=== PATIENT | male | born 1935 | race Caucasian/White ===

== ENCOUNTER 2017-06-19 10:55 | Inpatient (IN) | payer MEDICARE ==
[~2017-06-19] VITALS: Ht 182.9 cm; Wt 105.9 kg
[2017-06-19 11:33] LABS: BASO # 0.1 x10^3/uL (0.0-0.2); BASO % 1 % (0-3); EOS # 0.2 x10^3/uL (0.0-0.7); EOS % 3 % (0-3); HEMATOCRIT 48.2 % (39.0-53.0); LYMPH # 1.1 x10^3/uL (1.0-4.8); LYMPH % 14 % (24-48); MEAN CORPUSCULAR HEMOGLOBIN 28 pg (25-35); MEAN CORPUSCULAR HGB CONC 33 g/dL (31-37); MEAN CORPUSCULAR VOLUME 84 fL (79-100); MONO # 0.6 x10^3/uL (0.0-1.1); MONO % 8 % (0-9); NEUT # 5.5 x10^3uL (1.8-7.7); NEUT % 74 % (31-73); PLATELET COUNT 178 x10^3/uL (140-400); RED BLOOD COUNT 5.75 x10^6/uL (4.30-5.70); WHITE BLOOD COUNT 7.4 x10^3/uL (4.0-11.0)
[2017-06-19 11:49] LABS: ALBUMIN 3.8 g/dL (3.4-5.0); ALBUMIN/GLOBULIN RATIO 0.8 (1.0-1.7); CALCIUM 9.4 mg/dL (8.5-10.1); CREATININE 1.7 mg/dL (0.7-1.3); MAGNESIUM 2.2 mg/dL (1.8-2.4); POTASSIUM 4.6 mmol/L (3.5-5.1); TOTAL PROTEIN 8.4 g/dL (6.4-8.2)
[2017-06-19 12:08] LABS: BACTERIA,URINE 0 /HPF (0-FEW); BILIRUBIN,URINE NEG (NEG); CLARITY,URINE CLEAR; COLOR,URINE YELLOW; GLUCOSE,URINE NEG (NEG); NITRITE,URINE NEG (NEG); RBC,URINE RARE /HPF (0-2); SQUAMOUS EPITHELIAL CELL,UR OCC /LPF; UROBILINOGEN,URINE 4 mg/dL (0.2 mg/dL); WBC,URINE RARE /HPF (0-4)
--- NOTE | 2017-06-19 12:13 | PHYS DOC ---
Past History Past Medical History: A-Fib, CHF, Diabetes, Other Past Surgical History: Pacemaker Alcohol Use: None Drug Use: None Adult General Chief Complaint Chief Complaint: PSYCH EVALUATION HPI HPI 81-year-old male patient resident of correction seen for medical clearance for psychiatric admission. Patient states he is here because of back pain that is going on for 2 or 4 weeks without history of fall. [facility] reported that patient had sexual behavior against females and exposed his genital and taking his stool from his depends. Patient denies all of this problems. Patient denies suicidal and homicidal ideation and hallucination. Review of Systems Review of Systems Constitutional: Denies fever or chills [] Eyes: Denies change in visual acuity, redness, or eye pain [] HENT: Denies nasal congestion or sore throat [] Respiratory: Denies cough or shortness of breath [] Cardiovascular: No additional information not addressed in HPI [] GI: Denies abdominal pain, nausea, vomiting, bloody stools or diarrhea [] : Denies dysuria or hematuria [] Musculoskeletal: Denies back pain or joint pain [] Integument: Denies rash or skin lesions [] Neurologic: Denies headache, focal weakness or sensory changes [] Endocrine: Denies polyuria or polydipsia [] All other systems were reviewed and found to be within normal limits, except as documented in this note. Allergies Allergies Allergies Coded Allergies Type Severity Reaction Last Updated Verified No Known Drug Allergies 06/19/17 No Physical Exam Physical Exam Constitutional: Well nourished, no acute distress, non-toxic appearance. [] HENT: Normocephalic, atraumatic, bilateral external ears normal, oropharynx moist, no oral exudates, nose normal. [] Eyes: PERRLA, EOMI, conjunctiva normal, no discharge. [] Neck: Normal range of motion, no tenderness, supple, no stridor. [] Cardiovascular: Irregularly irregular, no murmur [] Lungs & Thorax: Bilateral breath sounds clear to auscultation [] Abdomen: Bowel sounds normal, soft, no tenderness, no masses, no pulsatile masses. [] Skin: Warm, dry, no erythema, no rash. [] for taking X-ray or CT of his back Extremities: No tenderness, no cyanosis, no clubbing, ROM intact, no edema. [] Neurologic: Alert and oriented X 2, normal motor function, normal sensory function, no focal deficits noted. [] Psychologic: Anxious Current Patient Data Vital Signs Vital Signs Date Time Temp Pulse Resp B/P (MAP) Pulse Ox O2 Delivery O2 Flow Rate FiO2 06/19/17 10:55 97.7 67 18 91 Room Air Lab Results Laboratory Tests Test 06/19/17 11:18 White Blood Count 7.4 x10^3/uL (4.0-11.0) Red Blood Count 5.75 x10^6/uL (4.30-5.70) H Hemoglobin 16.0 g/dL (13.0-17.5) Hematocrit 48.2 % (39.0-53.0) Mean Corpuscular Volume 84 fL (79-100) Mean Corpuscular Hemoglobin 28 pg (25-35) Mean Corpuscular Hemoglobin Concent 33 g/dL (31-37) Red Cell Distribution Width 17.0 % (11.5-14.5) H Platelet Count 178 x10^3/uL (140-400) Neutrophils (%) (Auto) 74 % (31-73) H Lymphocytes (%) (Auto) 14 % (24-48) L Monocytes (%) (Auto) 8 % (0-9) Eosinophils (%) (Auto) 3 % (0-3) Basophils (%) (Auto) 1 % (0-3) Neutrophils # (Auto) 5.5 x10^3uL (1.8-7.7) Lymphocytes # (Auto) 1.1 x10^3/uL (1.0-4.8) Monocytes # (Auto) 0.6 x10^3/uL (0.0-1.1) Eosinophils # (Auto) 0.2 x10^3/uL (0.0-0.7) Basophils # (Auto) 0.1 x10^3/uL (0.0-0.2) Sodium Level 138 mmol/L (136-145) Potassium Level 4.6 mmol/L (3.5-5.1) Chloride Level 100 mmol/L (98-107) Carbon Dioxide Level 30 mmol/L (21-32) Anion Gap 8 (6-14) Blood Urea Nitrogen 30 mg/dL (8-26) H Creatinine 1.7 mg/dL (0.7-1.3) H Estimated GFR (Cockcroft-Gault) 39.0 BUN/Creatinine Ratio 18 (6-20) Glucose Level 231 mg/dL (70-99) H Calcium Level 9.4 mg/dL (8.5-10.1) Magnesium Level 2.2 mg/dL (1.8-2.4) Total Bilirubin 1.0 mg/dL (0.2-1.0) Aspartate Amino Transferase (AST) 26 U/L (15-37) Alanine Aminotransferase (ALT) 22 U/L (16-63) Alkaline Phosphatase 125 U/L (46-116) H Total Protein 8.4 g/dL (6.4-8.2) H Albumin 3.8 g/dL (3.4-5.0) Albumin/Globulin Ratio 0.8 (1.0-1.7) L EKG EKG [EKG interpreted by me. EKG at 1149 showed atrial fibrillation at rate of 63 with left axis deviation without acute ST and T wave abnormality Radiology/Procedures Radiology/Procedures [] Course & Med Decision Making Course & Med Decision Making Pertinent Labs studies reviewed. (See chart for details) Evaluation of patient in ER showed 81-year-old male patient presented to ER because of medical clearance for psychiatric admission. Patient obtaining of chronic back pain and diffuse top CT because of position. Labs was unremarkable except for chronic renal insufficiency. Patient was medically cleared for psychiatric admission. Dragon Disclaimer Dragon Disclaimer This electronic medical record was generated, in whole or in part, using a voice recognition dictation system. Departure Departure: Impression: Primary Impression: Medical clearance for psychiatric admission Additional Impressions: Chronic renal insufficiency Diabetes mellitus Atrial fibrillation Disposition: 09 ADMITTED INPATIENT (at 1213 to [facility]) Condition: STABLE Referrals: GABY CLAIRE MD (PCP) Problem Qualifiers MARIA L RAMOS MD Jun 19, 2017 12:13
[2017-06-19 13:54] VITALS: BP 97/60
[2017-06-19] MEDS ORDERED: METHYL SALICYLATE/MENTHOL TOPICAL OINTMENT 29GM TUBE. TP PRN (14:00)
[2017-06-19] MEDS ORDERED: MAG HYDROX/AL HYDROX/SIMETH 30 ML ORAL.SUSP PO PRN (14:00)
[2017-06-19] MEDS ORDERED: MAGNESIUM HYDROXIDE 2,400 MG/30 ML ORAL.SUSP. PO PRN (14:00)
[2017-06-19] MEDS ORDERED: NYST15CR TP ×2 (14:33)
[2017-06-19] MEDS ORDERED: WARF3TAB54 PO (14:33)
[2017-06-19] MEDS ORDERED: POLY2500 PO (14:33)
[2017-06-19] MEDS ORDERED: OXYM30SP NS (14:33)
[2017-06-19] MEDS ORDERED: LOSA50TA6 PO (14:33)
[2017-06-19] MEDS ORDERED: CLOT15CR4 TP (14:33)
[2017-06-19] MEDS ORDERED: LINA5TAB4 PO (14:33)
[2017-06-19] MEDS ORDERED: SIMV10TA3 PO (14:33)
[2017-06-19] MEDS ORDERED: DONE5TAB56 PO (14:33)
[2017-06-19] MEDS ORDERED: LIDO113G2 TP (14:33)
[2017-06-19] MEDS ORDERED: HYDR25SU18 RC (14:33)
[2017-06-19] MEDS ORDERED: POTA10TA10 PO (14:33)
[2017-06-19] MEDS ORDERED: MELA3TAB2 PO (14:33)
[2017-06-19] MEDS ORDERED: LORA0.5T PO (14:33)
[2017-06-19] MEDS ORDERED: ACET325T9 PO (14:33)
[2017-06-19] MEDS ORDERED: LACT1CAP29 PO (14:33)
[2017-06-19] MEDS ORDERED: FURO40TA4 PO (14:33)
[2017-06-19] MEDS ORDERED: METO50TA6 PO (14:33)
[2017-06-19] MEDS ORDERED: GLIM2TAB2 PO (14:33)
--- NOTE | 2017-06-19 16:14 | EKG ---
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
[2017-06-19 16:40] VITALS: BP 118/65
[2017-06-19] MEDS: GLIMEPIRIDE 2 MG TABLET PO SCH (17:00)
--- NOTE | 2017-06-19 19:52 | PDOC ---
Exam Note: Shady Note: Please also refer to the separate dictated note~for this date of service dictated separately.~Patient seen individually. Discussed the patient with Nursing staff reviewed the chart.~Reviewed interim history and current functioning. Reviewed vital signs,~Labs/ Radiology~and current medications noted below. Continue current treatment with the changes noted in the dictated addendum note Assessment: Vital Signs: Vital Signs Date Time Temp Pulse Resp B/P (MAP) Pulse Ox O2 Delivery O2 Flow Rate FiO2 06/19/17 16:40 97.3 80 19 118/65 (82) 94 06/19/17 10:55 Room Air Labs: Laboratory Tests Test 06/19/17 11:18 06/19/17 11:45 06/19/17 15:24 06/19/17 19:06 White Blood Count 7.4 x10^3/uL (4.0-11.0) Red Blood Count 5.75 x10^6/uL (4.30-5.70) H Hemoglobin 16.0 g/dL (13.0-17.5) Hematocrit 48.2 % (39.0-53.0) Mean Corpuscular Volume 84 fL (79-100) Mean Corpuscular Hemoglobin 28 pg (25-35) Mean Corpuscular Hemoglobin Concent 33 g/dL (31-37) Red Cell Distribution Width 17.0 % (11.5-14.5) H Platelet Count 178 x10^3/uL (140-400) Neutrophils (%) (Auto) 74 % (31-73) H Lymphocytes (%) (Auto) 14 % (24-48) L Monocytes (%) (Auto) 8 % (0-9) Eosinophils (%) (Auto) 3 % (0-3) Basophils (%) (Auto) 1 % (0-3) Neutrophils # (Auto) 5.5 x10^3uL (1.8-7.7) Lymphocytes # (Auto) 1.1 x10^3/uL (1.0-4.8) Monocytes # (Auto) 0.6 x10^3/uL (0.0-1.1) Eosinophils # (Auto) 0.2 x10^3/uL (0.0-0.7) Basophils # (Auto) 0.1 x10^3/uL (0.0-0.2) Sodium Level 138 mmol/L (136-145) Potassium Level 4.6 mmol/L (3.5-5.1) Chloride Level 100 mmol/L (98-107) Carbon Dioxide Level 30 mmol/L (21-32) Anion Gap 8 (6-14) Blood Urea Nitrogen 30 mg/dL (8-26) H Creatinine 1.7 mg/dL (0.7-1.3) H Estimated GFR (Cockcroft-Gault) 39.0 BUN/Creatinine Ratio 18 (6-20) Glucose Level 231 mg/dL (70-99) H Calcium Level 9.4 mg/dL (8.5-10.1) Magnesium Level 2.2 mg/dL (1.8-2.4) Total Bilirubin 1.0 mg/dL (0.2-1.0) Aspartate Amino Transferase (AST) 26 U/L (15-37) Alanine Aminotransferase (ALT) 22 U/L (16-63) Alkaline Phosphatase 125 U/L (46-116) H Total Protein 8.4 g/dL (6.4-8.2) H Albumin 3.8 g/dL (3.4-5.0) Albumin/Globulin Ratio 0.8 (1.0-1.7) L Urine Collection Type Unknown Urine Color Yellow Urine Clarity Clear Urine pH 5.5 Urine Specific [place] 1.015 Urine Protein 100 mg/dl (NEG-TRACE) Urine Glucose (UA) Neg mg/dL (NEG) Urine Ketones (Stick) Neg mg/dL (NEG) Urine Blood Trace (NEG) Urine Nitrite Neg (NEG) Urine Bilirubin Neg (NEG) Urine Urobilinogen Dipstick 4 mg/dL (0.2 mg/dL) Urine Leukocyte Esterase Neg (NEG) Urine RBC Rare /HPF (0-2) Urine WBC Rare /HPF (0-4) Urine Squamous Epithelial Cells Occ /LPF Urine Transitional Epithelial Cells Occ /LPF Urine Bacteria 0 /HPF (0-FEW) Prothrombin Time 25.0 SEC (9.4-11.4) H Prothrombin Time INR 2.5 (0.9-1.1) H Glucose (Fingerstick) 203 mg/dL (70-99) H Current Medications: Meds: Current Medications Acetaminophen (Tylenol) 650 mg PRN Q6HRS PRN PO PAIN / TEMP; Start 06/19/17 at 14:00 Multi-Ingredient Ointment (Analgesic [place]) 1 tori PRN QID PRN TP MUSCLE PAIN; Start 06/19/17 at 14:00 Al Hydroxide/Mg Hydroxide (Mylanta Plus Xs) 15 ml PRN AFTMEALHC PRN PO DYSPEPSIA; Start 06/19/17 at 14:00 Magnesium Hydroxide (Milk Of Magnesia) 2,400 mg PRN QHS PRN PO CONSTIPATION; Start 06/19/17 at 14:00 Donepezil HCl (Aricept) 5 mg QHS PO ; Start 06/19/17 at 21:00 Lorazepam (Ativan) 0.5 mg BID PO ; Start 06/19/17 at 21:00 Melatonin 6 mg QHS PO ; Start 06/19/17 at 21:00 Glimepiride (Amaryl) 2 mg BIDWMEALS PO ; Start 06/19/17 at 17:00 Metoprolol Tartrate (Lopressor) 50 mg BID PO ; Start 06/19/17 at 21:00 Warfarin Sodium (Coumadin) 2.5 mg QHS PO ; Start 06/19/17 at 21:00 Warfarin Sodium (Coumadin Per Physician) 1 each PRN DAILY PRN MC SEE COMMENTS Last administered on 06/19/17at 16:02; Start 06/19/17 at 16:00 Warfarin Sodium (Coumadin) 1 mg QHS PO ; Start 06/19/17 at 21:00 Active Scripts Active Reported Tradjenta (Linagliptin) 5 Mg Tablet 5 Mg PO DAILY Simvastatin 10 Mg Tablet 10 Mg PO DAILY Probiotic (Lactobacillus Combo No.10) 1 Each Capsule 1 Each PO Potassium Chloride 10 Meq Tablet.er 20 Meq PO DAILY Nystatin 15 Gm Cream..g. 1 Tori TP DAILY Sinus Nasal (Oxymetazoline Hcl) 30 Ml [place] 1 [place] NS PRN Q6HRS PRN Metoprolol Tartrate 50 Mg Tablet 50 Mg PO BID Melatonin 3 Mg Tablet 6 Mg PO HS Losartan Potassium 50 Mg Tablet 50 Mg PO DAILY Lorazepam 0.5 Mg Tablet 0.5 Mg PO BID Topicaine (Lidocaine) 113 Gm Gel..gram. 1 Tori TP DAILY Polyethylene Glycol 3350 2,500 Gm Powder 17 Gm PO DAILY Glimepiride 2 Mg Tablet 2 Mg PO BID Furosemide 40 Mg Tablet 40 Mg PO DAILY Coumadin (Warfarin Sodium) 3 Mg Tablet 3.5 Mg PO QHS Clotrimazole 15 Gm Cream..g. 15 Gm TP BID Aricept (Donepezil Hcl) 5 Mg Tablet 5 Mg PO QHS Anusol-Hc (Hydrocortisone Acetate) 25 Mg Supp.rect 1 Supp RC PRN Q8HRS PRN Tylenol (Acetaminophen) 325 Mg Tablet 650 Mg PO PRN Q4HRS PRN I have reviewed the current psychotropics carefully including drug interactions. Risk benefit ratio favors no change other than as noted in my dictated progress note. 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
[2017-06-19] MEDS: ACETAMINOPHEN 325 MG TABLET PO PRN (20:19)
[2017-06-19] MEDS: METOPROLOL TART IMMED RELEASE 50 MG TABLET PO SCH (20:20)
[2017-06-19] MEDS: WARFARIN 1 MG TABLET. PO SCH (20:21)
[2017-06-19] MEDS: MELATONIN 3 MG TABLET PO SCH (20:21)
[2017-06-19] MEDS: DONEPEZIL HCL 5 MG TABLET. PO SCH (20:21)
[2017-06-19] MEDS: LORazepam 0.5 MG TABLET PO SCH (20:21)
[2017-06-19] MEDS: WARFARIN 2.5 MG TABLET. PO SCH (20:21)
[2017-06-20 03:11] LABS: T3 TOTAL 110 ng/dL (71-180)
[2017-06-20 06:09] LABS: HEMOGLOBIN A1C 6.3 % (4.8-5.6)
[2017-06-20 06:18] VITALS: BP 126/76
[2017-06-20] MEDS: GLIMEPIRIDE 2 MG TABLET PO SCH ×2 (09:27→17:04)
[2017-06-20] MEDS: LORazepam 0.5 MG TABLET PO SCH ×2 (09:28→20:21)
[2017-06-20] MEDS: METOPROLOL TART IMMED RELEASE 50 MG TABLET PO SCH ×2 (09:28→20:14)
[2017-06-20] MEDS: ACETAMINOPHEN 325 MG TABLET PO PRN (09:28)
[2017-06-20] MEDS ORDERED: OXYMETAZOLINE 0.05% NASAL SPRAY 15ML BOTTLE. NS PRN (10:15)
[2017-06-20] MEDS ORDERED: HYDROCORTISONE ACETATE 25 MG SUPP.RECT RC PRN (10:15)
[2017-06-20] MEDS: NYSTATIN 100,000 UNIT/GM TOPICAL CREAM 15GM TUBE. TP SCH (12:00)
[2017-06-20] MEDS: traMADol 50 MG TABLET PO PRN (12:07)
[2017-06-20] MEDS: LOSARTAN 50 MG TABLET. PO SCH (12:07)
[2017-06-20] MEDS: POTASSIUM CHLORIDE 20 MEQ TABLET.ER. PO SCH (12:07)
[2017-06-20] MEDS: LINAGLIPTIN 5 MG TABLET PO SCH (12:07)
[2017-06-20] MEDS: FUROSEMIDE 40 MG TABLET PO SCH (12:07)
[2017-06-20] MEDS: POLYETHYLENE GLYCOL 3350 17 GM PACKET. PO SCH (12:08)
[2017-06-20] MEDS: LIDOCAINE (700MG/PATCH) PATCH. TD SCH (12:08)
[2017-06-20] MEDS: LIDOCAINE 2% TOPICAL JELLY 30GM TUBE. TP SCH (12:08)
[2017-06-20] MEDS: QUEtiapine 25 MG TABLET. PO SCH ×2 (12:21→17:04)
--- NOTE | 2017-06-20 13:54 | HP ---
ADMIT DATE: 06/19/2017 REASON FOR ADMISSION TO [facility]IOR [facility]: This is an 81-year-old gentleman who resides at the [facility] in [place], [place]. He has been undressing himself, sexually inappropriate with staff, provocative, refusing care, refusing meds, obsessed with the bathroom and toilet paper and also obsessed with what he describes as low back pain. Reviewed back some of the nurse's notes and this is going back to the intake 62 months, but I saw a note from February with the same complaint. He has been at the [facility] since August of 2016. PAST MEDICAL HISTORY: Congestive heart failure, atrial fibrillation, iron deficiency. The patient states he has a [employer] Lucas's artificial heart valve, chronic kidney disease, hyperlipidemia, type 2 diabetes. FUNCTIONALITY: The patient states he can walk, but likes to use a wheelchair because it gets him around faster. MEDICATIONS: Reviewed and are available on the MAR. REVIEW OF SYSTEMS: Positive for low back pain what he states he has had for 2-3 weeks. He requested oxycodone. Attempted to do a CAT scan in the Emergency Room, which he refused to have done, but is quite fixated on the low back pain and actually had come out of the bathroom when I walked into his room. HABITS: The patient no longer smokes, quit 20 years ago. Denies any problems with alcohol. 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 PAST SURGICAL HISTORY: Tonsillectomy, pacemaker, and possible heart valve replacement. OBJECTIVE: VITAL SIGNS: Blood pressure 126/76, temperature 97, pulse 86, pulse ox 94% on room air. Height 72 inches, weight 229 pounds. GENERAL: Elderly 81-year-old in no acute distress. HEENT: Head is normocephalic. His eyes are clear. Nose is patent. Throat clear. NECK: Supple without adenopathy, did not hear any carotid bruits. LUNGS: Clear in all [place]. CARDIOVASCULAR: Regular rhythm and rate with crisp valvular sound particularly in the aortic area. ABDOMEN: Soft, nontender. EXTREMITIES: With significant skin changes from chronic venous insufficiency, no hair growth on his feet. Pulses barely palpable. MUSCULOSKELETAL: The patient has loss of a normal lordosis of his back and has back pain over the sacroiliac joints. Fails get up and go test. Cranial nerves, he is able to follow directions and appear to be intact. Mildly hard of hearing. LABORATORY DATA: CBC unremarkable. Hemoglobin A1c 6.3, BUN 30, creatinine 1.7. INR is 2.5. ASSESSMENT: 1. 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 2. [employer] Lucas's aortic valve. 3. Long-term use of anticoagulants. 4. Impaired mobility. 5. Atrial fibrillation. 6. Type 2 diabetes, good control. 7. Fall risk. 8. Low back pain, questionable etiology. PLAN: To try to get him to the CT of his lumbar spine. Tramadol. I did not feel comfortable prescribing oxycodone. Also, a lidocaine patch. We will continue to follow with Dr. Patterson. AYAAN MUNOZ MD DR: JOSE FRANCISCO/yovana JOB#: [id number] / [id number]
[2017-06-20 14:12] LABS: THYROID STIM HORMONE (TSH) 3.054 uIU/mL (0.358-3.740)
--- NOTE | 2017-06-20 14:40 | HP ---
ADMIT DATE: 06/19/2017 REASON FOR ADMISSION TO S[facility]IOR [facility]AL UN[facility]: This is an 81-year-old gentleman who resides at the [facility] in [place], [place]. He has been undressing himself, sexually inappropriate with staff, provocative, refusing care, refusing meds, obsessed with the bathroom and toilet paper and also obsessed with what he describes as low back pain. Reviewed back some of the nurse's notes and this is going back to the intake 62 months, but I saw a note from February with the same complaint. He has been at the [facility] since August of 2016. PAST MEDICAL HISTORY: Congestive heart failure, atrial fibrillation, iron deficiency. The patient states he has a [employer] Lucas's artificial heart valve, chronic kidney disease, hyperlipidemia, type 2 diabetes. FUNCTIONALITY: The patient states he can walk, but likes to use a wheelchair because it gets him around faster. MEDICATIONS: Reviewed and are available on the MAR. REVIEW OF SYSTEMS: Positive for low back pain what he states he has had for 2-3 weeks. He requested oxycodone. Attempted to do a CAT scan in the Emergency Room, which he refused to have done, but is quite fixated on the low back pain and actually had come out of the bathroom when I walked into his room. HABITS: The patient no longer smokes, quit 20 years ago. Denies any problems with alcohol. 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 PAST SURGICAL HISTORY: Tonsillectomy, pacemaker, and possible heart valve replacement. OBJECTIVE: VITAL SIGNS: Blood pressure 126/76, temperature 97, pulse 86, pulse ox 94% on room air. Height 72 inches, weight 229 pounds. GENERAL: Elderly 81-year-old in no acute distress. HEENT: Head is normocephalic. His eyes are clear. Nose is patent. Throat clear. NECK: Supple without adenopathy, did not hear any carotid bruits. LUNGS: Clear in all m[place]ull[place]. CARDIOVASCULAR: Regular rhythm and rate with crisp valvular sound particularly in the aortic area. ABDOMEN: Soft, nontender. EXTREMITIES: With significant skin changes from chronic venous insufficiency, no hair growth on his feet. Pulses barely palpable. MUSCULOSKELETAL: The patient has loss of a normal lordosis of his back and has back pain over the sacroiliac joints. Fails get up and go test. Cranial nerves, he is able to follow directions and appear to be intact. Mildly hard of hearing. LABORATORY DATA: CBC unremarkable. Hemoglobin A1c 6.3, BUN 30, creatinine 1.7. INR is 2.5. ASSESSMENT: 1. 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 2. [facility]. Lucas's aortic valve. 3. Long-term use of anticoagulants. 4. Impaired mobility. 5. Atrial fibrillation. 6. Type 2 diabetes, good control. 7. Fall risk. 8. Low back pain, questionable etiology. PLAN: To try to get him to the CT of his lumbar spine. Tramadol. I did not feel comfortable prescribing oxycodone. Also, a lidocaine patch. We will continue to follow with Dr. Patterson. KRISTA DE GUZMAN DO DR: RONNY/yovana JOB#: [id number] / [id number]
[2017-06-20 16:21] VITALS: BP 121/63
--- NOTE | 2017-06-20 16:48 | RAD ---
CT of the lumbar spine without contrast, 06/20/2017: History: Severe back pain Noncontrast scans were obtained with multiplanar reconstructions produced. No previous studies are available at this time for comparison purposes. There is a severe vertebral compression deformity at T12 which is incompletely delineated on these scans. There is gas within the compressed vertebral body and the adjacent T11-12 disc space presumably on a vacuum basis. There is a moderate vertebral compression deformity at L1. There is poor definition of the inferior endplate compatible with bony resorption and/or a large Schmorl's defect. There is mild posterior disc bulging and marginal spurring at L1-2 without significant central spinal stenosis. The L2 vertebral height is well maintained. There are moderate degenerative changes involving the facet joints at L2-3. There is mild posterior disc bulging and marginal spurring. No significant central spinal stenosis is evident. There is mild loss of height of the L3 vertebral body. There are moderate degenerative changes involving the facet joints at L3-4. There is mild posterior disc bulging. No high-grade central spinal or foraminal stenosis is evident. The L4 and L5 vertebral heights are well-maintained. There is moderate degenerative disc disease and bilateral facet joint arthropathy at both of these levels. The spurring is causing moderate bilateral foraminal encroachment at L5-S1. No significant central spinal stenosis is evident. Moderate aortoiliac calcific plaquing is present without evidence of aneurysm. IMPRESSION: 1. Severe T12 vertebral compression fracture, moderate L1 vertebral compression fracture and mild L3 vertebral compression fracture of indeterminate ages. 2. Moderate multilevel degenerative change as described above PQRS Compliance Statement: One or more of the following individualized dose reduction techniques were utilized for this examination: 1. Automated exposure control 2. Adjustment of the mA and/or kV according to patient size 3. Use of iterative reconstruction technique
--- NOTE | 2017-06-20 19:46 | PDOC ---
Exam Note: Shady Note: Please also refer to the separate dictated note~for this date of service dictated separately.~Patient seen individually. Discussed the patient with Nursing staff reviewed the chart.~Reviewed interim history and current functioning. Reviewed vital signs,~Labs/ Radiology~and current medications noted below. Continue current treatment with the changes noted in the dictated addendum note Assessment: Vital Signs: Vital Signs Date Time Temp Pulse Resp B/P (MAP) Pulse Ox O2 Delivery O2 Flow Rate FiO2 06/20/17 16:21 97.9 80 20 121/63 (82) 92 Room Air I&O Intake and Output 06/20/17 07:00 Intake Total 240 ml Balance 240 ml Intake Oral 240 ml # Voids 2 Labs: Laboratory Tests Test 06/20/17 07:17 06/20/17 19:18 Glucose (Fingerstick) 130 mg/dL (70-99) H 174 mg/dL (70-99) H Current Medications: Meds: Current Medications Acetaminophen (Tylenol) 650 mg PRN Q6HRS PRN PO PAIN / TEMP Last administered on 06/20/17at 09:28; Start 06/19/17 at 14:00; Stop 06/20/17 at 10:20; Status DC Multi-Ingredient Ointment (Analgesic [place]) 1 tori PRN QID PRN TP MUSCLE PAIN; Start 06/19/17 at 14:00 Al Hydroxide/Mg Hydroxide (Mylanta Plus Xs) 15 ml PRN AFTMEALHC PRN PO DYSPEPSIA; Start 06/19/17 at 14:00 Magnesium Hydroxide (Milk Of Magnesia) 2,400 mg PRN QHS PRN PO CONSTIPATION; Start 06/19/17 at 14:00 Donepezil HCl (Aricept) 5 mg QHS PO Last administered on 06/19/17at 20:21; Start 06/19/17 at 21:00 Lorazepam (Ativan) 0.5 mg BID PO Last administered on 06/20/17at 09:28; Start at 21:00 Melatonin 6 mg QHS PO Last administered on 06/19/17at 20:21; Start 06/19/17 at 21:00 Glimepiride (Amaryl) 2 mg BIDWMEALS PO Last administered on 06/20/17at 17:04; Start 06/19/17 at 17:00 Metoprolol Tartrate (Lopressor) 50 mg BID PO Last administered on 06/20/17at 09: 28; Start 06/19/17 at 21:00 Warfarin Sodium (Coumadin) 2.5 mg QHS PO Last administered on 06/19/17at 20:21; Start 06/19/17 at 21:00 Warfarin Sodium (Coumadin Per Physician) 1 each PRN DAILY PRN MC SEE COMMENTS Last administered on 06/20/17at 10:54; Start 06/19/17 at 16:00; Stop 06/20/17 at 14:41; Status DC Warfarin Sodium (Coumadin) 1 mg QHS PO Last administered on 06/19/17at 20:21; Start 06/19/17 at 21:00 Acetaminophen (Tylenol) 650 mg PRN Q4HRS PRN PO PAIN; Start 06/20/17 at 10:15 Clotrimazole (Lotrimin) 15 tori BID TP ; Start 06/20/17 at 21:00 Furosemide (Lasix) 40 mg DAILY PO Last administered on 06/20/17at 12:07; Start 06/20/17 at 12:00 Hydrocortisone Acetate (Anucort-Hc) 25 mg PRN Q8HRS PRN RC hemmorhoid discomfort; Start 06/20/17 at 10:15 Linagliptin (Tradjenta) 5 mg DAILY PO Last administered on 06/20/17at 12:07; Start 06/20/17 at 12:00 Losartan Potassium (Cozaar) 50 mg DAILY PO Last administered on 06/20/17at 12:07 ; Start 06/20/17 at 12:00 Nystatin (Mycostatin) 1 tori DAILY TP ; Start 06/20/17 at 12:00 Oxymetazoline HCl (Afrin) 1 spray PRN Q6HRS PRN NS dry nares Last administered on 06/20/17at 12:08; Start 06/20/17 at 10:15 Simvastatin (Zocor) 10 mg QHS PO ; Start 06/20/17 at 21:00 Lidocaine HCl (Xylocaine 2% Topical 30gm Tube) 1 tori DAILY TP Last administered on 06/20/17at 12:08; Start 06/20/17 at 12:00 Polyethylene Glycol (miraLAX) 17 gm DAILY PO Last administered on 06/20/17at 12: 08; Start 06/20/17 at 12:00 Potassium Chloride (Klor-Con) 20 meq DAILYWBKFT PO Last administered on at 12:07; Start 06/20/17 at 12:00 Quetiapine Fumarate (SEROquel) 12.5 mg TID@0900,1300,1700 PO Last administered on 06/20/17at 17:04; Start 06/20/17 at 13:00 Trazodone HCl (Desyrel) 50 mg QHS PO ; Start 06/20/17 at 21:00 Trazodone HCl (Desyrel) 50 mg PRN QHS PRN PO insomnia; Start 06/20/17 at 21:00 Tramadol HCl (Ultram) 50 mg PRN Q6HRS PRN PO PAIN Last administered on at 12:07; Start 06/20/17 at 11:15 Lidocaine (Lidoderm) 1 patch DAILY TD Last administered on 06/20/17at 12:08; Start 06/20/17 at 12:00 Warfarin Sodium (Coumadin Per Pharmacy) 1 each PRN DAILY PRN MC SEE COMMENTS; Start 06/20/17 at 14:45 Active Scripts Active Reported Tradjenta (Linagliptin) 5 Mg Tablet 5 Mg PO DAILY Simvastatin 10 Mg Tablet 10 Mg PO DAILY Probiotic (Lactobacillus Combo No.10) 1 Each Capsule 1 Each PO Potassium Chloride 10 Meq Tablet.er 20 Meq PO DAILY Nystatin 15 Gm Cream..g. 1 Tori TP DAILY Sinus Nasal (Oxymetazoline Hcl) 30 Ml [place] 1 [place] NS PRN Q6HRS PRN Metoprolol Tartrate 50 Mg Tablet 50 Mg PO BID Melatonin 3 Mg Tablet 6 Mg PO HS Losartan Potassium 50 Mg Tablet 50 Mg PO DAILY Lorazepam 0.5 Mg Tablet 0.5 Mg PO BID Topicaine (Lidocaine) 113 Gm Gel..gram. 1 Tori TP DAILY Polyethylene Glycol 3350 2,500 Gm Powder 17 Gm PO DAILY Glimepiride 2 Mg Tablet 2 Mg PO BID Furosemide 40 Mg Tablet 40 Mg PO DAILY Coumadin (Warfarin Sodium) 3 Mg Tablet 3.5 Mg PO QHS Clotrimazole 15 Gm Cream..g. 15 Gm TP BID Aricept (Donepezil Hcl) 5 Mg Tablet 5 Mg PO QHS Anusol-Hc (Hydrocortisone Acetate) 25 Mg Supp.rect 1 Supp RC PRN Q8HRS PRN Tylenol (Acetaminophen) 325 Mg Tablet 650 Mg PO PRN Q4HRS PRN I have reviewed the current psychotropics carefully including drug interactions. Risk benefit ratio favors no change other than as noted in my dictated progress note. Diagnosis: Problems: (1) Psychosis (2) Anxiety disorder (3) Bipolar affective, mixed, sev w/ psych (4) Dementia in Alzheimer's disease with delusions (5) Impulse control disorder MIMI MCNULTY MD Jun 20, 2017 19:46
[2017-06-20] MEDS: MELATONIN 3 MG TABLET PO SCH (20:14)
[2017-06-20] MEDS: DONEPEZIL HCL 5 MG TABLET. PO SCH (20:14)
[2017-06-20] MEDS: WARFARIN 2.5 MG TABLET. PO SCH (20:15)
[2017-06-20] MEDS: WARFARIN 1 MG TABLET. PO SCH (20:15)
--- NOTE | 2017-06-20 20:16 | HP ---
ADMIT DATE: 06/19/2017 This is a late entry for 06/19/2017 and covers elements not covered in my initial note of 06/19/2017. I met with the patient evening of 06/19/2017. IDENTIFYING DATA: The patient is an 81-year-old male who is referred to us from [facility] by Dr. Dickerson, primary care physician on account of worsening mood swings, undressing repeatedly, sexually inappropriate behaviors with staff, being provocative, refusing cares and medications, obsessed with bathroom and toilet paper. He has been digging his bowels from soiled briefs. All of these behaviors have worsened for the past 2 months. He has failed outpatient psychiatric interventions. Behaviors deemed dangerous, unmanageable at the facility resulting in this referral. CHIEF COMPLAINT: "I have no problems." The patient is in his wheelchair, quite abrasive, grandiose, the nursing report appears quite entitled, obsessive, repetitive with low cognitive functioning. HISTORY OF PRESENT ILLNESS: The patient has a history of above noted behaviors which have been sexually inappropriate and unmanageable, potentially dangerous at the intermediate. He has had sleep and appetite changes, appeared somewhat grandiose, delusional, paranoid. No suicidal or homicidal ideation. PAST PSYCHIATRIC HISTORY: As above. MEDICAL HISTORY: CHF, hypertension, impaired ambulation, hyperlipidemia, mild cognitive disorder, atrial fibrillation, iron deficiency, diabetes mellitus type 2, chronic kidney disease, coronary artery disease, pacemaker in place. Accu-Cheks b.i.d. Diet: Regular with thin liquids. CODE STATUS: DNR. DRUG ALLERGIES: Negative. Ambulates with wheelchair, but refuses to propel himself. UA negative. CURRENT PSYCHOTROPICS: Aricept 5 mg a day, Ativan 0.5 mg b.i.d., melatonin 6 mg at bedtime. FAMILY HISTORY: Noncontributory. SOCIAL HISTORY: No alcohol, drug abuse, physical, sexual or elder abuse history is noted. Not known to be a perpetrator. MENTAL STATUS EXAMINATION: The patient was seen individually evening of 06/19/2017. He is oriented to himself and situation. Speech has some latency, at times pressured. Abstraction fair, computation impaired, language function intact, insight limited. No active suicidal or homicidal ideation. He appears quite grandiose, repeatedly calling me to sit down with them even after I had met with him for the initial with it. ASSETS: Stable living at the above facility. REACTION TO HOSPITALIZATION: The patient accepting of it. IMPRESSION: Probable bipolar 1 disorder, mixed with psychotic features, mild cognitive impairment; impulse control disorder, unspecified; psychotic disorder, unspecified. Rest as above. PLAN: Admit to geropsychiatry unit at [facility]. I will see the patient daily individually from a psychiatric standpoint, medical followup per Dr. Veliz/Dr. Lewis. Continue current psychotropics, observe baseline, then adjust further as clinically indicated. May consider a mood stabilizer or an atypical antipsychotic depending on presenting symptoms. MAN Raquel MCNULTY MD DR: CHERIE/nts JOB#: [id number] / [id number]
[2017-06-20] MEDS: traZODone 50 MG TABLET. PO SCH (20:17)
[2017-06-20] MEDS: SIMVASTATIN 10 MG TABLET PO SCH (20:17)
[2017-06-20] MEDS: CLOTRIMAZOLE 1% TOPICAL CREAM 30GM TUBE. TP SCH (20:21)
[2017-06-20] MEDS ORDERED: traZODone 50 MG TABLET. PO PRN (21:00)
[2017-06-20] MEDS ORDERED: CLOTRIMAZOLE 1% TOPICAL CREAM 30GM TUBE. TP SCH (21:00)
[2017-06-21 06:12] VITALS: BP 120/64
[2017-06-21] MEDS: LIDOCAINE (700MG/PATCH) PATCH. TD SCH ×3 (08:19→15:46)
[2017-06-21] MEDS: POLYETHYLENE GLYCOL 3350 17 GM PACKET. PO SCH (08:19)
[2017-06-21] MEDS: LINAGLIPTIN 5 MG TABLET PO SCH (08:20)
[2017-06-21] MEDS: FUROSEMIDE 40 MG TABLET PO SCH (08:20)
[2017-06-21] MEDS: METOPROLOL TART IMMED RELEASE 50 MG TABLET PO SCH ×2 (08:20→19:50)
[2017-06-21] MEDS: POTASSIUM CHLORIDE 20 MEQ TABLET.ER. PO SCH (08:20)
[2017-06-21] MEDS: GLIMEPIRIDE 2 MG TABLET PO SCH ×2 (08:20→17:21)
[2017-06-21] MEDS: QUEtiapine 25 MG TABLET. PO SCH ×3 (08:21→17:24)
[2017-06-21] MEDS: LOSARTAN 50 MG TABLET. PO SCH (08:21)
[2017-06-21] MEDS: LORazepam 0.5 MG TABLET PO SCH ×2 (08:22→19:50)
[2017-06-21] MEDS: ACETAMINOPHEN 325 MG TABLET PO PRN (08:26)
[2017-06-21] MEDS: LIDOCAINE 2% TOPICAL JELLY 30GM TUBE. TP SCH (08:26)
[2017-06-21] MEDS: traMADol 50 MG TABLET PO PRN (08:26)
[2017-06-21] MEDS: CLOTRIMAZOLE 1% TOPICAL CREAM 30GM TUBE. TP SCH ×2 (08:51→19:51)
[2017-06-21] MEDS: NYSTATIN 100,000 UNIT/GM TOPICAL CREAM 15GM TUBE. TP SCH (09:00)
[2017-06-21] MEDS: CHOLECALCIFEROL (VITAMIN D3) 50,000 UNIT CAPSULE PO SCH (15:45)
[2017-06-21 15:58] VITALS: BP 112/58
[2017-06-21] MEDS ORDERED: WARFARIN 5 MG TABLET. PO ONE (16:00)
--- NOTE | 2017-06-21 19:29 | PDOC ---
Exam Note: Shady Note: Please also refer to the separate dictated note~for this date of service dictated separately.~Patient seen individually. Discussed the patient with Nursing staff reviewed the chart.~Reviewed interim history and current functioning. Reviewed vital signs,~Labs/ Radiology~and current medications noted below. Continue current treatment with the changes noted in the dictated addendum note Assessment: Vital Signs: Vital Signs Date Time Temp Pulse Resp B/P (MAP) Pulse Ox O2 Delivery O2 Flow Rate FiO2 06/21/17 15:58 97.1 60 18 112/58 (76) 95 06/20/17 16:21 Room Air I&O Intake and Output 06/21/17 07:00 Intake Total 1200 ml Balance 1200 ml Intake Oral 1200 ml # Voids 2 Labs: Laboratory Tests Test 06/21/17 07:31 06/21/17 09:13 06/21/17 19:13 Glucose (Fingerstick) 136 mg/dL (70-99) H 183 mg/dL (70-99) H Prothrombin Time 21.2 SEC (9.4-11.4) H Prothrombin Time INR 2.1 (0.9-1.1) H Current Medications: Meds: Current Medications Acetaminophen (Tylenol) 650 mg PRN Q6HRS PRN PO PAIN / TEMP Last administered on 06/20/17at 09:28; Start 06/19/17 at 14:00; Stop 06/20/17 at 10:20; Status DC Multi-Ingredient Ointment (Analgesic [place]) 1 tori PRN QID PRN TP MUSCLE PAIN; Start 06/19/17 at 14:00 Al Hydroxide/Mg Hydroxide (Mylanta Plus Xs) 15 ml PRN AFTMEALHC PRN PO DYSPEPSIA; Start 06/19/17 at 14:00 Magnesium Hydroxide (Milk Of Magnesia) 2,400 mg PRN QHS PRN PO CONSTIPATION; Start 06/19/17 at 14:00 Donepezil HCl (Aricept) 5 mg QHS PO Last administered on 06/20/17at 20:14; Start 06/19/17 at 21:00 Lorazepam (Ativan) 0.5 mg BID PO Last administered on 06/21/17at 08:22; Start at 21:00 Melatonin 6 mg QHS PO Last administered on 06/20/17at 20:14; Start 06/19/17 at 21:00 Glimepiride (Amaryl) 2 mg BIDWMEALS PO Last administered on 06/21/17at 17:21; Start 06/19/17 at 17:00 Metoprolol Tartrate (Lopressor) 50 mg BID PO Last administered on 06/21/17at 08: 20; Start 06/19/17 at 21:00 Warfarin Sodium (Coumadin) 2.5 mg QHS PO Last administered on 06/20/17at 20:15; Start 06/19/17 at 21:00; Stop 06/21/17 at 14:13; Status DC Warfarin Sodium (Coumadin Per Physician) 1 each PRN DAILY PRN MC SEE COMMENTS Last administered on 06/20/17at 10:54; Start 06/19/17 at 16:00; Stop 06/20/17 at 14:41; Status DC Warfarin Sodium (Coumadin) 1 mg QHS PO Last administered on 06/20/17at 20:15; Start 06/19/17 at 21:00; Stop 06/21/17 at 14:14; Status DC Acetaminophen (Tylenol) 650 mg PRN Q4HRS PRN PO PAIN Last administered on at 08:26; Start 06/20/17 at 10:15 Clotrimazole (Lotrimin) 15 tori BID TP ; Start 06/20/17 at 21:00; Stop 06/20/17 at 21:00; Status DC Furosemide (Lasix) 40 mg DAILY PO Last administered on 06/21/17at 08:20; Start 06/20/17 at 12:00 Hydrocortisone Acetate (Anucort-Hc) 25 mg PRN Q8HRS PRN RC hemmorhoid discomfort; Start 06/20/17 at 10:15 Linagliptin (Tradjenta) 5 mg DAILY PO Last administered on 06/21/17at 08:20; Start 06/20/17 at 12:00 Losartan Potassium (Cozaar) 50 mg DAILY PO Last administered on 06/21/17at 08:21 ; Start 06/20/17 at 12:00 Nystatin (Mycostatin) 1 tori DAILY TP ; Start 06/20/17 at 12:00 Oxymetazoline HCl (Afrin) 1 spray PRN Q6HRS PRN NS dry nares Last administered on 06/20/17 12:08; Start 06/20/17 at 10:15 Simvastatin (Zocor) 10 mg QHS PO Last administered on 06/20/17 20:17; Start at 21:00 Lidocaine HCl (Xylocaine 2% Topical 30gm Tube) 1 tori DAILY TP Last administered on 06/21/17 08:26; Start 06/20/17 at 12:00 Polyethylene Glycol (miraLAX) 17 gm DAILY PO Last administered on 06/21/17 08: 19; Start 06/20/17 at 12:00 Potassium Chloride (Klor-Con) 20 meq DAILYWBKFT PO Last administered on 08:20; Start 06/20/17 at 12:00 Quetiapine Fumarate (SEROquel) 12.5 mg TID@0900,1300,1700 PO Last administered on 06/21/17 17:24; Start 06/20/17 at 13:00 Trazodone HCl (Desyrel) 50 mg QHS PO Last administered on 06/20/17 20:17; Start 06/20/17 at 21:00 Trazodone HCl (Desyrel) 50 mg PRN QHS PRN PO insomnia; Start 06/20/17 at 21:00 Tramadol HCl (Ultram) 50 mg PRN Q6HRS PRN PO PAIN Last administered on 08:26; Start 06/20/17 at 11:15 Lidocaine (Lidoderm) 1 patch DAILY TD Last administered on 06/20/17 12:08; Start 06/20/17 at 12:00 Warfarin Sodium (Coumadin Per Pharmacy) 1 each PRN DAILY PRN MC SEE COMMENTS Last administered on 06/21/17 14:20; Start 06/20/17 at 14:45 Clotrimazole (Lotrimin) 1 tori BID TP Last administered on 06/21/17 08:51; Start 06/20/17 at 21:00 Warfarin Sodium (Coumadin Per Pharmacy) 1 each PRN DAILY PRN MC SEE COMMENTS; Start 06/21/17 at 14:00; Stop 06/21/17 at 14:00; Status DC Vitamin D (Vitamin D3) 50,000 unit WEEKLY PO Last administered on 2/23/18at 15: 45; Start 06/21/17 at 14:00 Warfarin Sodium (Coumadin) 5 mg 1X WARF ONCE PO Last administered on at 15:45; Start 06/21/17 at 16:00; Stop 06/21/17 at 16:01; Status DC Active Scripts Active Reported Tradjenta (Linagliptin) 5 Mg Tablet 5 Mg PO DAILY Simvastatin 10 Mg Tablet 10 Mg PO DAILY Probiotic (Lactobacillus Combo No.10) 1 Each Capsule 1 Each PO Potassium Chloride 10 Meq Tablet.er 20 Meq PO DAILY Nystatin 15 Gm Cream..g. 1 Tori TP DAILY Sinus Nasal (Oxymetazoline Hcl) 30 Ml [place] 1 [place] NS PRN Q6HRS PRN Metoprolol Tartrate 50 Mg Tablet 50 Mg PO BID Melatonin 3 Mg Tablet 6 Mg PO HS Losartan Potassium 50 Mg Tablet 50 Mg PO DAILY Lorazepam 0.5 Mg Tablet 0.5 Mg PO BID Topicaine (Lidocaine) 113 Gm Gel..gram. 1 Tori TP DAILY Polyethylene Glycol 3350 2,500 Gm Powder 17 Gm PO DAILY Glimepiride 2 Mg Tablet 2 Mg PO BID Furosemide 40 Mg Tablet 40 Mg PO DAILY Coumadin (Warfarin Sodium) 3 Mg Tablet 3.5 Mg PO QHS Clotrimazole 15 Gm Cream..g. 15 Gm TP BID Aricept (Donepezil Hcl) 5 Mg Tablet 5 Mg PO QHS Anusol-Hc (Hydrocortisone Acetate) 25 Mg Supp.rect 1 Supp RC PRN Q8HRS PRN Tylenol (Acetaminophen) 325 Mg Tablet 650 Mg PO PRN Q4HRS PRN I have reviewed the current psychotropics carefully including drug interactions. Risk benefit ratio favors no change other than as noted in my dictated progress note. Diagnosis: Problems: (1) Psychosis (2) Anxiety disorder (3) Bipolar affective, mixed, sev w/ psych (4) Dementia in Alzheimer's disease with delusions (5) Impulse control disorder (6) Chronic renal insufficiency MIMI MCNULTY MD Jun 21, 2017 19:29
[2017-06-21] MEDS: DONEPEZIL HCL 5 MG TABLET. PO SCH (19:49)
[2017-06-21] MEDS: SIMVASTATIN 10 MG TABLET PO SCH (19:49)
[2017-06-21] MEDS: traZODone 50 MG TABLET. PO SCH (19:50)
[2017-06-21] MEDS: MELATONIN 3 MG TABLET PO SCH (19:50)
--- NOTE | 2017-06-22 01:15 | PN ---
DATE: 06/20/2017 This late entry 06/20/2017 covers elements not covered in my initial note 06/20/2017. Met with the patient individually 06/20/2017 and staffed at a treatment team meeting with the entire team morning of 06/20/2017. The patient slept for 3/4 hours previous evening somewhat demanding, wanting food in his bed, wanting something for pain. He has been placed on two hour toileting to help with some of his persistent demands, anxious, restless, somewhat paranoid, grandiose at times. REVIEW OF SYSTEMS: Ambulation impaired, in wheelchair. No CV, , pulmonary, eye, ENT system symptoms on review. MENTAL STATUS EXAM: Oriented to himself and situation. Speech coherent, abstraction fair, computation somewhat impaired, language function intact. Mood and affect somewhat grandiose and somewhat inattentive. LABORATORY DATA: Reviewed. IMPRESSION: Probable bipolar 1 disorder, mixed, mild cognitive impairment. Rest unchanged. PLAN: Start trazodone 50 mg at bedtime for insomnia, may repeat x 1, Seroquel 12.5 mg 3 times a day 9:00 a.m., 1:00 p.m., 5:00 p.m. as a mood stabilizer. Maintain Aricept, Ativan and melatonin. We may taper the Ativan gradually. MAN Raquel MCNULTY MD DR: CHERIE/yovana JOB#: [id number] / [id number]
[2017-06-22 06:35] VITALS: BP 124/64
[2017-06-22] MEDS: GLIMEPIRIDE 2 MG TABLET PO SCH ×2 (08:00→16:56)
[2017-06-22] MEDS: POTASSIUM CHLORIDE 20 MEQ TABLET.ER. PO SCH (08:00)
[2017-06-22] MEDS: FUROSEMIDE 40 MG TABLET PO SCH (09:00)
[2017-06-22] MEDS: METOPROLOL TART IMMED RELEASE 50 MG TABLET PO SCH ×2 (09:00→20:12)
[2017-06-22] MEDS: LOSARTAN 50 MG TABLET. PO SCH (09:00)
[2017-06-22] MEDS: NYSTATIN 100,000 UNIT/GM TOPICAL CREAM 15GM TUBE. TP SCH (09:00)
[2017-06-22] MEDS: LORazepam 0.5 MG TABLET PO SCH ×2 (09:00→20:12)
[2017-06-22] MEDS: POLYETHYLENE GLYCOL 3350 17 GM PACKET. PO SCH (09:00)
[2017-06-22] MEDS: LIDOCAINE 2% TOPICAL JELLY 30GM TUBE. TP SCH (09:00)
[2017-06-22] MEDS: QUEtiapine 25 MG TABLET. PO SCH ×3 (09:00→16:56)
[2017-06-22] MEDS: LINAGLIPTIN 5 MG TABLET PO SCH (09:00)
[2017-06-22] MEDS: LIDOCAINE (700MG/PATCH) PATCH. TD SCH (09:00)
[2017-06-22] MEDS: CLOTRIMAZOLE 1% TOPICAL CREAM 30GM TUBE. TP SCH ×2 (09:00→20:13)
[2017-06-22] MEDS ORDERED: WARFARIN 5 MG TABLET. PO ONE (16:00)
[2017-06-22 16:05] VITALS: BP 118/69
[2017-06-22] MEDS: MELATONIN 3 MG TABLET PO SCH (20:12)
[2017-06-22] MEDS: SIMVASTATIN 10 MG TABLET PO SCH (20:12)
[2017-06-22] MEDS: traZODone 50 MG TABLET. PO SCH (20:12)
[2017-06-22] MEDS: DONEPEZIL HCL 5 MG TABLET. PO SCH (20:13)
--- NOTE | 2017-06-22 21:54 | PDOC ---
Exam Note: Shady Note: Please also refer to the separate dictated note~for this date of service dictated separately.~Patient seen individually. Discussed the patient with Nursing staff reviewed the chart.~Reviewed interim history and current functioning. Reviewed vital signs,~Labs/ Radiology~and current medications noted below. Continue current treatment with the changes noted in the dictated addendum note Assessment: Vital Signs: Vital Signs Date Time Temp Pulse Resp B/P (MAP) Pulse Ox O2 Delivery O2 Flow Rate FiO2 06/22/17 20:12 89 118/69 06/22/17 16:05 98.3 20 95 06/20/17 16:21 Room Air I&O Intake and Output 06/22/17 07:00 Intake Total 1060 ml Balance 1060 ml Intake Oral 1060 ml # Voids 2 Labs: Laboratory Tests Test 06/22/17 07:05 06/22/17 07:29 06/22/17 17:03 06/22/17 19:26 Prothrombin Time 21.1 SEC (9.4-11.4) H Prothrombin Time INR 2.1 (0.9-1.1) H Glucose (Fingerstick) 131 mg/dL (70-99) H 173 mg/dL (70-99) H 172 mg/dL (70-99) H Current Medications: Meds: Current Medications Acetaminophen (Tylenol) 650 mg PRN Q6HRS PRN PO PAIN / TEMP Last administered on 06/20/17at 09:28; Start 06/19/17 at 14:00; Stop 06/20/17 at 10:20; Status DC Multi-Ingredient Ointment (Analgesic [place]) 1 tori PRN QID PRN TP MUSCLE PAIN; Start 06/19/17 at 14:00 Al Hydroxide/Mg Hydroxide (Mylanta Plus Xs) 15 ml PRN AFTMEALHC PRN PO DYSPEPSIA; Start 06/19/17 at 14:00 Magnesium Hydroxide (Milk Of Magnesia) 2,400 mg PRN QHS PRN PO CONSTIPATION; Start 06/19/17 at 14:00 Donepezil HCl (Aricept) 5 mg QHS PO Last administered on 06/22/17at 20:13; Start 06/19/17 at 21:00 Lorazepam (Ativan) 0.5 mg BID PO Last administered on 06/22/17at 20:12; Start at 21:00 Melatonin 6 mg QHS PO Last administered on 06/22/17at 20:12; Start 06/19/17 at 21:00 Glimepiride (Amaryl) 2 mg BIDWMEALS PO Last administered on 06/22/17at 16:56; Start 06/19/17 at 17:00 Metoprolol Tartrate (Lopressor) 50 mg BID PO Last administered on 06/22/17 20: 12; Start 06/19/17 at 21:00 Warfarin Sodium (Coumadin) 2.5 mg QHS PO Last administered on 06/20/17at 20:15; Start 06/19/17 at 21:00; Stop 06/21/17 at 14:13; Status DC Warfarin Sodium (Coumadin Per Physician) 1 each PRN DAILY PRN MC SEE COMMENTS Last administered on 06/20/17at 10:54; Start 06/19/17 at 16:00; Stop 06/20/17 at 14:41; Status DC Warfarin Sodium (Coumadin) 1 mg QHS PO Last administered on 06/20/17at 20:15; Start 06/19/17 at 21:00; Stop 06/21/17 at 14:14; Status DC Acetaminophen (Tylenol) 650 mg PRN Q4HRS PRN PO PAIN Last administered on at 08:26; Start 06/20/17 at 10:15 Clotrimazole (Lotrimin) 15 tori BID TP ; Start 06/20/17 at 21:00; Stop 06/20/17 at 21:00; Status DC Furosemide (Lasix) 40 mg DAILY PO Last administered on 06/21/17at 08:20; Start 06/20/17 at 12:00 Hydrocortisone Acetate (Anucort-Hc) 25 mg PRN Q8HRS PRN RC hemmorhoid discomfort; Start 06/20/17 at 10:15 Linagliptin (Tradjenta) 5 mg DAILY PO Last administered on 06/21/17at 08:20; Start 06/20/17 at 12:00 Losartan Potassium (Cozaar) 50 mg DAILY PO Last administered on 06/21/17at 08:21 ; Start 06/20/17 at 12:00 Nystatin (Mycostatin) 1 tori DAILY TP ; Start 06/20/17 at 12:00 Oxymetazoline HCl (Afrin) 1 spray PRN Q6HRS PRN NS dry nares Last administered on 06/20/17 12:08; Start 06/20/17 at 10:15 Simvastatin (Zocor) 10 mg QHS PO Last administered on 06/22/17 20:12; Start at 21:00 Lidocaine HCl (Xylocaine 2% Topical 30gm Tube) 1 tori DAILY TP Last administered on 06/21/17 08:26; Start 06/20/17 at 12:00 Polyethylene Glycol (miraLAX) 17 gm DAILY PO Last administered on 06/21/17 08: 19; Start 06/20/17 at 12:00 Potassium Chloride (Klor-Con) 20 meq DAILYWBKFT PO Last administered on 08:20; Start 06/20/17 at 12:00 Quetiapine Fumarate (SEROquel) 12.5 mg TID@0900,1300,1700 PO Last administered on 06/22/17 16:56; Start 06/20/17 at 13:00 Trazodone HCl (Desyrel) 50 mg QHS PO Last administered on 06/22/17 20:12; Start 06/20/17 at 21:00 Trazodone HCl (Desyrel) 50 mg PRN QHS PRN PO insomnia; Start 06/20/17 at 21:00 Tramadol HCl (Ultram) 50 mg PRN Q6HRS PRN PO PAIN Last administered on 08:26; Start 06/20/17 at 11:15 Lidocaine (Lidoderm) 1 patch DAILY TD Last administered on 06/20/17 12:08; Start 06/20/17 at 12:00 Warfarin Sodium (Coumadin Per Pharmacy) 1 each PRN DAILY PRN MC SEE COMMENTS Last administered on 06/22/17 10:46; Start 06/20/17 at 14:45 Clotrimazole (Lotrimin) 1 tori BID TP Last administered on 06/22/17 20:13; Start 06/20/17 at 21:00 Warfarin Sodium (Coumadin Per Pharmacy) 1 each PRN DAILY PRN MC SEE COMMENTS; Start 06/21/17 at 14:00; Stop 06/21/17 at 14:00; Status DC Vitamin D (Vitamin D3) 50,000 unit WEEKLY PO Last administered on 06/21/17at 15: 45; Start 06/21/17 at 14:00 Warfarin Sodium (Coumadin) 5 mg 1X WARF ONCE PO Last administered on at 15:45; Start 06/21/17 at 16:00; Stop 06/21/17 at 16:01; Status DC Warfarin Sodium (Coumadin) 5 mg 1X WARF ONCE PO Last administered on at 16:56; Start 06/22/17 at 16:00; Stop 06/22/17 at 16:02; Status DC Fluvoxamine Maleate (Luvox) 25 mg DAILY PO ; Start 06/23/17 at 09:00; Stop 06/26 at 08:59 Fluvoxamine Maleate (Luvox) 50 mg DAILY PO ; Start 06/26/17 at 09:00 Active Scripts Active Reported Tradjenta (Linagliptin) 5 Mg Tablet 5 Mg PO DAILY Simvastatin 10 Mg Tablet 10 Mg PO DAILY Probiotic (Lactobacillus Combo No.10) 1 Each Capsule 1 Each PO Potassium Chloride 10 Meq Tablet.er 20 Meq PO DAILY Nystatin 15 Gm Cream..g. 1 Tori TP DAILY Sinus Nasal (Oxymetazoline Hcl) 30 Ml [place] 1 [place] NS PRN Q6HRS PRN Metoprolol Tartrate 50 Mg Tablet 50 Mg PO BID Melatonin 3 Mg Tablet 6 Mg PO HS Losartan Potassium 50 Mg Tablet 50 Mg PO DAILY Lorazepam 0.5 Mg Tablet 0.5 Mg PO BID Topicaine (Lidocaine) 113 Gm Gel..gram. 1 Tori TP DAILY Polyethylene Glycol 3350 2,500 Gm Powder 17 Gm PO DAILY Glimepiride 2 Mg Tablet 2 Mg PO BID Furosemide 40 Mg Tablet 40 Mg PO DAILY Coumadin (Warfarin Sodium) 3 Mg Tablet 3.5 Mg PO QHS Clotrimazole 15 Gm Cream..g. 15 Gm TP BID Aricept (Donepezil Hcl) 5 Mg Tablet 5 Mg PO QHS Anusol-Hc (Hydrocortisone Acetate) 25 Mg Supp.rect 1 Supp RC PRN Q8HRS PRN Tylenol (Acetaminophen) 325 Mg Tablet 650 Mg PO PRN Q4HRS PRN I have reviewed the current psychotropics carefully including drug interactions. Risk benefit ratio favors no change other than as noted in my dictated progress note. Diagnosis: Problems: (1) Medical clearance for psychiatric admission (2) Psychosis (3) Anxiety disorder (4) Bipolar affective, mixed, sev w/ psych (5) Dementia in Alzheimer's disease with delusions (6) Impulse control disorder MIMI MCNULTY MD Jun 22, 2017 21:54
[2017-06-23 06:02] VITALS: BP 118/60
--- NOTE | 2017-06-23 08:15 | PN ---
DATE: 06/21/2017 This late entry 06/21/2017 covers elements not covered in my initial note 06/21/2017. SUBJECTIVE: I met with the patient in the evening of 06/21/2017. The patient is quite dramatic in his presentation, persistent, repetitive, anxious. He painstakingly questions nursing staff about each medication be administered to him and this is understandable and then he repeats it again and again. He is fixated on the fact that he was sent here for treating his back pain, complains of being 8/10, with Tylenol. REVIEW OF SYSTEMS: Ambulation impaired, in wheelchair. No CV, , pulmonary, eye system symptoms on review. MENTAL STATUS EXAM: Oriented to himself and situation. Speech coherent, abstraction fair, somewhat repetitive. Insight limited, judgment marginal, language function intact. Mood and affect remain somewhat labile. LABORATORY DATA: Reviewed. IMPRESSION: Possible bipolar 1 disorder, unspecified; anxiety disorder, unspecified; mild cognitive dysfunction. PLAN: Continue current psychotropics mentioned in my initial note. Seroquel was initiated. May consider Luvox for his obsessive repetitive symptoms. MAN Raquel MCNULTY MD DR: CHERIE/yovana JOB#: [id number] / [id number]
[2017-06-23] MEDS: METOPROLOL TART IMMED RELEASE 50 MG TABLET PO SCH ×2 (09:00→20:20)
[2017-06-23] MEDS: LOSARTAN 50 MG TABLET. PO SCH (09:00)
--- NOTE | 2017-06-23 09:20 | PN ---
DATE: 06/22/2017 This is a late entry for 06/22/2017 and covers elements not covered in my initial note of 06/22/2017. SUBJECTIVE: The patient continues to argue with nursing staff about his medications, wanting to know everything and then having it repeated several times, somewhat obsessive, compulsive as noted. REVIEW OF SYSTEMS: Ambulation impaired, in wheelchair; met with him in his room, complains of ongoing vague back pain. No CV, , pulmonary, eye system symptoms on review. MENTAL STATUS EXAM: Oriented to himself and situation. Speech has some latency, coherent, persistent. Abstraction fair, computation impaired, language function intact. No suicidal or homicidal ideations, somewhat obsessive. LABORATORY DATA: Reviewed. IMPRESSION: Bipolar 1 disorder, unspecified; anxiety disorder, unspecified; mild cognitive impairment. PLAN: Start Luvox 25 mg a day, increasing to 50 mg a day in 3 days. Maintain rest as unchanged for now. MAN Raquel MCNULTY MD DR: CHERIE/yovana JOB#: [id number] / [id number]
[2017-06-23] MEDS: GLIMEPIRIDE 2 MG TABLET PO SCH ×2 (09:29→16:17)
[2017-06-23] MEDS: POTASSIUM CHLORIDE 20 MEQ TABLET.ER. PO SCH (09:29)
[2017-06-23] MEDS: LORazepam 0.5 MG TABLET PO SCH ×2 (09:29→20:20)
[2017-06-23] MEDS: FUROSEMIDE 40 MG TABLET PO SCH (09:29)
[2017-06-23] MEDS: POLYETHYLENE GLYCOL 3350 17 GM PACKET. PO SCH (09:30)
[2017-06-23] MEDS: LIDOCAINE (700MG/PATCH) PATCH. TD SCH (09:31)
[2017-06-23] MEDS: QUEtiapine 25 MG TABLET. PO SCH ×3 (09:31→16:18)
[2017-06-23] MEDS: LINAGLIPTIN 5 MG TABLET PO SCH (09:31)
[2017-06-23] MEDS: CLOTRIMAZOLE 1% TOPICAL CREAM 30GM TUBE. TP SCH ×2 (09:48→23:48)
[2017-06-23] MEDS: LIDOCAINE 2% TOPICAL JELLY 30GM TUBE. TP SCH (09:48)
[2017-06-23] MEDS: NYSTATIN 100,000 UNIT/GM TOPICAL CREAM 15GM TUBE. TP SCH (09:48)
[2017-06-23] MEDS ORDERED: WARFARIN 5 MG TABLET. PO ONE (16:00)
[2017-06-23 16:23] VITALS: BP 136/69
--- NOTE | 2017-06-23 19:22 | PDOC ---
Exam Note: Shady Note: Please also refer to the separate dictated note~for this date of service dictated separately.~Patient seen individually. Discussed the patient with Nursing staff reviewed the chart.~Reviewed interim history and current functioning. Reviewed vital signs,~Labs/ Radiology~and current medications noted below. Continue current treatment with the changes noted in the dictated addendum note Assessment: Vital Signs: Vital Signs Date Time Temp Pulse Resp B/P (MAP) Pulse Ox O2 Delivery O2 Flow Rate FiO2 06/23/17 16:23 97.1 88 20 136/69 (91) 95 06/20/17 16:21 Room Air I&O Intake and Output 06/23/17 07:00 Intake Total 1200 ml Balance 1200 ml Intake Oral 1200 ml # Voids 1 Labs: Laboratory Tests Test 06/22/17 19:26 06/23/17 07:24 Glucose (Fingerstick) 172 mg/dL (70-99) H 144 mg/dL (70-99) H Prothrombin Time 24.6 SEC (9.4-11.4) H Prothrombin Time INR 2.4 (0.9-1.1) H Current Medications: Meds: Current Medications Acetaminophen (Tylenol) 650 mg PRN Q6HRS PRN PO PAIN / TEMP Last administered on 06/20/17at 09:28; Start 06/19/17 at 14:00; Stop 06/20/17 at 10:20; Status DC Multi-Ingredient Ointment (Analgesic [place]) 1 tori PRN QID PRN TP MUSCLE PAIN; Start 06/19/17 at 14:00 Al Hydroxide/Mg Hydroxide (Mylanta Plus Xs) 15 ml PRN AFTMEALHC PRN PO DYSPEPSIA; Start 06/19/17 at 14:00 Magnesium Hydroxide (Milk Of Magnesia) 2,400 mg PRN QHS PRN PO CONSTIPATION; Start 06/19/17 at 14:00 Donepezil HCl (Aricept) 5 mg QHS PO Last administered on 06/22/17at 20:13; Start 06/19/17 at 21:00; Stop 06/23/17 at 16:14; Status DC Lorazepam (Ativan) 0.5 mg BID PO Last administered on 06/23/17at 09:29; Start at 21:00 Melatonin 6 mg QHS PO Last administered on 06/22/17 20:12; Start 06/19/17 at 21:00 Glimepiride (Amaryl) 2 mg BIDWMEALS PO Last administered on 06/23/17 16:17; Start 06/19/17 at 17:00 Metoprolol Tartrate (Lopressor) 50 mg BID PO Last administered on 06/22/17 20: 12; Start 06/19/17 at 21:00 Warfarin Sodium (Coumadin) 2.5 mg QHS PO Last administered on 06/20/17 20:15; Start 06/19/17 at 21:00; Stop 06/21/17 at 14:13; Status DC Warfarin Sodium (Coumadin Per Physician) 1 each PRN DAILY PRN MC SEE COMMENTS Last administered on 06/20/17at 10:54; Start 06/19/17 at 16:00; Stop 06/20/17 at 14:41; Status DC Warfarin Sodium (Coumadin) 1 mg QHS PO Last administered on 06/20/17at 20:15; Start 06/19/17 at 21:00; Stop 06/21/17 at 14:14; Status DC Acetaminophen (Tylenol) 650 mg PRN Q4HRS PRN PO PAIN Last administered on 08:26; Start 06/20/17 at 10:15 Clotrimazole (Lotrimin) 15 tori BID TP ; Start 06/20/17 at 21:00; Stop 06/20/17 at 21:00; Status DC Furosemide (Lasix) 40 mg DAILY PO Last administered on 06/23/17at 09:29; Start 06/20/17 at 12:00 Hydrocortisone Acetate (Anucort-Hc) 25 mg PRN Q8HRS PRN RC hemmorhoid discomfort; Start 06/20/17 at 10:15 Linagliptin (Tradjenta) 5 mg DAILY PO Last administered on 06/23/17 09:31; Start 06/20/17 at 12:00 Losartan Potassium (Cozaar) 50 mg DAILY PO Last administered on 06/21/17 08:21 ; Start 06/20/17 at 12:00 Nystatin (Mycostatin) 1 tori DAILY TP Last administered on 06/23/17 09:48; Start 06/20/17 at 12:00 Oxymetazoline HCl (Afrin) 1 spray PRN Q6HRS PRN NS dry nares Last administered on 06/20/17 12:08; Start 06/20/17 at 10:15 Simvastatin (Zocor) 10 mg QHS PO Last administered on 06/22/17 20:12; Start at 21:00 Lidocaine HCl (Xylocaine 2% Topical 30gm Tube) 1 tori DAILY TP Last administered on 06/23/17 09:48; Start 06/20/17 at 12:00 Polyethylene Glycol (miraLAX) 17 gm DAILY PO Last administered on 06/23/17 09: 30; Start 06/20/17 at 12:00 Potassium Chloride (Klor-Con) 20 meq DAILYWBKFT PO Last administered on 09:29; Start 06/20/17 at 12:00 Quetiapine Fumarate (SEROquel) 12.5 mg TID@0900,1300,1700 PO Last administered on 06/23/17 16:18; Start 06/20/17 at 13:00 Trazodone HCl (Desyrel) 50 mg QHS PO Last administered on 06/22/17 20:12; Start 06/20/17 at 21:00 Trazodone HCl (Desyrel) 50 mg PRN QHS PRN PO insomnia; Start 06/20/17 at 21:00 Tramadol HCl (Ultram) 50 mg PRN Q6HRS PRN PO PAIN Last administered on 08:26; Start 06/20/17 at 11:15 Lidocaine (Lidoderm) 1 patch DAILY TD Last administered on 06/23/17 09:31; Start 06/20/17 at 12:00 Warfarin Sodium (Coumadin Per Pharmacy) 1 each PRN DAILY PRN MC SEE COMMENTS Last administered on 06/22/17 10:46; Start 06/20/17 at 14:45 Clotrimazole (Lotrimin) 1 tori BID TP Last administered on 06/23/17 09:48; Start 06/20/17 at 21:00 Warfarin Sodium (Coumadin Per Pharmacy) 1 each PRN DAILY PRN MC SEE COMMENTS; Start 06/21/17 at 14:00; Stop 06/21/17 at 14:00; Status DC Vitamin D (Vitamin D3) 50,000 unit WEEKLY PO Last administered on 06/21/17at 15: 45; Start 06/21/17 at 14:00 Warfarin Sodium (Coumadin) 5 mg 1X WARF ONCE PO Last administered on at 15:45; Start 06/21/17 at 16:00; Stop 06/21/17 at 16:01; Status DC Warfarin Sodium (Coumadin) 5 mg 1X WARF ONCE PO Last administered on at 16:56; Start 06/22/17 at 16:00; Stop 06/22/17 at 16:02; Status DC Fluvoxamine Maleate (Luvox) 25 mg DAILY PO Last administered on 06/23/17at 09:30 ; Start 06/23/17 at 09:00; Stop 06/26/17 at 08:59 Fluvoxamine Maleate (Luvox) 50 mg DAILY PO ; Start 06/26/17 at 09:00 Warfarin Sodium (Coumadin) 5 mg 1X WARF ONCE PO Last administered on at 16:18; Start 06/23/17 at 16:00; Stop 06/23/17 at 16:01; Status DC Donepezil HCl (Aricept) 10 mg QHS PO ; Start 06/23/17 at 21:00 Active Scripts Active Reported Tradjenta (Linagliptin) 5 Mg Tablet 5 Mg PO DAILY Simvastatin 10 Mg Tablet 10 Mg PO DAILY Probiotic (Lactobacillus Combo No.10) 1 Each Capsule 1 Each PO Potassium Chloride 10 Meq Tablet.er 20 Meq PO DAILY Nystatin 15 Gm Cream..g. 1 Tori TP DAILY Sinus Nasal (Oxymetazoline Hcl) 30 Ml [place] 1 [place] NS PRN Q6HRS PRN Metoprolol Tartrate 50 Mg Tablet 50 Mg PO BID Melatonin 3 Mg Tablet 6 Mg PO HS Losartan Potassium 50 Mg Tablet 50 Mg PO DAILY Lorazepam 0.5 Mg Tablet 0.5 Mg PO BID Topicaine (Lidocaine) 113 Gm Gel..gram. 1 Tori TP DAILY Polyethylene Glycol 3350 2,500 Gm Powder 17 Gm PO DAILY Glimepiride 2 Mg Tablet 2 Mg PO BID Furosemide 40 Mg Tablet 40 Mg PO DAILY Coumadin (Warfarin Sodium) 3 Mg Tablet 3.5 Mg PO QHS Clotrimazole 15 Gm Cream..g. 15 Gm TP BID Aricept (Donepezil Hcl) 5 Mg Tablet 5 Mg PO QHS Anusol-Hc (Hydrocortisone Acetate) 25 Mg Supp.rect 1 Supp RC PRN Q8HRS PRN Tylenol (Acetaminophen) 325 Mg Tablet 650 Mg PO PRN Q4HRS PRN I have reviewed the current psychotropics carefully including drug interactions. Risk benefit ratio favors no change other than as noted in my dictated progress note. Diagnosis: Problems: (1) Medical clearance for psychiatric admission (2) Psychosis (3) Anxiety disorder (4) Bipolar affective, mixed, sev w/ psych (5) Dementia in Alzheimer's disease with delusions (6) Impulse control disorder MIMI MCNULTY MD Jun 23, 2017 19:22
[2017-06-23] MEDS: SIMVASTATIN 10 MG TABLET PO SCH (20:20)
[2017-06-23] MEDS: traZODone 50 MG TABLET. PO SCH (20:20)
[2017-06-23] MEDS: MELATONIN 3 MG TABLET PO SCH (20:20)
[2017-06-23] MEDS: DONEPEZIL HCL 10 MG TABLET PO SCH (20:21)
[2017-06-24 06:48] VITALS: BP 116/71
[2017-06-24] MEDS: GLIMEPIRIDE 2 MG TABLET PO SCH ×2 (08:40→17:04)
[2017-06-24] MEDS: LORazepam 0.5 MG TABLET PO SCH ×2 (08:40→20:33)
[2017-06-24] MEDS: POTASSIUM CHLORIDE 20 MEQ TABLET.ER. PO SCH (08:40)
[2017-06-24] MEDS: FUROSEMIDE 40 MG TABLET PO SCH (08:40)
[2017-06-24] MEDS: QUEtiapine 25 MG TABLET. PO SCH ×3 (08:41→17:04)
[2017-06-24] MEDS: NYSTATIN 100,000 UNIT/GM TOPICAL CREAM 15GM TUBE. TP SCH (08:42)
[2017-06-24] MEDS: CLOTRIMAZOLE 1% TOPICAL CREAM 30GM TUBE. TP SCH ×2 (08:42→20:34)
[2017-06-24] MEDS: LINAGLIPTIN 5 MG TABLET PO SCH (08:42)
[2017-06-24] MEDS: LIDOCAINE 2% TOPICAL JELLY 30GM TUBE. TP SCH (08:42)
[2017-06-24] MEDS: LIDOCAINE (700MG/PATCH) PATCH. TD SCH (08:42)
[2017-06-24] MEDS: LOSARTAN 50 MG TABLET. PO SCH (09:00)
[2017-06-24] MEDS: METOPROLOL TART IMMED RELEASE 50 MG TABLET PO SCH ×2 (09:00→20:31)
[2017-06-24] MEDS: POLYETHYLENE GLYCOL 3350 17 GM PACKET. PO SCH (09:00)
[2017-06-24 15:46] VITALS: BP 113/63
[2017-06-24] MEDS: WARFARIN 5 MG TABLET. PO SCH (17:04)
[2017-06-24] MEDS: ACETAMINOPHEN 325 MG TABLET PO PRN (17:06)
--- NOTE | 2017-06-24 18:47 | PDOC ---
Exam Note: Shady Note: Please also refer to the separate dictated note~for this date of service dictated separately.~Patient seen individually. Discussed the patient with Nursing staff reviewed the chart.~Reviewed interim history and current functioning. Reviewed vital signs,~Labs/ Radiology~and current medications noted below. Continue current treatment with the changes noted in the dictated addendum note Assessment: Vital Signs: Vital Signs Date Time Temp Pulse Resp B/P (MAP) Pulse Ox O2 Delivery O2 Flow Rate FiO2 06/24/17 15:46 97.6 100 18 113/63 (80) 93 06/20/17 16:21 Room Air I&O Intake and Output 06/24/17 07:00 Intake Total 1080 ml Balance 1080 ml Intake Oral 1080 ml # Voids 1 Labs: Laboratory Tests Test 06/24/17 07:20 06/24/17 07:24 Prothrombin Time 26.4 SEC (9.4-11.4) H Prothrombin Time INR 2.6 (0.9-1.1) H Glucose (Fingerstick) 139 mg/dL (70-99) H Current Medications: Meds: Current Medications Acetaminophen (Tylenol) 650 mg PRN Q6HRS PRN PO PAIN / TEMP Last administered on 06/20/17at 09:28; Start 06/19/17 at 14:00; Stop 06/20/17 at 10:20; Status DC Multi-Ingredient Ointment (Analgesic [place]) 1 tori PRN QID PRN TP MUSCLE PAIN; Start 06/19/17 at 14:00 Al Hydroxide/Mg Hydroxide (Mylanta Plus Xs) 15 ml PRN AFTMEALHC PRN PO DYSPEPSIA; Start 06/19/17 at 14:00 Magnesium Hydroxide (Milk Of Magnesia) 2,400 mg PRN QHS PRN PO CONSTIPATION; Start 06/19/17 at 14:00 Donepezil HCl (Aricept) 5 mg QHS PO Last administered on 06/22/17at 20:13; Start 06/19/17 at 21:00; Stop 06/23/17 at 16:14; Status DC Lorazepam (Ativan) 0.5 mg BID PO Last administered on 06/24/17at 08:40; Start at 21:00 Melatonin 6 mg QHS PO Last administered on 06/23/17at 20:20; Start 06/19/17 at 21:00 Glimepiride (Amaryl) 2 mg BIDWMEALS PO Last administered on 06/24/17at 17:04; Start 06/19/17 at 17:00 Metoprolol Tartrate (Lopressor) 50 mg BID PO Last administered on 06/23/17at 20: 20; Start 06/19/17 at 21:00 Warfarin Sodium (Coumadin) 2.5 mg QHS PO Last administered on 06/20/17at 20:15; Start 06/19/17 at 21:00; Stop 06/21/17 at 14:13; Status DC Warfarin Sodium (Coumadin Per Physician) 1 each PRN DAILY PRN MC SEE COMMENTS Last administered on 06/20/17at 10:54; Start 06/19/17 at 16:00; Stop 06/20/17 at 14:41; Status DC Warfarin Sodium (Coumadin) 1 mg QHS PO Last administered on 06/20/17at 20:15; Start 06/19/17 at 21:00; Stop 06/21/17 at 14:14; Status DC Acetaminophen (Tylenol) 650 mg PRN Q4HRS PRN PO PAIN Last administered on at 17:06; Start 06/20/17 at 10:15 Clotrimazole (Lotrimin) 15 tori BID TP ; Start 06/20/17 at 21:00; Stop 06/20/17 at 21:00; Status DC Furosemide (Lasix) 40 mg DAILY PO Last administered on 06/24/17at 08:40; Start 06/20/17 at 12:00 Hydrocortisone Acetate (Anucort-Hc) 25 mg PRN Q8HRS PRN RC hemmorhoid discomfort; Start 06/20/17 at 10:15 Linagliptin (Tradjenta) 5 mg DAILY PO Last administered on 06/24/17at 08:42; Start 06/20/17 at 12:00 Losartan Potassium (Cozaar) 50 mg DAILY PO Last administered on 06/21/17at 08:21 ; Start 06/20/17 at 12:00 Nystatin (Mycostatin) 1 tori DAILY TP Last administered on 06/24/17at 08:42; Start 06/20/17 at 12:00 Oxymetazoline HCl (Afrin) 1 spray PRN Q6HRS PRN NS dry nares Last administered on 06/20/17 12:08; Start 06/20/17 at 10:15 Simvastatin (Zocor) 10 mg QHS PO Last administered on 06/23/17 20:20; Start at 21:00 Lidocaine HCl (Xylocaine 2% Topical 30gm Tube) 1 tori DAILY TP Last administered on 06/24/17 08:42; Start 06/20/17 at 12:00 Polyethylene Glycol (miraLAX) 17 gm DAILY PO Last administered on 06/23/17 09: 30; Start 06/20/17 at 12:00 Potassium Chloride (Klor-Con) 20 meq DAILYWBKFT PO Last administered on 08:40; Start 06/20/17 at 12:00 Quetiapine Fumarate (SEROquel) 12.5 mg TID@0900,1300,1700 PO Last administered on 06/24/17 17:04; Start 06/20/17 at 13:00 Trazodone HCl (Desyrel) 50 mg QHS PO Last administered on 06/23/17 20:20; Start 06/20/17 at 21:00 Trazodone HCl (Desyrel) 50 mg PRN QHS PRN PO insomnia; Start 06/20/17 at 21:00 Tramadol HCl (Ultram) 50 mg PRN Q6HRS PRN PO PAIN Last administered on 08:26; Start 06/20/17 at 11:15 Lidocaine (Lidoderm) 1 patch DAILY TD Last administered on 06/24/17 08:42; Start 06/20/17 at 12:00 Warfarin Sodium (Coumadin Per Pharmacy) 1 each PRN DAILY PRN MC SEE COMMENTS Last administered on 06/24/17 11:23; Start 06/20/17 at 14:45 Clotrimazole (Lotrimin) 1 tori BID TP Last administered on 06/23/17 23:48; Start 06/20/17 at 21:00 Warfarin Sodium (Coumadin Per Pharmacy) 1 each PRN DAILY PRN MC SEE COMMENTS; Start 06/21/17 at 14:00; Stop 06/21/17 at 14:00; Status DC Vitamin D (Vitamin D3) 50,000 unit WEEKLY PO Last administered on 06/21/17at 15: 45; Start 06/21/17 at 14:00 Warfarin Sodium (Coumadin) 5 mg 1X WARF ONCE PO Last administered on at 15:45; Start 06/21/17 at 16:00; Stop 06/21/17 at 16:01; Status DC Warfarin Sodium (Coumadin) 5 mg 1X WARF ONCE PO Last administered on at 16:56; Start 06/22/17 at 16:00; Stop 06/22/17 at 16:02; Status DC Fluvoxamine Maleate (Luvox) 25 mg DAILY PO Last administered on 06/24/17at 08:41 ; Start 06/23/17 at 09:00; Stop 06/26/17 at 08:59 Fluvoxamine Maleate (Luvox) 50 mg DAILY PO ; Start 06/26/17 at 09:00 Warfarin Sodium (Coumadin) 5 mg 1X WARF ONCE PO Last administered on at 16:18; Start 06/23/17 at 16:00; Stop 06/23/17 at 16:01; Status DC Donepezil HCl (Aricept) 10 mg QHS PO Last administered on 06/23/17at 20:21; Start 06/23/17 at 21:00 Warfarin Sodium (Coumadin) 5 mg DAILY16 PO Last administered on 06/24/17at 17:04 ; Start 06/24/17 at 16:00 Active Scripts Active Reported Tradjenta (Linagliptin) 5 Mg Tablet 5 Mg PO DAILY Simvastatin 10 Mg Tablet 10 Mg PO DAILY Probiotic (Lactobacillus Combo No.10) 1 Each Capsule 1 Each PO Potassium Chloride 10 Meq Tablet.er 20 Meq PO DAILY Nystatin 15 Gm Cream..g. 1 Tori TP DAILY Sinus Nasal (Oxymetazoline Hcl) 30 Ml [place] 1 [place] NS PRN Q6HRS PRN Metoprolol Tartrate 50 Mg Tablet 50 Mg PO BID Melatonin 3 Mg Tablet 6 Mg PO HS Losartan Potassium 50 Mg Tablet 50 Mg PO DAILY Lorazepam 0.5 Mg Tablet 0.5 Mg PO BID Topicaine (Lidocaine) 113 Gm Gel..gram. 1 Tori TP DAILY Polyethylene Glycol 3350 2,500 Gm Powder 17 Gm PO DAILY Glimepiride 2 Mg Tablet 2 Mg PO BID Furosemide 40 Mg Tablet 40 Mg PO DAILY Coumadin (Warfarin Sodium) 3 Mg Tablet 3.5 Mg PO QHS Clotrimazole 15 Gm Cream..g. 15 Gm TP BID Aricept (Donepezil Hcl) 5 Mg Tablet 5 Mg PO QHS Anusol-Hc (Hydrocortisone Acetate) 25 Mg Supp.rect 1 Supp RC PRN Q8HRS PRN Tylenol (Acetaminophen) 325 Mg Tablet 650 Mg PO PRN Q4HRS PRN I have reviewed the current psychotropics carefully including drug interactions. Risk benefit ratio favors no change other than as noted in my dictated progress note. Diagnosis: Problems: (1) Psychosis (2) Anxiety disorder (3) Bipolar affective, mixed, sev w/ psych (4) Dementia in Alzheimer's disease with delusions (5) Impulse control disorder MIMI MCNULTY MD Jun 24, 2017 18:47
[2017-06-24] MEDS: traZODone 50 MG TABLET. PO SCH (20:31)
[2017-06-24] MEDS: MELATONIN 3 MG TABLET PO SCH (20:31)
[2017-06-24] MEDS: DONEPEZIL HCL 10 MG TABLET PO SCH (20:31)
[2017-06-24] MEDS: SIMVASTATIN 10 MG TABLET PO SCH (20:31)
[2017-06-25 06:27] VITALS: BP 139/59
[2017-06-25] MEDS: LINAGLIPTIN 5 MG TABLET PO SCH (08:45)
[2017-06-25] MEDS: FUROSEMIDE 40 MG TABLET PO SCH (08:46)
[2017-06-25] MEDS: QUEtiapine 25 MG TABLET. PO SCH ×4 (08:46→17:33)
[2017-06-25] MEDS: LOSARTAN 50 MG TABLET. PO SCH (08:46)
[2017-06-25] MEDS: METOPROLOL TART IMMED RELEASE 50 MG TABLET PO SCH ×3 (08:47→19:59)
[2017-06-25] MEDS: GLIMEPIRIDE 2 MG TABLET PO SCH ×2 (08:47→17:33)
[2017-06-25] MEDS: POTASSIUM CHLORIDE 20 MEQ TABLET.ER. PO SCH (08:47)
[2017-06-25] MEDS: LIDOCAINE (700MG/PATCH) PATCH. TD SCH (08:48)
[2017-06-25] MEDS: POLYETHYLENE GLYCOL 3350 17 GM PACKET. PO SCH (08:54)
[2017-06-25] MEDS: LORazepam 0.5 MG TABLET PO SCH ×2 (08:54→19:58)
[2017-06-25] MEDS: CLOTRIMAZOLE 1% TOPICAL CREAM 30GM TUBE. TP SCH ×2 (09:00→19:58)
[2017-06-25] MEDS: LIDOCAINE 2% TOPICAL JELLY 30GM TUBE. TP SCH (09:00)
[2017-06-25] MEDS: NYSTATIN 100,000 UNIT/GM TOPICAL CREAM 15GM TUBE. TP SCH (09:00)
--- NOTE | 2017-06-25 09:34 | PN ---
DATE: 06/23/2017 PSYCHIATRIC PROGRESS NOTE This late entry 06/23/2017 covers elements not covered in my initial note 06/23/2017. SUBJECTIVE: I met with the patient in the evening of 06/23/2017. The patient is compliant with his bedtime medications, less obsessive during the day on 06/23/2017, still obsessed about getting his pants on and off, met with him in his room to address this. REVIEW OF SYSTEMS: Ambulation impaired, in wheelchair. No CV, , pulmonary, eye system symptoms on review. He has vague somatic symptoms. MENTAL STATUS EXAM: Oriented to himself and situation. Speech is coherent, somewhat obsessive, repetitive. Abstraction fair, computation impaired, language function intact, attention span short. Mood and affect remains somewhat labile. Overall cognitive functioning consistent with his mild cognitive disorder. IMPRESSION: Psychotic disorder, unspecified; obsessive compulsive disorder; bipolar 1 disorder, mixed with possible psychotic features. Rest unchanged. PLAN: Continue current psychotropics. Increase Aricept to 10 mg a day. MAN Raquel MCNULTY MD DR: CHERIE/yovana JOB#: [id number] / [id number]
[2017-06-25 16:19] VITALS: BP 94/50
[2017-06-25] MEDS: WARFARIN 5 MG TABLET. PO SCH (17:32)
[2017-06-25] MEDS: traMADol 50 MG TABLET PO PRN (17:33)
--- NOTE | 2017-06-25 19:09 | PDOC ---
Exam Note: Shady Note: Please also refer to the separate dictated note~for this date of service dictated separately.~Patient seen individually. Discussed the patient with Nursing staff reviewed the chart.~Reviewed interim history and current functioning. Reviewed vital signs,~Labs/ Radiology~and current medications noted below. Continue current treatment with the changes noted in the dictated addendum note Assessment: Vital Signs: Vital Signs Date Time Temp Pulse Resp B/P (MAP) Pulse Ox O2 Delivery O2 Flow Rate FiO2 06/25/17 19:07 18 93 Room Air 06/25/17 16:19 98.2 88 94/50 (65) I&O Intake and Output 06/25/17 07:00 Intake Total 1080 ml Balance 1080 ml Intake Oral 1080 ml # Voids 2 Labs: Laboratory Tests Test 06/25/17 07:35 Glucose (Fingerstick) 128 mg/dL (70-99) H Current Medications: Meds: Current Medications Acetaminophen (Tylenol) 650 mg PRN Q6HRS PRN PO PAIN / TEMP Last administered on 06/20/17at 09:28; Start 06/19/17 at 14:00; Stop 06/20/17 at 10:20; Status DC Multi-Ingredient Ointment (Analgesic [place]) 1 tori PRN QID PRN TP MUSCLE PAIN; Start 06/19/17 at 14:00 Al Hydroxide/Mg Hydroxide (Mylanta Plus Xs) 15 ml PRN AFTMEALHC PRN PO DYSPEPSIA; Start 06/19/17 at 14:00 Magnesium Hydroxide (Milk Of Magnesia) 2,400 mg PRN QHS PRN PO CONSTIPATION; Start 06/19/17 at 14:00 Donepezil HCl (Aricept) 5 mg QHS PO Last administered on 06/22/17at 20:13; Start 06/19/17 at 21:00; Stop 06/23/17 at 16:14; Status DC Lorazepam (Ativan) 0.5 mg BID PO Last administered on 06/24/17at 08:40; Start at 21:00; Stop 06/24/17 at 19:12; Status DC Melatonin 6 mg QHS PO Last administered on 06/24/17at 20:31; Start 06/19/17 at 21:00; Stop 06/25/17 at 18:57; Status DC Glimepiride (Amaryl) 2 mg BIDWMEALS PO Last administered on 06/25/17at 17:33; Start 06/19/17 at 17:00; Stop 06/25/17 at 18:22; Status DC Metoprolol Tartrate (Lopressor) 50 mg BID PO Last administered on 06/24/17at 20: 31; Start 06/19/17 at 21:00 Warfarin Sodium (Coumadin) 2.5 mg QHS PO Last administered on 06/20/17at 20:15; Start 06/19/17 at 21:00; Stop 06/21/17 at 14:13; Status DC Warfarin Sodium (Coumadin Per Physician) 1 each PRN DAILY PRN MC SEE COMMENTS Last administered on 06/20/17at 10:54; Start 06/19/17 at 16:00; Stop 06/20/17 at 14:41; Status DC Warfarin Sodium (Coumadin) 1 mg QHS PO Last administered on 06/20/17at 20:15; Start 06/19/17 at 21:00; Stop 06/21/17 at 14:14; Status DC Acetaminophen (Tylenol) 650 mg PRN Q4HRS PRN PO PAIN Last administered on at 17:06; Start 06/20/17 at 10:15 Clotrimazole (Lotrimin) 15 tori BID TP ; Start 06/20/17 at 21:00; Stop 06/20/17 at 21:00; Status DC Furosemide (Lasix) 40 mg DAILY PO Last administered on 06/25/17at 08:46; Start 06/20/17 at 12:00 Hydrocortisone Acetate (Anucort-Hc) 25 mg PRN Q8HRS PRN RC hemmorhoid discomfort; Start 06/20/17 at 10:15 Linagliptin (Tradjenta) 5 mg DAILY PO Last administered on 06/25/17at 08:45; Start 06/20/17 at 12:00 Losartan Potassium (Cozaar) 50 mg DAILY PO Last administered on 06/25/17at 08:46 ; Start 06/20/17 at 12:00 Nystatin (Mycostatin) 1 tori DAILY TP Last administered on 06/24/17at 08:42; Start 06/20/17 at 12:00 Oxymetazoline HCl (Afrin) 1 spray PRN Q6HRS PRN NS dry nares Last administered on 06/20/17 12:08; Start 06/20/17 at 10:15 Simvastatin (Zocor) 10 mg QHS PO Last administered on 06/24/17 20:31; Start at 21:00 Lidocaine HCl (Xylocaine 2% Topical 30gm Tube) 1 tori DAILY TP Last administered on 06/24/17 08:42; Start 06/20/17 at 12:00 Polyethylene Glycol (miraLAX) 17 gm DAILY PO Last administered on 06/25/17 08: 54; Start 06/20/17 at 12:00 Potassium Chloride (Klor-Con) 20 meq DAILYWBKFT PO Last administered on 08:47; Start 06/20/17 at 12:00 Quetiapine Fumarate (SEROquel) 12.5 mg TID@0900,1300,1700 PO Last administered on 06/25/17 17:33; Start 06/20/17 at 13:00; Stop 06/25/17 at 18:57; Status DC Trazodone HCl (Desyrel) 50 mg QHS PO Last administered on 06/24/17 20:31; Start 06/20/17 at 21:00 Trazodone HCl (Desyrel) 50 mg PRN QHS PRN PO insomnia; Start 06/20/17 at 21:00 Tramadol HCl (Ultram) 50 mg PRN Q6HRS PRN PO PAIN Last administered on 17:33; Start 06/20/17 at 11:15 Lidocaine (Lidoderm) 1 patch DAILY TD Last administered on 06/25/17 08:48; Start 06/20/17 at 12:00 Warfarin Sodium (Coumadin Per Pharmacy) 1 each PRN DAILY PRN MC SEE COMMENTS Last administered on 06/24/17 11:23; Start 06/20/17 at 14:45 Clotrimazole (Lotrimin) 1 tori BID TP Last administered on 06/24/17 20:34; Start 06/20/17 at 21:00 Warfarin Sodium (Coumadin Per Pharmacy) 1 each PRN DAILY PRN MC SEE COMMENTS; Start 06/21/17 at 14:00; Stop 06/21/17 at 14:00; Status DC Vitamin D (Vitamin D3) 50,000 unit WEEKLY PO Last administered on 06/21/17at 15: 45; Start 06/21/17 at 14:00 Warfarin Sodium (Coumadin) 5 mg 1X WARF ONCE PO Last administered on at 15:45; Start 06/21/17 at 16:00; Stop 06/21/17 at 16:01; Status DC Warfarin Sodium (Coumadin) 5 mg 1X WARF ONCE PO Last administered on at 16:56; Start 06/22/17 at 16:00; Stop 06/22/17 at 16:02; Status DC Fluvoxamine Maleate (Luvox) 25 mg DAILY PO Last administered on 06/25/17at 08:46 ; Start 06/23/17 at 09:00; Stop 06/26/17 at 08:59 Fluvoxamine Maleate (Luvox) 50 mg DAILY PO ; Start 06/26/17 at 09:00 Warfarin Sodium (Coumadin) 5 mg 1X WARF ONCE PO Last administered on at 16:18; Start 06/23/17 at 16:00; Stop 06/23/17 at 16:01; Status DC Donepezil HCl (Aricept) 10 mg QHS PO Last administered on 06/24/17at 20:31; Start 06/23/17 at 21:00 Warfarin Sodium (Coumadin) 5 mg DAILY16 PO Last administered on 06/25/17at 17:32 ; Start 06/24/17 at 16:00 Lorazepam (Ativan) 0.25 mg BID PO Last administered on 06/25/17at 08:54; Start 06/24/17 at 21:00; Stop 06/27/17 at 22:00 Lorazepam (Ativan) 0.25 mg DAILY PO ; Start 06/28/17 at 09:00; Stop 07/01/17 at 08 :59 Glimepiride (Amaryl) 4 mg BIDWMEALS PO ; Start 06/26/17 at 08:00 Oxycodone HCl (Roxicodone) 5 mg PRN Q6HRS PRN PO PAIN; Start 06/25/17 at 18:30 Quetiapine Fumarate (SEROquel) 12.5 mg QID PO ; Start 06/26/17 at 07:00; Stop at 07:00; Status DC Mirtazapine (Remeron) 7.5 mg QHS PO ; Start 06/25/17 at 21:00 Quetiapine Fumarate (SEROquel) 12.5 mg 0700,1100,1500,1900 PO ; Start 06/26/17 at 07:00 Active Scripts Active Reported Tradjenta (Linagliptin) 5 Mg Tablet 5 Mg PO DAILY Simvastatin 10 Mg Tablet 10 Mg PO DAILY Probiotic (Lactobacillus Combo No.10) 1 Each Capsule 1 Each PO Potassium Chloride 10 Meq Tablet.er 20 Meq PO DAILY Nystatin 15 Gm Cream..g. 1 Tori TP DAILY Sinus Nasal (Oxymetazoline Hcl) 30 Ml [employer] NS PRN Q6HRS PRN Metoprolol Tartrate 50 Mg Tablet 50 Mg PO BID Melatonin 3 Mg Tablet 6 Mg PO HS Losartan Potassium 50 Mg Tablet 50 Mg PO DAILY Lorazepam 0.5 Mg Tablet 0.5 Mg PO BID Topicaine (Lidocaine) 113 Gm Gel..gram. 1 Tori TP DAILY Polyethylene Glycol 3350 2,500 Gm Powder 17 Gm PO DAILY Glimepiride 2 Mg Tablet 2 Mg PO BID Furosemide 40 Mg Tablet 40 Mg PO DAILY Coumadin (Warfarin Sodium) 3 Mg Tablet 3.5 Mg PO QHS Clotrimazole 15 Gm Cream..g. 15 Gm TP BID Aricept (Donepezil Hcl) 5 Mg Tablet 5 Mg PO QHS Anusol-Hc (Hydrocortisone Acetate) 25 Mg Supp.rect 1 Supp RC PRN Q8HRS PRN Tylenol (Acetaminophen) 325 Mg Tablet 650 Mg PO PRN Q4HRS PRN I have reviewed the current psychotropics carefully including drug interactions. Risk benefit ratio favors no change other than as noted in my dictated progress note. Diagnosis: Problems: (1) Medical clearance for psychiatric admission (2) Psychosis (3) Anxiety disorder (4) Bipolar affective, mixed, sev w/ psych (5) Dementia in Alzheimer's disease with delusions (6) Impulse control disorder MIMI MCNULTY MD Jun 25, 2017 19:09
[2017-06-25] MEDS: oxyCODONE IR 5 MG TABLET PO PRN (19:58)
[2017-06-25] MEDS: MIRTAZAPINE 7.5 MG TABLET. PO SCH (19:58)
[2017-06-25] MEDS: traZODone 50 MG TABLET. PO SCH (19:58)
[2017-06-25] MEDS: SIMVASTATIN 10 MG TABLET PO SCH (19:58)
[2017-06-25] MEDS: DONEPEZIL HCL 10 MG TABLET PO SCH (19:59)
[2017-06-26] MEDS: QUEtiapine 25 MG TABLET. PO SCH ×4 (06:01→17:35)
[2017-06-26] MEDS: oxyCODONE IR 5 MG TABLET PO PRN ×2 (06:01→20:16)
[2017-06-26 06:05] VITALS: BP 107/46
[2017-06-26] MEDS ORDERED: QUEtiapine 25 MG TABLET. PO SCH (07:00)
[2017-06-26 08:03] LABS: BASO % 1 % (0-3); EOS # 0.3 x10^3/uL (0.0-0.7); EOS % 5 % (0-3); HEMATOCRIT 42.2 % (39.0-53.0); HEMOGLOBIN 14.2 g/dL (13.0-17.5); LYMPH # 1.1 x10^3/uL (1.0-4.8); LYMPH % 18 % (24-48); MEAN CORPUSCULAR HEMOGLOBIN 28 pg (25-35); MEAN CORPUSCULAR HGB CONC 34 g/dL (31-37); MEAN CORPUSCULAR VOLUME 83 fL (79-100); MONO # 0.6 x10^3/uL (0.0-1.1); MONO % 9 % (0-9); NEUT # 4.3 x10^3uL (1.8-7.7); NEUT % 68 % (31-73); PLATELET COUNT 145 x10^3/uL (140-400); RED BLOOD COUNT 5.07 x10^6/uL (4.30-5.70); RED CELL DISTRIBUTION WIDTH 16.4 % (11.5-14.5); WHITE BLOOD COUNT 6.4 x10^3/uL (4.0-11.0)
[2017-06-26 08:23] LABS: ALBUMIN 3.3 g/dL (3.4-5.0); ALBUMIN/GLOBULIN RATIO 0.8 (1.0-1.7); CALCIUM 9.2 mg/dL (8.5-10.1); CREATININE 1.5 mg/dL (0.7-1.3); POTASSIUM 3.7 mmol/L (3.5-5.1); TOTAL BILIRUBIN 0.8 mg/dL (0.2-1.0); TOTAL PROTEIN 7.3 g/dL (6.4-8.2)
[2017-06-26] MEDS: LIDOCAINE 2% TOPICAL JELLY 30GM TUBE. TP SCH (09:00)
--- NOTE | 2017-06-26 09:59 | PN ---
DATE: 06/24/2017 PSYCHIATRIC PROGRESS NOTE This is a late entry 06/24/2017 covers elements not covered in my initial note 06/24/2017. SUBJECTIVE: I met with the patient evening of 06/24/2017. The patient slept 7 hours previous evening, did well the previous night, going labile repetitive during the day 06/24/2015, especially regarding his meds and quite obsessive. REVIEW OF SYSTEMS: Ambulation impaired, in wheelchair. No CV, , pulmonary, eye system symptoms on review. MENTAL STATUS EXAM: Oriented to himself and situation. Speech coherent, repetitive, abstraction fair, computation impaired, language function intact, attention span short. Mood and affect somewhat obsessive, labile. LABORATORY DATA: Reviewed. IMPRESSION: Psychotic disorder, unspecified; bipolar 1 disorder, mixed with psychosis, obsessive compulsive disorder. PLAN: Taper and stop the Ativan. Maintain rest of the psychotropics. Adjust the Luvox. Consider Depakote as a mood stabilizer. MAN Raquel MCNULTY MD DR: CHERIE/yovana JOB#: [id number] / [id number]
[2017-06-26] MEDS: METOPROLOL TART IMMED RELEASE 50 MG TABLET PO SCH ×3 (11:30→20:13)
[2017-06-26] MEDS: LIDOCAINE (700MG/PATCH) PATCH. TD SCH (12:31)
[2017-06-26] MEDS: LINAGLIPTIN 5 MG TABLET PO SCH (12:31)
[2017-06-26] MEDS: LOSARTAN 50 MG TABLET. PO SCH (12:32)
[2017-06-26] MEDS: POTASSIUM CHLORIDE 20 MEQ TABLET.ER. PO SCH (12:32)
[2017-06-26] MEDS: FUROSEMIDE 40 MG TABLET PO SCH (12:33)
[2017-06-26] MEDS: POLYETHYLENE GLYCOL 3350 17 GM PACKET. PO SCH (12:33)
[2017-06-26] MEDS: GLIMEPIRIDE 2 MG TABLET PO SCH ×2 (12:35→17:06)
[2017-06-26] MEDS: LORazepam 0.5 MG TABLET PO SCH ×2 (12:36→20:16)
[2017-06-26] MEDS: NYSTATIN 100,000 UNIT/GM TOPICAL CREAM 15GM TUBE. TP SCH (13:52)
[2017-06-26] MEDS: CLOTRIMAZOLE 1% TOPICAL CREAM 30GM TUBE. TP SCH ×2 (13:52→20:14)
[2017-06-26] MEDS: WARFARIN 5 MG TABLET. PO SCH (15:38)
[2017-06-26 15:48] VITALS: BP 121/74
--- NOTE | 2017-06-26 19:45 | PDOC ---
Exam Note: Shady Note: Please also refer to the separate dictated note~for this date of service dictated separately.~Patient seen individually. Discussed the patient with Nursing staff reviewed the chart.~Reviewed interim history and current functioning. Reviewed vital signs,~Labs/ Radiology~and current medications noted below. Continue current treatment with the changes noted in the dictated addendum note Assessment: Vital Signs: Vital Signs Date Time Temp Pulse Resp B/P (MAP) Pulse Ox O2 Delivery O2 Flow Rate FiO2 06/26/17 15:48 97.1 95 20 121/74 (90) 92 06/26/17 07:35 Room Air I&O Intake and Output 06/26/17 07:00 Intake Total 1440 ml Balance 1440 ml Intake Oral 1440 ml # Voids 2 # Bowel Movements 1 Labs: Laboratory Tests Test 06/26/17 07:06 06/26/17 08:02 06/26/17 19:06 White Blood Count 6.4 x10^3/uL (4.0-11.0) Red Blood Count 5.07 x10^6/uL (4.30-5.70) Hemoglobin 14.2 g/dL (13.0-17.5) Hematocrit 42.2 % (39.0-53.0) Mean Corpuscular Volume 83 fL (79-100) Mean Corpuscular Hemoglobin 28 pg (25-35) Mean Corpuscular Hemoglobin Concent 34 g/dL (31-37) Red Cell Distribution Width 16.4 % (11.5-14.5) H Platelet Count 145 x10^3/uL (140-400) Neutrophils (%) (Auto) 68 % (31-73) Lymphocytes (%) (Auto) 18 % (24-48) L Monocytes (%) (Auto) 9 % (0-9) Eosinophils (%) (Auto) 5 % (0-3) H Basophils (%) (Auto) 1 % (0-3) Neutrophils # (Auto) 4.3 x10^3uL (1.8-7.7) Lymphocytes # (Auto) 1.1 x10^3/uL (1.0-4.8) Monocytes # (Auto) 0.6 x10^3/uL (0.0-1.1) Eosinophils # (Auto) 0.3 x10^3/uL (0.0-0.7) Basophils # (Auto) 0.0 x10^3/uL (0.0-0.2) Prothrombin Time 27.2 SEC (9.4-11.4) H Prothrombin Time INR 2.7 (0.9-1.1) H Sodium Level 139 mmol/L (136-145) Potassium Level 3.7 mmol/L (3.5-5.1) Chloride Level 102 mmol/L (98-107) Carbon Dioxide Level 30 mmol/L (21-32) Anion Gap 7 (6-14) Blood Urea Nitrogen 29 mg/dL (8-26) H Creatinine 1.5 mg/dL (0.7-1.3) H Estimated GFR (Cockcroft-Gault) 45.0 BUN/Creatinine Ratio 19 (6-20) Glucose Level 82 mg/dL (70-99) Calcium Level 9.2 mg/dL (8.5-10.1) Total Bilirubin 0.8 mg/dL (0.2-1.0) Aspartate Amino Transferase (AST) 23 U/L (15-37) Alanine Aminotransferase (ALT) 17 U/L (16-63) Alkaline Phosphatase 102 U/L (46-116) Total Protein 7.3 g/dL (6.4-8.2) Albumin 3.3 g/dL (3.4-5.0) L Albumin/Globulin Ratio 0.8 (1.0-1.7) L Glucose (Fingerstick) 103 mg/dL (70-99) H 217 mg/dL (70-99) H Current Medications: Meds: Current Medications Acetaminophen (Tylenol) 650 mg PRN Q6HRS PRN PO PAIN / TEMP Last administered on 06/20/17at 09:28; Start 06/19/17 at 14:00; Stop 06/20/17 at 10:20; Status DC Multi-Ingredient Ointment (Analgesic [place]) 1 tori PRN QID PRN TP MUSCLE PAIN; Start 06/19/17 at 14:00 Al Hydroxide/Mg Hydroxide (Mylanta Plus Xs) 15 ml PRN AFTMEALHC PRN PO DYSPEPSIA; Start 06/19/17 at 14:00 Magnesium Hydroxide (Milk Of Magnesia) 2,400 mg PRN QHS PRN PO CONSTIPATION; Start 06/19/17 at 14:00 Donepezil HCl (Aricept) 5 mg QHS PO Last administered on 06/22/17at 20:13; Start 06/19/17 at 21:00; Stop 06/23/17 at 16:14; Status DC Lorazepam (Ativan) 0.5 mg BID PO Last administered on 06/24/17at 08:40; Start at 21:00; Stop 06/24/17 at 19:12; Status DC Melatonin 6 mg QHS PO Last administered on 06/24/17at 20:31; Start 06/19/17 at 21:00; Stop 06/25/17 at 18:57; Status DC Glimepiride (Amaryl) 2 mg BIDWMEALS PO Last administered on 06/25/17at 17:33; Start 06/19/17 at 17:00; Stop 06/25/17 at 18:22; Status DC Metoprolol Tartrate (Lopressor) 50 mg BID PO Last administered on 06/24/17at 20: 31; Start 06/19/17 at 21:00 Warfarin Sodium (Coumadin) 2.5 mg QHS PO Last administered on 06/20/17at 20:15; Start 06/19/17 at 21:00; Stop 06/21/17 at 14:13; Status DC Warfarin Sodium (Coumadin Per Physician) 1 each PRN DAILY PRN MC SEE COMMENTS Last administered on 06/20/17at 10:54; Start 06/19/17 at 16:00; Stop 06/20/17 at 14:41; Status DC Warfarin Sodium (Coumadin) 1 mg QHS PO Last administered on 06/20/17at 20:15; Start 06/19/17 at 21:00; Stop 06/21/17 at 14:14; Status DC Acetaminophen (Tylenol) 650 mg PRN Q4HRS PRN PO PAIN Last administered on at 17:06; Start 06/20/17 at 10:15 Clotrimazole (Lotrimin) 15 tori BID TP ; Start 06/20/17 at 21:00; Stop 06/20/17 at 21:00; Status DC Furosemide (Lasix) 40 mg DAILY PO Last administered on 06/26/17at 12:33; Start 06/20/17 at 12:00 Hydrocortisone Acetate (Anucort-Hc) 25 mg PRN Q8HRS PRN RC hemmorhoid discomfort; Start 06/20/17 at 10:15 Linagliptin (Tradjenta) 5 mg DAILY PO Last administered on 06/26/17 12:31; Start 06/20/17 at 12:00 Losartan Potassium (Cozaar) 50 mg DAILY PO Last administered on 06/26/17 12:32 ; Start 06/20/17 at 12:00 Nystatin (Mycostatin) 1 tori DAILY TP Last administered on 06/26/17 13:52; Start 06/20/17 at 12:00 Oxymetazoline HCl (Afrin) 1 spray PRN Q6HRS PRN NS dry nares Last administered on 06/20/17 12:08; Start 06/20/17 at 10:15 Simvastatin (Zocor) 10 mg QHS PO Last administered on 06/25/17 19:58; Start at 21:00 Lidocaine HCl (Xylocaine 2% Topical 30gm Tube) 1 tori DAILY TP Last administered on 06/24/17 08:42; Start 06/20/17 at 12:00; Stop 06/26/17 at 15:33 ; Status DC Polyethylene Glycol (miraLAX) 17 gm DAILY PO Last administered on 06/26/17 12: 33; Start 06/20/17 at 12:00 Potassium Chloride (Klor-Con) 20 meq DAILYWBKFT PO Last administered on 12:32; Start 06/20/17 at 12:00 Quetiapine Fumarate (SEROquel) 12.5 mg TID@0900,1300,1700 PO Last administered on 06/25/17 17:33; Start 06/20/17 at 13:00; Stop 06/25/17 at 18:57; Status DC Trazodone HCl (Desyrel) 50 mg QHS PO Last administered on 06/25/17 19:58; Start 06/20/17 at 21:00 Trazodone HCl (Desyrel) 50 mg PRN QHS PRN PO insomnia; Start 06/20/17 at 21:00 Tramadol HCl (Ultram) 50 mg PRN Q6HRS PRN PO PAIN Last administered on 2/27/ 18at 17:33; Start 06/20/17 at 11:15 Lidocaine (Lidoderm) 1 patch DAILY TD Last administered on 06/26/17at 12:31; Start 06/20/17 at 12:00 Warfarin Sodium (Coumadin Per Pharmacy) 1 each PRN DAILY PRN MC SEE COMMENTS Last administered on 06/26/17at 10:17; Start 06/20/17 at 14:45 Clotrimazole (Lotrimin) 1 tori BID TP Last administered on 06/25/17at 19:58; Start 06/20/17 at 21:00 Warfarin Sodium (Coumadin Per Pharmacy) 1 each PRN DAILY PRN MC SEE COMMENTS; Start 06/21/17 at 14:00; Stop 06/21/17 at 14:00; Status DC Vitamin D (Vitamin D3) 50,000 unit WEEKLY PO Last administered on 06/21/17at 15: 45; Start 06/21/17 at 14:00 Warfarin Sodium (Coumadin) 5 mg 1X WARF ONCE PO Last administered on at 15:45; Start 06/21/17 at 16:00; Stop 06/21/17 at 16:01; Status DC Warfarin Sodium (Coumadin) 5 mg 1X WARF ONCE PO Last administered on at 16:56; Start 06/22/17 at 16:00; Stop 06/22/17 at 16:02; Status DC Fluvoxamine Maleate (Luvox) 25 mg DAILY PO Last administered on 06/25/17at 08:46 ; Start 06/23/17 at 09:00; Stop 06/26/17 at 08:59; Status DC Fluvoxamine Maleate (Luvox) 50 mg DAILY PO Last administered on 06/26/17at 12:32 ; Start 06/26/17 at 09:00 Warfarin Sodium (Coumadin) 5 mg 1X WARF ONCE PO Last administered on at 16:18; Start 06/23/17 at 16:00; Stop 06/23/17 at 16:01; Status DC Donepezil HCl (Aricept) 10 mg QHS PO Last administered on 06/25/17at 19:59; Start 06/23/17 at 21:00 Warfarin Sodium (Coumadin) 5 mg DAILY16 PO Last administered on 06/26/17at 15:38 ; Start 06/24/17 at 16:00 Lorazepam (Ativan) 0.25 mg BID PO Last administered on 06/26/17at 12:36; Start 06/24/17 at 21:00; Stop 06/27/17 at 22:00 Lorazepam (Ativan) 0.25 mg DAILY PO ; Start 06/28/17 at 09:00; Stop 07/01/17 at 08 :59 Glimepiride (Amaryl) 4 mg BIDWMEALS PO Last administered on 06/26/17at 17:06; Start 06/26/17 at 08:00 Oxycodone HCl (Roxicodone) 5 mg PRN Q6HRS PRN PO PAIN Last administered on 06/26at 06:01; Start 06/25/17 at 18:30 Quetiapine Fumarate (SEROquel) 12.5 mg QID PO ; Start 06/26/17 at 07:00; Stop at 07:00; Status DC Mirtazapine (Remeron) 7.5 mg QHS PO Last administered on 06/25/17at 19:58; Start 06/25/17 at 21:00 Quetiapine Fumarate (SEROquel) 12.5 mg 0700,1100,1500,1900 PO Last administered on 06/26/17at 17:35; Start 06/26/17 at 07:00 Lidocaine HCl (Xylocaine 2% Topical 30gm Tube) 1 tori PRN Q6HRS PRN TP PAIN; Start 06/27/17 at 12:00 Active Scripts Active Reported Tradjenta (Linagliptin) 5 Mg Tablet 5 Mg PO DAILY Simvastatin 10 Mg Tablet 10 Mg PO DAILY Probiotic (Lactobacillus Combo No.10) 1 Each Capsule 1 Each PO Potassium Chloride 10 Meq Tablet.er 20 Meq PO DAILY Nystatin 15 Gm Cream..g. 1 Tori TP DAILY Sinus Nasal (Oxymetazoline Hcl) 30 Ml [place] 1 [place] NS PRN Q6HRS PRN Metoprolol Tartrate 50 Mg Tablet 50 Mg PO BID Melatonin 3 Mg Tablet 6 Mg PO HS Losartan Potassium 50 Mg Tablet 50 Mg PO DAILY Lorazepam 0.5 Mg Tablet 0.5 Mg PO BID Topicaine (Lidocaine) 113 Gm Gel..gram. 1 Tori TP DAILY Polyethylene Glycol 3350 2,500 Gm Powder 17 Gm PO DAILY Glimepiride 2 Mg Tablet 2 Mg PO BID Furosemide 40 Mg Tablet 40 Mg PO DAILY Coumadin (Warfarin Sodium) 3 Mg Tablet 3.5 Mg PO QHS Clotrimazole 15 Gm Cream..g. 15 Gm TP BID Aricept (Donepezil Hcl) 5 Mg Tablet 5 Mg PO QHS Anusol-Hc (Hydrocortisone Acetate) 25 Mg Supp.rect 1 Supp RC PRN Q8HRS PRN Tylenol (Acetaminophen) 325 Mg Tablet 650 Mg PO PRN Q4HRS PRN I have reviewed the current psychotropics carefully including drug interactions. Risk benefit ratio favors no change other than as noted in my dictated progress note. Diagnosis: Problems: (1) Medical clearance for psychiatric admission (2) Psychosis (3) Anxiety disorder (4) Bipolar affective, mixed, sev w/ psych (5) Dementia in Alzheimer's disease with delusions (6) Impulse control disorder MIMI MCNULTY MD Jun 26, 2017 19:45
[2017-06-26] MEDS: traZODone 50 MG TABLET. PO SCH (20:13)
[2017-06-26] MEDS: DONEPEZIL HCL 10 MG TABLET PO SCH (20:13)
[2017-06-26] MEDS: MIRTAZAPINE 7.5 MG TABLET. PO SCH (20:13)
[2017-06-26] MEDS: SIMVASTATIN 10 MG TABLET PO SCH (20:14)
--- NOTE | 2017-06-27 03:41 | PN ---
DATE: 06/25/2017 This is a late entry for 06/25/2017, covers elements not covered in my initial note of 06/25/2017. SUBJECTIVE: I met with the patient the evening of 06/25/2017. The patient slept 4 hours previous evening, described by the nursing staff as being attention seeking, needy, obsessed regarding medications. He has the nursing staff tell him each medication what it is, what it is used for, later repeats it again and again. He did take them later with coaxing, slept 4 hours. REVIEW OF SYSTEMS: No CV, , pulmonary, eye system symptoms on review. He has vague somatic symptoms. Ambulates in wheelchair. MENTAL STATUS EXAMINATION: Oriented to himself and situation. Speech coherent, abstraction fair, computation impaired, language function intact. Attention span short. No suicidal or homicidal ideation. LABORATORY DATA: Reviewed. IMPRESSION: Bipolar 1 disorder, mixed with psychotic features; anxiety disorder, unspecified; obsessive compulsive disorder; psychotic disorder, unspecified. Rest unchanged from initial note. PLAN: Change melatonin to Remeron 7.5 mg p.o. at bedtime, increase Seroquel from 12.5 mg 3 times a day to 4 times a day. Continue rest unchanged. MIMI MCNULTY MD DR: CHERIE/yovana JOB#: [id number] / [id number]
[2017-06-27 05:32] VITALS: BP 117/53
[2017-06-27] MEDS: oxyCODONE IR 5 MG TABLET PO PRN (05:36)
[2017-06-27] MEDS: QUEtiapine 25 MG TABLET. PO SCH ×4 (05:36→19:18)
[2017-06-27] MEDS: LOSARTAN 50 MG TABLET. PO SCH (09:00)
[2017-06-27] MEDS: METOPROLOL TART IMMED RELEASE 50 MG TABLET PO SCH ×2 (09:00→20:06)
[2017-06-27] MEDS: GLIMEPIRIDE 2 MG TABLET PO SCH ×2 (09:00→16:04)
[2017-06-27] MEDS: LINAGLIPTIN 5 MG TABLET PO SCH (09:01)
[2017-06-27] MEDS: POLYETHYLENE GLYCOL 3350 17 GM PACKET. PO SCH (09:01)
[2017-06-27] MEDS: POTASSIUM CHLORIDE 20 MEQ TABLET.ER. PO SCH (09:01)
[2017-06-27] MEDS: FUROSEMIDE 40 MG TABLET PO SCH (09:01)
[2017-06-27] MEDS: NYSTATIN 100,000 UNIT/GM TOPICAL CREAM 15GM TUBE. TP SCH (09:03)
[2017-06-27] MEDS: LIDOCAINE (700MG/PATCH) PATCH. TD SCH (09:03)
[2017-06-27] MEDS: CLOTRIMAZOLE 1% TOPICAL CREAM 30GM TUBE. TP SCH ×2 (09:03→20:08)
[2017-06-27] MEDS: LORazepam 0.5 MG TABLET PO SCH ×2 (09:05→20:07)
[2017-06-27] MEDS: traMADol 50 MG TABLET PO PRN ×2 (11:17→20:07)
[2017-06-27] MEDS ORDERED: LIDOCAINE 2% TOPICAL JELLY 30GM TUBE. TP PRN (12:00)
[2017-06-27 15:37] VITALS: BP 100/52
[2017-06-27] MEDS: WARFARIN 5 MG TABLET. PO SCH (16:05)
--- NOTE | 2017-06-27 20:01 | PDOC ---
Exam Note: Shady Note: Please also refer to the separate dictated note~for this date of service dictated separately.~Patient seen individually. Discussed the patient with Nursing staff reviewed the chart.~Reviewed interim history and current functioning. Reviewed vital signs,~Labs/ Radiology~and current medications noted below. Continue current treatment with the changes noted in the dictated addendum note Assessment: Vital Signs: Vital Signs Date Time Temp Pulse Resp B/P (MAP) Pulse Ox O2 Delivery O2 Flow Rate FiO2 06/27/17 16:02 18 94 Room Air 06/27/17 15:37 98.2 65 100/52 (68) I&O Intake and Output 06/27/17 07:00 Intake Total 480 ml Balance 480 ml Intake Oral 480 ml Labs: Laboratory Tests Test 06/27/17 07:13 Glucose (Fingerstick) 98 mg/dL (70-99) Current Medications: Meds: Current Medications Acetaminophen (Tylenol) 650 mg PRN Q6HRS PRN PO PAIN / TEMP Last administered on 06/20/17at 09:28; Start 06/19/17 at 14:00; Stop 06/20/17 at 10:20; Status DC Multi-Ingredient Ointment (Analgesic [place]) 1 tori PRN QID PRN TP MUSCLE PAIN; Start 06/19/17 at 14:00 Al Hydroxide/Mg Hydroxide (Mylanta Plus Xs) 15 ml PRN AFTMEALHC PRN PO DYSPEPSIA; Start 06/19/17 at 14:00 Magnesium Hydroxide (Milk Of Magnesia) 2,400 mg PRN QHS PRN PO CONSTIPATION; Start 06/19/17 at 14:00 Donepezil HCl (Aricept) 5 mg QHS PO Last administered on 06/22/17at 20:13; Start 06/19/17 at 21:00; Stop 06/23/17 at 16:14; Status DC Lorazepam (Ativan) 0.5 mg BID PO Last administered on 06/24/17at 08:40; Start at 21:00; Stop 06/24/17 at 19:12; Status DC Melatonin 6 mg QHS PO Last administered on 06/24/17at 20:31; Start 06/19/17 at 21:00; Stop 06/25/17 at 18:57; Status DC Glimepiride (Amaryl) 2 mg BIDWMEALS PO Last administered on 06/25/17at 17:33; Start 06/19/17 at 17:00; Stop 06/25/17 at 18:22; Status DC Metoprolol Tartrate (Lopressor) 50 mg BID PO Last administered on 06/27/17at 09: 00; Start 06/19/17 at 21:00 Warfarin Sodium (Coumadin) 2.5 mg QHS PO Last administered on 06/20/17at 20:15; Start 06/19/17 at 21:00; Stop 06/21/17 at 14:13; Status DC Warfarin Sodium (Coumadin Per Physician) 1 each PRN DAILY PRN MC SEE COMMENTS Last administered on 06/20/17at 10:54; Start 06/19/17 at 16:00; Stop 06/20/17 at 14:41; Status DC Warfarin Sodium (Coumadin) 1 mg QHS PO Last administered on 06/20/17at 20:15; Start 06/19/17 at 21:00; Stop 06/21/17 at 14:14; Status DC Acetaminophen (Tylenol) 650 mg PRN Q4HRS PRN PO PAIN Last administered on at 17:06; Start 06/20/17 at 10:15 Clotrimazole (Lotrimin) 15 tori BID TP ; Start 06/20/17 at 21:00; Stop 06/20/17 at 21:00; Status DC Furosemide (Lasix) 40 mg DAILY PO Last administered on 06/27/17at 09:01; Start at 12:00 Hydrocortisone Acetate (Anucort-Hc) 25 mg PRN Q8HRS PRN RC hemmorhoid discomfort; Start 06/20/17 at 10:15 Linagliptin (Tradjenta) 5 mg DAILY PO Last administered on 06/27/17 09:01; Start 06/20/17 at 12:00 Losartan Potassium (Cozaar) 50 mg DAILY PO Last administered on 06/27/17 09:00 ; Start 06/20/17 at 12:00 Nystatin (Mycostatin) 1 tori DAILY TP Last administered on 06/27/17at 09:03; Start 06/20/17 at 12:00 Oxymetazoline HCl (Afrin) 1 spray PRN Q6HRS PRN NS dry nares Last administered on 06/20/17 12:08; Start 06/20/17 at 10:15 Simvastatin (Zocor) 10 mg QHS PO Last administered on 06/26/17at 20:14; Start at 21:00 Lidocaine HCl (Xylocaine 2% Topical 30gm Tube) 1 tori DAILY TP Last administered on 06/24/17at 08:42; Start 06/20/17 at 12:00; Stop 06/26/17 at 15:33 ; Status DC Polyethylene Glycol (miraLAX) 17 gm DAILY PO Last administered on 06/27/17 09: 01; Start 06/20/17 at 12:00 Potassium Chloride (Klor-Con) 20 meq DAILYWBKFT PO Last administered on 09:01; Start 06/20/17 at 12:00 Quetiapine Fumarate (SEROquel) 12.5 mg TID@0900,1300,1700 PO Last administered on 06/25/17 17:33; Start 06/20/17 at 13:00; Stop 06/25/17 at 18:57; Status DC Trazodone HCl (Desyrel) 50 mg QHS PO Last administered on 06/26/17 20:13; Start 06/20/17 at 21:00 Trazodone HCl (Desyrel) 50 mg PRN QHS PRN PO insomnia; Start 06/20/17 at 21:00 Tramadol HCl (Ultram) 50 mg PRN Q6HRS PRN PO PAIN Last administered on 11:17; Start 06/20/17 at 11:15 Lidocaine (Lidoderm) 1 patch DAILY TD Last administered on 06/27/17 09:03; Start 06/20/17 at 12:00 Warfarin Sodium (Coumadin Per Pharmacy) 1 each PRN DAILY PRN MC SEE COMMENTS Last administered on 06/26/17 10:17; Start 06/20/17 at 14:45 Clotrimazole (Lotrimin) 1 tori BID TP Last administered on 06/27/17 09:03; Start 06/20/17 at 21:00 Warfarin Sodium (Coumadin Per Pharmacy) 1 each PRN DAILY PRN MC SEE COMMENTS; Start 06/21/17 at 14:00; Stop 06/21/17 at 14:00; Status DC Vitamin D (Vitamin D3) 50,000 unit WEEKLY PO Last administered on 06/21/17at 15: 45; Start 06/21/17 at 14:00 Warfarin Sodium (Coumadin) 5 mg 1X WARF ONCE PO Last administered on at 15:45; Start 06/21/17 at 16:00; Stop 06/21/17 at 16:01; Status DC Warfarin Sodium (Coumadin) 5 mg 1X WARF ONCE PO Last administered on at 16:56; Start 06/22/17 at 16:00; Stop 06/22/17 at 16:02; Status DC Fluvoxamine Maleate (Luvox) 25 mg DAILY PO Last administered on 06/25/17at 08:46 ; Start 06/23/17 at 09:00; Stop 06/26/17 at 08:59; Status DC Fluvoxamine Maleate (Luvox) 50 mg DAILY PO Last administered on 06/27/17at 09:01 ; Start 06/26/17 at 09:00 Warfarin Sodium (Coumadin) 5 mg 1X WARF ONCE PO Last administered on at 16:18; Start 06/23/17 at 16:00; Stop 06/23/17 at 16:01; Status DC Donepezil HCl (Aricept) 10 mg QHS PO Last administered on 06/26/17at 20:13; Start 06/23/17 at 21:00 Warfarin Sodium (Coumadin) 5 mg DAILY16 PO Last administered on 06/27/17at 16:05 ; Start 06/24/17 at 16:00 Lorazepam (Ativan) 0.25 mg BID PO Last administered on 06/27/17at 09:05; Start at 21:00; Stop 06/27/17 at 22:00 Lorazepam (Ativan) 0.25 mg DAILY PO ; Start 06/28/17 at 09:00; Stop 07/01/17 at 08 :59 Glimepiride (Amaryl) 4 mg BIDWMEALS PO Last administered on 06/27/17at 16:04; Start 06/26/17 at 08:00 Oxycodone HCl (Roxicodone) 5 mg PRN Q6HRS PRN PO PAIN Last administered on at 05:36; Start 06/25/17 at 18:30 Quetiapine Fumarate (SEROquel) 12.5 mg QID PO ; Start 06/26/17 at 07:00; Stop at 07:00; Status DC Mirtazapine (Remeron) 7.5 mg QHS PO Last administered on 06/26/17at 20:13; Start 06/25/17 at 21:00 Quetiapine Fumarate (SEROquel) 12.5 mg 0700,1100,1500,1900 PO Last administered on 06/27/17at 19:18; Start 06/26/17 at 07:00 Lidocaine HCl (Xylocaine 2% Topical 30gm Tube) 1 tori PRN Q6HRS PRN TP PAIN; Start 06/27/17 at 12:00 Active Scripts Active Reported Tradjenta (Linagliptin) 5 Mg Tablet 5 Mg PO DAILY Simvastatin 10 Mg Tablet 10 Mg PO DAILY Probiotic (Lactobacillus Combo No.10) 1 Each Capsule 1 Each PO Potassium Chloride 10 Meq Tablet.er 20 Meq PO DAILY Nystatin 15 Gm Cream..g. 1 Tori TP DAILY Sinus Nasal (Oxymetazoline Hcl) 30 Ml [place] 1 [place] NS PRN Q6HRS PRN Metoprolol Tartrate 50 Mg Tablet 50 Mg PO BID Melatonin 3 Mg Tablet 6 Mg PO HS Losartan Potassium 50 Mg Tablet 50 Mg PO DAILY Lorazepam 0.5 Mg Tablet 0.5 Mg PO BID Topicaine (Lidocaine) 113 Gm Gel..gram. 1 Tori TP DAILY Polyethylene Glycol 3350 2,500 Gm Powder 17 Gm PO DAILY Glimepiride 2 Mg Tablet 2 Mg PO BID Furosemide 40 Mg Tablet 40 Mg PO DAILY Coumadin (Warfarin Sodium) 3 Mg Tablet 3.5 Mg PO QHS Clotrimazole 15 Gm Cream..g. 15 Gm TP BID Aricept (Donepezil Hcl) 5 Mg Tablet 5 Mg PO QHS Anusol-Hc (Hydrocortisone Acetate) 25 Mg Supp.rect 1 Supp RC PRN Q8HRS PRN Tylenol (Acetaminophen) 325 Mg Tablet 650 Mg PO PRN Q4HRS PRN I have reviewed the current psychotropics carefully including drug interactions. Risk benefit ratio favors no change other than as noted in my dictated progress note. Diagnosis: Problems: (1) Medical clearance for psychiatric admission (2) Psychosis (3) Anxiety disorder (4) Bipolar affective, mixed, sev w/ psych (5) Dementia in Alzheimer's disease with delusions (6) Impulse control disorder MIMI MCNULTY MD Jun 27, 2017 20:01
[2017-06-27 20:05] VITALS: BP 133/51
[2017-06-27] MEDS: SIMVASTATIN 10 MG TABLET PO SCH (20:06)
[2017-06-27] MEDS: DONEPEZIL HCL 10 MG TABLET PO SCH (20:06)
[2017-06-27] MEDS: MIRTAZAPINE 7.5 MG TABLET. PO SCH (20:06)
[2017-06-27] MEDS: traZODone 50 MG TABLET. PO SCH (20:07)
[2017-06-28] MEDS: QUEtiapine 25 MG TABLET. PO SCH ×4 (06:06→18:30)
[2017-06-28 06:43] VITALS: BP 106/51
[2017-06-28] MEDS: CLOTRIMAZOLE 1% TOPICAL CREAM 30GM TUBE. TP SCH ×2 (09:00→19:50)
[2017-06-28] MEDS: LOSARTAN 50 MG TABLET. PO SCH (09:00)
[2017-06-28] MEDS: NYSTATIN 100,000 UNIT/GM TOPICAL CREAM 15GM TUBE. TP SCH (09:00)
[2017-06-28] MEDS: METOPROLOL TART IMMED RELEASE 50 MG TABLET PO SCH ×2 (09:00→19:40)
[2017-06-28 09:55] VITALS: BP 107/58
[2017-06-28] MEDS: LIDOCAINE (700MG/PATCH) PATCH. TD SCH (09:56)
[2017-06-28] MEDS: POLYETHYLENE GLYCOL 3350 17 GM PACKET. PO SCH (09:56)
[2017-06-28] MEDS: GLIMEPIRIDE 2 MG TABLET PO SCH ×2 (10:00→16:15)
[2017-06-28] MEDS: FUROSEMIDE 40 MG TABLET PO SCH (10:00)
[2017-06-28] MEDS: LINAGLIPTIN 5 MG TABLET PO SCH (10:00)
[2017-06-28] MEDS: POTASSIUM CHLORIDE 20 MEQ TABLET.ER. PO SCH (10:00)
[2017-06-28] MEDS: CHOLECALCIFEROL (VITAMIN D3) 50,000 UNIT CAPSULE PO SCH (10:02)
[2017-06-28] MEDS: LORazepam 0.5 MG TABLET PO SCH (10:02)
[2017-06-28 16:05] VITALS: BP 119/69
[2017-06-28] MEDS: WARFARIN 5 MG TABLET. PO SCH (16:15)
[2017-06-28] MEDS: SIMVASTATIN 10 MG TABLET PO SCH (19:39)
[2017-06-28] MEDS: DONEPEZIL HCL 10 MG TABLET PO SCH (19:39)
[2017-06-28] MEDS: traZODone 50 MG TABLET. PO SCH (19:39)
[2017-06-28] MEDS: MIRTAZAPINE 7.5 MG TABLET. PO SCH (19:39)
[2017-06-28] MEDS: traMADol 50 MG TABLET PO PRN (19:49)
--- NOTE | 2017-06-28 21:23 | PN ---
DATE: 06/26/2017 This is a late entry for 06/26/2017 covers elements not covered in my initial note of 06/26/2017. SUBJECTIVE: I met with the patient in the evening of 06/26/2017. The patient slept until about 11:30 a.m., refused his metoprolol, complains of back pain. He does have a T12 fracture, has a lidocaine patch and I will defer to Dr. Veliz/Dr. Lewis. He gets tramadol at night and oxycodone. Family may want to consider followup with Orthopedics post-discharge. REVIEW OF SYSTEMS: Ambulation impaired, in wheelchair. No CV, , pulmonary, eye system symptoms on review. He has vague somatic symptoms beyond the back pain. MENTAL STATUS EXAM: Oriented to himself and situation. Speech has some latency, coherent. Abstraction fair, computation impaired, language function intact. Mood and affect still somewhat anxious, labile, but showing improvement. LABORATORY DATA: Reviewed. IMPRESSION: Psychotic disorder, unspecified, mild cognitive impairment, major depressive disorder with psychotic features, obsessive-compulsive disorder symptoms. PLAN: Taper the Ativan, gradually increase the Luvox. Rest unchanged per initial note. MAN Raquel MCNULTY MD DR: CHERIE/yovana JOB#: [id number] / [id number]
--- NOTE | 2017-06-28 22:19 | PDOC ---
Exam Note: Shady Note: Please also refer to the separate dictated note~for this date of service dictated separately.~Patient seen individually. Discussed the patient with Nursing staff reviewed the chart.~Reviewed interim history and current functioning. Reviewed vital signs,~Labs/ Radiology~and current medications noted below. Continue current treatment with the changes noted in the dictated addendum note Assessment: Vital Signs: Vital Signs Date Time Temp Pulse Resp B/P (MAP) Pulse Ox O2 Delivery O2 Flow Rate FiO2 06/28/17 19:49 18 95 Room Air 06/28/17 19:40 83 119/69 06/28/17 16:05 98.4 I&O Intake and Output 06/28/17 07:00 Intake Total 1540 ml Balance 1540 ml Intake Oral 840 ml IV Total 700 ml # Bowel Movements 2 Labs: Laboratory Tests Test 06/28/17 07:35 06/28/17 08:57 Glucose (Fingerstick) 99 mg/dL (70-99) Prothrombin Time 30.2 SEC (9.4-11.4) H Prothrombin Time INR 3.0 (0.9-1.1) H Current Medications: Meds: Current Medications Acetaminophen (Tylenol) 650 mg PRN Q6HRS PRN PO PAIN / TEMP Last administered on 06/20/17at 09:28; Start 06/19/17 at 14:00; Stop 06/20/17 at 10:20; Status DC Multi-Ingredient Ointment (Analgesic [place]) 1 tori PRN QID PRN TP MUSCLE PAIN; Start 06/19/17 at 14:00 Al Hydroxide/Mg Hydroxide (Mylanta Plus Xs) 15 ml PRN AFTMEALHC PRN PO DYSPEPSIA; Start 06/19/17 at 14:00 Magnesium Hydroxide (Milk Of Magnesia) 2,400 mg PRN QHS PRN PO CONSTIPATION; Start 06/19/17 at 14:00 Donepezil HCl (Aricept) 5 mg QHS PO Last administered on 06/22/17at 20:13; Start 06/19/17 at 21:00; Stop 06/23/17 at 16:14; Status DC Lorazepam (Ativan) 0.5 mg BID PO Last administered on 06/24/17at 08:40; Start at 21:00; Stop 2/26/18 at 19:12; Status DC Melatonin 6 mg QHS PO Last administered on 06/24/17at 20:31; Start 06/19/17 at 21:00; Stop 06/25/17 at 18:57; Status DC Glimepiride (Amaryl) 2 mg BIDWMEALS PO Last administered on 06/25/17at 17:33; Start 06/19/17 at 17:00; Stop 06/25/17 at 18:22; Status DC Metoprolol Tartrate (Lopressor) 50 mg BID PO Last administered on 06/28/17at 19: 40; Start 06/19/17 at 21:00 Warfarin Sodium (Coumadin) 2.5 mg QHS PO Last administered on 06/20/17at 20:15; Start 06/19/17 at 21:00; Stop 06/21/17 at 14:13; Status DC Warfarin Sodium (Coumadin Per Physician) 1 each PRN DAILY PRN MC SEE COMMENTS Last administered on 06/20/17at 10:54; Start 06/19/17 at 16:00; Stop 06/20/17 at 14:41; Status DC Warfarin Sodium (Coumadin) 1 mg QHS PO Last administered on 06/20/17at 20:15; Start 06/19/17 at 21:00; Stop 06/21/17 at 14:14; Status DC Acetaminophen (Tylenol) 650 mg PRN Q4HRS PRN PO PAIN Last administered on 17:06; Start 06/20/17 at 10:15 Clotrimazole (Lotrimin) 15 tori BID TP ; Start 06/20/17 at 21:00; Stop 06/20/17 at 21:00; Status DC Furosemide (Lasix) 40 mg DAILY PO Last administered on 06/28/17at 10:00; Start at 12:00 Hydrocortisone Acetate (Anucort-Hc) 25 mg PRN Q8HRS PRN RC hemmorhoid discomfort; Start 06/20/17 at 10:15 Linagliptin (Tradjenta) 5 mg DAILY PO Last administered on 06/28/17at 10:00; Start 06/20/17 at 12:00 Losartan Potassium (Cozaar) 50 mg DAILY PO Last administered on 06/27/17at 09:00 ; Start 06/20/17 at 12:00 Nystatin (Mycostatin) 1 tori DAILY TP Last administered on 06/27/17 09:03; Start 06/20/17 at 12:00 Oxymetazoline HCl (Afrin) 1 spray PRN Q6HRS PRN NS dry nares Last administered on 06/20/17 12:08; Start 06/20/17 at 10:15 Simvastatin (Zocor) 10 mg QHS PO Last administered on 06/28/17 19:39; Start at 21:00 Lidocaine HCl (Xylocaine 2% Topical 30gm Tube) 1 tori DAILY TP Last administered on 06/24/17 08:42; Start 06/20/17 at 12:00; Stop 06/26/17 at 15:33 ; Status DC Polyethylene Glycol (miraLAX) 17 gm DAILY PO Last administered on 06/28/17 09: 56; Start 06/20/17 at 12:00 Potassium Chloride (Klor-Con) 20 meq DAILYWBKFT PO Last administered on 10:00; Start 06/20/17 at 12:00 Quetiapine Fumarate (SEROquel) 12.5 mg TID@0900,1300,1700 PO Last administered on 06/25/17 17:33; Start 06/20/17 at 13:00; Stop 06/25/17 at 18:57; Status DC Trazodone HCl (Desyrel) 50 mg QHS PO Last administered on 06/28/17 19:39; Start 06/20/17 at 21:00 Trazodone HCl (Desyrel) 50 mg PRN QHS PRN PO insomnia; Start 06/20/17 at 21:00 Tramadol HCl (Ultram) 50 mg PRN Q6HRS PRN PO PAIN Last administered on 19:49; Start 06/20/17 at 11:15 Lidocaine (Lidoderm) 1 patch DAILY TD Last administered on 06/28/17 09:56; Start 06/20/17 at 12:00 Warfarin Sodium (Coumadin Per Pharmacy) 1 each PRN DAILY PRN MC SEE COMMENTS Last administered on 06/28/17 13:32; Start 06/20/17 at 14:45 Clotrimazole (Lotrimin) 1 tori BID TP Last administered on 06/28/17at 19:50; Start 06/20/17 at 21:00 Warfarin Sodium (Coumadin Per Pharmacy) 1 each PRN DAILY PRN MC SEE COMMENTS; Start 06/21/17 at 14:00; Stop 06/21/17 at 14:00; Status DC Vitamin D (Vitamin D3) 50,000 unit WEEKLY PO Last administered on 06/28/17 10: 02; Start 06/21/17 at 14:00 Warfarin Sodium (Coumadin) 5 mg 1X WARF ONCE PO Last administered on at 15:45; Start 06/21/17 at 16:00; Stop 06/21/17 at 16:01; Status DC Warfarin Sodium (Coumadin) 5 mg 1X WARF ONCE PO Last administered on at 16:56; Start 06/22/17 at 16:00; Stop 06/22/17 at 16:02; Status DC Fluvoxamine Maleate (Luvox) 25 mg DAILY PO Last administered on 06/25/17at 08:46 ; Start 06/23/17 at 09:00; Stop 06/26/17 at 08:59; Status DC Fluvoxamine Maleate (Luvox) 50 mg DAILY PO Last administered on 06/28/17at 10:00 ; Start 06/26/17 at 09:00; Stop 06/28/17 at 18:16; Status DC Warfarin Sodium (Coumadin) 5 mg 1X WARF ONCE PO Last administered on at 16:18; Start 06/23/17 at 16:00; Stop 06/23/17 at 16:01; Status DC Donepezil HCl (Aricept) 10 mg QHS PO Last administered on 06/28/17at 19:39; Start 06/23/17 at 21:00 Warfarin Sodium (Coumadin) 5 mg DAILY16 PO Last administered on 06/28/17at 16:15 ; Start 06/24/17 at 16:00 Lorazepam (Ativan) 0.25 mg BID PO Last administered on 06/27/17at 20:07; Start at 21:00; Stop 06/27/17 at 22:00; Status DC Lorazepam (Ativan) 0.25 mg DAILY PO Last administered on 06/28/17at 10:02; Start 06/28/17 at 09:00; Stop 07/01/17 at 08:59 Glimepiride (Amaryl) 4 mg BIDWMEALS PO Last administered on 06/28/17at 16:15; Start 06/26/17 at 08:00 Oxycodone HCl (Roxicodone) 5 mg PRN Q6HRS PRN PO PAIN Last administered on at 05:36; Start 06/25/17 at 18:30 Quetiapine Fumarate (SEROquel) 12.5 mg QID PO ; Start 06/26/17 at 07:00; Stop at 07:00; Status DC Mirtazapine (Remeron) 7.5 mg QHS PO Last administered on 06/28/17at 19:39; Start 06/25/17 at 21:00 Quetiapine Fumarate (SEROquel) 12.5 mg 0700,1100,1500,1900 PO Last administered on 06/28/17at 18:30; Start 06/26/17 at 07:00 Lidocaine HCl (Xylocaine 2% Topical 30gm Tube) 1 tori PRN Q6HRS PRN TP PAIN; Start 06/27/17 at 12:00 Fluvoxamine Maleate (Luvox) 75 mg DAILY PO ; Start 06/29/17 at 09:00 Active Scripts Active Reported Tradjenta (Linagliptin) 5 Mg Tablet 5 Mg PO DAILY Simvastatin 10 Mg Tablet 10 Mg PO DAILY Probiotic (Lactobacillus Combo No.10) 1 Each Capsule 1 Each PO Potassium Chloride 10 Meq Tablet.er 20 Meq PO DAILY Nystatin 15 Gm Cream..g. 1 Tori TP DAILY Sinus Nasal (Oxymetazoline Hcl) 30 Ml [place] 1 [place] NS PRN Q6HRS PRN Metoprolol Tartrate 50 Mg Tablet 50 Mg PO BID Melatonin 3 Mg Tablet 6 Mg PO HS Losartan Potassium 50 Mg Tablet 50 Mg PO DAILY Lorazepam 0.5 Mg Tablet 0.5 Mg PO BID Topicaine (Lidocaine) 113 Gm Gel..gram. 1 Tori TP DAILY Polyethylene Glycol 3350 2,500 Gm Powder 17 Gm PO DAILY Glimepiride 2 Mg Tablet 2 Mg PO BID Furosemide 40 Mg Tablet 40 Mg PO DAILY Coumadin (Warfarin Sodium) 3 Mg Tablet 3.5 Mg PO QHS Clotrimazole 15 Gm Cream..g. 15 Gm TP BID Aricept (Donepezil Hcl) 5 Mg Tablet 5 Mg PO QHS Anusol-Hc (Hydrocortisone Acetate) 25 Mg Supp.rect 1 Supp RC PRN Q8HRS PRN Tylenol (Acetaminophen) 325 Mg Tablet 650 Mg PO PRN Q4HRS PRN I have reviewed the current psychotropics carefully including drug interactions. Risk benefit ratio favors no change other than as noted in my dictated progress note. 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
--- NOTE | 2017-06-28 23:57 | PN ---
DATE: 06/27/2017 This late entry, 06/27/2017, covers elements not covered in my initial note of 06/27/2017. SUBJECTIVE: The patient was staffed at treatment team meeting the morning of 06/27/2017 with the son, Milo. We had a lengthy discussion about the patient's history, diagnosis, thoracic spinal fracture, outpatient followup for this. Sleeping about 5 hours. Appetite 50%, poor participation in groups, demanding, helpless. REVIEW OF SYSTEMS: Ambulation impaired, in wheelchair, complains of back pain. No CV, , pulmonary, eye system symptoms on review. MENTAL STATUS EXAM: Oriented to himself and situation. Speech, often responses monosyllabic. Abstraction fair, computation impaired, language function intact. Mood and affect somewhat labile. LABORATORY DATA: Reviewed. IMPRESSION: Psychotic disorder, unspecified; bipolar 1 disorder, mixed with psychotic features. Rest unchanged. PLAN: Continue current psychotropics mentioned in my initial note. Adjust further. May need to increase Seroquel in due course. MAN Raquel MCNULTY MD DR: CHERIE/yovana JOB#: [id number] / [id number]
[2017-06-29] MEDS: QUEtiapine 25 MG TABLET. PO SCH ×4 (06:15→19:06)
[2017-06-29] MEDS: traMADol 50 MG TABLET PO PRN (06:28)
[2017-06-29 06:29] VITALS: BP 125/52
[2017-06-29] MEDS: LOSARTAN 50 MG TABLET. PO SCH (09:00)
[2017-06-29] MEDS: METOPROLOL TART IMMED RELEASE 50 MG TABLET PO SCH ×2 (09:00→20:18)
[2017-06-29] MEDS: CLOTRIMAZOLE 1% TOPICAL CREAM 30GM TUBE. TP SCH ×2 (09:00→20:19)
[2017-06-29] MEDS: NYSTATIN 100,000 UNIT/GM TOPICAL CREAM 15GM TUBE. TP SCH (09:00)
[2017-06-29] MEDS: GLIMEPIRIDE 2 MG TABLET PO SCH ×2 (09:49→17:05)
[2017-06-29] MEDS: POTASSIUM CHLORIDE 20 MEQ TABLET.ER. PO SCH (09:49)
[2017-06-29] MEDS: FUROSEMIDE 40 MG TABLET PO SCH (09:50)
[2017-06-29] MEDS: LORazepam 0.5 MG TABLET PO SCH (09:50)
[2017-06-29] MEDS: LINAGLIPTIN 5 MG TABLET PO SCH (09:51)
[2017-06-29] MEDS: POLYETHYLENE GLYCOL 3350 17 GM PACKET. PO SCH (09:51)
[2017-06-29] MEDS: LIDOCAINE (700MG/PATCH) PATCH. TD SCH (09:51)
[2017-06-29 16:36] VITALS: BP 119/67
[2017-06-29] MEDS: WARFARIN 5 MG TABLET. PO SCH (17:05)
[2017-06-29] MEDS: SIMVASTATIN 10 MG TABLET PO SCH (20:18)
[2017-06-29] MEDS: DONEPEZIL HCL 10 MG TABLET PO SCH (20:18)
[2017-06-29] MEDS: traZODone 50 MG TABLET. PO SCH (20:18)
[2017-06-29] MEDS: MIRTAZAPINE 7.5 MG TABLET. PO SCH (20:18)
--- NOTE | 2017-06-29 21:04 | PDOC ---
Exam Note: Shady Note: Please also refer to the separate dictated note~for this date of service dictated separately.~Patient seen individually. Discussed the patient with Nursing staff reviewed the chart.~Reviewed interim history and current functioning. Reviewed vital signs,~Labs/ Radiology~and current medications noted below. Continue current treatment with the changes noted in the dictated addendum note Assessment: Vital Signs: Vital Signs Date Time Temp Pulse Resp B/P (MAP) Pulse Ox O2 Delivery O2 Flow Rate FiO2 06/29/17 20:18 89 119/67 06/29/17 16:36 97.9 18 94 Room Air I&O Intake and Output 06/29/17 07:00 Intake Total 1300 ml Balance 1300 ml Intake Oral 600 ml IV Total 700 ml # Bowel Movements 1 Labs: Laboratory Tests Test 06/29/17 07:35 06/29/17 19:27 Glucose (Fingerstick) 120 mg/dL (70-99) H 179 mg/dL (70-99) H Current Medications: Meds: Current Medications Acetaminophen (Tylenol) 650 mg PRN Q6HRS PRN PO PAIN / TEMP Last administered on 06/20/17at 09:28; Start 06/19/17 at 14:00; Stop 06/20/17 at 10:20; Status DC Multi-Ingredient Ointment (Analgesic [place]) 1 tori PRN QID PRN TP MUSCLE PAIN; Start 06/19/17 at 14:00 Al Hydroxide/Mg Hydroxide (Mylanta Plus Xs) 15 ml PRN AFTMEALHC PRN PO DYSPEPSIA; Start 06/19/17 at 14:00 Magnesium Hydroxide (Milk Of Magnesia) 2,400 mg PRN QHS PRN PO CONSTIPATION; Start 06/19/17 at 14:00 Donepezil HCl (Aricept) 5 mg QHS PO Last administered on 06/22/17at 20:13; Start 06/19/17 at 21:00; Stop 06/23/17 at 16:14; Status DC Lorazepam (Ativan) 0.5 mg BID PO Last administered on 06/24/17at 08:40; Start at 21:00; Stop 06/24/17 at 19:12; Status DC Melatonin 6 mg QHS PO Last administered on 06/24/17at 20:31; Start 06/19/17 at 21:00; Stop 06/25/17 at 18:57; Status DC Glimepiride (Amaryl) 2 mg BIDWMEALS PO Last administered on 06/25/17at 17:33; Start 06/19/17 at 17:00; Stop 06/25/17 at 18:22; Status DC Metoprolol Tartrate (Lopressor) 50 mg BID PO Last administered on 06/29/17 20: 18; Start 06/19/17 at 21:00 Warfarin Sodium (Coumadin) 2.5 mg QHS PO Last administered on 06/20/17at 20:15; Start 06/19/17 at 21:00; Stop 06/21/17 at 14:13; Status DC Warfarin Sodium (Coumadin Per Physician) 1 each PRN DAILY PRN MC SEE COMMENTS Last administered on 06/20/17at 10:54; Start 06/19/17 at 16:00; Stop 06/20/17 at 14:41; Status DC Warfarin Sodium (Coumadin) 1 mg QHS PO Last administered on 06/20/17at 20:15; Start 06/19/17 at 21:00; Stop 06/21/17 at 14:14; Status DC Acetaminophen (Tylenol) 650 mg PRN Q4HRS PRN PO PAIN Last administered on at 17:06; Start 06/20/17 at 10:15 Clotrimazole (Lotrimin) 15 tori BID TP ; Start 06/20/17 at 21:00; Stop 06/20/17 at 21:00; Status DC Furosemide (Lasix) 40 mg DAILY PO Last administered on 06/29/17at 09:50; Start at 12:00 Hydrocortisone Acetate (Anucort-Hc) 25 mg PRN Q8HRS PRN RC hemmorhoid discomfort; Start 06/20/17 at 10:15 Linagliptin (Tradjenta) 5 mg DAILY PO Last administered on 06/29/17at 09:51; Start 06/20/17 at 12:00 Losartan Potassium (Cozaar) 50 mg DAILY PO Last administered on 06/27/17 09:00 ; Start 06/20/17 at 12:00 Nystatin (Mycostatin) 1 tori DAILY TP Last administered on 06/27/17at 09:03; Start 06/20/17 at 12:00 Oxymetazoline HCl (Afrin) 1 spray PRN Q6HRS PRN NS dry nares Last administered on 06/20/17 12:08; Start 06/20/17 at 10:15 Simvastatin (Zocor) 10 mg QHS PO Last administered on 06/29/17 20:18; Start at 21:00 Lidocaine HCl (Xylocaine 2% Topical 30gm Tube) 1 tori DAILY TP Last administered on 06/24/17 08:42; Start 06/20/17 at 12:00; Stop 06/26/17 at 15:33 ; Status DC Polyethylene Glycol (miraLAX) 17 gm DAILY PO Last administered on 06/29/17 09: 51; Start 06/20/17 at 12:00 Potassium Chloride (Klor-Con) 20 meq DAILYWBKFT PO Last administered on 09:49; Start 06/20/17 at 12:00 Quetiapine Fumarate (SEROquel) 12.5 mg TID@0900,1300,1700 PO Last administered on 06/25/17 17:33; Start 06/20/17 at 13:00; Stop 06/25/17 at 18:57; Status DC Trazodone HCl (Desyrel) 50 mg QHS PO Last administered on 06/29/17 20:18; Start 06/20/17 at 21:00 Trazodone HCl (Desyrel) 50 mg PRN QHS PRN PO insomnia Last administered on 01:15; Start 06/20/17 at 21:00 Tramadol HCl (Ultram) 50 mg PRN Q6HRS PRN PO PAIN Last administered on 06:28; Start 06/20/17 at 11:15 Lidocaine (Lidoderm) 1 patch DAILY TD Last administered on 06/29/17 09:51; Start 06/20/17 at 12:00 Warfarin Sodium (Coumadin Per Pharmacy) 1 each PRN DAILY PRN MC SEE COMMENTS Last administered on 06/28/17 13:32; Start 06/20/17 at 14:45 Clotrimazole (Lotrimin) 1 tori BID TP Last administered on 06/29/17 20:19; Start 06/20/17 at 21:00 Warfarin Sodium (Coumadin Per Pharmacy) 1 each PRN DAILY PRN MC SEE COMMENTS; Start 06/21/17 at 14:00; Stop 06/21/17 at 14:00; Status DC Vitamin D (Vitamin D3) 50,000 unit WEEKLY PO Last administered on 06/28/17at 10: 02; Start 06/21/17 at 14:00 Warfarin Sodium (Coumadin) 5 mg 1X WARF ONCE PO Last administered on at 15:45; Start 06/21/17 at 16:00; Stop 06/21/17 at 16:01; Status DC Warfarin Sodium (Coumadin) 5 mg 1X WARF ONCE PO Last administered on at 16:56; Start 06/22/17 at 16:00; Stop 06/22/17 at 16:02; Status DC Fluvoxamine Maleate (Luvox) 25 mg DAILY PO Last administered on 06/25/17at 08:46 ; Start 06/23/17 at 09:00; Stop 06/26/17 at 08:59; Status DC Fluvoxamine Maleate (Luvox) 50 mg DAILY PO Last administered on 06/28/17at 10:00 ; Start 06/26/17 at 09:00; Stop 06/28/17 at 18:16; Status DC Warfarin Sodium (Coumadin) 5 mg 1X WARF ONCE PO Last administered on at 16:18; Start 06/23/17 at 16:00; Stop 06/23/17 at 16:01; Status DC Donepezil HCl (Aricept) 10 mg QHS PO Last administered on 06/29/17at 20:18; Start 06/23/17 at 21:00 Warfarin Sodium (Coumadin) 5 mg DAILY16 PO Last administered on 06/29/17at 17:05 ; Start 06/24/17 at 16:00 Lorazepam (Ativan) 0.25 mg BID PO Last administered on 06/27/17at 20:07; Start at 21:00; Stop 06/27/17 at 22:00; Status DC Lorazepam (Ativan) 0.25 mg DAILY PO Last administered on 06/29/17at 09:50; Start 06/28/17 at 09:00; Stop 07/01/17 at 08:59 Glimepiride (Amaryl) 4 mg BIDWMEALS PO Last administered on 06/29/17at 17:05; Start 06/26/17 at 08:00 Oxycodone HCl (Roxicodone) 5 mg PRN Q6HRS PRN PO PAIN Last administered on at 05:36; Start 06/25/17 at 18:30 Quetiapine Fumarate (SEROquel) 12.5 mg QID PO ; Start 06/26/17 at 07:00; Stop at 07:00; Status DC Mirtazapine (Remeron) 7.5 mg QHS PO Last administered on 06/29/17at 20:18; Start 06/25/17 at 21:00 Quetiapine Fumarate (SEROquel) 12.5 mg 0700,1100,1500,1900 PO Last administered on 06/29/17at 19:06; Start 06/26/17 at 07:00 Lidocaine HCl (Xylocaine 2% Topical 30gm Tube) 1 tori PRN Q6HRS PRN TP PAIN; Start 06/27/17 at 12:00 Fluvoxamine Maleate (Luvox) 75 mg DAILY PO Last administered on 06/29/17at 09:50 ; Start 06/29/17 at 09:00 Active Scripts Active Reported Tradjenta (Linagliptin) 5 Mg Tablet 5 Mg PO DAILY Simvastatin 10 Mg Tablet 10 Mg PO DAILY Probiotic (Lactobacillus Combo No.10) 1 Each Capsule 1 Each PO Potassium Chloride 10 Meq Tablet.er 20 Meq PO DAILY Nystatin 15 Gm Cream..g. 1 Tori TP DAILY Sinus Nasal (Oxymetazoline Hcl) 30 Ml [place] 1 [place] NS PRN Q6HRS PRN Metoprolol Tartrate 50 Mg Tablet 50 Mg PO BID Melatonin 3 Mg Tablet 6 Mg PO HS Losartan Potassium 50 Mg Tablet 50 Mg PO DAILY Lorazepam 0.5 Mg Tablet 0.5 Mg PO BID Topicaine (Lidocaine) 113 Gm Gel..gram. 1 Tori TP DAILY Polyethylene Glycol 3350 2,500 Gm Powder 17 Gm PO DAILY Glimepiride 2 Mg Tablet 2 Mg PO BID Furosemide 40 Mg Tablet 40 Mg PO DAILY Coumadin (Warfarin Sodium) 3 Mg Tablet 3.5 Mg PO QHS Clotrimazole 15 Gm Cream..g. 15 Gm TP BID Aricept (Donepezil Hcl) 5 Mg Tablet 5 Mg PO QHS Anusol-Hc (Hydrocortisone Acetate) 25 Mg Supp.rect 1 Supp RC PRN Q8HRS PRN Tylenol (Acetaminophen) 325 Mg Tablet 650 Mg PO PRN Q4HRS PRN I have reviewed the current psychotropics carefully including drug interactions. Risk benefit ratio favors no change other than as noted in my dictated progress note. 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
[2017-06-30 06:22] VITALS: BP 115/61
[2017-06-30] MEDS: QUEtiapine 25 MG TABLET. PO SCH ×4 (06:27→17:42)
[2017-06-30] MEDS: traMADol 50 MG TABLET PO PRN ×2 (06:27→17:43)
[2017-06-30] MEDS: NYSTATIN 100,000 UNIT/GM TOPICAL CREAM 15GM TUBE. TP SCH (09:00)
[2017-06-30] MEDS: LOSARTAN 50 MG TABLET. PO SCH (09:00)
[2017-06-30] MEDS: METOPROLOL TART IMMED RELEASE 50 MG TABLET PO SCH ×2 (09:00→19:47)
[2017-06-30] MEDS: CLOTRIMAZOLE 1% TOPICAL CREAM 30GM TUBE. TP SCH ×2 (09:00→21:55)
[2017-06-30] MEDS: POLYETHYLENE GLYCOL 3350 17 GM PACKET. PO SCH (09:00)
[2017-06-30] MEDS: GLIMEPIRIDE 2 MG TABLET PO SCH ×2 (09:05→17:42)
[2017-06-30] MEDS: POTASSIUM CHLORIDE 20 MEQ TABLET.ER. PO SCH (09:05)
[2017-06-30] MEDS: LORazepam 0.5 MG TABLET PO SCH (09:06)
[2017-06-30] MEDS: FUROSEMIDE 40 MG TABLET PO SCH (09:06)
[2017-06-30] MEDS: LINAGLIPTIN 5 MG TABLET PO SCH (09:07)
[2017-06-30] MEDS: LIDOCAINE (700MG/PATCH) PATCH. TD SCH (09:07)
--- NOTE | 2017-06-30 14:17 | PN ---
DATE: 06/28/2017 PSYCHIATRIC PROGRESS NOTE This is a late entry for 06/28/2017, covers elements not covered in my initial note of 06/28/2017. Met with the patient in the evening of 06/28/2017. The patient is quite resistive to taking medications, has to be coaxed. REVIEW OF SYSTEMS: Positive for back pain. Ambulation impaired, in wheelchair. He does have a thoracic fracture. Will need orthopedic followup post-discharge. Son has been informed. He gets irritable at times. Urinated all over the bathroom, questionably purposefully. No CV, , pulmonary, eye system symptoms on review. MENTAL STATUS EXAM: Oriented to himself and situation. Speech has some latency, coherent. Abstraction fair, computation impaired, language function intact. Mood and affect still somewhat withdrawn, labile. LABORATORY DATA: Reviewed. IMPRESSION: Unchanged from initial note. PLAN: Increase Luvox to 75 mg a day after being on 50 mg for 3 days. Rest unchanged per initial note. MAN Raquel MCNULTY MD DR: CHERIE/yovana JOB#: [id number] / [id number]
--- NOTE | 2017-06-30 14:20 | PN ---
DATE: 06/29/2017 This late entry, 06/29/2017, covers elements not covered in my initial note of 06/29/2017. SUBJECTIVE: I met with the patient the evening of 06/29/2017. The patient remains somewhat withdrawn, anxious, labile at times. REVIEW OF SYSTEMS: Ambulation impaired, in wheelchair, back pain consistent with his thoracic fracture. No CV, , pulmonary, eye system symptoms on review. MENTAL STATUS EXAM: He is quite compulsive per nursing report, anxious, withdrawn to his room, poor short-term memory. Abstraction fair, computation impaired, language function intact. Still somewhat irritable, labile. LABORATORY DATA: Reviewed. IMPRESSION: Unchanged from initial note. PLAN: Continue psychotropics mentioned in my initial note. Increase Luvox to 75 mg. MAN Raquel MCNULTY MD DR: CHERIE/yovana JOB#: [id number] / [id number]
[2017-06-30 16:10] VITALS: BP_SYST 100; BP_SYST 123; BP_DIAS 44; BP_DIAS 64
[2017-06-30] MEDS: MIRTAZAPINE 7.5 MG TABLET. PO SCH (19:44)
[2017-06-30] MEDS: traZODone 50 MG TABLET. PO SCH (19:44)
[2017-06-30] MEDS: DONEPEZIL HCL 10 MG TABLET PO SCH (19:45)
[2017-06-30] MEDS: SIMVASTATIN 10 MG TABLET PO SCH (19:45)
--- NOTE | 2017-06-30 20:06 | PDOC ---
Exam Note: Shady Note: Please also refer to the separate dictated note~for this date of service dictated separately.~Patient seen individually. Discussed the patient with Nursing staff reviewed the chart.~Reviewed interim history and current functioning. Reviewed vital signs,~Labs/ Radiology~and current medications noted below. Continue current treatment with the changes noted in the dictated addendum note Assessment: Vital Signs: Vital Signs Date Time Temp Pulse Resp B/P (MAP) Pulse Ox O2 Delivery O2 Flow Rate FiO2 06/30/17 19:47 83 121/52 06/30/17 18:44 18 06/30/17 16:10 97.2 93 06/29/17 16:36 Room Air I&O Intake and Output 06/30/17 07:00 Intake Total 1800 ml Balance 1800 ml Intake Oral 1800 ml # Bowel Movements 2 Labs: Laboratory Tests Test 06/30/17 07:54 06/30/17 09:23 06/30/17 19:20 Glucose (Fingerstick) 120 mg/dL (70-99) H 182 mg/dL (70-99) H Prothrombin Time 35.8 SEC (9.4-11.4) H Prothrombin Time INR 3.6 (0.9-1.1) H Current Medications: Meds: Current Medications Acetaminophen (Tylenol) 650 mg PRN Q6HRS PRN PO PAIN / TEMP Last administered on 06/20/17at 09:28; Start 06/19/17 at 14:00; Stop 06/20/17 at 10:20; Status DC Multi-Ingredient Ointment (Analgesic [place]) 1 tori PRN QID PRN TP MUSCLE PAIN; Start 06/19/17 at 14:00 Al Hydroxide/Mg Hydroxide (Mylanta Plus Xs) 15 ml PRN AFTMEALHC PRN PO DYSPEPSIA; Start 06/19/17 at 14:00 Magnesium Hydroxide (Milk Of Magnesia) 2,400 mg PRN QHS PRN PO CONSTIPATION; Start 06/19/17 at 14:00 Donepezil HCl (Aricept) 5 mg QHS PO Last administered on 06/22/17at 20:13; Start 06/19/17 at 21:00; Stop 06/23/17 at 16:14; Status DC Lorazepam (Ativan) 0.5 mg BID PO Last administered on 06/24/17at 08:40; Start at 21:00; Stop 06/24/17 at 19:12; Status DC Melatonin 6 mg QHS PO Last administered on 06/24/17at 20:31; Start 06/19/17 at 21:00; Stop 06/25/17 at 18:57; Status DC Glimepiride (Amaryl) 2 mg BIDWMEALS PO Last administered on 06/25/17at 17:33; Start 06/19/17 at 17:00; Stop 06/25/17 at 18:22; Status DC Metoprolol Tartrate (Lopressor) 50 mg BID PO Last administered on 06/30/17at 19: 47; Start 06/19/17 at 21:00 Warfarin Sodium (Coumadin) 2.5 mg QHS PO Last administered on 06/20/17at 20:15; Start 06/19/17 at 21:00; Stop 06/21/17 at 14:13; Status DC Warfarin Sodium (Coumadin Per Physician) 1 each PRN DAILY PRN MC SEE COMMENTS Last administered on 06/20/17at 10:54; Start 06/19/17 at 16:00; Stop 06/20/17 at 14:41; Status DC Warfarin Sodium (Coumadin) 1 mg QHS PO Last administered on 06/20/17at 20:15; Start 06/19/17 at 21:00; Stop 06/21/17 at 14:14; Status DC Acetaminophen (Tylenol) 650 mg PRN Q4HRS PRN PO PAIN Last administered on at 17:06; Start 06/20/17 at 10:15 Clotrimazole (Lotrimin) 15 tori BID TP ; Start 06/20/17 at 21:00; Stop 06/20/17 at 21:00; Status DC Furosemide (Lasix) 40 mg DAILY PO Last administered on 06/30/17at 09:06; Start at 12:00 Hydrocortisone Acetate (Anucort-Hc) 25 mg PRN Q8HRS PRN RC hemmorhoid discomfort; Start 06/20/17 at 10:15 Linagliptin (Tradjenta) 5 mg DAILY PO Last administered on 06/30/17at 09:07; Start 06/20/17 at 12:00 Losartan Potassium (Cozaar) 50 mg DAILY PO Last administered on 06/27/17 09:00 ; Start 06/20/17 at 12:00 Nystatin (Mycostatin) 1 tori DAILY TP Last administered on 06/27/17 09:03; Start 06/20/17 at 12:00 Oxymetazoline HCl (Afrin) 1 spray PRN Q6HRS PRN NS dry nares Last administered on 06/20/17 12:08; Start 06/20/17 at 10:15 Simvastatin (Zocor) 10 mg QHS PO Last administered on 06/30/17 19:45; Start at 21:00 Lidocaine HCl (Xylocaine 2% Topical 30gm Tube) 1 tori DAILY TP Last administered on 06/24/17 08:42; Start 06/20/17 at 12:00; Stop 06/26/17 at 15:33 ; Status DC Polyethylene Glycol (miraLAX) 17 gm DAILY PO Last administered on 06/29/17 09: 51; Start 06/20/17 at 12:00 Potassium Chloride (Klor-Con) 20 meq DAILYWBKFT PO Last administered on 09:05; Start 06/20/17 at 12:00 Quetiapine Fumarate (SEROquel) 12.5 mg TID@0900,1300,1700 PO Last administered on 06/25/17 17:33; Start 06/20/17 at 13:00; Stop 06/25/17 at 18:57; Status DC Trazodone HCl (Desyrel) 50 mg QHS PO Last administered on 06/30/17 19:44; Start 06/20/17 at 21:00 Trazodone HCl (Desyrel) 50 mg PRN QHS PRN PO insomnia Last administered on 01:15; Start 06/20/17 at 21:00 Tramadol HCl (Ultram) 50 mg PRN Q6HRS PRN PO PAIN Last administered on 17:43; Start 06/20/17 at 11:15 Lidocaine (Lidoderm) 1 patch DAILY TD Last administered on 06/30/17 09:07; Start 06/20/17 at 12:00 Warfarin Sodium (Coumadin Per Pharmacy) 1 each PRN DAILY PRN MC SEE COMMENTS Last administered on 06/30/17at 11:09; Start 06/20/17 at 14:45 Clotrimazole (Lotrimin) 1 tori BID TP Last administered on 06/29/17at 20:19; Start 06/20/17 at 21:00 Warfarin Sodium (Coumadin Per Pharmacy) 1 each PRN DAILY PRN MC SEE COMMENTS; Start 06/21/17 at 14:00; Stop 06/21/17 at 14:00; Status DC Vitamin D (Vitamin D3) 50,000 unit WEEKLY PO Last administered on 06/28/17at 10: 02; Start 06/21/17 at 14:00 Warfarin Sodium (Coumadin) 5 mg 1X WARF ONCE PO Last administered on at 15:45; Start 06/21/17 at 16:00; Stop 06/21/17 at 16:01; Status DC Warfarin Sodium (Coumadin) 5 mg 1X WARF ONCE PO Last administered on at 16:56; Start 06/22/17 at 16:00; Stop 06/22/17 at 16:02; Status DC Fluvoxamine Maleate (Luvox) 25 mg DAILY PO Last administered on 06/25/17at 08:46 ; Start 06/23/17 at 09:00; Stop 06/26/17 at 08:59; Status DC Fluvoxamine Maleate (Luvox) 50 mg DAILY PO Last administered on 06/28/17at 10:00 ; Start 06/26/17 at 09:00; Stop 06/28/17 at 18:16; Status DC Warfarin Sodium (Coumadin) 5 mg 1X WARF ONCE PO Last administered on at 16:18; Start 06/23/17 at 16:00; Stop 06/23/17 at 16:01; Status DC Donepezil HCl (Aricept) 10 mg QHS PO Last administered on 06/30/17at 19:45; Start 06/23/17 at 21:00 Warfarin Sodium (Coumadin) 5 mg DAILY16 PO Last administered on 06/29/17at 17:05 ; Start 06/24/17 at 16:00; Stop 06/30/17 at 10:43; Status DC Lorazepam (Ativan) 0.25 mg BID PO Last administered on 06/27/17at 20:07; Start at 21:00; Stop 06/27/17 at 22:00; Status DC Lorazepam (Ativan) 0.25 mg DAILY PO Last administered on 06/30/17 09:06; Start 06/28/17 at 09:00; Stop 07/01/17 at 08:59 Glimepiride (Amaryl) 4 mg BIDWMEALS PO Last administered on 06/30/17 17:42; Start 06/26/17 at 08:00 Oxycodone HCl (Roxicodone) 5 mg PRN Q6HRS PRN PO PAIN Last administered on 05:36; Start 06/25/17 at 18:30 Quetiapine Fumarate (SEROquel) 12.5 mg QID PO ; Start 06/26/17 at 07:00; Stop at 07:00; Status DC Mirtazapine (Remeron) 7.5 mg QHS PO Last administered on 06/30/17at 19:44; Start 06/25/17 at 21:00 Quetiapine Fumarate (SEROquel) 12.5 mg 0700,1100,1500,1900 PO Last administered on 06/30/17 17:42; Start 06/26/17 at 07:00 Lidocaine HCl (Xylocaine 2% Topical 30gm Tube) 1 tori PRN Q6HRS PRN TP PAIN; Start 06/27/17 at 12:00 Fluvoxamine Maleate (Luvox) 75 mg DAILY PO Last administered on 06/30/17 09:07 ; Start 06/29/17 at 09:00 Warfarin Sodium (Coumadin - No Dose Today) 1 each 1X WARF ONCE MC Last administered on 06/30/17at 16:00; Start 06/30/17 at 16:00; Stop 06/30/17 at 16:01; Status DC Active Scripts Active Reported Tradjenta (Linagliptin) 5 Mg Tablet 5 Mg PO DAILY Simvastatin 10 Mg Tablet 10 Mg PO DAILY Probiotic (Lactobacillus Combo No.10) 1 Each Capsule 1 Each PO Potassium Chloride 10 Meq Tablet.er 20 Meq PO DAILY Nystatin 15 Gm Cream..g. 1 Tori TP DAILY Sinus Nasal (Oxymetazoline Hcl) 30 Ml [place] 1 [place] NS PRN Q6HRS PRN Metoprolol Tartrate 50 Mg Tablet 50 Mg PO BID Melatonin 3 Mg Tablet 6 Mg PO HS Losartan Potassium 50 Mg Tablet 50 Mg PO DAILY Lorazepam 0.5 Mg Tablet 0.5 Mg PO BID Topicaine (Lidocaine) 113 Gm Gel..gram. 1 Tori TP DAILY Polyethylene Glycol 3350 2,500 Gm Powder 17 Gm PO DAILY Glimepiride 2 Mg Tablet 2 Mg PO BID Furosemide 40 Mg Tablet 40 Mg PO DAILY Coumadin (Warfarin Sodium) 3 Mg Tablet 3.5 Mg PO QHS Clotrimazole 15 Gm Cream..g. 15 Gm TP BID Aricept (Donepezil Hcl) 5 Mg Tablet 5 Mg PO QHS Anusol-Hc (Hydrocortisone Acetate) 25 Mg Supp.rect 1 Supp RC PRN Q8HRS PRN Tylenol (Acetaminophen) 325 Mg Tablet 650 Mg PO PRN Q4HRS PRN I have reviewed the current psychotropics carefully including drug interactions. Risk benefit ratio favors no change other than as noted in my dictated progress note. Diagnosis: Problems: (1) Medical clearance for psychiatric admission (2) Psychosis (3) Anxiety disorder (4) Bipolar affective, mixed, sev w/ psych (5) Dementia in Alzheimer's disease with delusions (6) Impulse control disorder MIMI MCNULTY MD Jun 30, 2017 20:06
[2017-07-01] MEDS: QUEtiapine 25 MG TABLET. PO SCH ×4 (05:32→17:11)
[2017-07-01 06:22] VITALS: BP 111/55
[2017-07-01] MEDS: NYSTATIN 100,000 UNIT/GM TOPICAL CREAM 15GM TUBE. TP SCH (09:00)
[2017-07-01] MEDS: LOSARTAN 50 MG TABLET. PO SCH (09:00)
[2017-07-01] MEDS: CLOTRIMAZOLE 1% TOPICAL CREAM 30GM TUBE. TP SCH ×2 (09:00→19:44)
[2017-07-01] MEDS: POLYETHYLENE GLYCOL 3350 17 GM PACKET. PO SCH (09:00)
[2017-07-01] MEDS: METOPROLOL TART IMMED RELEASE 50 MG TABLET PO SCH ×2 (09:00→19:40)
[2017-07-01] MEDS: GLIMEPIRIDE 2 MG TABLET PO SCH ×2 (09:06→17:11)
[2017-07-01] MEDS: LIDOCAINE (700MG/PATCH) PATCH. TD SCH (09:07)
[2017-07-01] MEDS: LINAGLIPTIN 5 MG TABLET PO SCH (09:07)
[2017-07-01] MEDS: FUROSEMIDE 40 MG TABLET PO SCH (09:07)
[2017-07-01] MEDS: POTASSIUM CHLORIDE 20 MEQ TABLET.ER. PO SCH (09:07)
[2017-07-01] MEDS: oxyCODONE IR 5 MG TABLET PO PRN ×2 (09:25→21:56)
[2017-07-01 09:48] LABS: BASO % 1 % (0-3); EOS # 0.3 x10^3/uL (0.0-0.7); EOS % 4 % (0-3); HEMATOCRIT 42.2 % (39.0-53.0); HEMOGLOBIN 14.2 g/dL (13.0-17.5); LYMPH % 17 % (24-48); MEAN CORPUSCULAR HEMOGLOBIN 28 pg (25-35); MEAN CORPUSCULAR HGB CONC 34 g/dL (31-37); MEAN CORPUSCULAR VOLUME 83 fL (79-100); MONO # 0.6 x10^3/uL (0.0-1.1); MONO % 9 % (0-9); NEUT # 4.2 x10^3uL (1.8-7.7); NEUT % 70 % (31-73); PLATELET COUNT 146 x10^3/uL (140-400); RED BLOOD COUNT 5.08 x10^6/uL (4.30-5.70); RED CELL DISTRIBUTION WIDTH 16.2 % (11.5-14.5); WHITE BLOOD COUNT 6.1 x10^3/uL (4.0-11.0)
[2017-07-01 10:05] LABS: ALBUMIN 3.1 g/dL (3.4-5.0); ALBUMIN/GLOBULIN RATIO 0.8 (1.0-1.7); CALCIUM 9.3 mg/dL (8.5-10.1); CREATININE 1.3 mg/dL (0.7-1.3); GFR 53.1; POTASSIUM 3.6 mmol/L (3.5-5.1); TOTAL BILIRUBIN 0.8 mg/dL (0.2-1.0); TOTAL PROTEIN 7.2 g/dL (6.4-8.2)
[2017-07-01] MEDS ORDERED: WARFARIN 5 MG TABLET. PO ONE (16:00)
[2017-07-01 16:21] VITALS: BP 136/68
[2017-07-01] MEDS: SIMVASTATIN 10 MG TABLET PO SCH (19:39)
[2017-07-01] MEDS: MIRTAZAPINE 7.5 MG TABLET. PO SCH (19:39)
[2017-07-01] MEDS: traZODone 50 MG TABLET. PO SCH (19:40)
[2017-07-01] MEDS: DONEPEZIL HCL 10 MG TABLET PO SCH (19:40)
--- NOTE | 2017-07-01 19:55 | PDOC ---
Exam Note: Shady Note: Please also refer to the separate dictated note~for this date of service dictated separately.~Patient seen individually. Discussed the patient with Nursing staff reviewed the chart.~Reviewed interim history and current functioning. Reviewed vital signs,~Labs/ Radiology~and current medications noted below. Continue current treatment with the changes noted in the dictated addendum note Assessment: Vital Signs: Vital Signs Date Time Temp Pulse Resp B/P (MAP) Pulse Ox O2 Delivery O2 Flow Rate FiO2 07/01/17 19:40 75 136/68 07/01/17 16:21 97.5 20 93 06/29/17 16:36 Room Air I&O Intake and Output 07/01/17 07:00 Intake Total 800 ml Balance 800 ml Intake Oral 800 ml # Voids 1 # Bowel Movements 1 Labs: Laboratory Tests Test 07/01/17 08:12 07/01/17 08:55 07/01/17 19:04 Glucose (Fingerstick) 79 mg/dL (70-99) 92 mg/dL (70-99) White Blood Count 6.1 x10^3/uL (4.0-11.0) Red Blood Count 5.08 x10^6/uL (4.30-5.70) Hemoglobin 14.2 g/dL (13.0-17.5) Hematocrit 42.2 % (39.0-53.0) Mean Corpuscular Volume 83 fL (79-100) Mean Corpuscular Hemoglobin 28 pg (25-35) Mean Corpuscular Hemoglobin Concent 34 g/dL (31-37) Red Cell Distribution Width 16.2 % (11.5-14.5) H Platelet Count 146 x10^3/uL (140-400) Neutrophils (%) (Auto) 70 % (31-73) Lymphocytes (%) (Auto) 17 % (24-48) L Monocytes (%) (Auto) 9 % (0-9) Eosinophils (%) (Auto) 4 % (0-3) H Basophils (%) (Auto) 1 % (0-3) Neutrophils # (Auto) 4.2 x10^3uL (1.8-7.7) Lymphocytes # (Auto) 1.0 x10^3/uL (1.0-4.8) Monocytes # (Auto) 0.6 x10^3/uL (0.0-1.1) Eosinophils # (Auto) 0.3 x10^3/uL (0.0-0.7) Basophils # (Auto) 0.0 x10^3/uL (0.0-0.2) Prothrombin Time 31.6 SEC (9.4-11.4) H Prothrombin Time INR 3.1 (0.9-1.1) H Sodium Level 141 mmol/L (136-145) Potassium Level 3.6 mmol/L (3.5-5.1) Chloride Level 105 mmol/L (98-107) Carbon Dioxide Level 28 mmol/L (21-32) Anion Gap 8 (6-14) Blood Urea Nitrogen 27 mg/dL (8-26) H Creatinine 1.3 mg/dL (0.7-1.3) Estimated GFR (Cockcroft-Gault) 53.1 BUN/Creatinine Ratio 21 (6-20) H Glucose Level 68 mg/dL (70-99) L Calcium Level 9.3 mg/dL (8.5-10.1) Total Bilirubin 0.8 mg/dL (0.2-1.0) Aspartate Amino Transferase (AST) 36 U/L (15-37) Alanine Aminotransferase (ALT) 18 U/L (16-63) Alkaline Phosphatase 104 U/L (46-116) Total Protein 7.2 g/dL (6.4-8.2) Albumin 3.1 g/dL (3.4-5.0) L Albumin/Globulin Ratio 0.8 (1.0-1.7) L Current Medications: Meds: Current Medications Acetaminophen (Tylenol) 650 mg PRN Q6HRS PRN PO PAIN / TEMP Last administered on 06/20/17at 09:28; Start 06/19/17 at 14:00; Stop 06/20/17 at 10:20; Status DC Multi-Ingredient Ointment (Analgesic [place]) 1 tori PRN QID PRN TP MUSCLE PAIN; Start 06/19/17 at 14:00 Al Hydroxide/Mg Hydroxide (Mylanta Plus Xs) 15 ml PRN AFTMEALHC PRN PO DYSPEPSIA; Start 06/19/17 at 14:00 Magnesium Hydroxide (Milk Of Magnesia) 2,400 mg PRN QHS PRN PO CONSTIPATION; Start 06/19/17 at 14:00 Donepezil HCl (Aricept) 5 mg QHS PO Last administered on 06/22/17at 20:13; Start 06/19/17 at 21:00; Stop 06/23/17 at 16:14; Status DC Lorazepam (Ativan) 0.5 mg BID PO Last administered on 06/24/17at 08:40; Start at 21:00; Stop 06/24/17 at 19:12; Status DC Melatonin 6 mg QHS PO Last administered on 06/24/17at 20:31; Start 06/19/17 at 21:00; Stop 06/25/17 at 18:57; Status DC Glimepiride (Amaryl) 2 mg BIDWMEALS PO Last administered on 06/25/17at 17:33; Start 06/19/17 at 17:00; Stop 06/25/17 at 18:22; Status DC Metoprolol Tartrate (Lopressor) 50 mg BID PO Last administered on 07/01/17at 19: 40; Start 06/19/17 at 21:00 Warfarin Sodium (Coumadin) 2.5 mg QHS PO Last administered on 06/20/17at 20:15; Start 06/19/17 at 21:00; Stop 06/21/17 at 14:13; Status DC Warfarin Sodium (Coumadin Per Physician) 1 each PRN DAILY PRN MC SEE COMMENTS Last administered on 06/20/17at 10:54; Start 06/19/17 at 16:00; Stop 06/20/17 at 14:41; Status DC Warfarin Sodium (Coumadin) 1 mg QHS PO Last administered on 06/20/17at 20:15; Start 06/19/17 at 21:00; Stop 06/21/17 at 14:14; Status DC Acetaminophen (Tylenol) 650 mg PRN Q4HRS PRN PO PAIN Last administered on at 17:06; Start 06/20/17 at 10:15 Clotrimazole (Lotrimin) 15 tori BID TP ; Start 06/20/17 at 21:00; Stop 06/20/17 at 21:00; Status DC Furosemide (Lasix) 40 mg DAILY PO Last administered on 07/01/17at 09:07; Start at 12:00 Hydrocortisone Acetate (Anucort-Hc) 25 mg PRN Q8HRS PRN RC hemmorhoid discomfort; Start 06/20/17 at 10:15 Linagliptin (Tradjenta) 5 mg DAILY PO Last administered on 07/01/17 09:07; Start 06/20/17 at 12:00 Losartan Potassium (Cozaar) 50 mg DAILY PO Last administered on 06/27/17 09:00 ; Start 06/20/17 at 12:00; Stop 07/01/17 at 13:35; Status DC Nystatin (Mycostatin) 1 tori DAILY TP Last administered on 06/27/17 09:03; Start 06/20/17 at 12:00 Oxymetazoline HCl (Afrin) 1 spray PRN Q6HRS PRN NS dry nares Last administered on 06/20/17 12:08; Start 06/20/17 at 10:15 Simvastatin (Zocor) 10 mg QHS PO Last administered on 07/01/17 19:39; Start at 21:00 Lidocaine HCl (Xylocaine 2% Topical 30gm Tube) 1 tori DAILY TP Last administered on 06/24/17 08:42; Start 06/20/17 at 12:00; Stop 06/26/17 at 15:33 ; Status DC Polyethylene Glycol (miraLAX) 17 gm DAILY PO Last administered on 06/29/17 09: 51; Start 06/20/17 at 12:00 Potassium Chloride (Klor-Con) 20 meq DAILYWBKFT PO Last administered on 09:07; Start 06/20/17 at 12:00 Quetiapine Fumarate (SEROquel) 12.5 mg TID@0900,1300,1700 PO Last administered on 06/25/17 17:33; Start 06/20/17 at 13:00; Stop 06/25/17 at 18:57; Status DC Trazodone HCl (Desyrel) 50 mg QHS PO Last administered on 07/01/17 19:40; Start 06/20/17 at 21:00 Trazodone HCl (Desyrel) 50 mg PRN QHS PRN PO insomnia Last administered on 01:15; Start 06/20/17 at 21:00 Tramadol HCl (Ultram) 50 mg PRN Q6HRS PRN PO PAIN Last administered on 17:43; Start 06/20/17 at 11:15 Lidocaine (Lidoderm) 1 patch DAILY TD Last administered on 07/01/17 09:07; Start 06/20/17 at 12:00 Warfarin Sodium (Coumadin Per Pharmacy) 1 each PRN DAILY PRN MC SEE COMMENTS Last administered on 07/01/17 15:13; Start 06/20/17 at 14:45 Clotrimazole (Lotrimin) 1 tori BID TP Last administered on 07/01/17 19:44; Start 06/20/17 at 21:00 Warfarin Sodium (Coumadin Per Pharmacy) 1 each PRN DAILY PRN MC SEE COMMENTS; Start 06/21/17 at 14:00; Stop 06/21/17 at 14:00; Status DC Vitamin D (Vitamin D3) 50,000 unit WEEKLY PO Last administered on 06/28/17 10: 02; Start 06/21/17 at 14:00 Warfarin Sodium (Coumadin) 5 mg 1X WARF ONCE PO Last administered on at 15:45; Start 06/21/17 at 16:00; Stop 06/21/17 at 16:01; Status DC Warfarin Sodium (Coumadin) 5 mg 1X WARF ONCE PO Last administered on at 16:56; Start 06/22/17 at 16:00; Stop 06/22/17 at 16:02; Status DC Fluvoxamine Maleate (Luvox) 25 mg DAILY PO Last administered on 06/25/17at 08:46 ; Start 06/23/17 at 09:00; Stop 06/26/17 at 08:59; Status DC Fluvoxamine Maleate (Luvox) 50 mg DAILY PO Last administered on 06/28/17at 10:00 ; Start 06/26/17 at 09:00; Stop 06/28/17 at 18:16; Status DC Warfarin Sodium (Coumadin) 5 mg 1X WARF ONCE PO Last administered on at 16:18; Start 06/23/17 at 16:00; Stop 06/23/17 at 16:01; Status DC Donepezil HCl (Aricept) 10 mg QHS PO Last administered on 3/5/18at 19:40; Start 06/23/17 at 21:00 Warfarin Sodium (Coumadin) 5 mg DAILY16 PO Last administered on 06/29/17 17:05 ; Start 06/24/17 at 16:00; Stop 06/30/17 at 10:43; Status DC Lorazepam (Ativan) 0.25 mg BID PO Last administered on 06/27/17 20:07; Start at 21:00; Stop 06/27/17 at 22:00; Status DC Lorazepam (Ativan) 0.25 mg DAILY PO Last administered on 06/30/17 09:06; Start 06/28/17 at 09:00; Stop 07/01/17 at 08:59; Status DC Glimepiride (Amaryl) 4 mg BIDWMEALS PO Last administered on 07/01/17 17:11; Start 06/26/17 at 08:00 Oxycodone HCl (Roxicodone) 5 mg PRN Q6HRS PRN PO PAIN Last administered on 09:25; Start 06/25/17 at 18:30 Quetiapine Fumarate (SEROquel) 12.5 mg QID PO ; Start 06/26/17 at 07:00; Stop at 07:00; Status DC Mirtazapine (Remeron) 7.5 mg QHS PO Last administered on 07/01/17 19:39; Start 06/25/17 at 21:00 Quetiapine Fumarate (SEROquel) 12.5 mg 0700,1100,1500,1900 PO Last administered on 07/01/17 17:11; Start 06/26/17 at 07:00 Lidocaine HCl (Xylocaine 2% Topical 30gm Tube) 1 tori PRN Q6HRS PRN TP PAIN; Start 06/27/17 at 12:00 Fluvoxamine Maleate (Luvox) 75 mg DAILY PO Last administered on 07/01/17 09:07 ; Start 06/29/17 at 09:00; Stop 07/01/17 at 18:36; Status DC Warfarin Sodium (Coumadin - No Dose Today) 1 each 1X WARF ONCE MC Last administered on 06/30/17 16:00; Start 3/4/18 at 16:00; Stop 06/30/17 at 16:01; Status DC Warfarin Sodium (Coumadin) 5 mg 1X WARF ONCE PO Last administered on 07/01/17at 17:11; Start 07/01/17 at 16:00; Stop 07/01/17 at 16:01; Status DC Fluvoxamine Maleate (Luvox) 100 mg DAILY PO ; Start 07/02/17 at 09:00 Active Scripts Active Reported Tradjenta (Linagliptin) 5 Mg Tablet 5 Mg PO DAILY Simvastatin 10 Mg Tablet 10 Mg PO DAILY Probiotic (Lactobacillus Combo No.10) 1 Each Capsule 1 Each PO Potassium Chloride 10 Meq Tablet.er 20 Meq PO DAILY Nystatin 15 Gm Cream..g. 1 Tori TP DAILY Sinus Nasal (Oxymetazoline Hcl) 30 Ml [place] 1 [place] NS PRN Q6HRS PRN Metoprolol Tartrate 50 Mg Tablet 50 Mg PO BID Melatonin 3 Mg Tablet 6 Mg PO HS Losartan Potassium 50 Mg Tablet 50 Mg PO DAILY Lorazepam 0.5 Mg Tablet 0.5 Mg PO BID Topicaine (Lidocaine) 113 Gm Gel..gram. 1 Tori TP DAILY Polyethylene Glycol 3350 2,500 Gm Powder 17 Gm PO DAILY Glimepiride 2 Mg Tablet 2 Mg PO BID Furosemide 40 Mg Tablet 40 Mg PO DAILY Coumadin (Warfarin Sodium) 3 Mg Tablet 3.5 Mg PO QHS Clotrimazole 15 Gm Cream..g. 15 Gm TP BID Aricept (Donepezil Hcl) 5 Mg Tablet 5 Mg PO QHS Anusol-Hc (Hydrocortisone Acetate) 25 Mg Supp.rect 1 Supp RC PRN Q8HRS PRN Tylenol (Acetaminophen) 325 Mg Tablet 650 Mg PO PRN Q4HRS PRN I have reviewed the current psychotropics carefully including drug interactions. Risk benefit ratio favors no change other than as noted in my dictated progress note. Diagnosis: Problems: (1) Medical clearance for psychiatric admission (2) Psychosis (3) Anxiety disorder (4) Bipolar affective, mixed, sev w/ psych (5) Dementia in Alzheimer's disease with delusions (6) Impulse control disorder MIMI MCNULTY MD Jul 01, 2017 19:55
--- NOTE | 2017-07-02 00:15 | PN ---
DATE: 06/30/2017 PSYCHIATRIC PROGRESS NOTE This is a late entry for 06/30/2017, covers elements not covered in my initial note of 06/30/2017. SUBJECTIVE: I met with the patient the evening of 06/30/2017. The patient is little less resistive to medications, but quite anxious, repetitively calling out for nursing staff, somewhat obsessive. REVIEW OF SYSTEMS: Ambulation impaired. He complains of back pain. He does have a thoracic spine fracture. No CV, , pulmonary, eye system symptoms on review. MENTAL STATUS EXAM: Reasonably oriented. Speech is coherent, has some latency. Abstraction fair, computation impaired, language function intact, attention span short. Mood and affect somewhat labile. LABORATORY DATA: Reviewed. IMPRESSION: Bipolar type, mixed with psychotic features; major depressive disorder with psychotic features; obsessive-compulsive disorder; anxiety disorder, unspecified. Rest unchanged from earlier. PLAN: Continue psychotropics. Ativan has been tapered. Seroquel has been adjusted. Luvox increased. Adjust further as clinically indicated. MAN Raquel MCNULTY MD DR: CHERIE/yovana JOB#: [id number] / [id number]
[2017-07-02] MEDS: QUEtiapine 25 MG TABLET. PO SCH ×3 (05:24→15:54)
[2017-07-02 06:01] VITALS: BP 101/44
[2017-07-02] MEDS: METOPROLOL TART IMMED RELEASE 50 MG TABLET PO SCH ×2 (09:15→20:18)
[2017-07-02] MEDS: GLIMEPIRIDE 2 MG TABLET PO SCH ×2 (09:16→17:05)
[2017-07-02] MEDS: POTASSIUM CHLORIDE 20 MEQ TABLET.ER. PO SCH (09:16)
[2017-07-02] MEDS: FUROSEMIDE 40 MG TABLET PO SCH (09:16)
[2017-07-02] MEDS: LINAGLIPTIN 5 MG TABLET PO SCH (09:17)
[2017-07-02] MEDS: LIDOCAINE (700MG/PATCH) PATCH. TD SCH (09:17)
[2017-07-02] MEDS: POLYETHYLENE GLYCOL 3350 17 GM PACKET. PO SCH (09:17)
[2017-07-02] MEDS: NYSTATIN 100,000 UNIT/GM TOPICAL CREAM 15GM TUBE. TP SCH (09:20)
[2017-07-02] MEDS: CLOTRIMAZOLE 1% TOPICAL CREAM 30GM TUBE. TP SCH ×2 (09:20→20:18)
[2017-07-02 15:52] VITALS: BP 126/55
[2017-07-02] MEDS ORDERED: WARFARIN 5 MG TABLET. PO ONE (16:00)
--- NOTE | 2017-07-02 18:56 | PN ---
DATE: 07/01/2017 This late entry 07/01/2017 covers elements not covered in my initial note 07/01/2017. Met with the patient in the evening of 07/01/2017. The patient remains quite anxious, obsessive, ruminative, previous evening constantly asking for help even though he did not need anything done. He removed his brief at night, urinated on the floor, asking the staff to clean it up, somewhat demanding. He has been on the call light much of morning of 07/01/2017. Staff encouraging him to do more for himself. REVIEW OF SYSTEMS: Complains of back pain, impaired ambulation and wheelchair. No CV, , pulmonary, eye system symptoms on review. MENTAL STATUS EXAM: Oriented to himself and situation. Speech coherent, abstraction fair, computation impaired, language function intact. Memory is impaired. Mood and affect anxious, labile, quite ruminative. LABORATORY DATA: Reviewed. IMPRESSION: Unchanged from initial note. PLAN: Increase fluvoxamine to 100 mg daily on 07/02/2017. Rest unchanged from initial note. MAN Raquel MCNULTY MD DR: CHERIE/yovana JOB#: [id number] / [id number]
--- NOTE | 2017-07-02 19:51 | PDOC ---
Exam Note: Shady Note: Please also refer to the separate dictated note~for this date of service dictated separately.~Patient seen individually. Discussed the patient with Nursing staff reviewed the chart.~Reviewed interim history and current functioning. Reviewed vital signs,~Labs/ Radiology~and current medications noted below. Continue current treatment with the changes noted in the dictated addendum note Assessment: Vital Signs: Vital Signs Date Time Temp Pulse Resp B/P (MAP) Pulse Ox O2 Delivery O2 Flow Rate FiO2 07/02/17 15:52 97.9 68 20 126/55 (78) 95 07/01/17 23:08 Room Air I&O Intake and Output 07/02/17 07:00 Intake Total 1080 ml Balance 1080 ml Intake Oral 1080 ml # Voids 1 Labs: Laboratory Tests Test 07/02/17 06:25 07/02/17 07:57 Prothrombin Time 28.0 SEC (9.4-11.4) H Prothrombin Time INR 2.8 (0.9-1.1) H Glucose (Fingerstick) 70 mg/dL (70-99) Current Medications: Meds: Current Medications Acetaminophen (Tylenol) 650 mg PRN Q6HRS PRN PO PAIN / TEMP Last administered on 06/20/17at 09:28; Start 06/19/17 at 14:00; Stop 06/20/17 at 10:20; Status DC Multi-Ingredient Ointment (Analgesic [place]) 1 tori PRN QID PRN TP MUSCLE PAIN; Start 06/19/17 at 14:00 Al Hydroxide/Mg Hydroxide (Mylanta Plus Xs) 15 ml PRN AFTMEALHC PRN PO DYSPEPSIA; Start 06/19/17 at 14:00 Magnesium Hydroxide (Milk Of Magnesia) 2,400 mg PRN QHS PRN PO CONSTIPATION; Start 06/19/17 at 14:00 Donepezil HCl (Aricept) 5 mg QHS PO Last administered on 06/22/17at 20:13; Start 06/19/17 at 21:00; Stop 06/23/17 at 16:14; Status DC Lorazepam (Ativan) 0.5 mg BID PO Last administered on 06/24/17at 08:40; Start at 21:00; Stop 06/24/17 at 19:12; Status DC Melatonin 6 mg QHS PO Last administered on 06/24/17at 20:31; Start 06/19/17 at 21:00; Stop 06/25/17 at 18:57; Status DC Glimepiride (Amaryl) 2 mg BIDWMEALS PO Last administered on 06/25/17at 17:33; Start 06/19/17 at 17:00; Stop 06/25/17 at 18:22; Status DC Metoprolol Tartrate (Lopressor) 50 mg BID PO Last administered on 07/02/17at 09: 15; Start 06/19/17 at 21:00 Warfarin Sodium (Coumadin) 2.5 mg QHS PO Last administered on 06/20/17at 20:15; Start 06/19/17 at 21:00; Stop 06/21/17 at 14:13; Status DC Warfarin Sodium (Coumadin Per Physician) 1 each PRN DAILY PRN MC SEE COMMENTS Last administered on 06/20/17at 10:54; Start 06/19/17 at 16:00; Stop 06/20/17 at 14:41; Status DC Warfarin Sodium (Coumadin) 1 mg QHS PO Last administered on 06/20/17at 20:15; Start 06/19/17 at 21:00; Stop 06/21/17 at 14:14; Status DC Acetaminophen (Tylenol) 650 mg PRN Q4HRS PRN PO PAIN Last administered on 17:06; Start 06/20/17 at 10:15 Clotrimazole (Lotrimin) 15 tori BID TP ; Start 06/20/17 at 21:00; Stop 06/20/17 at 21:00; Status DC Furosemide (Lasix) 40 mg DAILY PO Last administered on 07/02/17at 09:16; Start at 12:00 Hydrocortisone Acetate (Anucort-Hc) 25 mg PRN Q8HRS PRN RC hemmorhoid discomfort; Start 06/20/17 at 10:15 Linagliptin (Tradjenta) 5 mg DAILY PO Last administered on 07/02/17 09:17; Start 06/20/17 at 12:00 Losartan Potassium (Cozaar) 50 mg DAILY PO Last administered on 06/27/17 09:00 ; Start 06/20/17 at 12:00; Stop 07/01/17 at 13:35; Status DC Nystatin (Mycostatin) 1 tori DAILY TP Last administered on 07/02/17 09:20; Start 06/20/17 at 12:00 Oxymetazoline HCl (Afrin) 1 spray PRN Q6HRS PRN NS dry nares Last administered on 06/20/17 12:08; Start 06/20/17 at 10:15 Simvastatin (Zocor) 10 mg QHS PO Last administered on 07/01/17 19:39; Start at 21:00 Lidocaine HCl (Xylocaine 2% Topical 30gm Tube) 1 tori DAILY TP Last administered on 06/24/17 08:42; Start 06/20/17 at 12:00; Stop 06/26/17 at 15:33 ; Status DC Polyethylene Glycol (miraLAX) 17 gm DAILY PO Last administered on 07/02/17 09: 17; Start 06/20/17 at 12:00 Potassium Chloride (Klor-Con) 20 meq DAILYWBKFT PO Last administered on 09:16; Start 06/20/17 at 12:00 Quetiapine Fumarate (SEROquel) 12.5 mg TID@0900,1300,1700 PO Last administered on 06/25/17 17:33; Start 06/20/17 at 13:00; Stop 06/25/17 at 18:57; Status DC Trazodone HCl (Desyrel) 50 mg QHS PO Last administered on 07/01/17 19:40; Start 06/20/17 at 21:00 Trazodone HCl (Desyrel) 50 mg PRN QHS PRN PO insomnia Last administered on 01:15; Start 06/20/17 at 21:00 Tramadol HCl (Ultram) 50 mg PRN Q6HRS PRN PO PAIN Last administered on 17:43; Start 06/20/17 at 11:15 Lidocaine (Lidoderm) 1 patch DAILY TD Last administered on 07/02/17 09:17; Start 06/20/17 at 12:00 Warfarin Sodium (Coumadin Per Pharmacy) 1 each PRN DAILY PRN MC SEE COMMENTS Last administered on 07/02/17 15:07; Start 06/20/17 at 14:45 Clotrimazole (Lotrimin) 1 tori BID TP Last administered on 07/02/17at 09:20; Start 06/20/17 at 21:00 Warfarin Sodium (Coumadin Per Pharmacy) 1 each PRN DAILY PRN MC SEE COMMENTS; Start 06/21/17 at 14:00; Stop 06/21/17 at 14:00; Status DC Vitamin D (Vitamin D3) 50,000 unit WEEKLY PO Last administered on 06/28/17at 10: 02; Start 06/21/17 at 14:00 Warfarin Sodium (Coumadin) 5 mg 1X WARF ONCE PO Last administered on at 15:45; Start 06/21/17 at 16:00; Stop 06/21/17 at 16:01; Status DC Warfarin Sodium (Coumadin) 5 mg 1X WARF ONCE PO Last administered on at 16:56; Start 06/22/17 at 16:00; Stop 06/22/17 at 16:02; Status DC Fluvoxamine Maleate (Luvox) 25 mg DAILY PO Last administered on 06/25/17at 08:46 ; Start 06/23/17 at 09:00; Stop 06/26/17 at 08:59; Status DC Fluvoxamine Maleate (Luvox) 50 mg DAILY PO Last administered on 06/28/17at 10:00 ; Start 06/26/17 at 09:00; Stop 06/28/17 at 18:16; Status DC Warfarin Sodium (Coumadin) 5 mg 1X WARF ONCE PO Last administered on at 16:18; Start 06/23/17 at 16:00; Stop 06/23/17 at 16:01; Status DC Donepezil HCl (Aricept) 10 mg QHS PO Last administered on 07/01/17at 19:40; Start 06/23/17 at 21:00 Warfarin Sodium (Coumadin) 5 mg DAILY16 PO Last administered on 06/29/17at 17:05 ; Start 06/24/17 at 16:00; Stop 06/30/17 at 10:43; Status DC Lorazepam (Ativan) 0.25 mg BID PO Last administered on 06/27/17at 20:07; Start at 21:00; Stop 06/27/17 at 22:00; Status DC Lorazepam (Ativan) 0.25 mg DAILY PO Last administered on 06/30/17 09:06; Start 06/28/17 at 09:00; Stop 07/01/17 at 08:59; Status DC Glimepiride (Amaryl) 4 mg BIDWMEALS PO Last administered on 07/02/17 17:05; Start 06/26/17 at 08:00 Oxycodone HCl (Roxicodone) 5 mg PRN Q6HRS PRN PO PAIN Last administered on 21:56; Start 06/25/17 at 18:30 Quetiapine Fumarate (SEROquel) 12.5 mg QID PO ; Start 06/26/17 at 07:00; Stop at 07:00; Status DC Mirtazapine (Remeron) 7.5 mg QHS PO Last administered on 07/01/17at 19:39; Start 06/25/17 at 21:00; Stop 07/02/17 at 18:12; Status DC Quetiapine Fumarate (SEROquel) 12.5 mg 0700,1100,1500,1900 PO Last administered on 07/02/17at 15:54; Start 06/26/17 at 07:00 Lidocaine HCl (Xylocaine 2% Topical 30gm Tube) 1 tori PRN Q6HRS PRN TP PAIN; Start 06/27/17 at 12:00 Fluvoxamine Maleate (Luvox) 75 mg DAILY PO Last administered on 07/01/17 09:07 ; Start 06/29/17 at 09:00; Stop 07/01/17 at 18:36; Status DC Warfarin Sodium (Coumadin - No Dose Today) 1 each 1X WARF ONCE MC Last administered on 06/30/17at 16:00; Start 06/30/17 at 16:00; Stop 06/30/17 at 16:01; Status DC Warfarin Sodium (Coumadin) 5 mg 1X WARF ONCE PO Last administered on 07/01/17at 17:11; Start 07/01/17 at 16:00; Stop 07/01/17 at 16:01; Status DC Fluvoxamine Maleate (Luvox) 100 mg DAILY PO Last administered on 07/02/17at 09:18 ; Start 07/02/17 at 09:00 Warfarin Sodium (Coumadin) 5 mg 1X WARF ONCE PO Last administered on 07/02/17at 15:56; Start 07/02/17 at 16:00; Stop 07/02/17 at 16:01; Status DC Mirtazapine (Remeron) 15 mg QHS PO ; Start 07/02/17 at 21:00 Active Scripts Active Reported Tradjenta (Linagliptin) 5 Mg Tablet 5 Mg PO DAILY Simvastatin 10 Mg Tablet 10 Mg PO DAILY Probiotic (Lactobacillus Combo No.10) 1 Each Capsule 1 Each PO Potassium Chloride 10 Meq Tablet.er 20 Meq PO DAILY Nystatin 15 Gm Cream..g. 1 Tori TP DAILY Sinus Nasal (Oxymetazoline Hcl) 30 Ml [place] 1 [place] NS PRN Q6HRS PRN Metoprolol Tartrate 50 Mg Tablet 50 Mg PO BID Melatonin 3 Mg Tablet 6 Mg PO HS Losartan Potassium 50 Mg Tablet 50 Mg PO DAILY Lorazepam 0.5 Mg Tablet 0.5 Mg PO BID Topicaine (Lidocaine) 113 Gm Gel..gram. 1 Tori TP DAILY Polyethylene Glycol 3350 2,500 Gm Powder 17 Gm PO DAILY Glimepiride 2 Mg Tablet 2 Mg PO BID Furosemide 40 Mg Tablet 40 Mg PO DAILY Coumadin (Warfarin Sodium) 3 Mg Tablet 3.5 Mg PO QHS Clotrimazole 15 Gm Cream..g. 15 Gm TP BID Aricept (Donepezil Hcl) 5 Mg Tablet 5 Mg PO QHS Anusol-Hc (Hydrocortisone Acetate) 25 Mg Supp.rect 1 Supp RC PRN Q8HRS PRN Tylenol (Acetaminophen) 325 Mg Tablet 650 Mg PO PRN Q4HRS PRN I have reviewed the current psychotropics carefully including drug interactions. Risk benefit ratio favors no change other than as noted in my dictated progress note. Diagnosis: Problems: (1) Medical clearance for psychiatric admission (2) Psychosis (3) Anxiety disorder (4) Bipolar affective, mixed, sev w/ psych (5) Dementia in Alzheimer's disease with delusions (6) Impulse control disorder MIMI MCNULTY MD Jul 02, 2017 19:51
[2017-07-02] MEDS: DONEPEZIL HCL 10 MG TABLET PO SCH (20:17)
[2017-07-02] MEDS: SIMVASTATIN 10 MG TABLET PO SCH (20:18)
[2017-07-02] MEDS: traZODone 50 MG TABLET. PO SCH (20:18)
[2017-07-02] MEDS ORDERED: MIRTAZAPINE 15 MG TABLET PO SCH (21:00)
[2017-07-03] MEDS: QUEtiapine 25 MG TABLET. PO SCH ×4 (06:01→19:33)
[2017-07-03] MEDS: traMADol 50 MG TABLET PO PRN (06:04)
[2017-07-03 06:06] VITALS: BP 115/56
[2017-07-03] MEDS: POTASSIUM CHLORIDE 20 MEQ TABLET.ER. PO SCH (08:29)
[2017-07-03] MEDS: FUROSEMIDE 40 MG TABLET PO SCH (08:29)
[2017-07-03] MEDS: GLIMEPIRIDE 2 MG TABLET PO SCH ×2 (08:29→17:04)
[2017-07-03] MEDS: METOPROLOL TART IMMED RELEASE 50 MG TABLET PO SCH ×2 (08:29→19:31)
[2017-07-03] MEDS: POLYETHYLENE GLYCOL 3350 17 GM PACKET. PO SCH (08:29)
[2017-07-03] MEDS: LINAGLIPTIN 5 MG TABLET PO SCH (08:29)
[2017-07-03] MEDS: LIDOCAINE (700MG/PATCH) PATCH. TD SCH (08:30)
[2017-07-03] MEDS: CLOTRIMAZOLE 1% TOPICAL CREAM 30GM TUBE. TP SCH ×2 (08:30→19:34)
[2017-07-03] MEDS: NYSTATIN 100,000 UNIT/GM TOPICAL CREAM 15GM TUBE. TP SCH (08:30)
[2017-07-03 16:18] VITALS: BP 145/74
[2017-07-03] MEDS: WARFARIN 5 MG TABLET. PO SCH (17:05)
--- NOTE | 2017-07-03 17:42 | PN ---
DATE: 07/02/2017 PSYCHIATRIC PROGRESS NOTE This is a late entry for 07/02/2017, covers elements not covered in my initial note of 07/02/2017. SUBJECTIVE: I met with the patient the evening of 07/02/2017. The patient slept 3-1/2 hours previous evening, somewhat withdrawn, spends much time in his room, needy, anxious, somatically preoccupied, asking for help to do things even what he can, refused breakfast and dinner. REVIEW OF SYSTEMS: Ambulation impaired, in wheelchair. No CV, , pulmonary, eye, ENT system symptoms on review. Weak. Somatic symptoms evident. MENTAL STATUS EXAM: Oriented to himself and situation. Speech coherent, somewhat pressured at times. Abstraction fair, computation impaired, language function intact, attention span short. Mood and affect at times somewhat anxious, labile. LABORATORY DATA: Reviewed. IMPRESSION: Unchanged from initial note. PLAN: Increase Remeron to 15 mg at bedtime to help with insomnia. Rest unchanged per initial note. MAN Raquel MCNULTY MD DR: CHERIE/yovana JOB#: [id number] / [id number]
[2017-07-03] MEDS ORDERED: traZODone 100 MG TABLET. PO PRN (18:45)
[2017-07-03] MEDS: SIMVASTATIN 10 MG TABLET PO SCH (19:31)
[2017-07-03] MEDS: DONEPEZIL HCL 10 MG TABLET PO SCH (19:31)
[2017-07-03] MEDS: traZODone 100 MG TABLET. PO SCH (19:32)
[2017-07-03] MEDS: AMITRIPTYLINE HCL 25 MG TABLET PO SCH (19:32)
--- NOTE | 2017-07-03 19:52 | PDOC ---
Exam Note: Shady Note: Please also refer to the separate dictated note~for this date of service dictated separately.~Patient seen individually. Discussed the patient with Nursing staff reviewed the chart.~Reviewed interim history and current functioning. Reviewed vital signs,~Labs/ Radiology~and current medications noted below. Continue current treatment with the changes noted in the dictated addendum note Assessment: Vital Signs: Vital Signs Date Time Temp Pulse Resp B/P (MAP) Pulse Ox O2 Delivery O2 Flow Rate FiO2 07/03/17 19:31 94 145/74 07/03/17 16:18 98.1 19 91 07/03/17 08:28 Room Air I&O Intake and Output 07/03/17 07:00 Intake Total 240 ml Balance 240 ml Intake Oral 240 ml # Voids 1 Labs: Laboratory Tests Test 07/03/17 07:34 07/03/17 09:00 Glucose (Fingerstick) 78 mg/dL (70-99) Prothrombin Time 24.1 SEC (9.4-11.4) H Prothrombin Time INR 2.4 (0.9-1.1) H Current Medications: Meds: Current Medications Acetaminophen (Tylenol) 650 mg PRN Q6HRS PRN PO PAIN / TEMP Last administered on 06/20/17at 09:28; Start 06/19/17 at 14:00; Stop 06/20/17 at 10:20; Status DC Multi-Ingredient Ointment (Analgesic [place]) 1 tori PRN QID PRN TP MUSCLE PAIN; Start 06/19/17 at 14:00 Al Hydroxide/Mg Hydroxide (Mylanta Plus Xs) 15 ml PRN AFTMEALHC PRN PO DYSPEPSIA; Start 06/19/17 at 14:00 Magnesium Hydroxide (Milk Of Magnesia) 2,400 mg PRN QHS PRN PO CONSTIPATION; Start 06/19/17 at 14:00 Donepezil HCl (Aricept) 5 mg QHS PO Last administered on 06/22/17at 20:13; Start 06/19/17 at 21:00; Stop 06/23/17 at 16:14; Status DC Lorazepam (Ativan) 0.5 mg BID PO Last administered on 06/24/17at 08:40; Start at 21:00; Stop 06/24/17 at 19:12; Status DC Melatonin 6 mg QHS PO Last administered on 06/24/17 20:31; Start 06/19/17 at 21:00; Stop 06/25/17 at 18:57; Status DC Glimepiride (Amaryl) 2 mg BIDWMEALS PO Last administered on 06/25/17 17:33; Start 06/19/17 at 17:00; Stop 06/25/17 at 18:22; Status DC Metoprolol Tartrate (Lopressor) 50 mg BID PO Last administered on 07/03/17 19: 31; Start 06/19/17 at 21:00 Warfarin Sodium (Coumadin) 2.5 mg QHS PO Last administered on 06/20/17 20:15; Start 06/19/17 at 21:00; Stop 06/21/17 at 14:13; Status DC Warfarin Sodium (Coumadin Per Physician) 1 each PRN DAILY PRN MC SEE COMMENTS Last administered on 06/20/17at 10:54; Start 06/19/17 at 16:00; Stop 06/20/17 at 14:41; Status DC Warfarin Sodium (Coumadin) 1 mg QHS PO Last administered on 06/20/17at 20:15; Start 06/19/17 at 21:00; Stop 06/21/17 at 14:14; Status DC Acetaminophen (Tylenol) 650 mg PRN Q4HRS PRN PO PAIN Last administered on 17:06; Start 06/20/17 at 10:15 Clotrimazole (Lotrimin) 15 tori BID TP ; Start 06/20/17 at 21:00; Stop 06/20/17 at 21:00; Status DC Furosemide (Lasix) 40 mg DAILY PO Last administered on 07/03/17 08:29; Start at 12:00 Hydrocortisone Acetate (Anucort-Hc) 25 mg PRN Q8HRS PRN RC hemmorhoid discomfort; Start 06/20/17 at 10:15 Linagliptin (Tradjenta) 5 mg DAILY PO Last administered on 07/03/17 08:29; Start 06/20/17 at 12:00 Losartan Potassium (Cozaar) 50 mg DAILY PO Last administered on 06/27/17at 09:00 ; Start 06/20/17 at 12:00; Stop 07/01/17 at 13:35; Status DC Nystatin (Mycostatin) 1 tori DAILY TP Last administered on 07/03/17 08:30; Start 06/20/17 at 12:00 Oxymetazoline HCl (Afrin) 1 spray PRN Q6HRS PRN NS dry nares Last administered on 06/20/17 12:08; Start 06/20/17 at 10:15 Simvastatin (Zocor) 10 mg QHS PO Last administered on 07/03/17 19:31; Start at 21:00 Lidocaine HCl (Xylocaine 2% Topical 30gm Tube) 1 tori DAILY TP Last administered on 06/24/17 08:42; Start 06/20/17 at 12:00; Stop 06/26/17 at 15:33 ; Status DC Polyethylene Glycol (miraLAX) 17 gm DAILY PO Last administered on 07/03/17 08: 29; Start 06/20/17 at 12:00 Potassium Chloride (Klor-Con) 20 meq DAILYWBKFT PO Last administered on 08:29; Start 06/20/17 at 12:00 Quetiapine Fumarate (SEROquel) 12.5 mg TID@0900,1300,1700 PO Last administered on 06/25/17 17:33; Start 06/20/17 at 13:00; Stop 06/25/17 at 18:57; Status DC Trazodone HCl (Desyrel) 50 mg QHS PO Last administered on 07/02/17 20:18; Start 06/20/17 at 21:00; Stop 07/03/17 at 18:41; Status DC Trazodone HCl (Desyrel) 50 mg PRN QHS PRN PO insomnia Last administered on 01:15; Start 06/20/17 at 21:00; Stop 07/03/17 at 18:41; Status DC Tramadol HCl (Ultram) 50 mg PRN Q6HRS PRN PO PAIN Last administered on 06:04; Start 06/20/17 at 11:15 Lidocaine (Lidoderm) 1 patch DAILY TD Last administered on 07/03/17 08:30; Start 06/20/17 at 12:00 Warfarin Sodium (Coumadin Per Pharmacy) 1 each PRN DAILY PRN MC SEE COMMENTS Last administered on 07/03/17at 12:15; Start 06/20/17 at 14:45 Clotrimazole (Lotrimin) 1 tori BID TP Last administered on 07/03/17at 19:34; Start 06/20/17 at 21:00 Warfarin Sodium (Coumadin Per Pharmacy) 1 each PRN DAILY PRN MC SEE COMMENTS; Start 06/21/17 at 14:00; Stop 06/21/17 at 14:00; Status DC Vitamin D (Vitamin D3) 50,000 unit WEEKLY PO Last administered on 06/28/17at 10: 02; Start 06/21/17 at 14:00 Warfarin Sodium (Coumadin) 5 mg 1X WARF ONCE PO Last administered on at 15:45; Start 06/21/17 at 16:00; Stop 06/21/17 at 16:01; Status DC Warfarin Sodium (Coumadin) 5 mg 1X WARF ONCE PO Last administered on at 16:56; Start 06/22/17 at 16:00; Stop 06/22/17 at 16:02; Status DC Fluvoxamine Maleate (Luvox) 25 mg DAILY PO Last administered on 06/25/17at 08:46 ; Start 06/23/17 at 09:00; Stop 06/26/17 at 08:59; Status DC Fluvoxamine Maleate (Luvox) 50 mg DAILY PO Last administered on 06/28/17at 10:00 ; Start 06/26/17 at 09:00; Stop 06/28/17 at 18:16; Status DC Warfarin Sodium (Coumadin) 5 mg 1X WARF ONCE PO Last administered on at 16:18; Start 06/23/17 at 16:00; Stop 06/23/17 at 16:01; Status DC Donepezil HCl (Aricept) 10 mg QHS PO Last administered on 07/03/17at 19:31; Start 06/23/17 at 21:00 Warfarin Sodium (Coumadin) 5 mg DAILY16 PO Last administered on 06/29/17at 17:05 ; Start 06/24/17 at 16:00; Stop 06/30/17 at 10:43; Status DC Lorazepam (Ativan) 0.25 mg BID PO Last administered on 06/27/17 20:07; Start at 21:00; Stop 06/27/17 at 22:00; Status DC Lorazepam (Ativan) 0.25 mg DAILY PO Last administered on 06/30/17 09:06; Start 06/28/17 at 09:00; Stop 07/01/17 at 08:59; Status DC Glimepiride (Amaryl) 4 mg BIDWMEALS PO Last administered on 07/03/17at 17:04; Start 06/26/17 at 08:00 Oxycodone HCl (Roxicodone) 5 mg PRN Q6HRS PRN PO PAIN Last administered on 21:56; Start 06/25/17 at 18:30 Quetiapine Fumarate (SEROquel) 12.5 mg QID PO ; Start 06/26/17 at 07:00; Stop at 07:00; Status DC Mirtazapine (Remeron) 7.5 mg QHS PO Last administered on 07/01/17at 19:39; Start 06/25/17 at 21:00; Stop 07/02/17 at 18:12; Status DC Quetiapine Fumarate (SEROquel) 12.5 mg 0700,1100,1500,1900 PO Last administered on 07/03/17at 19:33; Start 06/26/17 at 07:00 Lidocaine HCl (Xylocaine 2% Topical 30gm Tube) 1 tori PRN Q6HRS PRN TP PAIN; Start 06/27/17 at 12:00 Fluvoxamine Maleate (Luvox) 75 mg DAILY PO Last administered on 07/01/17 09:07 ; Start 06/29/17 at 09:00; Stop 07/01/17 at 18:36; Status DC Warfarin Sodium (Coumadin - No Dose Today) 1 each 1X WARF ONCE MC Last administered on 06/30/17 16:00; Start 06/30/17 at 16:00; Stop 06/30/17 at 16:01; Status DC Warfarin Sodium (Coumadin) 5 mg 1X WARF ONCE PO Last administered on 07/01/17 17:11; Start 07/01/17 at 16:00; Stop 07/01/17 at 16:01; Status DC Fluvoxamine Maleate (Luvox) 100 mg DAILY PO Last administered on 07/03/17at 08:28 ; Start 07/02/17 at 09:00 Warfarin Sodium (Coumadin) 5 mg 1X WARF ONCE PO Last administered on 07/02/17at 15:56; Start 07/02/17 at 16:00; Stop 07/02/17 at 16:01; Status DC Mirtazapine (Remeron) 15 mg QHS PO Last administered on 07/02/17at 20:17; Start 07/02/17 at 21:00; Stop 07/03/17 at 18:41; Status DC Warfarin Sodium (Coumadin) 5 mg DAILY16 PO Last administered on 07/03/17at 17:05 ; Start 07/03/17 at 16:00 Trazodone HCl (Desyrel) 100 mg PRN QHS PRN PO insomnia; Start 07/03/17 at 18:45 Trazodone HCl (Desyrel) 100 mg QHS PO Last administered on 07/03/17at 19:32; Start 07/03/17 at 21:00 Amitriptyline HCl (Elavil) 25 mg QHS PO Last administered on 07/03/17at 19:32; Start 07/03/17 at 21:00 Active Scripts Active Reported Tradjenta (Linagliptin) 5 Mg Tablet 5 Mg PO DAILY Simvastatin 10 Mg Tablet 10 Mg PO DAILY Probiotic (Lactobacillus Combo No.10) 1 Each Capsule 1 Each PO Potassium Chloride 10 Meq Tablet.er 20 Meq PO DAILY Nystatin 15 Gm Cream..g. 1 Tori TP DAILY Sinus Nasal (Oxymetazoline Hcl) 30 Ml [place] 1 [place] NS PRN Q6HRS PRN Metoprolol Tartrate 50 Mg Tablet 50 Mg PO BID Melatonin 3 Mg Tablet 6 Mg PO HS Losartan Potassium 50 Mg Tablet 50 Mg PO DAILY Lorazepam 0.5 Mg Tablet 0.5 Mg PO BID Topicaine (Lidocaine) 113 Gm Gel..gram. 1 Tori TP DAILY Polyethylene Glycol 3350 2,500 Gm Powder 17 Gm PO DAILY Glimepiride 2 Mg Tablet 2 Mg PO BID Furosemide 40 Mg Tablet 40 Mg PO DAILY Coumadin (Warfarin Sodium) 3 Mg Tablet 3.5 Mg PO QHS Clotrimazole 15 Gm Cream..g. 15 Gm TP BID Aricept (Donepezil Hcl) 5 Mg Tablet 5 Mg PO QHS Anusol-Hc (Hydrocortisone Acetate) 25 Mg Supp.rect 1 Supp RC PRN Q8HRS PRN Tylenol (Acetaminophen) 325 Mg Tablet 650 Mg PO PRN Q4HRS PRN I have reviewed the current psychotropics carefully including drug interactions. Risk benefit ratio favors no change other than as noted in my dictated progress note. Diagnosis: Problems: (1) Medical clearance for psychiatric admission (2) Psychosis (3) Anxiety disorder (4) Bipolar affective, mixed, sev w/ psych (5) Dementia in Alzheimer's disease with delusions (6) Impulse control disorder MIMI MCNULTY MD Jul 03, 2017 19:52
[2017-07-04 06:07] VITALS: BP 99/61
[2017-07-04] MEDS: QUEtiapine 25 MG TABLET. PO SCH ×4 (06:11→17:48)
[2017-07-04] MEDS: METOPROLOL TART IMMED RELEASE 50 MG TABLET PO SCH ×2 (09:00→19:29)
[2017-07-04] MEDS: POTASSIUM CHLORIDE 20 MEQ TABLET.ER. PO SCH (09:18)
[2017-07-04] MEDS: FUROSEMIDE 40 MG TABLET PO SCH (09:18)
[2017-07-04] MEDS: GLIMEPIRIDE 2 MG TABLET PO SCH ×2 (09:19→17:32)
[2017-07-04] MEDS: POLYETHYLENE GLYCOL 3350 17 GM PACKET. PO SCH (09:19)
[2017-07-04] MEDS: LINAGLIPTIN 5 MG TABLET PO SCH (09:19)
[2017-07-04] MEDS: LIDOCAINE (700MG/PATCH) PATCH. TD SCH (09:22)
[2017-07-04] MEDS: CLOTRIMAZOLE 1% TOPICAL CREAM 30GM TUBE. TP SCH ×2 (09:23→19:31)
[2017-07-04] MEDS: NYSTATIN 100,000 UNIT/GM TOPICAL CREAM 15GM TUBE. TP SCH (09:24)
[2017-07-04] MEDS: oxyCODONE IR 5 MG TABLET PO PRN ×2 (09:25→15:52)
[2017-07-04] MEDS: WARFARIN 5 MG TABLET. PO SCH (16:07)
[2017-07-04 16:15] VITALS: BP 112/55
[2017-07-04] MEDS: traZODone 100 MG TABLET. PO SCH (19:29)
[2017-07-04] MEDS: AMITRIPTYLINE HCL 25 MG TABLET PO SCH (19:29)
[2017-07-04] MEDS: SIMVASTATIN 10 MG TABLET PO SCH (19:29)
[2017-07-04] MEDS: DONEPEZIL HCL 10 MG TABLET PO SCH (19:29)
--- NOTE | 2017-07-04 19:51 | PDOC ---
Exam Note: Shady Note: Please also refer to the separate dictated note~for this date of service dictated separately.~Patient seen individually. Discussed the patient with Nursing staff reviewed the chart.~Reviewed interim history and current functioning. Reviewed vital signs,~Labs/ Radiology~and current medications noted below. Continue current treatment with the changes noted in the dictated addendum note Assessment: Vital Signs: Vital Signs Date Time Temp Pulse Resp B/P (MAP) Pulse Ox O2 Delivery O2 Flow Rate FiO2 07/04/17 19:29 80 112/55 07/04/17 17:30 93 Room Air 07/04/17 16:15 97.8 16 I&O Intake and Output 07/04/17 07:00 Intake Total 600 ml Balance 600 ml Intake Oral 600 ml # Voids 1 # Bowel Movements 1 Labs: Laboratory Tests Test 07/04/17 07:21 07/04/17 19:15 Glucose (Fingerstick) 59 mg/dL (70-99) L 159 mg/dL (70-99) H Current Medications: Meds: Current Medications Acetaminophen (Tylenol) 650 mg PRN Q6HRS PRN PO PAIN / TEMP Last administered on 06/20/17at 09:28; Start 06/19/17 at 14:00; Stop 06/20/17 at 10:20; Status DC Multi-Ingredient Ointment (Analgesic [place]) 1 tori PRN QID PRN TP MUSCLE PAIN; Start 06/19/17 at 14:00 Al Hydroxide/Mg Hydroxide (Mylanta Plus Xs) 15 ml PRN AFTMEALHC PRN PO DYSPEPSIA; Start 06/19/17 at 14:00 Magnesium Hydroxide (Milk Of Magnesia) 2,400 mg PRN QHS PRN PO CONSTIPATION; Start 06/19/17 at 14:00 Donepezil HCl (Aricept) 5 mg QHS PO Last administered on 06/22/17at 20:13; Start 06/19/17 at 21:00; Stop 06/23/17 at 16:14; Status DC Lorazepam (Ativan) 0.5 mg BID PO Last administered on 06/24/17at 08:40; Start at 21:00; Stop 06/24/17 at 19:12; Status DC Melatonin 6 mg QHS PO Last administered on 06/24/17at 20:31; Start 06/19/17 at 21:00; Stop 06/25/17 at 18:57; Status DC Glimepiride (Amaryl) 2 mg BIDWMEALS PO Last administered on 06/25/17at 17:33; Start 06/19/17 at 17:00; Stop 06/25/17 at 18:22; Status DC Metoprolol Tartrate (Lopressor) 50 mg BID PO Last administered on 07/04/17 19: 29; Start 06/19/17 at 21:00 Warfarin Sodium (Coumadin) 2.5 mg QHS PO Last administered on 06/20/17at 20:15; Start 06/19/17 at 21:00; Stop 06/21/17 at 14:13; Status DC Warfarin Sodium (Coumadin Per Physician) 1 each PRN DAILY PRN MC SEE COMMENTS Last administered on 06/20/17at 10:54; Start 06/19/17 at 16:00; Stop 06/20/17 at 14:41; Status DC Warfarin Sodium (Coumadin) 1 mg QHS PO Last administered on 06/20/17at 20:15; Start 06/19/17 at 21:00; Stop 06/21/17 at 14:14; Status DC Acetaminophen (Tylenol) 650 mg PRN Q4HRS PRN PO PAIN Last administered on at 17:06; Start 06/20/17 at 10:15 Clotrimazole (Lotrimin) 15 tori BID TP ; Start 06/20/17 at 21:00; Stop 06/20/17 at 21:00; Status DC Furosemide (Lasix) 40 mg DAILY PO Last administered on 07/04/17at 09:18; Start at 12:00 Hydrocortisone Acetate (Anucort-Hc) 25 mg PRN Q8HRS PRN RC hemmorhoid discomfort; Start 06/20/17 at 10:15 Linagliptin (Tradjenta) 5 mg DAILY PO Last administered on 07/04/17 09:19; Start 06/20/17 at 12:00 Losartan Potassium (Cozaar) 50 mg DAILY PO Last administered on 06/27/17 09:00 ; Start 06/20/17 at 12:00; Stop 07/01/17 at 13:35; Status DC Nystatin (Mycostatin) 1 tori DAILY TP Last administered on 07/04/17 09:24; Start 06/20/17 at 12:00 Oxymetazoline HCl (Afrin) 1 spray PRN Q6HRS PRN NS dry nares Last administered on 06/20/17 12:08; Start 06/20/17 at 10:15 Simvastatin (Zocor) 10 mg QHS PO Last administered on 07/04/17 19:29; Start at 21:00 Lidocaine HCl (Xylocaine 2% Topical 30gm Tube) 1 tori DAILY TP Last administered on 06/24/17 08:42; Start 06/20/17 at 12:00; Stop 06/26/17 at 15:33 ; Status DC Polyethylene Glycol (miraLAX) 17 gm DAILY PO Last administered on 07/04/17 09: 19; Start 06/20/17 at 12:00 Potassium Chloride (Klor-Con) 20 meq DAILYWBKFT PO Last administered on 09:18; Start 06/20/17 at 12:00 Quetiapine Fumarate (SEROquel) 12.5 mg TID@0900,1300,1700 PO Last administered on 06/25/17 17:33; Start 06/20/17 at 13:00; Stop 06/25/17 at 18:57; Status DC Trazodone HCl (Desyrel) 50 mg QHS PO Last administered on 07/02/17 20:18; Start 06/20/17 at 21:00; Stop 07/03/17 at 18:41; Status DC Trazodone HCl (Desyrel) 50 mg PRN QHS PRN PO insomnia Last administered on 01:15; Start 06/20/17 at 21:00; Stop 07/03/17 at 18:41; Status DC Tramadol HCl (Ultram) 50 mg PRN Q6HRS PRN PO PAIN Last administered on 06:04; Start 06/20/17 at 11:15 Lidocaine (Lidoderm) 1 patch DAILY TD Last administered on 07/04/17 09:22; Start 06/20/17 at 12:00 Warfarin Sodium (Coumadin Per Pharmacy) 1 each PRN DAILY PRN MC SEE COMMENTS Last administered on 3/7/18at 12:15; Start 06/20/17 at 14:45 Clotrimazole (Lotrimin) 1 tori BID TP Last administered on 07/04/17 19:31; Start 06/20/17 at 21:00 Warfarin Sodium (Coumadin Per Pharmacy) 1 each PRN DAILY PRN MC SEE COMMENTS; Start 06/21/17 at 14:00; Stop 06/21/17 at 14:00; Status DC Vitamin D (Vitamin D3) 50,000 unit WEEKLY PO Last administered on 06/28/17 10: 02; Start 06/21/17 at 14:00 Warfarin Sodium (Coumadin) 5 mg 1X WARF ONCE PO Last administered on at 15:45; Start 06/21/17 at 16:00; Stop 06/21/17 at 16:01; Status DC Warfarin Sodium (Coumadin) 5 mg 1X WARF ONCE PO Last administered on at 16:56; Start 06/22/17 at 16:00; Stop 06/22/17 at 16:02; Status DC Fluvoxamine Maleate (Luvox) 25 mg DAILY PO Last administered on 06/25/17at 08:46 ; Start 06/23/17 at 09:00; Stop 06/26/17 at 08:59; Status DC Fluvoxamine Maleate (Luvox) 50 mg DAILY PO Last administered on 06/28/17at 10:00 ; Start 06/26/17 at 09:00; Stop 06/28/17 at 18:16; Status DC Warfarin Sodium (Coumadin) 5 mg 1X WARF ONCE PO Last administered on at 16:18; Start 06/23/17 at 16:00; Stop 06/23/17 at 16:01; Status DC Donepezil HCl (Aricept) 10 mg QHS PO Last administered on 07/04/17 19:29; Start 06/23/17 at 21:00 Warfarin Sodium (Coumadin) 5 mg DAILY16 PO Last administered on 06/29/17 17:05 ; Start 06/24/17 at 16:00; Stop 06/30/17 at 10:43; Status DC Lorazepam (Ativan) 0.25 mg BID PO Last administered on 06/27/17at 20:07; Start at 21:00; Stop 06/27/17 at 22:00; Status DC Lorazepam (Ativan) 0.25 mg DAILY PO Last administered on 06/30/17 09:06; Start 06/28/17 at 09:00; Stop 07/01/17 at 08:59; Status DC Glimepiride (Amaryl) 4 mg BIDWMEALS PO Last administered on 07/04/17 17:32; Start 06/26/17 at 08:00 Oxycodone HCl (Roxicodone) 5 mg PRN Q6HRS PRN PO PAIN Last administered on 15:52; Start 06/25/17 at 18:30 Quetiapine Fumarate (SEROquel) 12.5 mg QID PO ; Start 06/26/17 at 07:00; Stop at 07:00; Status DC Mirtazapine (Remeron) 7.5 mg QHS PO Last administered on 07/01/17at 19:39; Start 06/25/17 at 21:00; Stop 07/02/17 at 18:12; Status DC Quetiapine Fumarate (SEROquel) 12.5 mg 0700,1100,1500,1900 PO Last administered on 07/04/17at 17:48; Start 06/26/17 at 07:00 Lidocaine HCl (Xylocaine 2% Topical 30gm Tube) 1 tori PRN Q6HRS PRN TP PAIN; Start 06/27/17 at 12:00 Fluvoxamine Maleate (Luvox) 75 mg DAILY PO Last administered on 07/01/17 09:07 ; Start 06/29/17 at 09:00; Stop 07/01/17 at 18:36; Status DC Warfarin Sodium (Coumadin - No Dose Today) 1 each 1X WARF ONCE MC Last administered on 06/30/17at 16:00; Start 06/30/17 at 16:00; Stop 06/30/17 at 16:01; Status DC Warfarin Sodium (Coumadin) 5 mg 1X WARF ONCE PO Last administered on 07/01/17at 17:11; Start 07/01/17 at 16:00; Stop 07/01/17 at 16:01; Status DC Fluvoxamine Maleate (Luvox) 100 mg DAILY PO Last administered on 07/04/17 09:18 ; Start 07/02/17 at 09:00 Warfarin Sodium (Coumadin) 5 mg 1X WARF ONCE PO Last administered on 07/02/17at 15:56; Start 07/02/17 at 16:00; Stop 07/02/17 at 16:01; Status DC Mirtazapine (Remeron) 15 mg QHS PO Last administered on 07/02/17at 20:17; Start 07/02/17 at 21:00; Stop 07/03/17 at 18:41; Status DC Warfarin Sodium (Coumadin) 5 mg DAILY16 PO Last administered on 07/04/17at 16:07 ; Start 07/03/17 at 16:00 Trazodone HCl (Desyrel) 100 mg PRN QHS PRN PO insomnia; Start 07/03/17 at 18:45 Trazodone HCl (Desyrel) 100 mg QHS PO Last administered on 07/04/17at 19:29; Start 07/03/17 at 21:00 Amitriptyline HCl (Elavil) 25 mg QHS PO Last administered on 07/04/17at 19:29; Start 07/03/17 at 21:00 Active Scripts Active Reported Tradjenta (Linagliptin) 5 Mg Tablet 5 Mg PO DAILY Simvastatin 10 Mg Tablet 10 Mg PO DAILY Probiotic (Lactobacillus Combo No.10) 1 Each Capsule 1 Each PO Potassium Chloride 10 Meq Tablet.er 20 Meq PO DAILY Nystatin 15 Gm Cream..g. 1 Tori TP DAILY Sinus Nasal (Oxymetazoline Hcl) 30 Ml [place] 1 [place] NS PRN Q6HRS PRN Metoprolol Tartrate 50 Mg Tablet 50 Mg PO BID Melatonin 3 Mg Tablet 6 Mg PO HS Losartan Potassium 50 Mg Tablet 50 Mg PO DAILY Lorazepam 0.5 Mg Tablet 0.5 Mg PO BID Topicaine (Lidocaine) 113 Gm Gel..gram. 1 Tori TP DAILY Polyethylene Glycol 3350 2,500 Gm Powder 17 Gm PO DAILY Glimepiride 2 Mg Tablet 2 Mg PO BID Furosemide 40 Mg Tablet 40 Mg PO DAILY Coumadin (Warfarin Sodium) 3 Mg Tablet 3.5 Mg PO QHS Clotrimazole 15 Gm Cream..g. 15 Gm TP BID Aricept (Donepezil Hcl) 5 Mg Tablet 5 Mg PO QHS Anusol-Hc (Hydrocortisone Acetate) 25 Mg Supp.rect 1 Supp RC PRN Q8HRS PRN Tylenol (Acetaminophen) 325 Mg Tablet 650 Mg PO PRN Q4HRS PRN I have reviewed the current psychotropics carefully including drug interactions. Risk benefit ratio favors no change other than as noted in my dictated progress note. Diagnosis: Problems: (1) Medical clearance for psychiatric admission (2) Psychosis (3) Anxiety disorder (4) Bipolar affective, mixed, sev w/ psych (5) Dementia in Alzheimer's disease with delusions (6) Impulse control disorder MIMI MCNULTY MD Jul 04, 2017 19:51
[2017-07-05] MEDS: traMADol 50 MG TABLET PO PRN (01:28)
[2017-07-05] MEDS: QUEtiapine 25 MG TABLET. PO SCH ×4 (06:03→17:17)
[2017-07-05 06:06] VITALS: BP 117/48
[2017-07-05] MEDS: METOPROLOL TART IMMED RELEASE 50 MG TABLET PO SCH ×2 (08:29→19:47)
[2017-07-05] MEDS: POTASSIUM CHLORIDE 20 MEQ TABLET.ER. PO SCH (08:29)
[2017-07-05] MEDS: GLIMEPIRIDE 2 MG TABLET PO SCH ×2 (08:30→17:18)
[2017-07-05] MEDS: POLYETHYLENE GLYCOL 3350 17 GM PACKET. PO SCH (08:30)
[2017-07-05] MEDS: LINAGLIPTIN 5 MG TABLET PO SCH (08:30)
[2017-07-05] MEDS: FUROSEMIDE 40 MG TABLET PO SCH (08:30)
[2017-07-05] MEDS: LIDOCAINE (700MG/PATCH) PATCH. TD SCH ×2 (08:31→13:27)
[2017-07-05] MEDS: CLOTRIMAZOLE 1% TOPICAL CREAM 30GM TUBE. TP SCH ×2 (08:32→19:47)
[2017-07-05] MEDS: NYSTATIN 100,000 UNIT/GM TOPICAL CREAM 15GM TUBE. TP SCH (08:32)
[2017-07-05] MEDS: CHOLECALCIFEROL (VITAMIN D3) 50,000 UNIT CAPSULE PO SCH (08:33)
[2017-07-05] MEDS: oxyCODONE IR 5 MG TABLET PO PRN (10:31)
[2017-07-05 16:25] VITALS: BP 114/59
[2017-07-05] MEDS: WARFARIN 5 MG TABLET. PO SCH (17:18)
[2017-07-05] MEDS: DONEPEZIL HCL 10 MG TABLET PO SCH (19:46)
[2017-07-05] MEDS: traZODone 100 MG TABLET. PO SCH (19:47)
[2017-07-05] MEDS: SIMVASTATIN 10 MG TABLET PO SCH (19:47)
[2017-07-05] MEDS: AMITRIPTYLINE HCL 25 MG TABLET PO SCH (19:47)
--- NOTE | 2017-07-05 19:52 | PDOC ---
Exam Note: Shady Note: Please also refer to the separate dictated note~for this date of service dictated separately.~Patient seen individually. Discussed the patient with Nursing staff reviewed the chart.~Reviewed interim history and current functioning. Reviewed vital signs,~Labs/ Radiology~and current medications noted below. Continue current treatment with the changes noted in the dictated addendum note Assessment: Vital Signs: Vital Signs Date Time Temp Pulse Resp B/P (MAP) Pulse Ox O2 Delivery O2 Flow Rate FiO2 07/05/17 19:47 82 114/59 07/05/17 16:25 98.9 19 92 07/05/17 02:28 Room Air I&O Intake and Output 07/05/17 07:00 Intake Total 1620 ml Balance 1620 ml Intake Oral 1620 ml # Voids 1 Labs: Laboratory Tests Test 07/05/17 07:24 07/05/17 19:10 Glucose (Fingerstick) 94 mg/dL (70-99) 186 mg/dL (70-99) H Current Medications: Meds: Current Medications Acetaminophen (Tylenol) 650 mg PRN Q6HRS PRN PO PAIN / TEMP Last administered on 06/20/17at 09:28; Start 06/19/17 at 14:00; Stop 06/20/17 at 10:20; Status DC Multi-Ingredient Ointment (Analgesic [place]) 1 tori PRN QID PRN TP MUSCLE PAIN; Start 06/19/17 at 14:00 Al Hydroxide/Mg Hydroxide (Mylanta Plus Xs) 15 ml PRN AFTMEALHC PRN PO DYSPEPSIA; Start 06/19/17 at 14:00 Magnesium Hydroxide (Milk Of Magnesia) 2,400 mg PRN QHS PRN PO CONSTIPATION; Start 06/19/17 at 14:00 Donepezil HCl (Aricept) 5 mg QHS PO Last administered on 06/22/17at 20:13; Start 06/19/17 at 21:00; Stop 06/23/17 at 16:14; Status DC Lorazepam (Ativan) 0.5 mg BID PO Last administered on 06/24/17at 08:40; Start at 21:00; Stop 06/24/17 at 19:12; Status DC Melatonin 6 mg QHS PO Last administered on 06/24/17at 20:31; Start 06/19/17 at 21:00; Stop 06/25/17 at 18:57; Status DC Glimepiride (Amaryl) 2 mg BIDWMEALS PO Last administered on 06/25/17at 17:33; Start 06/19/17 at 17:00; Stop 06/25/17 at 18:22; Status DC Metoprolol Tartrate (Lopressor) 50 mg BID PO Last administered on 07/05/17at 19: 47; Start 06/19/17 at 21:00 Warfarin Sodium (Coumadin) 2.5 mg QHS PO Last administered on 06/20/17at 20:15; Start 06/19/17 at 21:00; Stop 06/21/17 at 14:13; Status DC Warfarin Sodium (Coumadin Per Physician) 1 each PRN DAILY PRN MC SEE COMMENTS Last administered on 06/20/17at 10:54; Start 06/19/17 at 16:00; Stop 06/20/17 at 14:41; Status DC Warfarin Sodium (Coumadin) 1 mg QHS PO Last administered on 06/20/17at 20:15; Start 06/19/17 at 21:00; Stop 06/21/17 at 14:14; Status DC Acetaminophen (Tylenol) 650 mg PRN Q4HRS PRN PO PAIN Last administered on at 17:06; Start 06/20/17 at 10:15 Clotrimazole (Lotrimin) 15 tori BID TP ; Start 06/20/17 at 21:00; Stop 06/20/17 at 21:00; Status DC Furosemide (Lasix) 40 mg DAILY PO Last administered on 07/05/17at 08:30; Start at 12:00 Hydrocortisone Acetate (Anucort-Hc) 25 mg PRN Q8HRS PRN RC hemmorhoid discomfort; Start 06/20/17 at 10:15 Linagliptin (Tradjenta) 5 mg DAILY PO Last administered on 07/05/17at 08:30; Start 06/20/17 at 12:00 Losartan Potassium (Cozaar) 50 mg DAILY PO Last administered on 06/27/17at 09:00 ; Start 06/20/17 at 12:00; Stop 07/01/17 at 13:35; Status DC Nystatin (Mycostatin) 1 tori DAILY TP Last administered on 07/05/17 08:32; Start 06/20/17 at 12:00 Oxymetazoline HCl (Afrin) 1 spray PRN Q6HRS PRN NS dry nares Last administered on 06/20/17 12:08; Start 06/20/17 at 10:15 Simvastatin (Zocor) 10 mg QHS PO Last administered on 07/05/17 19:47; Start at 21:00 Lidocaine HCl (Xylocaine 2% Topical 30gm Tube) 1 tori DAILY TP Last administered on 06/24/17 08:42; Start 06/20/17 at 12:00; Stop 06/26/17 at 15:33 ; Status DC Polyethylene Glycol (miraLAX) 17 gm DAILY PO Last administered on 07/05/17 08: 30; Start 06/20/17 at 12:00 Potassium Chloride (Klor-Con) 20 meq DAILYWBKFT PO Last administered on 08:29; Start 06/20/17 at 12:00 Quetiapine Fumarate (SEROquel) 12.5 mg TID@0900,1300,1700 PO Last administered on 06/25/17 17:33; Start 06/20/17 at 13:00; Stop 06/25/17 at 18:57; Status DC Trazodone HCl (Desyrel) 50 mg QHS PO Last administered on 07/02/17 20:18; Start 06/20/17 at 21:00; Stop 07/03/17 at 18:41; Status DC Trazodone HCl (Desyrel) 50 mg PRN QHS PRN PO insomnia Last administered on 01:15; Start 06/20/17 at 21:00; Stop 07/03/17 at 18:41; Status DC Tramadol HCl (Ultram) 50 mg PRN Q6HRS PRN PO PAIN Last administered on 01:28; Start 06/20/17 at 11:15 Lidocaine (Lidoderm) 1 patch DAILY TD Last administered on 07/04/17 09:22; Start 06/20/17 at 12:00 Warfarin Sodium (Coumadin Per Pharmacy) 1 each PRN DAILY PRN MC SEE COMMENTS Last administered on 3/7/18at 12:15; Start 06/20/17 at 14:45 Clotrimazole (Lotrimin) 1 toir BID TP Last administered on 07/05/17at 08:32; Start 06/20/17 at 21:00 Warfarin Sodium (Coumadin Per Pharmacy) 1 each PRN DAILY PRN MC SEE COMMENTS; Start 06/21/17 at 14:00; Stop 06/21/17 at 14:00; Status DC Vitamin D (Vitamin D3) 50,000 unit WEEKLY PO Last administered on 07/05/17at 08: 33; Start 06/21/17 at 14:00 Warfarin Sodium (Coumadin) 5 mg 1X WARF ONCE PO Last administered on at 15:45; Start 06/21/17 at 16:00; Stop 06/21/17 at 16:01; Status DC Warfarin Sodium (Coumadin) 5 mg 1X WARF ONCE PO Last administered on at 16:56; Start 06/22/17 at 16:00; Stop 06/22/17 at 16:02; Status DC Fluvoxamine Maleate (Luvox) 25 mg DAILY PO Last administered on 06/25/17at 08:46 ; Start 06/23/17 at 09:00; Stop 06/26/17 at 08:59; Status DC Fluvoxamine Maleate (Luvox) 50 mg DAILY PO Last administered on 06/28/17at 10:00 ; Start 06/26/17 at 09:00; Stop 06/28/17 at 18:16; Status DC Warfarin Sodium (Coumadin) 5 mg 1X WARF ONCE PO Last administered on at 16:18; Start 06/23/17 at 16:00; Stop 06/23/17 at 16:01; Status DC Donepezil HCl (Aricept) 10 mg QHS PO Last administered on 07/05/17at 19:46; Start 06/23/17 at 21:00 Warfarin Sodium (Coumadin) 5 mg DAILY16 PO Last administered on 06/29/17 17:05 ; Start 06/24/17 at 16:00; Stop 06/30/17 at 10:43; Status DC Lorazepam (Ativan) 0.25 mg BID PO Last administered on 06/27/17at 20:07; Start at 21:00; Stop 06/27/17 at 22:00; Status DC Lorazepam (Ativan) 0.25 mg DAILY PO Last administered on 06/30/17 09:06; Start 06/28/17 at 09:00; Stop 07/01/17 at 08:59; Status DC Glimepiride (Amaryl) 4 mg BIDWMEALS PO Last administered on 07/05/17at 17:18; Start 06/26/17 at 08:00 Oxycodone HCl (Roxicodone) 5 mg PRN Q6HRS PRN PO PAIN Last administered on at 10:31; Start 06/25/17 at 18:30 Quetiapine Fumarate (SEROquel) 12.5 mg QID PO ; Start 06/26/17 at 07:00; Stop at 07:00; Status DC Mirtazapine (Remeron) 7.5 mg QHS PO Last administered on 07/01/17at 19:39; Start 06/25/17 at 21:00; Stop 07/02/17 at 18:12; Status DC Quetiapine Fumarate (SEROquel) 12.5 mg 0700,1100,1500,1900 PO Last administered on 07/05/17at 17:17; Start 06/26/17 at 07:00 Lidocaine HCl (Xylocaine 2% Topical 30gm Tube) 1 tori PRN Q6HRS PRN TP PAIN; Start 06/27/17 at 12:00 Fluvoxamine Maleate (Luvox) 75 mg DAILY PO Last administered on 07/01/17at 09:07 ; Start 06/29/17 at 09:00; Stop 07/01/17 at 18:36; Status DC Warfarin Sodium (Coumadin - No Dose Today) 1 each 1X WARF ONCE MC Last administered on 06/30/17at 16:00; Start 06/30/17 at 16:00; Stop 06/30/17 at 16:01; Status DC Warfarin Sodium (Coumadin) 5 mg 1X WARF ONCE PO Last administered on 07/01/17at 17:11; Start 07/01/17 at 16:00; Stop 07/01/17 at 16:01; Status DC Fluvoxamine Maleate (Luvox) 100 mg DAILY PO Last administered on 07/05/17at 08:30 ; Start 07/02/17 at 09:00 Warfarin Sodium (Coumadin) 5 mg 1X WARF ONCE PO Last administered on 07/02/17at 15:56; Start 07/02/17 at 16:00; Stop 07/02/17 at 16:01; Status DC Mirtazapine (Remeron) 15 mg QHS PO Last administered on 07/02/17at 20:17; Start 07/02/17 at 21:00; Stop 07/03/17 at 18:41; Status DC Warfarin Sodium (Coumadin) 5 mg DAILY16 PO Last administered on 07/05/17at 17:18 ; Start 07/03/17 at 16:00 Trazodone HCl (Desyrel) 100 mg PRN QHS PRN PO insomnia; Start 07/03/17 at 18:45 Trazodone HCl (Desyrel) 100 mg QHS PO Last administered on 07/05/17at 19:47; Start 07/03/17 at 21:00 Amitriptyline HCl (Elavil) 25 mg QHS PO Last administered on 07/05/17at 19:47; Start 07/03/17 at 21:00 Active Scripts Active Reported Tradjenta (Linagliptin) 5 Mg Tablet 5 Mg PO DAILY Simvastatin 10 Mg Tablet 10 Mg PO DAILY Probiotic (Lactobacillus Combo No.10) 1 Each Capsule 1 Each PO Potassium Chloride 10 Meq Tablet.er 20 Meq PO DAILY Nystatin 15 Gm Cream..g. 1 Tori TP DAILY Sinus Nasal (Oxymetazoline Hcl) 30 Ml [place] 1 [place] NS PRN Q6HRS PRN Metoprolol Tartrate 50 Mg Tablet 50 Mg PO BID Melatonin 3 Mg Tablet 6 Mg PO HS Losartan Potassium 50 Mg Tablet 50 Mg PO DAILY Lorazepam 0.5 Mg Tablet 0.5 Mg PO BID Topicaine (Lidocaine) 113 Gm Gel..gram. 1 Tori TP DAILY Polyethylene Glycol 3350 2,500 Gm Powder 17 Gm PO DAILY Glimepiride 2 Mg Tablet 2 Mg PO BID Furosemide 40 Mg Tablet 40 Mg PO DAILY Coumadin (Warfarin Sodium) 3 Mg Tablet 3.5 Mg PO QHS Clotrimazole 15 Gm Cream..g. 15 Gm TP BID Aricept (Donepezil Hcl) 5 Mg Tablet 5 Mg PO QHS Anusol-Hc (Hydrocortisone Acetate) 25 Mg Supp.rect 1 Supp RC PRN Q8HRS PRN Tylenol (Acetaminophen) 325 Mg Tablet 650 Mg PO PRN Q4HRS PRN I have reviewed the current psychotropics carefully including drug interactions. Risk benefit ratio favors no change other than as noted in my dictated progress note. Diagnosis: Problems: (1) Medical clearance for psychiatric admission (2) Psychosis (3) Anxiety disorder (4) Bipolar affective, mixed, sev w/ psych (5) Dementia in Alzheimer's disease with delusions (6) Impulse control disorder MIMI MCNULTY MD Jul 05, 2017 19:52
--- NOTE | 2017-07-05 20:05 | PN ---
DATE: 07/03/2017 This is a late entry, 07/03/2017, covers the elements not covered in my initial note, 07/03/2017. SUBJECTIVE: I met with the patient this evening of 07/03/2017. The patient slept 3-1/2 hours previous evening, remains somewhat anxious, repetitive, helpless at times, wanting staff to do more for him, then he should be as he tends to do the minimum for himself. He has been a little more out of the day room, which is an improvement and states he does not like the way people speak to him. Despite this, he is little less demanding per nursing report. REVIEW OF SYSTEMS: Positive for back pain, impaired ambulation in a wheelchair. No CV, , pulmonary, eye system symptoms on review, vague somatic symptoms. MENTAL STATUS EXAMINATION: Speech coherent, has some latency, persistent. Abstraction fair, computation impaired, language function intact. Mood and affect anxious, labile. No active suicidal or homicidal ideation. LABORATORY DATA: Reviewed. IMPRESSION: Major depressive disorder with psychotic features; anxiety disorder, unspecified symptoms of obsessive compulsive disorder. PLAN: Change Remeron to amitriptyline 25 mg at bedtime to help with insomnia, anxiety, increase trazodone to 100 mg at bedtime, may repeat x 1 for insomnia. Continue Aricept, Seroquel, and Luvox at 100 mg a day, may need to increase the latter in due course. MAN Raquel MCNULTY MD DR: CHERIE/yovana JOB#: [id number] / [id number]
--- NOTE | 2017-07-05 23:09 | PN ---
DATE: 07/04/2017 This is a late entry, 07/04/2017, covers the elements not covered in my initial note, 07/04/2017. SUBJECTIVE: I met with the patient evening of 07/04/2017. The patient was staffed at a treatment team meeting morning of 07/04/2017. Overall, the patient often sits in his room with no pants, is demanding, irritable, wanting nursing staff to do for him even things that he can do for himself, sleeping about 5 hours. Appetite is 50%, anxious, attention seeking, withdrawn, constantly wanting help with toileting and cares. Resistive to medications, states he cannot get to the bathroom without help, but he can, no participation in groups. REVIEW OF SYSTEMS: Ambulation impaired in a wheelchair. No CV, , pulmonary, eye system symptoms on review. MENTAL STATUS EXAM: Oriented reasonably to himself and situation. Speech coherent, has some latency. Abstraction fair, computation impaired, language function intact, attention span short. Mood and affect somewhat labile, obsessive. LABORATORY DATA: Reviewed. IMPRESSION: Unchanged from initial note. PLAN: Continue psychotropics as mentioned in my initial note. MIMI MCNULTY MD DR: CHERIE/yovana JOB#: [id number] / [id number]
[2017-07-06 06:59] VITALS: BP 104/59
[2017-07-06 08:27] LABS: BASO % 1 % (0-3); EOS # 0.3 x10^3/uL (0.0-0.7); EOS % 4 % (0-3); HEMATOCRIT 42.4 % (39.0-53.0); HEMOGLOBIN 14.5 g/dL (13.0-17.5); LYMPH # 1.2 x10^3/uL (1.0-4.8); LYMPH % 16 % (24-48); MEAN CORPUSCULAR HEMOGLOBIN 28 pg (25-35); MEAN CORPUSCULAR HGB CONC 34 g/dL (31-37); MEAN CORPUSCULAR VOLUME 82 fL (79-100); MONO # 0.6 x10^3/uL (0.0-1.1); MONO % 8 % (0-9); NEUT # 5.5 x10^3uL (1.8-7.7); NEUT % 72 % (31-73); PLATELET COUNT 144 x10^3/uL (140-400); RED BLOOD COUNT 5.18 x10^6/uL (4.30-5.70); RED CELL DISTRIBUTION WIDTH 16.4 % (11.5-14.5); WHITE BLOOD COUNT 7.7 x10^3/uL (4.0-11.0)
[2017-07-06 08:38] LABS: ALBUMIN 3.4 g/dL (3.4-5.0); ALBUMIN/GLOBULIN RATIO 0.8 (1.0-1.7); CALCIUM 9.2 mg/dL (8.5-10.1); CREATININE 1.5 mg/dL (0.7-1.3); TOTAL BILIRUBIN 0.8 mg/dL (0.2-1.0); TOTAL PROTEIN 7.6 g/dL (6.4-8.2)
[2017-07-06] MEDS: CLOTRIMAZOLE 1% TOPICAL CREAM 30GM TUBE. TP SCH ×2 (09:00→20:07)
[2017-07-06] MEDS: NYSTATIN 100,000 UNIT/GM TOPICAL CREAM 15GM TUBE. TP SCH (09:00)
[2017-07-06] MEDS: POLYETHYLENE GLYCOL 3350 17 GM PACKET. PO SCH (09:00)
[2017-07-06] MEDS: METOPROLOL TART IMMED RELEASE 50 MG TABLET PO SCH ×2 (09:00→20:06)
[2017-07-06] MEDS: QUEtiapine 25 MG TABLET. PO SCH ×4 (09:48→17:26)
[2017-07-06] MEDS: GLIMEPIRIDE 2 MG TABLET PO SCH ×2 (09:52→16:11)
[2017-07-06] MEDS: POTASSIUM CHLORIDE 20 MEQ TABLET.ER. PO SCH (09:52)
[2017-07-06] MEDS: FUROSEMIDE 40 MG TABLET PO SCH (09:52)
[2017-07-06] MEDS: LIDOCAINE (700MG/PATCH) PATCH. TD SCH (09:53)
[2017-07-06] MEDS: LINAGLIPTIN 5 MG TABLET PO SCH (09:53)
[2017-07-06] MEDS: traMADol 50 MG TABLET PO PRN (10:04)
[2017-07-06] MEDS: WARFARIN 5 MG TABLET. PO SCH (16:11)
[2017-07-06 16:18] VITALS: BP 124/48
[2017-07-06] MEDS: SIMVASTATIN 10 MG TABLET PO SCH (20:06)
[2017-07-06] MEDS: DONEPEZIL HCL 10 MG TABLET PO SCH (20:07)
[2017-07-06] MEDS: traZODone 100 MG TABLET. PO SCH (20:07)
[2017-07-06] MEDS: AMITRIPTYLINE HCL 25 MG TABLET PO SCH (20:07)
--- NOTE | 2017-07-06 21:07 | PDOC ---
Exam Note: Shady Note: Please also refer to the separate dictated note~for this date of service dictated separately.~Patient seen individually. Discussed the patient with Nursing staff reviewed the chart.~Reviewed interim history and current functioning. Reviewed vital signs,~Labs/ Radiology~and current medications noted below. Continue current treatment with the changes noted in the dictated addendum note Assessment: Vital Signs: Vital Signs Date Time Temp Pulse Resp B/P (MAP) Pulse Ox O2 Delivery O2 Flow Rate FiO2 07/06/17 20:06 69 124/48 07/06/17 16:18 97.4 18 92 Room Air I&O Intake and Output 07/06/17 07:00 Intake Total 1320 ml Balance 1320 ml Intake Oral 1320 ml Labs: Laboratory Tests Test 07/06/17 07:39 07/06/17 07:55 07/06/17 12:15 Glucose (Fingerstick) 67 mg/dL (70-99) L 103 mg/dL (70-99) H White Blood Count 7.7 x10^3/uL (4.0-11.0) Red Blood Count 5.18 x10^6/uL (4.30-5.70) Hemoglobin 14.5 g/dL (13.0-17.5) Hematocrit 42.4 % (39.0-53.0) Mean Corpuscular Volume 82 fL (79-100) Mean Corpuscular Hemoglobin 28 pg (25-35) Mean Corpuscular Hemoglobin Concent 34 g/dL (31-37) Red Cell Distribution Width 16.4 % (11.5-14.5) H Platelet Count 144 x10^3/uL (140-400) Neutrophils (%) (Auto) 72 % (31-73) Lymphocytes (%) (Auto) 16 % (24-48) L Monocytes (%) (Auto) 8 % (0-9) Eosinophils (%) (Auto) 4 % (0-3) H Basophils (%) (Auto) 1 % (0-3) Neutrophils # (Auto) 5.5 x10^3uL (1.8-7.7) Lymphocytes # (Auto) 1.2 x10^3/uL (1.0-4.8) Monocytes # (Auto) 0.6 x10^3/uL (0.0-1.1) Eosinophils # (Auto) 0.3 x10^3/uL (0.0-0.7) Basophils # (Auto) 0.0 x10^3/uL (0.0-0.2) Prothrombin Time 26.5 SEC (9.4-11.4) H Prothrombin Time INR 2.6 (0.9-1.1) H Sodium Level 139 mmol/L (136-145) Potassium Level 4.0 mmol/L (3.5-5.1) Chloride Level 102 mmol/L (98-107) Carbon Dioxide Level 31 mmol/L (21-32) Anion Gap 6 (6-14) Blood Urea Nitrogen 23 mg/dL (8-26) Creatinine 1.5 mg/dL (0.7-1.3) H Estimated GFR (Cockcroft-Gault) 45.0 BUN/Creatinine Ratio 15 (6-20) Glucose Level 84 mg/dL (70-99) Calcium Level 9.2 mg/dL (8.5-10.1) Total Bilirubin 0.8 mg/dL (0.2-1.0) Aspartate Amino Transferase (AST) 26 U/L (15-37) Alanine Aminotransferase (ALT) 19 U/L (16-63) Alkaline Phosphatase 110 U/L (46-116) Total Protein 7.6 g/dL (6.4-8.2) Albumin 3.4 g/dL (3.4-5.0) Albumin/Globulin Ratio 0.8 (1.0-1.7) L Current Medications: Meds: Current Medications Acetaminophen (Tylenol) 650 mg PRN Q6HRS PRN PO PAIN / TEMP Last administered on 06/20/17at 09:28; Start 06/19/17 at 14:00; Stop 06/20/17 at 10:20; Status DC Multi-Ingredient Ointment (Analgesic [place]) 1 tori PRN QID PRN TP MUSCLE PAIN; Start 06/19/17 at 14:00 Al Hydroxide/Mg Hydroxide (Mylanta Plus Xs) 15 ml PRN AFTMEALHC PRN PO DYSPEPSIA; Start 06/19/17 at 14:00 Magnesium Hydroxide (Milk Of Magnesia) 2,400 mg PRN QHS PRN PO CONSTIPATION; Start 06/19/17 at 14:00 Donepezil HCl (Aricept) 5 mg QHS PO Last administered on 06/22/17at 20:13; Start 06/19/17 at 21:00; Stop 06/23/17 at 16:14; Status DC Lorazepam (Ativan) 0.5 mg BID PO Last administered on 06/24/17at 08:40; Start at 21:00; Stop 06/24/17 at 19:12; Status DC Melatonin 6 mg QHS PO Last administered on 06/24/17at 20:31; Start 06/19/17 at 21:00; Stop 06/25/17 at 18:57; Status DC Glimepiride (Amaryl) 2 mg BIDWMEALS PO Last administered on 06/25/17at 17:33; Start 06/19/17 at 17:00; Stop 06/25/17 at 18:22; Status DC Metoprolol Tartrate (Lopressor) 50 mg BID PO Last administered on 07/06/17at 20: 06; Start 06/19/17 at 21:00 Warfarin Sodium (Coumadin) 2.5 mg QHS PO Last administered on 06/20/17at 20:15; Start 06/19/17 at 21:00; Stop 06/21/17 at 14:13; Status DC Warfarin Sodium (Coumadin Per Physician) 1 each PRN DAILY PRN MC SEE COMMENTS Last administered on 06/20/17at 10:54; Start 06/19/17 at 16:00; Stop 06/20/17 at 14:41; Status DC Warfarin Sodium (Coumadin) 1 mg QHS PO Last administered on 06/20/17at 20:15; Start 06/19/17 at 21:00; Stop 06/21/17 at 14:14; Status DC Acetaminophen (Tylenol) 650 mg PRN Q4HRS PRN PO PAIN Last administered on at 17:06; Start 06/20/17 at 10:15 Clotrimazole (Lotrimin) 15 tori BID TP ; Start 06/20/17 at 21:00; Stop 06/20/17 at 21:00; Status DC Furosemide (Lasix) 40 mg DAILY PO Last administered on 07/06/17at 09:52; Start 06/20/17 at 12:00 Hydrocortisone Acetate (Anucort-Hc) 25 mg PRN Q8HRS PRN RC hemmorhoid discomfort; Start 06/20/17 at 10:15 Linagliptin (Tradjenta) 5 mg DAILY PO Last administered on 07/06/17 09:53; Start 06/20/17 at 12:00 Losartan Potassium (Cozaar) 50 mg DAILY PO Last administered on 06/27/17 09:00 ; Start 06/20/17 at 12:00; Stop 07/01/17 at 13:35; Status DC Nystatin (Mycostatin) 1 tori DAILY TP Last administered on 07/05/17 08:32; Start 06/20/17 at 12:00 Oxymetazoline HCl (Afrin) 1 spray PRN Q6HRS PRN NS dry nares Last administered on 06/20/17 12:08; Start 06/20/17 at 10:15 Simvastatin (Zocor) 10 mg QHS PO Last administered on 07/06/17 20:06; Start at 21:00 Lidocaine HCl (Xylocaine 2% Topical 30gm Tube) 1 tori DAILY TP Last administered on 06/24/17 08:42; Start 06/20/17 at 12:00; Stop 06/26/17 at 15:33 ; Status DC Polyethylene Glycol (miraLAX) 17 gm DAILY PO Last administered on 07/05/17 08: 30; Start 06/20/17 at 12:00 Potassium Chloride (Klor-Con) 20 meq DAILYWBKFT PO Last administered on 09:52; Start 06/20/17 at 12:00 Quetiapine Fumarate (SEROquel) 12.5 mg TID@0900,1300,1700 PO Last administered on 06/25/17 17:33; Start 06/20/17 at 13:00; Stop 06/25/17 at 18:57; Status DC Trazodone HCl (Desyrel) 50 mg QHS PO Last administered on 07/02/17 20:18; Start 06/20/17 at 21:00; Stop 07/03/17 at 18:41; Status DC Trazodone HCl (Desyrel) 50 mg PRN QHS PRN PO insomnia Last administered on 01:15; Start 06/20/17 at 21:00; Stop 07/03/17 at 18:41; Status DC Tramadol HCl (Ultram) 50 mg PRN Q6HRS PRN PO PAIN Last administered on at 10:04; Start 06/20/17 at 11:15 Lidocaine (Lidoderm) 1 patch DAILY TD Last administered on 07/06/17 09:53; Start 06/20/17 at 12:00 Warfarin Sodium (Coumadin Per Pharmacy) 1 each PRN DAILY PRN MC SEE COMMENTS Last administered on 07/06/17at 13:02; Start 06/20/17 at 14:45 Clotrimazole (Lotrimin) 1 tori BID TP Last administered on 07/06/17at 20:07; Start 06/20/17 at 21:00 Warfarin Sodium (Coumadin Per Pharmacy) 1 each PRN DAILY PRN MC SEE COMMENTS; Start 06/21/17 at 14:00; Stop 06/21/17 at 14:00; Status DC Vitamin D (Vitamin D3) 50,000 unit WEEKLY PO Last administered on 07/05/17at 08: 33; Start 06/21/17 at 14:00 Warfarin Sodium (Coumadin) 5 mg 1X WARF ONCE PO Last administered on at 15:45; Start 06/21/17 at 16:00; Stop 06/21/17 at 16:01; Status DC Warfarin Sodium (Coumadin) 5 mg 1X WARF ONCE PO Last administered on at 16:56; Start 06/22/17 at 16:00; Stop 06/22/17 at 16:02; Status DC Fluvoxamine Maleate (Luvox) 25 mg DAILY PO Last administered on 06/25/17at 08:46 ; Start 06/23/17 at 09:00; Stop 06/26/17 at 08:59; Status DC Fluvoxamine Maleate (Luvox) 50 mg DAILY PO Last administered on 06/28/17at 10:00 ; Start 06/26/17 at 09:00; Stop 06/28/17 at 18:16; Status DC Warfarin Sodium (Coumadin) 5 mg 1X WARF ONCE PO Last administered on at 16:18; Start 06/23/17 at 16:00; Stop 06/23/17 at 16:01; Status DC Donepezil HCl (Aricept) 10 mg QHS PO Last administered on 07/06/17 20:07; Start 06/23/17 at 21:00 Warfarin Sodium (Coumadin) 5 mg DAILY16 PO Last administered on 06/29/17 17:05 ; Start 06/24/17 at 16:00; Stop 06/30/17 at 10:43; Status DC Lorazepam (Ativan) 0.25 mg BID PO Last administered on 06/27/17 20:07; Start at 21:00; Stop 06/27/17 at 22:00; Status DC Lorazepam (Ativan) 0.25 mg DAILY PO Last administered on 06/30/17 09:06; Start 06/28/17 at 09:00; Stop 07/01/17 at 08:59; Status DC Glimepiride (Amaryl) 4 mg BIDWMEALS PO Last administered on 07/06/17at 16:11; Start 06/26/17 at 08:00 Oxycodone HCl (Roxicodone) 5 mg PRN Q6HRS PRN PO PAIN Last administered on at 10:31; Start 06/25/17 at 18:30 Quetiapine Fumarate (SEROquel) 12.5 mg QID PO ; Start 06/26/17 at 07:00; Stop at 07:00; Status DC Mirtazapine (Remeron) 7.5 mg QHS PO Last administered on 07/01/17at 19:39; Start 06/25/17 at 21:00; Stop 07/02/17 at 18:12; Status DC Quetiapine Fumarate (SEROquel) 12.5 mg 0700,1100,1500,1900 PO Last administered on 07/06/17at 17:26; Start 06/26/17 at 07:00 Lidocaine HCl (Xylocaine 2% Topical 30gm Tube) 1 tori PRN Q6HRS PRN TP PAIN; Start 06/27/17 at 12:00 Fluvoxamine Maleate (Luvox) 75 mg DAILY PO Last administered on 07/01/17at 09:07 ; Start 06/29/17 at 09:00; Stop 07/01/17 at 18:36; Status DC Warfarin Sodium (Coumadin - No Dose Today) 1 each 1X WARF ONCE MC Last administered on 06/30/17at 16:00; Start 06/30/17 at 16:00; Stop 06/30/17 at 16:01; Status DC Warfarin Sodium (Coumadin) 5 mg 1X WARF ONCE PO Last administered on 07/01/17at 17:11; Start 07/01/17 at 16:00; Stop 07/01/17 at 16:01; Status DC Fluvoxamine Maleate (Luvox) 100 mg DAILY PO Last administered on 07/06/17 09: 53; Start 07/02/17 at 09:00 Warfarin Sodium (Coumadin) 5 mg 1X WARF ONCE PO Last administered on 07/02/17 15:56; Start 07/02/17 at 16:00; Stop 07/02/17 at 16:01; Status DC Mirtazapine (Remeron) 15 mg QHS PO Last administered on 07/02/17 20:17; Start 07/02/17 at 21:00; Stop 07/03/17 at 18:41; Status DC Warfarin Sodium (Coumadin) 5 mg DAILY16 PO Last administered on 07/06/17 16:11 ; Start 07/03/17 at 16:00 Trazodone HCl (Desyrel) 100 mg PRN QHS PRN PO insomnia; Start 07/03/17 at 18:45 Trazodone HCl (Desyrel) 100 mg QHS PO Last administered on 07/06/17 20:07; Start 07/03/17 at 21:00 Amitriptyline HCl (Elavil) 25 mg QHS PO Last administered on 07/06/17at 20:07; Start 07/03/17 at 21:00 Active Scripts Active Reported Tradjenta (Linagliptin) 5 Mg Tablet 5 Mg PO DAILY Simvastatin 10 Mg Tablet 10 Mg PO DAILY Probiotic (Lactobacillus Combo No.10) 1 Each Capsule 1 Each PO Potassium Chloride 10 Meq Tablet.er 20 Meq PO DAILY Nystatin 15 Gm Cream..g. 1 Tori TP DAILY Sinus Nasal (Oxymetazoline Hcl) 30 Ml [place] 1 [place] NS PRN Q6HRS PRN Metoprolol Tartrate 50 Mg Tablet 50 Mg PO BID Melatonin 3 Mg Tablet 6 Mg PO HS Losartan Potassium 50 Mg Tablet 50 Mg PO DAILY Lorazepam 0.5 Mg Tablet 0.5 Mg PO BID Topicaine (Lidocaine) 113 Gm Gel..gram. 1 Tori TP DAILY Polyethylene Glycol 3350 2,500 Gm Powder 17 Gm PO DAILY Glimepiride 2 Mg Tablet 2 Mg PO BID Furosemide 40 Mg Tablet 40 Mg PO DAILY Coumadin (Warfarin Sodium) 3 Mg Tablet 3.5 Mg PO QHS Clotrimazole 15 Gm Cream..g. 15 Gm TP BID Aricept (Donepezil Hcl) 5 Mg Tablet 5 Mg PO QHS Anusol-Hc (Hydrocortisone Acetate) 25 Mg Supp.rect 1 Supp RC PRN Q8HRS PRN Tylenol (Acetaminophen) 325 Mg Tablet 650 Mg PO PRN Q4HRS PRN I have reviewed the current psychotropics carefully including drug interactions. Risk benefit ratio favors no change other than as noted in my dictated progress note. Diagnosis: Problems: (1) Medical clearance for psychiatric admission (2) Psychosis (3) Anxiety disorder (4) Bipolar affective, mixed, sev w/ psych (5) Dementia in Alzheimer's disease with delusions (6) Impulse control disorder MIMI MCNULTY MD Jul 06, 2017 21:07
[2017-07-07] MEDS: QUEtiapine 25 MG TABLET. PO SCH ×4 (06:00→16:57)
[2017-07-07 06:07] VITALS: BP 123/72
[2017-07-07] MEDS: LINAGLIPTIN 5 MG TABLET PO SCH (08:39)
[2017-07-07] MEDS: GLIMEPIRIDE 2 MG TABLET PO SCH ×2 (08:39→16:57)
[2017-07-07] MEDS: LIDOCAINE (700MG/PATCH) PATCH. TD SCH (08:39)
[2017-07-07] MEDS: POTASSIUM CHLORIDE 20 MEQ TABLET.ER. PO SCH (08:39)
[2017-07-07] MEDS: FUROSEMIDE 40 MG TABLET PO SCH (08:39)
[2017-07-07] MEDS: POLYETHYLENE GLYCOL 3350 17 GM PACKET. PO SCH (08:40)
[2017-07-07] MEDS: METOPROLOL TART IMMED RELEASE 50 MG TABLET PO SCH ×2 (09:00→19:41)
[2017-07-07] MEDS: CLOTRIMAZOLE 1% TOPICAL CREAM 30GM TUBE. TP SCH ×2 (09:00→22:12)
[2017-07-07] MEDS: NYSTATIN 100,000 UNIT/GM TOPICAL CREAM 15GM TUBE. TP SCH (09:00)
--- NOTE | 2017-07-07 10:42 | PN ---
DATE: 07/05/2017 PSYCHIATRIC PROGRESS NOTE This late entry 07/05/2017 covers elements not covered in my initial note of 07/05/2017. SUBJECTIVE: Met with the patient in the evening of 07/05/2017. The patient has been irritable, at times arguing regarding wanting larger portion sizes than initially, he already gets double portions. He is very obsessive particular about medications, wanting the nursing staff to repeat to him again and again what they are giving it and why, and then repeated yet 1 more time. He appears helpless so he can do a lot more for himself. Impaired ambulation, in wheelchair, vague somatic symptoms. REVIEW OF SYSTEMS: No CV, , pulmonary, eye system symptoms on review. MENTAL STATUS EXAM: Oriented to himself and situation. Speech moderate latency. Abstraction fair, computation impaired, language function intact. Mood and affect somewhat withdrawn. LABORATORY DATA: Reviewed. IMPRESSION: Unchanged from initial note. PLAN: Continue current psychotropics. Adjust as clinically indicated. MAN Raquel MCNULTY MD DR: CHERIE/yovana JOB#: [id number] / [id number]
[2017-07-07 16:14] VITALS: BP 118/56
[2017-07-07] MEDS: WARFARIN 5 MG TABLET. PO SCH (16:57)
[2017-07-07] MEDS: traMADol 50 MG TABLET PO PRN (16:57)
--- NOTE | 2017-07-07 19:08 | PN ---
DATE: 07/06/2017 This late entry 07/06/2017 covers the elements not covered in my initial note 07/06/2017. SUBJECTIVE: I met with the patient in the evening of 07/06/2017. The patient slept 6-1/2 hours previous evening, less arguing, less anxious and obsessive, but somatically preoccupied. He complains of back pain. REVIEW OF SYSTEMS: Impaired ambulation, in wheelchair. No CV, , pulmonary, eye system symptoms on review. MENTAL STATUS EXAM: Reasonably oriented to place and situation. Speech moderate latency, low in volume, poor eye contact. Abstraction fair, computation impaired, language function intact, still anxious, somatically preoccupied, but less so than before. LABORATORY DATA: Reviewed. IMPRESSION: Unchanged from initial note. PLAN: Continue psychotropics mentioned in my initial note. MAN Raquel MCNULTY MD DR: CHERIE/yovana JOB#: [id number] / [id number]
[2017-07-07] MEDS: AMITRIPTYLINE HCL 25 MG TABLET PO SCH (19:40)
[2017-07-07] MEDS: SIMVASTATIN 10 MG TABLET PO SCH (19:40)
[2017-07-07] MEDS: traZODone 100 MG TABLET. PO SCH (19:40)
[2017-07-07] MEDS: DONEPEZIL HCL 10 MG TABLET PO SCH (19:40)
--- NOTE | 2017-07-07 21:03 | PDOC ---
Exam Note: Shady Note: Please also refer to the separate dictated note~for this date of service dictated separately.~Patient seen individually. Discussed the patient with Nursing staff reviewed the chart.~Reviewed interim history and current functioning. Reviewed vital signs,~Labs/ Radiology~and current medications noted below. Continue current treatment with the changes noted in the dictated addendum note Assessment: Vital Signs: Vital Signs Date Time Temp Pulse Resp B/P (MAP) Pulse Ox O2 Delivery O2 Flow Rate FiO2 07/07/17 19:41 89 118/56 07/07/17 18:24 20 07/07/17 16:14 97.6 93 07/06/17 16:18 Room Air I&O Intake and Output 07/07/17 07:00 Intake Total 1340 ml Balance 1340 ml Intake Oral 1340 ml Labs: Laboratory Tests Test 07/07/17 07:35 07/07/17 16:41 Glucose (Fingerstick) 98 mg/dL (70-99) 90 mg/dL (70-99) Current Medications: Meds: Current Medications Acetaminophen (Tylenol) 650 mg PRN Q6HRS PRN PO PAIN / TEMP Last administered on 06/20/17at 09:28; Start 06/19/17 at 14:00; Stop 06/20/17 at 10:20; Status DC Multi-Ingredient Ointment (Analgesic [place]) 1 tori PRN QID PRN TP MUSCLE PAIN; Start 06/19/17 at 14:00 Al Hydroxide/Mg Hydroxide (Mylanta Plus Xs) 15 ml PRN AFTMEALHC PRN PO DYSPEPSIA; Start 06/19/17 at 14:00 Magnesium Hydroxide (Milk Of Magnesia) 2,400 mg PRN QHS PRN PO CONSTIPATION; Start 06/19/17 at 14:00 Donepezil HCl (Aricept) 5 mg QHS PO Last administered on 06/22/17at 20:13; Start 06/19/17 at 21:00; Stop 06/23/17 at 16:14; Status DC Lorazepam (Ativan) 0.5 mg BID PO Last administered on 06/24/17at 08:40; Start at 21:00; Stop 06/24/17 at 19:12; Status DC Melatonin 6 mg QHS PO Last administered on 06/24/17at 20:31; Start 06/19/17 at 21:00; Stop 06/25/17 at 18:57; Status DC Glimepiride (Amaryl) 2 mg BIDWMEALS PO Last administered on 06/25/17at 17:33; Start 06/19/17 at 17:00; Stop 06/25/17 at 18:22; Status DC Metoprolol Tartrate (Lopressor) 50 mg BID PO Last administered on 07/07/17at 19: 41; Start 06/19/17 at 21:00 Warfarin Sodium (Coumadin) 2.5 mg QHS PO Last administered on 06/20/17at 20:15; Start 06/19/17 at 21:00; Stop 06/21/17 at 14:13; Status DC Warfarin Sodium (Coumadin Per Physician) 1 each PRN DAILY PRN MC SEE COMMENTS Last administered on 06/20/17at 10:54; Start 06/19/17 at 16:00; Stop 06/20/17 at 14:41; Status DC Warfarin Sodium (Coumadin) 1 mg QHS PO Last administered on 06/20/17at 20:15; Start 06/19/17 at 21:00; Stop 06/21/17 at 14:14; Status DC Acetaminophen (Tylenol) 650 mg PRN Q4HRS PRN PO PAIN Last administered on at 17:06; Start 06/20/17 at 10:15 Clotrimazole (Lotrimin) 15 tori BID TP ; Start 06/20/17 at 21:00; Stop 06/20/17 at 21:00; Status DC Furosemide (Lasix) 40 mg DAILY PO Last administered on 07/07/17at 08:39; Start 06/20/17 at 12:00 Hydrocortisone Acetate (Anucort-Hc) 25 mg PRN Q8HRS PRN RC hemmorhoid discomfort; Start 06/20/17 at 10:15 Linagliptin (Tradjenta) 5 mg DAILY PO Last administered on 07/07/17at 08:39; Start 06/20/17 at 12:00 Losartan Potassium (Cozaar) 50 mg DAILY PO Last administered on 06/27/17at 09:00 ; Start 06/20/17 at 12:00; Stop 07/01/17 at 13:35; Status DC Nystatin (Mycostatin) 1 tori DAILY TP Last administered on 07/05/17 08:32; Start 06/20/17 at 12:00 Oxymetazoline HCl (Afrin) 1 spray PRN Q6HRS PRN NS dry nares Last administered on 06/20/17 12:08; Start 06/20/17 at 10:15 Simvastatin (Zocor) 10 mg QHS PO Last administered on 07/07/17 19:40; Start at 21:00 Lidocaine HCl (Xylocaine 2% Topical 30gm Tube) 1 tori DAILY TP Last administered on 06/24/17 08:42; Start 06/20/17 at 12:00; Stop 06/26/17 at 15:33 ; Status DC Polyethylene Glycol (miraLAX) 17 gm DAILY PO Last administered on 07/07/17 08: 40; Start 06/20/17 at 12:00 Potassium Chloride (Klor-Con) 20 meq DAILYWBKFT PO Last administered on 08:39; Start 06/20/17 at 12:00 Quetiapine Fumarate (SEROquel) 12.5 mg TID@0900,1300,1700 PO Last administered on 06/25/17 17:33; Start 06/20/17 at 13:00; Stop 06/25/17 at 18:57; Status DC Trazodone HCl (Desyrel) 50 mg QHS PO Last administered on 07/02/17 20:18; Start 06/20/17 at 21:00; Stop 07/03/17 at 18:41; Status DC Trazodone HCl (Desyrel) 50 mg PRN QHS PRN PO insomnia Last administered on 01:15; Start 06/20/17 at 21:00; Stop 07/03/17 at 18:41; Status DC Tramadol HCl (Ultram) 50 mg PRN Q6HRS PRN PO PAIN Last administered on 16:57; Start 06/20/17 at 11:15 Lidocaine (Lidoderm) 1 patch DAILY TD Last administered on 07/07/17 08:39; Start 06/20/17 at 12:00 Warfarin Sodium (Coumadin Per Pharmacy) 1 each PRN DAILY PRN MC SEE COMMENTS Last administered on 07/06/17at 13:02; Start 06/20/17 at 14:45 Clotrimazole (Lotrimin) 1 tori BID TP Last administered on 07/06/17at 20:07; Start 06/20/17 at 21:00 Warfarin Sodium (Coumadin Per Pharmacy) 1 each PRN DAILY PRN MC SEE COMMENTS; Start 06/21/17 at 14:00; Stop 06/21/17 at 14:00; Status DC Vitamin D (Vitamin D3) 50,000 unit WEEKLY PO Last administered on 07/05/17at 08: 33; Start 06/21/17 at 14:00 Warfarin Sodium (Coumadin) 5 mg 1X WARF ONCE PO Last administered on at 15:45; Start 06/21/17 at 16:00; Stop 06/21/17 at 16:01; Status DC Warfarin Sodium (Coumadin) 5 mg 1X WARF ONCE PO Last administered on at 16:56; Start 06/22/17 at 16:00; Stop 06/22/17 at 16:02; Status DC Fluvoxamine Maleate (Luvox) 25 mg DAILY PO Last administered on 06/25/17at 08:46 ; Start 06/23/17 at 09:00; Stop 06/26/17 at 08:59; Status DC Fluvoxamine Maleate (Luvox) 50 mg DAILY PO Last administered on 06/28/17at 10:00 ; Start 06/26/17 at 09:00; Stop 06/28/17 at 18:16; Status DC Warfarin Sodium (Coumadin) 5 mg 1X WARF ONCE PO Last administered on at 16:18; Start 06/23/17 at 16:00; Stop 06/23/17 at 16:01; Status DC Donepezil HCl (Aricept) 10 mg QHS PO Last administered on 07/07/17at 19:40; Start 06/23/17 at 21:00 Warfarin Sodium (Coumadin) 5 mg DAILY16 PO Last administered on 06/29/17at 17:05 ; Start 06/24/17 at 16:00; Stop 06/30/17 at 10:43; Status DC Lorazepam (Ativan) 0.25 mg BID PO Last administered on 06/27/17at 20:07; Start at 21:00; Stop 06/27/17 at 22:00; Status DC Lorazepam (Ativan) 0.25 mg DAILY PO Last administered on 06/30/17 09:06; Start 06/28/17 at 09:00; Stop 07/01/17 at 08:59; Status DC Glimepiride (Amaryl) 4 mg BIDWMEALS PO Last administered on 07/07/17 16:57; Start 06/26/17 at 08:00 Oxycodone HCl (Roxicodone) 5 mg PRN Q6HRS PRN PO PAIN Last administered on at 10:31; Start 06/25/17 at 18:30 Quetiapine Fumarate (SEROquel) 12.5 mg QID PO ; Start 06/26/17 at 07:00; Stop at 07:00; Status DC Mirtazapine (Remeron) 7.5 mg QHS PO Last administered on 07/01/17at 19:39; Start 06/25/17 at 21:00; Stop 07/02/17 at 18:12; Status DC Quetiapine Fumarate (SEROquel) 12.5 mg 0700,1100,1500,1900 PO Last administered on 07/07/17at 16:57; Start 06/26/17 at 07:00 Lidocaine HCl (Xylocaine 2% Topical 30gm Tube) 1 tori PRN Q6HRS PRN TP PAIN; Start 06/27/17 at 12:00 Fluvoxamine Maleate (Luvox) 75 mg DAILY PO Last administered on 07/01/17 09:07 ; Start 06/29/17 at 09:00; Stop 07/01/17 at 18:36; Status DC Warfarin Sodium (Coumadin - No Dose Today) 1 each 1X WARF ONCE MC Last administered on 06/30/17 16:00; Start 06/30/17 at 16:00; Stop 06/30/17 at 16:01; Status DC Warfarin Sodium (Coumadin) 5 mg 1X WARF ONCE PO Last administered on 07/01/17 17:11; Start 07/01/17 at 16:00; Stop 07/01/17 at 16:01; Status DC Fluvoxamine Maleate (Luvox) 100 mg DAILY PO Last administered on 07/07/17at 08: 39; Start 07/02/17 at 09:00; Stop 07/07/17 at 18:30; Status DC Warfarin Sodium (Coumadin) 5 mg 1X WARF ONCE PO Last administered on 07/02/17at 15:56; Start 07/02/17 at 16:00; Stop 07/02/17 at 16:01; Status DC Mirtazapine (Remeron) 15 mg QHS PO Last administered on 07/02/17at 20:17; Start 07/02/17 at 21:00; Stop 07/03/17 at 18:41; Status DC Warfarin Sodium (Coumadin) 5 mg DAILY16 PO Last administered on 07/07/17at 16:57 ; Start 07/03/17 at 16:00 Trazodone HCl (Desyrel) 100 mg PRN QHS PRN PO insomnia; Start 07/03/17 at 18:45 Trazodone HCl (Desyrel) 100 mg QHS PO Last administered on 07/07/17at 19:40; Start 07/03/17 at 21:00 Amitriptyline HCl (Elavil) 25 mg QHS PO Last administered on 07/07/17at 19:40; Start 07/03/17 at 21:00 Fluvoxamine Maleate (Luvox) 100 mg DAILY PO ; Start 07/08/17 at 09:00 Fluvoxamine Maleate (Luvox) 25 mg DAILY PO ; Start 07/08/17 at 09:00 Active Scripts Active Reported Tradjenta (Linagliptin) 5 Mg Tablet 5 Mg PO DAILY Simvastatin 10 Mg Tablet 10 Mg PO DAILY Probiotic (Lactobacillus Combo No.10) 1 Each Capsule 1 Each PO Potassium Chloride 10 Meq Tablet.er 20 Meq PO DAILY Nystatin 15 Gm Cream..g. 1 Tori TP DAILY Sinus Nasal (Oxymetazoline Hcl) 30 Ml [place] 1 [place] NS PRN Q6HRS PRN Metoprolol Tartrate 50 Mg Tablet 50 Mg PO BID Melatonin 3 Mg Tablet 6 Mg PO HS Losartan Potassium 50 Mg Tablet 50 Mg PO DAILY Lorazepam 0.5 Mg Tablet 0.5 Mg PO BID Topicaine (Lidocaine) 113 Gm Gel..gram. 1 [place] TP DAILY Polyethylene Glycol 3350 2,500 Gm Powder 17 Gm PO DAILY Glimepiride 2 Mg Tablet 2 Mg PO BID Furosemide 40 Mg Tablet 40 Mg PO DAILY Coumadin (Warfarin Sodium) 3 Mg Tablet 3.5 Mg PO QHS Clotrimazole 15 Gm Cream..g. 15 Gm TP BID Aricept (Donepezil Hcl) 5 Mg Tablet 5 Mg PO QHS Anusol-Hc (Hydrocortisone Acetate) 25 Mg Supp.rect 1 Supp RC PRN Q8HRS PRN Tylenol (Acetaminophen) 325 Mg Tablet 650 Mg PO PRN Q4HRS PRN I have reviewed the current psychotropics carefully including drug interactions. Risk benefit ratio favors no change other than as noted in my dictated progress note. Diagnosis: Problems: (1) Atrial fibrillation (2) Diabetes mellitus (3) Chronic renal insufficiency (4) Medical clearance for psychiatric admission (5) Psychosis (6) Anxiety disorder (7) Bipolar affective, mixed, sev w/ psych (8) Dementia in Alzheimer's disease with delusions (9) Impulse control disorder MIMI MCNULTY MD Jul 07, 2017 21:03
[2017-07-07] MEDS: oxyCODONE IR 5 MG TABLET PO PRN (21:43)
[2017-07-08] MEDS: QUEtiapine 25 MG TABLET. PO SCH ×4 (05:01→18:17)
[2017-07-08 05:45] VITALS: BP 107/61
[2017-07-08] MEDS: oxyCODONE IR 5 MG TABLET PO PRN ×2 (06:25→16:21)
[2017-07-08] MEDS: METOPROLOL TART IMMED RELEASE 50 MG TABLET PO SCH (09:00)
[2017-07-08] MEDS: CLOTRIMAZOLE 1% TOPICAL CREAM 30GM TUBE. TP SCH ×2 (09:00→20:18)
[2017-07-08] MEDS: NYSTATIN 100,000 UNIT/GM TOPICAL CREAM 15GM TUBE. TP SCH (09:00)
[2017-07-08] MEDS: GLIMEPIRIDE 2 MG TABLET PO SCH ×2 (09:48→16:19)
[2017-07-08] MEDS: FUROSEMIDE 40 MG TABLET PO SCH (09:49)
[2017-07-08] MEDS: POTASSIUM CHLORIDE 20 MEQ TABLET.ER. PO SCH (09:49)
[2017-07-08] MEDS: POLYETHYLENE GLYCOL 3350 17 GM PACKET. PO SCH (09:50)
[2017-07-08] MEDS: LINAGLIPTIN 5 MG TABLET PO SCH (09:50)
[2017-07-08] MEDS: LIDOCAINE (700MG/PATCH) PATCH. TD SCH (09:51)
[2017-07-08 16:06] VITALS: BP 114/62
[2017-07-08] MEDS: WARFARIN 5 MG TABLET. PO SCH (16:19)
[2017-07-08] MEDS: DONEPEZIL HCL 10 MG TABLET PO SCH (20:17)
[2017-07-08] MEDS: traZODone 100 MG TABLET. PO SCH (20:17)
[2017-07-08] MEDS: SIMVASTATIN 10 MG TABLET PO SCH (20:17)
[2017-07-08] MEDS: AMITRIPTYLINE HCL 25 MG TABLET PO SCH (20:17)
[2017-07-08] MEDS: METOPROLOL TART IMMED RELEASE 25 MG TABLET PO SCH (20:19)
--- NOTE | 2017-07-08 20:27 | PDOC ---
Exam Note: Shady Note: Please also refer to the separate dictated note~for this date of service dictated separately.~Patient seen individually. Discussed the patient with Nursing staff reviewed the chart.~Reviewed interim history and current functioning. Reviewed vital signs,~Labs/ Radiology~and current medications noted below. Continue current treatment with the changes noted in the dictated addendum note Assessment: Vital Signs: Vital Signs Date Time Temp Pulse Resp B/P (MAP) Pulse Ox O2 Delivery O2 Flow Rate FiO2 07/08/17 20:19 71 114/62 07/08/17 17:30 20 07/08/17 16:06 97.6 92 07/07/17 21:43 Room Air I&O Intake and Output 07/08/17 07:00 Intake Total 1020 ml Balance 1020 ml Intake Oral 1020 ml Labs: Laboratory Tests Test 07/08/17 07:16 07/08/17 19:25 Glucose (Fingerstick) 74 mg/dL (70-99) 213 mg/dL (70-99) H Current Medications: Meds: Current Medications Acetaminophen (Tylenol) 650 mg PRN Q6HRS PRN PO PAIN / TEMP Last administered on 06/20/17at 09:28; Start 06/19/17 at 14:00; Stop 06/20/17 at 10:20; Status DC Multi-Ingredient Ointment (Analgesic [place]) 1 tori PRN QID PRN TP MUSCLE PAIN; Start 06/19/17 at 14:00 Al Hydroxide/Mg Hydroxide (Mylanta Plus Xs) 15 ml PRN AFTMEALHC PRN PO DYSPEPSIA; Start 06/19/17 at 14:00 Magnesium Hydroxide (Milk Of Magnesia) 2,400 mg PRN QHS PRN PO CONSTIPATION; Start 06/19/17 at 14:00 Donepezil HCl (Aricept) 5 mg QHS PO Last administered on 06/22/17at 20:13; Start 06/19/17 at 21:00; Stop 06/23/17 at 16:14; Status DC Lorazepam (Ativan) 0.5 mg BID PO Last administered on 06/24/17at 08:40; Start at 21:00; Stop 06/24/17 at 19:12; Status DC Melatonin 6 mg QHS PO Last administered on 06/24/17at 20:31; Start 06/19/17 at 21:00; Stop 06/25/17 at 18:57; Status DC Glimepiride (Amaryl) 2 mg BIDWMEALS PO Last administered on 06/25/17at 17:33; Start 06/19/17 at 17:00; Stop 06/25/17 at 18:22; Status DC Metoprolol Tartrate (Lopressor) 50 mg BID PO Last administered on 07/07/17at 19: 41; Start 06/19/17 at 21:00; Stop 07/08/17 at 14:26; Status DC Warfarin Sodium (Coumadin) 2.5 mg QHS PO Last administered on 06/20/17at 20:15; Start 06/19/17 at 21:00; Stop 06/21/17 at 14:13; Status DC Warfarin Sodium (Coumadin Per Physician) 1 each PRN DAILY PRN MC SEE COMMENTS Last administered on 06/20/17at 10:54; Start 06/19/17 at 16:00; Stop 06/20/17 at 14:41; Status DC Warfarin Sodium (Coumadin) 1 mg QHS PO Last administered on 06/20/17at 20:15; Start 06/19/17 at 21:00; Stop 06/21/17 at 14:14; Status DC Acetaminophen (Tylenol) 650 mg PRN Q4HRS PRN PO PAIN Last administered on at 17:06; Start 06/20/17 at 10:15 Clotrimazole (Lotrimin) 15 tori BID TP ; Start 06/20/17 at 21:00; Stop 06/20/17 at 21:00; Status DC Furosemide (Lasix) 40 mg DAILY PO Last administered on 07/08/17at 09:49; Start 06/20/17 at 12:00 Hydrocortisone Acetate (Anucort-Hc) 25 mg PRN Q8HRS PRN RC hemmorhoid discomfort; Start 06/20/17 at 10:15 Linagliptin (Tradjenta) 5 mg DAILY PO Last administered on 07/08/17at 09:50; Start 06/20/17 at 12:00 Losartan Potassium (Cozaar) 50 mg DAILY PO Last administered on 06/27/17at 09:00 ; Start 06/20/17 at 12:00; Stop 07/01/17 at 13:35; Status DC Nystatin (Mycostatin) 1 tori DAILY TP Last administered on 07/05/17 08:32; Start 06/20/17 at 12:00 Oxymetazoline HCl (Afrin) 1 spray PRN Q6HRS PRN NS dry nares Last administered on 06/20/17 12:08; Start 06/20/17 at 10:15 Simvastatin (Zocor) 10 mg QHS PO Last administered on 07/08/17 20:17; Start at 21:00 Lidocaine HCl (Xylocaine 2% Topical 30gm Tube) 1 tori DAILY TP Last administered on 06/24/17 08:42; Start 06/20/17 at 12:00; Stop 06/26/17 at 15:33 ; Status DC Polyethylene Glycol (miraLAX) 17 gm DAILY PO Last administered on 07/08/17 09: 50; Start 06/20/17 at 12:00 Potassium Chloride (Klor-Con) 20 meq DAILYWBKFT PO Last administered on 09:49; Start 06/20/17 at 12:00 Quetiapine Fumarate (SEROquel) 12.5 mg TID@0900,1300,1700 PO Last administered on 06/25/17 17:33; Start 06/20/17 at 13:00; Stop 06/25/17 at 18:57; Status DC Trazodone HCl (Desyrel) 50 mg QHS PO Last administered on 07/02/17 20:18; Start 06/20/17 at 21:00; Stop 07/03/17 at 18:41; Status DC Trazodone HCl (Desyrel) 50 mg PRN QHS PRN PO insomnia Last administered on 01:15; Start 06/20/17 at 21:00; Stop 07/03/17 at 18:41; Status DC Tramadol HCl (Ultram) 50 mg PRN Q6HRS PRN PO PAIN Last administered on 16:57; Start 06/20/17 at 11:15 Lidocaine (Lidoderm) 1 patch DAILY TD Last administered on 07/08/17 09:51; Start 06/20/17 at 12:00 Warfarin Sodium (Coumadin Per Pharmacy) 1 each PRN DAILY PRN MC SEE COMMENTS Last administered on 07/06/17at 13:02; Start 06/20/17 at 14:45 Clotrimazole (Lotrimin) 1 tori BID TP Last administered on 07/08/17at 20:18; Start 06/20/17 at 21:00 Warfarin Sodium (Coumadin Per Pharmacy) 1 each PRN DAILY PRN MC SEE COMMENTS; Start 06/21/17 at 14:00; Stop 06/21/17 at 14:00; Status DC Vitamin D (Vitamin D3) 50,000 unit WEEKLY PO Last administered on 07/05/17at 08: 33; Start 06/21/17 at 14:00 Warfarin Sodium (Coumadin) 5 mg 1X WARF ONCE PO Last administered on at 15:45; Start 06/21/17 at 16:00; Stop 06/21/17 at 16:01; Status DC Warfarin Sodium (Coumadin) 5 mg 1X WARF ONCE PO Last administered on at 16:56; Start 06/22/17 at 16:00; Stop 06/22/17 at 16:02; Status DC Fluvoxamine Maleate (Luvox) 25 mg DAILY PO Last administered on 06/25/17at 08:46 ; Start 06/23/17 at 09:00; Stop 06/26/17 at 08:59; Status DC Fluvoxamine Maleate (Luvox) 50 mg DAILY PO Last administered on 06/28/17at 10:00 ; Start 06/26/17 at 09:00; Stop 06/28/17 at 18:16; Status DC Warfarin Sodium (Coumadin) 5 mg 1X WARF ONCE PO Last administered on at 16:18; Start 06/23/17 at 16:00; Stop 06/23/17 at 16:01; Status DC Donepezil HCl (Aricept) 10 mg QHS PO Last administered on 07/08/17at 20:17; Start 06/23/17 at 21:00 Warfarin Sodium (Coumadin) 5 mg DAILY16 PO Last administered on 06/29/17at 17:05 ; Start 06/24/17 at 16:00; Stop 06/30/17 at 10:43; Status DC Lorazepam (Ativan) 0.25 mg BID PO Last administered on 06/27/17 20:07; Start at 21:00; Stop 06/27/17 at 22:00; Status DC Lorazepam (Ativan) 0.25 mg DAILY PO Last administered on 06/30/17 09:06; Start 06/28/17 at 09:00; Stop 07/01/17 at 08:59; Status DC Glimepiride (Amaryl) 4 mg BIDWMEALS PO Last administered on 07/08/17at 16:19; Start 06/26/17 at 08:00 Oxycodone HCl (Roxicodone) 5 mg PRN Q6HRS PRN PO PAIN Last administered on 07/08 16:21; Start 06/25/17 at 18:30 Quetiapine Fumarate (SEROquel) 12.5 mg QID PO ; Start 06/26/17 at 07:00; Stop at 07:00; Status DC Mirtazapine (Remeron) 7.5 mg QHS PO Last administered on 07/01/17at 19:39; Start 06/25/17 at 21:00; Stop 07/02/17 at 18:12; Status DC Quetiapine Fumarate (SEROquel) 12.5 mg 0700,1100,1500,1900 PO Last administered on 07/08/17 18:17; Start 06/26/17 at 07:00 Lidocaine HCl (Xylocaine 2% Topical 30gm Tube) 1 tori PRN Q6HRS PRN TP PAIN; Start 06/27/17 at 12:00 Fluvoxamine Maleate (Luvox) 75 mg DAILY PO Last administered on 07/01/17 09:07 ; Start 06/29/17 at 09:00; Stop 07/01/17 at 18:36; Status DC Warfarin Sodium (Coumadin - No Dose Today) 1 each 1X WARF ONCE MC Last administered on 06/30/17 16:00; Start 06/30/17 at 16:00; Stop 06/30/17 at 16:01; Status DC Warfarin Sodium (Coumadin) 5 mg 1X WARF ONCE PO Last administered on 07/01/17 17:11; Start 07/01/17 at 16:00; Stop 07/01/17 at 16:01; Status DC Fluvoxamine Maleate (Luvox) 100 mg DAILY PO Last administered on 07/07/17at 08: 39; Start 07/02/17 at 09:00; Stop 07/07/17 at 18:30; Status DC Warfarin Sodium (Coumadin) 5 mg 1X WARF ONCE PO Last administered on 07/02/17at 15:56; Start 07/02/17 at 16:00; Stop 07/02/17 at 16:01; Status DC Mirtazapine (Remeron) 15 mg QHS PO Last administered on 07/02/17at 20:17; Start 07/02/17 at 21:00; Stop 07/03/17 at 18:41; Status DC Warfarin Sodium (Coumadin) 5 mg DAILY16 PO Last administered on 07/08/17at 16:19 ; Start 07/03/17 at 16:00 Trazodone HCl (Desyrel) 100 mg PRN QHS PRN PO insomnia; Start 07/03/17 at 18:45 Trazodone HCl (Desyrel) 100 mg QHS PO Last administered on 07/08/17at 20:17; Start 07/03/17 at 21:00 Amitriptyline HCl (Elavil) 25 mg QHS PO Last administered on 07/08/17 20:17; Start 07/03/17 at 21:00 Fluvoxamine Maleate (Luvox) 100 mg DAILY PO Last administered on 07/08/17at 09: 50; Start 07/08/17 at 09:00 Fluvoxamine Maleate (Luvox) 25 mg DAILY PO Last administered on 07/08/17at 09:50 ; Start 07/08/17 at 09:00 Metoprolol Tartrate (Lopressor) 25 mg BID PO Last administered on 07/08/17 20: 19; Start 07/08/17 at 21:00 Active Scripts Active Reported Tradjenta (Linagliptin) 5 Mg Tablet 5 Mg PO DAILY Simvastatin 10 Mg Tablet 10 Mg PO DAILY Probiotic (Lactobacillus Combo No.10) 1 Each Capsule 1 Each PO Potassium Chloride 10 Meq Tablet.er 20 Meq PO DAILY Nystatin 15 Gm Cream..g. 1 Tori TP DAILY Sinus Nasal (Oxymetazoline Hcl) 30 Ml [place] 1 [place] NS PRN Q6HRS PRN Metoprolol Tartrate 50 Mg Tablet 50 Mg PO BID Melatonin 3 Mg Tablet 6 Mg PO HS Losartan Potassium 50 Mg Tablet 50 Mg PO DAILY Lorazepam 0.5 Mg Tablet 0.5 Mg PO BID Topicaine (Lidocaine) 113 Gm Gel..gram. 1 Tori TP DAILY Polyethylene Glycol 3350 2,500 Gm Powder 17 Gm PO DAILY Glimepiride 2 Mg Tablet 2 Mg PO BID Furosemide 40 Mg Tablet 40 Mg PO DAILY Coumadin (Warfarin Sodium) 3 Mg Tablet 3.5 Mg PO QHS Clotrimazole 15 Gm Cream..g. 15 Gm TP BID Aricept (Donepezil Hcl) 5 Mg Tablet 5 Mg PO QHS Anusol-Hc (Hydrocortisone Acetate) 25 Mg Supp.rect 1 Supp RC PRN Q8HRS PRN Tylenol (Acetaminophen) 325 Mg Tablet 650 Mg PO PRN Q4HRS PRN I have reviewed the current psychotropics carefully including drug interactions. Risk benefit ratio favors no change other than as noted in my dictated progress note. Diagnosis: Problems: (1) Medical clearance for psychiatric admission (2) Psychosis (3) Anxiety disorder (4) Bipolar affective, mixed, sev w/ psych (5) Dementia in Alzheimer's disease with delusions (6) Impulse control disorder MIMI MCNULTY MD Jul 08, 2017 20:27
--- NOTE | 2017-07-08 21:48 | PN ---
DATE: 07/07/2017 PSYCHIATRIC PROGRESS NOTE This is a late entry for 07/07/2017, covers elements not covered in my initial note of 07/07/2017. SUBJECTIVE: I met with the patient the evening of 07/07/2017. The patient slept 6-1/4 hours previous evening. Per nursing report, he has been very demanding, complains of chronic back pain. We will defer to Dr. Veliz/Dr. Lewis. He is quite obsessive, very particular about having things done a certain way per nursing report. REVIEW OF SYSTEMS: Ambulation impaired, in wheelchair, complains of back pain. No CV, , pulmonary, eye system symptoms on review. MENTAL STATUS EXAM: Oriented to himself and situation. Speech moderate latency, often responses monosyllabic. Abstraction fair, computation impaired, language function intact, attention span short. Mood and affect still somewhat anxious, labile. LABORATORY DATA: Reviewed. IMPRESSION: Unchanged from initial note. PLAN: Increase Luvox to 125 mg p.o. at bedtime. Continue rest unchanged. MAN Raquel MCNULTY MD DR: CHERIE/yovana JOB#: [id number] / [id number]
[2017-07-09 05:58] VITALS: BP 117/66
[2017-07-09] MEDS: QUEtiapine 25 MG TABLET. PO SCH ×4 (05:59→19:01)
[2017-07-09] MEDS: LINAGLIPTIN 5 MG TABLET PO SCH (07:49)
[2017-07-09] MEDS: METOPROLOL TART IMMED RELEASE 25 MG TABLET PO SCH ×2 (07:50→19:32)
[2017-07-09] MEDS: GLIMEPIRIDE 2 MG TABLET PO SCH ×2 (07:50→16:02)
[2017-07-09] MEDS: POLYETHYLENE GLYCOL 3350 17 GM PACKET. PO SCH (07:51)
[2017-07-09] MEDS: LIDOCAINE (700MG/PATCH) PATCH. TD SCH (07:51)
[2017-07-09] MEDS: FUROSEMIDE 40 MG TABLET PO SCH (07:51)
[2017-07-09] MEDS: NYSTATIN 100,000 UNIT/GM TOPICAL CREAM 15GM TUBE. TP SCH (07:52)
[2017-07-09] MEDS: CLOTRIMAZOLE 1% TOPICAL CREAM 30GM TUBE. TP SCH ×2 (07:52→19:33)
[2017-07-09] MEDS: POTASSIUM CHLORIDE 20 MEQ TABLET.ER. PO SCH (07:54)
[2017-07-09 15:58] VITALS: BP 106/63
[2017-07-09] MEDS: WARFARIN 5 MG TABLET. PO SCH (16:02)
[2017-07-09] MEDS: traMADol 50 MG TABLET PO PRN (16:09)
[2017-07-09] MEDS: SIMVASTATIN 10 MG TABLET PO SCH (19:32)
[2017-07-09] MEDS: DONEPEZIL HCL 10 MG TABLET PO SCH (19:33)
[2017-07-09] MEDS: AMITRIPTYLINE HCL 25 MG TABLET PO SCH (19:33)
[2017-07-09] MEDS: traZODone 100 MG TABLET. PO SCH (19:33)
--- NOTE | 2017-07-09 22:08 | PN ---
DATE: 07/08/2017 This is a late entry 07/08/2017 covers elements not covered in my initial note of 07/08/2017. SUBJECTIVE: I met with the patient in the evening of 07/08/2017. The patient remains somatically preoccupied. Ambulates in a wheelchair, complains of back pain, but despite this, less labile. REVIEW OF SYSTEMS: No CV, , pulmonary, eye system symptoms on review. MENTAL STATUS EXAM: Reasonably oriented. Speech coherent, has some latency. Abstraction fair, computation impaired, language function intact, attention span short. Mood and affect less labile. LABORATORY DATA: Reviewed. IMPRESSION: Unchanged from initial note. PLAN: Continue psychotropics mentioned in my initial note. MAN Raquel MCNULTY MD DR: CHERIE/yovana JOB#: [id number] / [id number]
--- NOTE | 2017-07-09 22:21 | PDOC ---
Exam Note: Shady Note: Please also refer to the separate dictated note~for this date of service dictated separately.~Patient seen individually. Discussed the patient with Nursing staff reviewed the chart.~Reviewed interim history and current functioning. Reviewed vital signs,~Labs/ Radiology~and current medications noted below. Continue current treatment with the changes noted in the dictated addendum note Assessment: Vital Signs: Vital Signs Date Time Temp Pulse Resp B/P (MAP) Pulse Ox O2 Delivery O2 Flow Rate FiO2 07/09/17 19:32 68 106/63 07/09/17 18:15 18 94 Room Air 07/09/17 15:58 98.0 I&O Intake and Output 07/09/17 07:00 Intake Total 1200 ml Balance 1200 ml Intake Oral 1200 ml # Voids 2 Labs: Laboratory Tests Test 07/09/17 12:05 Glucose (Fingerstick) 116 mg/dL (70-99) H Current Medications: Meds: Current Medications Acetaminophen (Tylenol) 650 mg PRN Q6HRS PRN PO PAIN / TEMP Last administered on 06/20/17at 09:28; Start 06/19/17 at 14:00; Stop 06/20/17 at 10:20; Status DC Multi-Ingredient Ointment (Analgesic [place]) 1 tori PRN QID PRN TP MUSCLE PAIN; Start 06/19/17 at 14:00 Al Hydroxide/Mg Hydroxide (Mylanta Plus Xs) 15 ml PRN AFTMEALHC PRN PO DYSPEPSIA; Start 06/19/17 at 14:00 Magnesium Hydroxide (Milk Of Magnesia) 2,400 mg PRN QHS PRN PO CONSTIPATION; Start 06/19/17 at 14:00 Donepezil HCl (Aricept) 5 mg QHS PO Last administered on 06/22/17at 20:13; Start 06/19/17 at 21:00; Stop 06/23/17 at 16:14; Status DC Lorazepam (Ativan) 0.5 mg BID PO Last administered on 06/24/17at 08:40; Start at 21:00; Stop 06/24/17 at 19:12; Status DC Melatonin 6 mg QHS PO Last administered on 06/24/17at 20:31; Start 06/19/17 at 21:00; Stop 06/25/17 at 18:57; Status DC Glimepiride (Amaryl) 2 mg BIDWMEALS PO Last administered on 06/25/17 17:33; Start 06/19/17 at 17:00; Stop 06/25/17 at 18:22; Status DC Metoprolol Tartrate (Lopressor) 50 mg BID PO Last administered on 07/07/17at 19: 41; Start 06/19/17 at 21:00; Stop 07/08/17 at 14:26; Status DC Warfarin Sodium (Coumadin) 2.5 mg QHS PO Last administered on 06/20/17at 20:15; Start 06/19/17 at 21:00; Stop 06/21/17 at 14:13; Status DC Warfarin Sodium (Coumadin Per Physician) 1 each PRN DAILY PRN MC SEE COMMENTS Last administered on 06/20/17at 10:54; Start 06/19/17 at 16:00; Stop 06/20/17 at 14:41; Status DC Warfarin Sodium (Coumadin) 1 mg QHS PO Last administered on 06/20/17at 20:15; Start 06/19/17 at 21:00; Stop 06/21/17 at 14:14; Status DC Acetaminophen (Tylenol) 650 mg PRN Q4HRS PRN PO PAIN Last administered on at 17:06; Start 06/20/17 at 10:15 Clotrimazole (Lotrimin) 15 tori BID TP ; Start 06/20/17 at 21:00; Stop 06/20/17 at 21:00; Status DC Furosemide (Lasix) 40 mg DAILY PO Last administered on 07/09/17at 07:51; Start 06/20/17 at 12:00 Hydrocortisone Acetate (Anucort-Hc) 25 mg PRN Q8HRS PRN RC hemmorhoid discomfort; Start 06/20/17 at 10:15 Linagliptin (Tradjenta) 5 mg DAILY PO Last administered on 07/09/17at 07:49; Start 06/20/17 at 12:00 Losartan Potassium (Cozaar) 50 mg DAILY PO Last administered on 06/27/17at 09:00 ; Start 06/20/17 at 12:00; Stop 07/01/17 at 13:35; Status DC Nystatin (Mycostatin) 1 tori DAILY TP Last administered on 07/09/17 07:52; Start 06/20/17 at 12:00 Oxymetazoline HCl (Afrin) 1 spray PRN Q6HRS PRN NS dry nares Last administered on 06/20/17 12:08; Start 06/20/17 at 10:15 Simvastatin (Zocor) 10 mg QHS PO Last administered on 07/09/17 19:32; Start at 21:00 Lidocaine HCl (Xylocaine 2% Topical 30gm Tube) 1 tori DAILY TP Last administered on 06/24/17 08:42; Start 06/20/17 at 12:00; Stop 06/26/17 at 15:33 ; Status DC Polyethylene Glycol (miraLAX) 17 gm DAILY PO Last administered on 07/09/17 07: 51; Start 06/20/17 at 12:00 Potassium Chloride (Klor-Con) 20 meq DAILYWBKFT PO Last administered on 07:54; Start 06/20/17 at 12:00 Quetiapine Fumarate (SEROquel) 12.5 mg TID@0900,1300,1700 PO Last administered on 06/25/17 17:33; Start 06/20/17 at 13:00; Stop 06/25/17 at 18:57; Status DC Trazodone HCl (Desyrel) 50 mg QHS PO Last administered on 07/02/17 20:18; Start 06/20/17 at 21:00; Stop 07/03/17 at 18:41; Status DC Trazodone HCl (Desyrel) 50 mg PRN QHS PRN PO insomnia Last administered on 01:15; Start 06/20/17 at 21:00; Stop 07/03/17 at 18:41; Status DC Tramadol HCl (Ultram) 50 mg PRN Q6HRS PRN PO PAIN Last administered on 16:09; Start 06/20/17 at 11:15 Lidocaine (Lidoderm) 1 patch DAILY TD Last administered on 07/09/17 07:51; Start 06/20/17 at 12:00 Warfarin Sodium (Coumadin Per Pharmacy) 1 each PRN DAILY PRN MC SEE COMMENTS Last administered on 3/10/18at 13:02; Start 06/20/17 at 14:45 Clotrimazole (Lotrimin) 1 tori BID TP Last administered on 07/09/17at 19:33; Start 06/20/17 at 21:00 Warfarin Sodium (Coumadin Per Pharmacy) 1 each PRN DAILY PRN MC SEE COMMENTS; Start 06/21/17 at 14:00; Stop 06/21/17 at 14:00; Status DC Vitamin D (Vitamin D3) 50,000 unit WEEKLY PO Last administered on 07/05/17at 08: 33; Start 06/21/17 at 14:00 Warfarin Sodium (Coumadin) 5 mg 1X WARF ONCE PO Last administered on at 15:45; Start 06/21/17 at 16:00; Stop 06/21/17 at 16:01; Status DC Warfarin Sodium (Coumadin) 5 mg 1X WARF ONCE PO Last administered on at 16:56; Start 06/22/17 at 16:00; Stop 06/22/17 at 16:02; Status DC Fluvoxamine Maleate (Luvox) 25 mg DAILY PO Last administered on 06/25/17at 08:46 ; Start 06/23/17 at 09:00; Stop 06/26/17 at 08:59; Status DC Fluvoxamine Maleate (Luvox) 50 mg DAILY PO Last administered on 06/28/17at 10:00 ; Start 06/26/17 at 09:00; Stop 06/28/17 at 18:16; Status DC Warfarin Sodium (Coumadin) 5 mg 1X WARF ONCE PO Last administered on at 16:18; Start 06/23/17 at 16:00; Stop 06/23/17 at 16:01; Status DC Donepezil HCl (Aricept) 10 mg QHS PO Last administered on 07/09/17at 19:33; Start 06/23/17 at 21:00 Warfarin Sodium (Coumadin) 5 mg DAILY16 PO Last administered on 06/29/17 17:05 ; Start 06/24/17 at 16:00; Stop 06/30/17 at 10:43; Status DC Lorazepam (Ativan) 0.25 mg BID PO Last administered on 06/27/17at 20:07; Start at 21:00; Stop 06/27/17 at 22:00; Status DC Lorazepam (Ativan) 0.25 mg DAILY PO Last administered on 06/30/17 09:06; Start 06/28/17 at 09:00; Stop 07/01/17 at 08:59; Status DC Glimepiride (Amaryl) 4 mg BIDWMEALS PO Last administered on 07/09/17 16:02; Start 06/26/17 at 08:00 Oxycodone HCl (Roxicodone) 5 mg PRN Q6HRS PRN PO PAIN Last administered on 07/08 16:21; Start 06/25/17 at 18:30 Quetiapine Fumarate (SEROquel) 12.5 mg QID PO ; Start 06/26/17 at 07:00; Stop at 07:00; Status DC Mirtazapine (Remeron) 7.5 mg QHS PO Last administered on 07/01/17at 19:39; Start 06/25/17 at 21:00; Stop 07/02/17 at 18:12; Status DC Quetiapine Fumarate (SEROquel) 12.5 mg 0700,1100,1500,1900 PO Last administered on 07/09/17 19:01; Start 06/26/17 at 07:00 Lidocaine HCl (Xylocaine 2% Topical 30gm Tube) 1 tori PRN Q6HRS PRN TP PAIN; Start 06/27/17 at 12:00 Fluvoxamine Maleate (Luvox) 75 mg DAILY PO Last administered on 07/01/17 09:07 ; Start 06/29/17 at 09:00; Stop 07/01/17 at 18:36; Status DC Warfarin Sodium (Coumadin - No Dose Today) 1 each 1X WARF ONCE MC Last administered on 06/30/17 16:00; Start 06/30/17 at 16:00; Stop 06/30/17 at 16:01; Status DC Warfarin Sodium (Coumadin) 5 mg 1X WARF ONCE PO Last administered on 07/01/17 17:11; Start 07/01/17 at 16:00; Stop 07/01/17 at 16:01; Status DC Fluvoxamine Maleate (Luvox) 100 mg DAILY PO Last administered on 07/07/17at 08: 39; Start 07/02/17 at 09:00; Stop 07/07/17 at 18:30; Status DC Warfarin Sodium (Coumadin) 5 mg 1X WARF ONCE PO Last administered on 07/02/17at 15:56; Start 07/02/17 at 16:00; Stop 07/02/17 at 16:01; Status DC Mirtazapine (Remeron) 15 mg QHS PO Last administered on 07/02/17at 20:17; Start 07/02/17 at 21:00; Stop 07/03/17 at 18:41; Status DC Warfarin Sodium (Coumadin) 5 mg DAILY16 PO Last administered on 07/09/17at 16:02 ; Start 07/03/17 at 16:00 Trazodone HCl (Desyrel) 100 mg PRN QHS PRN PO insomnia; Start 07/03/17 at 18:45 Trazodone HCl (Desyrel) 100 mg QHS PO Last administered on 07/09/17 19:33; Start 07/03/17 at 21:00 Amitriptyline HCl (Elavil) 25 mg QHS PO Last administered on 07/09/17 19:33; Start 07/03/17 at 21:00 Fluvoxamine Maleate (Luvox) 100 mg DAILY PO Last administered on 07/09/17 07: 50; Start 07/08/17 at 09:00 Fluvoxamine Maleate (Luvox) 25 mg DAILY PO Last administered on 07/09/17 07:50 ; Start 07/08/17 at 09:00 Metoprolol Tartrate (Lopressor) 25 mg BID PO Last administered on 07/09/17 19: 32; Start 07/08/17 at 21:00 Active Scripts Active Reported Tradjenta (Linagliptin) 5 Mg Tablet 5 Mg PO DAILY Simvastatin 10 Mg Tablet 10 Mg PO DAILY Probiotic (Lactobacillus Combo No.10) 1 Each Capsule 1 Each PO Potassium Chloride 10 Meq Tablet.er 20 Meq PO DAILY Nystatin 15 Gm Cream..g. 1 Tori TP DAILY Sinus Nasal (Oxymetazoline Hcl) 30 Ml Branch 1 Branch NS PRN Q6HRS PRN Metoprolol Tartrate 50 Mg Tablet 50 Mg PO BID Melatonin 3 Mg Tablet 6 Mg PO HS Losartan Potassium 50 Mg Tablet 50 Mg PO DAILY Lorazepam 0.5 Mg Tablet 0.5 Mg PO BID Topicaine (Lidocaine) 113 Gm Gel..gram. 1 Tori TP DAILY Polyethylene Glycol 3350 2,500 Gm Powder 17 Gm PO DAILY Glimepiride 2 Mg Tablet 2 Mg PO BID Furosemide 40 Mg Tablet 40 Mg PO DAILY Coumadin (Warfarin Sodium) 3 Mg Tablet 3.5 Mg PO QHS Clotrimazole 15 Gm Cream..g. 15 Gm TP BID Aricept (Donepezil Hcl) 5 Mg Tablet 5 Mg PO QHS Anusol-Hc (Hydrocortisone Acetate) 25 Mg Supp.rect 1 Supp RC PRN Q8HRS PRN Tylenol (Acetaminophen) 325 Mg Tablet 650 Mg PO PRN Q4HRS PRN I have reviewed the current psychotropics carefully including drug interactions. Risk benefit ratio favors no change other than as noted in my dictated progress note. Diagnosis: Problems: (1) Medical clearance for psychiatric admission (2) Psychosis (3) Anxiety disorder (4) Bipolar affective, mixed, sev w/ psych (5) Dementia in Alzheimer's disease with delusions (6) Impulse control disorder MIMI MCNULTY MD Jul 09, 2017 22:21
[2017-07-10 06:02] VITALS: BP 130/70
[2017-07-10] MEDS: QUEtiapine 25 MG TABLET. PO SCH ×4 (06:26→19:05)
[2017-07-10] MEDS: LINAGLIPTIN 5 MG TABLET PO SCH (08:24)
[2017-07-10] MEDS: GLIMEPIRIDE 2 MG TABLET PO SCH ×2 (08:24→17:13)
[2017-07-10] MEDS: METOPROLOL TART IMMED RELEASE 25 MG TABLET PO SCH ×2 (08:25→21:03)
[2017-07-10] MEDS: POTASSIUM CHLORIDE 20 MEQ TABLET.ER. PO SCH (08:25)
[2017-07-10] MEDS: POLYETHYLENE GLYCOL 3350 17 GM PACKET. PO SCH (08:25)
[2017-07-10] MEDS: FUROSEMIDE 40 MG TABLET PO SCH (08:25)
[2017-07-10] MEDS: LIDOCAINE (700MG/PATCH) PATCH. TD SCH (08:27)
[2017-07-10] MEDS: CLOTRIMAZOLE 1% TOPICAL CREAM 30GM TUBE. TP SCH ×2 (08:28→21:03)
[2017-07-10] MEDS: NYSTATIN 100,000 UNIT/GM TOPICAL CREAM 15GM TUBE. TP SCH (08:28)
[2017-07-10] MEDS: WARFARIN 5 MG TABLET. PO SCH (15:39)
[2017-07-10 16:27] VITALS: BP 119/58
[2017-07-10] MEDS: traMADol 50 MG TABLET PO PRN (17:49)
--- NOTE | 2017-07-10 20:45 | PDOC ---
Exam Note: Shady Note: Please also refer to the separate dictated note~for this date of service dictated separately.~Patient seen individually. Discussed the patient with Nursing staff reviewed the chart.~Reviewed interim history and current functioning. Reviewed vital signs,~Labs/ Radiology~and current medications noted below. Continue current treatment with the changes noted in the dictated addendum note Assessment: Vital Signs: Vital Signs Date Time Temp Pulse Resp B/P (MAP) Pulse Ox O2 Delivery O2 Flow Rate FiO2 07/10/17 19:02 16 94 Room Air 07/10/17 16:27 97.9 67 119/58 (78) I&O Intake and Output 07/10/17 07:00 Intake Total 720 ml Balance 720 ml Intake Oral 720 ml # Voids 2 Labs: Laboratory Tests Test 07/10/17 07:02 07/10/17 07:08 07/10/17 19:07 Prothrombin Time 32.0 SEC (9.4-11.4) H Prothrombin Time INR 3.2 (0.9-1.1) H Glucose (Fingerstick) 75 mg/dL (70-99) 167 mg/dL (70-99) H Current Medications: Meds: Current Medications Acetaminophen (Tylenol) 650 mg PRN Q6HRS PRN PO PAIN / TEMP Last administered on 06/20/17at 09:28; Start 06/19/17 at 14:00; Stop 06/20/17 at 10:20; Status DC Multi-Ingredient Ointment (Analgesic [place]) 1 tori PRN QID PRN TP MUSCLE PAIN; Start 06/19/17 at 14:00 Al Hydroxide/Mg Hydroxide (Mylanta Plus Xs) 15 ml PRN AFTMEALHC PRN PO DYSPEPSIA; Start 06/19/17 at 14:00 Magnesium Hydroxide (Milk Of Magnesia) 2,400 mg PRN QHS PRN PO CONSTIPATION; Start 06/19/17 at 14:00 Donepezil HCl (Aricept) 5 mg QHS PO Last administered on 06/22/17at 20:13; Start 06/19/17 at 21:00; Stop 06/23/17 at 16:14; Status DC Lorazepam (Ativan) 0.5 mg BID PO Last administered on 06/24/17at 08:40; Start at 21:00; Stop 06/24/17 at 19:12; Status DC Melatonin 6 mg QHS PO Last administered on 06/24/17at 20:31; Start 06/19/17 at 21:00; Stop 06/25/17 at 18:57; Status DC Glimepiride (Amaryl) 2 mg BIDWMEALS PO Last administered on 06/25/17at 17:33; Start 06/19/17 at 17:00; Stop 06/25/17 at 18:22; Status DC Metoprolol Tartrate (Lopressor) 50 mg BID PO Last administered on 07/07/17at 19: 41; Start 06/19/17 at 21:00; Stop 07/08/17 at 14:26; Status DC Warfarin Sodium (Coumadin) 2.5 mg QHS PO Last administered on 06/20/17at 20:15; Start 06/19/17 at 21:00; Stop 06/21/17 at 14:13; Status DC Warfarin Sodium (Coumadin Per Physician) 1 each PRN DAILY PRN MC SEE COMMENTS Last administered on 06/20/17at 10:54; Start 06/19/17 at 16:00; Stop 06/20/17 at 14:41; Status DC Warfarin Sodium (Coumadin) 1 mg QHS PO Last administered on 06/20/17at 20:15; Start 06/19/17 at 21:00; Stop 06/21/17 at 14:14; Status DC Acetaminophen (Tylenol) 650 mg PRN Q4HRS PRN PO PAIN Last administered on at 17:06; Start 06/20/17 at 10:15 Clotrimazole (Lotrimin) 15 tori BID TP ; Start 06/20/17 at 21:00; Stop 06/20/17 at 21:00; Status DC Furosemide (Lasix) 40 mg DAILY PO Last administered on 07/10/17at 08:25; Start 06/20/17 at 12:00 Hydrocortisone Acetate (Anucort-Hc) 25 mg PRN Q8HRS PRN RC hemmorhoid discomfort; Start 06/20/17 at 10:15 Linagliptin (Tradjenta) 5 mg DAILY PO Last administered on 07/10/17at 08:24; Start 06/20/17 at 12:00 Losartan Potassium (Cozaar) 50 mg DAILY PO Last administered on 06/27/17 09:00 ; Start 06/20/17 at 12:00; Stop 07/01/17 at 13:35; Status DC Nystatin (Mycostatin) 1 tori DAILY TP Last administered on 07/10/17 08:28; Start 06/20/17 at 12:00 Oxymetazoline HCl (Afrin) 1 spray PRN Q6HRS PRN NS dry nares Last administered on 06/20/17 12:08; Start 06/20/17 at 10:15 Simvastatin (Zocor) 10 mg QHS PO Last administered on 07/09/17 19:32; Start at 21:00 Lidocaine HCl (Xylocaine 2% Topical 30gm Tube) 1 tori DAILY TP Last administered on 06/24/17 08:42; Start 06/20/17 at 12:00; Stop 06/26/17 at 15:33 ; Status DC Polyethylene Glycol (miraLAX) 17 gm DAILY PO Last administered on 07/10/17 08: 25; Start 06/20/17 at 12:00 Potassium Chloride (Klor-Con) 20 meq DAILYWBKFT PO Last administered on 08:25; Start 06/20/17 at 12:00 Quetiapine Fumarate (SEROquel) 12.5 mg TID@0900,1300,1700 PO Last administered on 06/25/17 17:33; Start 06/20/17 at 13:00; Stop 06/25/17 at 18:57; Status DC Trazodone HCl (Desyrel) 50 mg QHS PO Last administered on 07/02/17 20:18; Start 06/20/17 at 21:00; Stop 07/03/17 at 18:41; Status DC Trazodone HCl (Desyrel) 50 mg PRN QHS PRN PO insomnia Last administered on 01:15; Start 06/20/17 at 21:00; Stop 07/03/17 at 18:41; Status DC Tramadol HCl (Ultram) 50 mg PRN Q6HRS PRN PO PAIN Last administered on 17:49; Start 06/20/17 at 11:15 Lidocaine (Lidoderm) 1 patch DAILY TD Last administered on 07/10/17at 08:27; Start 06/20/17 at 12:00 Warfarin Sodium (Coumadin Per Pharmacy) 1 each PRN DAILY PRN MC SEE COMMENTS Last administered on 07/10/17at 12:48; Start 06/20/17 at 14:45 Clotrimazole (Lotrimin) 1 tori BID TP Last administered on 07/10/17at 08:28; Start 06/20/17 at 21:00 Warfarin Sodium (Coumadin Per Pharmacy) 1 each PRN DAILY PRN MC SEE COMMENTS; Start 06/21/17 at 14:00; Stop 06/21/17 at 14:00; Status DC Vitamin D (Vitamin D3) 50,000 unit WEEKLY PO Last administered on 07/05/17at 08: 33; Start 06/21/17 at 14:00 Warfarin Sodium (Coumadin) 5 mg 1X WARF ONCE PO Last administered on at 15:45; Start 06/21/17 at 16:00; Stop 06/21/17 at 16:01; Status DC Warfarin Sodium (Coumadin) 5 mg 1X WARF ONCE PO Last administered on at 16:56; Start 06/22/17 at 16:00; Stop 06/22/17 at 16:02; Status DC Fluvoxamine Maleate (Luvox) 25 mg DAILY PO Last administered on 06/25/17at 08:46 ; Start 06/23/17 at 09:00; Stop 06/26/17 at 08:59; Status DC Fluvoxamine Maleate (Luvox) 50 mg DAILY PO Last administered on 06/28/17at 10:00 ; Start 06/26/17 at 09:00; Stop 06/28/17 at 18:16; Status DC Warfarin Sodium (Coumadin) 5 mg 1X WARF ONCE PO Last administered on at 16:18; Start 06/23/17 at 16:00; Stop 06/23/17 at 16:01; Status DC Donepezil HCl (Aricept) 10 mg QHS PO Last administered on 07/09/17at 19:33; Start 06/23/17 at 21:00 Warfarin Sodium (Coumadin) 5 mg DAILY16 PO Last administered on 06/29/17at 17:05 ; Start 06/24/17 at 16:00; Stop 06/30/17 at 10:43; Status DC Lorazepam (Ativan) 0.25 mg BID PO Last administered on 06/27/17at 20:07; Start at 21:00; Stop 06/27/17 at 22:00; Status DC Lorazepam (Ativan) 0.25 mg DAILY PO Last administered on 06/30/17at 09:06; Start 06/28/17 at 09:00; Stop 07/01/17 at 08:59; Status DC Glimepiride (Amaryl) 4 mg BIDWMEALS PO Last administered on 07/10/17at 17:13; Start 06/26/17 at 08:00 Oxycodone HCl (Roxicodone) 5 mg PRN Q6HRS PRN PO PAIN Last administered on 07/08at 16:21; Start 06/25/17 at 18:30 Quetiapine Fumarate (SEROquel) 12.5 mg QID PO ; Start 06/26/17 at 07:00; Stop at 07:00; Status DC Mirtazapine (Remeron) 7.5 mg QHS PO Last administered on 07/01/17at 19:39; Start 06/25/17 at 21:00; Stop 07/02/17 at 18:12; Status DC Quetiapine Fumarate (SEROquel) 12.5 mg 0700,1100,1500,1900 PO Last administered on 07/10/17at 19:05; Start 06/26/17 at 07:00 Lidocaine HCl (Xylocaine 2% Topical 30gm Tube) 1 tori PRN Q6HRS PRN TP PAIN; Start 06/27/17 at 12:00 Fluvoxamine Maleate (Luvox) 75 mg DAILY PO Last administered on 07/01/17 09:07 ; Start 06/29/17 at 09:00; Stop 07/01/17 at 18:36; Status DC Warfarin Sodium (Coumadin - No Dose Today) 1 each 1X WARF ONCE MC Last administered on 06/30/17at 16:00; Start 06/30/17 at 16:00; Stop 06/30/17 at 16:01; Status DC Warfarin Sodium (Coumadin) 5 mg 1X WARF ONCE PO Last administered on 07/01/17at 17:11; Start 07/01/17 at 16:00; Stop 07/01/17 at 16:01; Status DC Fluvoxamine Maleate (Luvox) 100 mg DAILY PO Last administered on 07/07/17 08: 39; Start 07/02/17 at 09:00; Stop 07/07/17 at 18:30; Status DC Warfarin Sodium (Coumadin) 5 mg 1X WARF ONCE PO Last administered on 07/02/17 15:56; Start 07/02/17 at 16:00; Stop 07/02/17 at 16:01; Status DC Mirtazapine (Remeron) 15 mg QHS PO Last administered on 07/02/17 20:17; Start 07/02/17 at 21:00; Stop 07/03/17 at 18:41; Status DC Warfarin Sodium (Coumadin) 5 mg DAILY16 PO Last administered on 07/10/17 15:39 ; Start 07/03/17 at 16:00 Trazodone HCl (Desyrel) 100 mg PRN QHS PRN PO insomnia; Start 07/03/17 at 18:45 Trazodone HCl (Desyrel) 100 mg QHS PO Last administered on 07/09/17 19:33; Start 07/03/17 at 21:00 Amitriptyline HCl (Elavil) 25 mg QHS PO Last administered on 07/09/17 19:33; Start 07/03/17 at 21:00 Fluvoxamine Maleate (Luvox) 100 mg DAILY PO Last administered on 07/10/17 08: 25; Start 07/08/17 at 09:00 Fluvoxamine Maleate (Luvox) 25 mg DAILY PO Last administered on 07/10/17 08:25 ; Start 07/08/17 at 09:00 Metoprolol Tartrate (Lopressor) 25 mg BID PO Last administered on 07/10/17 08: 25; Start 07/08/17 at 21:00 Active Scripts Active Reported Tradjenta (Linagliptin) 5 Mg Tablet 5 Mg PO DAILY Simvastatin 10 Mg Tablet 10 Mg PO DAILY Probiotic (Lactobacillus Combo No.10) 1 Each Capsule 1 Each PO Potassium Chloride 10 Meq Tablet.er 20 Meq PO DAILY Nystatin 15 Gm Cream..g. 1 Tori TP DAILY Sinus Nasal (Oxymetazoline Hcl) 30 Ml [place] 1 [place] NS PRN Q6HRS PRN Metoprolol Tartrate 50 Mg Tablet 50 Mg PO BID Melatonin 3 Mg Tablet 6 Mg PO HS Losartan Potassium 50 Mg Tablet 50 Mg PO DAILY Lorazepam 0.5 Mg Tablet 0.5 Mg PO BID Topicaine (Lidocaine) 113 Gm Gel..gram. 1 Tori TP DAILY Polyethylene Glycol 3350 2,500 Gm Powder 17 Gm PO DAILY Glimepiride 2 Mg Tablet 2 Mg PO BID Furosemide 40 Mg Tablet 40 Mg PO DAILY Coumadin (Warfarin Sodium) 3 Mg Tablet 3.5 Mg PO QHS Clotrimazole 15 Gm Cream..g. 15 Gm TP BID Aricept (Donepezil Hcl) 5 Mg Tablet 5 Mg PO QHS Anusol-Hc (Hydrocortisone Acetate) 25 Mg Supp.rect 1 Supp RC PRN Q8HRS PRN Tylenol (Acetaminophen) 325 Mg Tablet 650 Mg PO PRN Q4HRS PRN I have reviewed the current psychotropics carefully including drug interactions. Risk benefit ratio favors no change other than as noted in my dictated progress note. Diagnosis: Problems: (1) Medical clearance for psychiatric admission (2) Psychosis (3) Anxiety disorder (4) Bipolar affective, mixed, sev w/ psych (5) Dementia in Alzheimer's disease with delusions (6) Impulse control disorder MIMI MCNULTY MD Jul 10, 2017 20:44
[2017-07-10] MEDS: SIMVASTATIN 10 MG TABLET PO SCH (21:02)
[2017-07-10] MEDS: AMITRIPTYLINE HCL 25 MG TABLET PO SCH (21:03)
[2017-07-10] MEDS: traZODone 100 MG TABLET. PO SCH (21:03)
[2017-07-10] MEDS: DONEPEZIL HCL 10 MG TABLET PO SCH (21:03)
[2017-07-11] MEDS: QUEtiapine 25 MG TABLET. PO SCH ×4 (06:04→18:26)
[2017-07-11 06:11] VITALS: BP 112/48
[2017-07-11] MEDS: POLYETHYLENE GLYCOL 3350 17 GM PACKET. PO SCH (09:40)
[2017-07-11] MEDS: CLOTRIMAZOLE 1% TOPICAL CREAM 30GM TUBE. TP SCH ×2 (09:42→20:51)
[2017-07-11] MEDS: LIDOCAINE (700MG/PATCH) PATCH. TD SCH (09:42)
[2017-07-11] MEDS: NYSTATIN 100,000 UNIT/GM TOPICAL CREAM 15GM TUBE. TP SCH (09:42)
[2017-07-11] MEDS: LINAGLIPTIN 5 MG TABLET PO SCH (09:43)
[2017-07-11] MEDS: GLIMEPIRIDE 2 MG TABLET PO SCH ×2 (09:43→16:02)
[2017-07-11] MEDS: METOPROLOL TART IMMED RELEASE 25 MG TABLET PO SCH ×2 (09:43→20:49)
[2017-07-11] MEDS: FUROSEMIDE 40 MG TABLET PO SCH (09:44)
[2017-07-11] MEDS: POTASSIUM CHLORIDE 20 MEQ TABLET.ER. PO SCH (09:44)
[2017-07-11] MEDS: oxyCODONE IR 5 MG TABLET PO PRN (10:00)
[2017-07-11] MEDS ORDERED: MELATONIN 3 MG TABLET PO PRN (10:15)
[2017-07-11] MEDS: WARFARIN 5 MG TABLET. PO SCH (16:02)
[2017-07-11 16:25] VITALS: BP 96/56
--- NOTE | 2017-07-11 20:28 | PDOC ---
Exam Note: Shady Note: Please also refer to the separate dictated note~for this date of service dictated separately.~Patient seen individually. Discussed the patient with Nursing staff reviewed the chart.~Reviewed interim history and current functioning. Reviewed vital signs,~Labs/ Radiology~and current medications noted below. Continue current treatment with the changes noted in the dictated addendum note Assessment: Vital Signs: Vital Signs Date Time Temp Pulse Resp B/P (MAP) Pulse Ox O2 Delivery O2 Flow Rate FiO2 07/11/17 16:25 98.0 67 18 96/56 (69) 92 Room Air I&O Intake and Output 07/11/17 07:00 Intake Total 840 ml Balance 840 ml Intake Oral 840 ml # Voids 1 Labs: Laboratory Tests Test 07/11/17 07:25 Glucose (Fingerstick) 70 mg/dL (70-99) Current Medications: Meds: Current Medications Acetaminophen (Tylenol) 650 mg PRN Q6HRS PRN PO PAIN / TEMP Last administered on 06/20/17at 09:28; Start 06/19/17 at 14:00; Stop 06/20/17 at 10:20; Status DC Multi-Ingredient Ointment (Analgesic [place]) 1 tori PRN QID PRN TP MUSCLE PAIN; Start 06/19/17 at 14:00 Al Hydroxide/Mg Hydroxide (Mylanta Plus Xs) 15 ml PRN AFTMEALHC PRN PO DYSPEPSIA; Start 06/19/17 at 14:00 Magnesium Hydroxide (Milk Of Magnesia) 2,400 mg PRN QHS PRN PO CONSTIPATION; Start 06/19/17 at 14:00 Donepezil HCl (Aricept) 5 mg QHS PO Last administered on 06/22/17at 20:13; Start 06/19/17 at 21:00; Stop 06/23/17 at 16:14; Status DC Lorazepam (Ativan) 0.5 mg BID PO Last administered on 06/24/17at 08:40; Start at 21:00; Stop 06/24/17 at 19:12; Status DC Melatonin 6 mg QHS PO Last administered on 06/24/17at 20:31; Start 06/19/17 at 21:00; Stop 06/25/17 at 18:57; Status DC Glimepiride (Amaryl) 2 mg BIDWMEALS PO Last administered on 06/25/17 17:33; Start 06/19/17 at 17:00; Stop 06/25/17 at 18:22; Status DC Metoprolol Tartrate (Lopressor) 50 mg BID PO Last administered on 07/07/17at 19: 41; Start 06/19/17 at 21:00; Stop 07/08/17 at 14:26; Status DC Warfarin Sodium (Coumadin) 2.5 mg QHS PO Last administered on 06/20/17at 20:15; Start 06/19/17 at 21:00; Stop 06/21/17 at 14:13; Status DC Warfarin Sodium (Coumadin Per Physician) 1 each PRN DAILY PRN MC SEE COMMENTS Last administered on 06/20/17at 10:54; Start 06/19/17 at 16:00; Stop 06/20/17 at 14:41; Status DC Warfarin Sodium (Coumadin) 1 mg QHS PO Last administered on 06/20/17at 20:15; Start 06/19/17 at 21:00; Stop 06/21/17 at 14:14; Status DC Acetaminophen (Tylenol) 650 mg PRN Q4HRS PRN PO PAIN Last administered on 17:06; Start 06/20/17 at 10:15 Clotrimazole (Lotrimin) 15 tori BID TP ; Start 06/20/17 at 21:00; Stop 06/20/17 at 21:00; Status DC Furosemide (Lasix) 40 mg DAILY PO Last administered on 07/11/17at 09:44; Start 06/20/17 at 12:00 Hydrocortisone Acetate (Anucort-Hc) 25 mg PRN Q8HRS PRN RC hemmorhoid discomfort; Start 06/20/17 at 10:15 Linagliptin (Tradjenta) 5 mg DAILY PO Last administered on 07/11/17 09:43; Start 06/20/17 at 12:00 Losartan Potassium (Cozaar) 50 mg DAILY PO Last administered on 06/27/17 09:00 ; Start 06/20/17 at 12:00; Stop 07/01/17 at 13:35; Status DC Nystatin (Mycostatin) 1 tori DAILY TP Last administered on 07/11/17at 09:42; Start 06/20/17 at 12:00 Oxymetazoline HCl (Afrin) 1 spray PRN Q6HRS PRN NS dry nares Last administered on 06/20/17 12:08; Start 06/20/17 at 10:15 Simvastatin (Zocor) 10 mg QHS PO Last administered on 07/10/17 21:02; Start at 21:00 Lidocaine HCl (Xylocaine 2% Topical 30gm Tube) 1 tori DAILY TP Last administered on 06/24/17 08:42; Start 06/20/17 at 12:00; Stop 06/26/17 at 15:33 ; Status DC Polyethylene Glycol (miraLAX) 17 gm DAILY PO Last administered on 07/10/17 08: 25; Start 06/20/17 at 12:00 Potassium Chloride (Klor-Con) 20 meq DAILYWBKFT PO Last administered on 09:44; Start 06/20/17 at 12:00 Quetiapine Fumarate (SEROquel) 12.5 mg TID@0900,1300,1700 PO Last administered on 06/25/17 17:33; Start 06/20/17 at 13:00; Stop 06/25/17 at 18:57; Status DC Trazodone HCl (Desyrel) 50 mg QHS PO Last administered on 07/02/17 20:18; Start 06/20/17 at 21:00; Stop 07/03/17 at 18:41; Status DC Trazodone HCl (Desyrel) 50 mg PRN QHS PRN PO insomnia Last administered on 01:15; Start 06/20/17 at 21:00; Stop 07/03/17 at 18:41; Status DC Tramadol HCl (Ultram) 50 mg PRN Q6HRS PRN PO PAIN Last administered on 17:49; Start 06/20/17 at 11:15 Lidocaine (Lidoderm) 1 patch DAILY TD Last administered on 07/11/17 09:42; Start 06/20/17 at 12:00 Warfarin Sodium (Coumadin Per Pharmacy) 1 each PRN DAILY PRN MC SEE COMMENTS Last administered on 07/10/17 12:48; Start 06/20/17 at 14:45 Clotrimazole (Lotrimin) 1 tori BID TP Last administered on 07/11/17at 09:42; Start 06/20/17 at 21:00 Warfarin Sodium (Coumadin Per Pharmacy) 1 each PRN DAILY PRN MC SEE COMMENTS; Start 06/21/17 at 14:00; Stop 06/21/17 at 14:00; Status DC Vitamin D (Vitamin D3) 50,000 unit WEEKLY PO Last administered on 07/05/17at 08: 33; Start 06/21/17 at 14:00 Warfarin Sodium (Coumadin) 5 mg 1X WARF ONCE PO Last administered on at 15:45; Start 06/21/17 at 16:00; Stop 06/21/17 at 16:01; Status DC Warfarin Sodium (Coumadin) 5 mg 1X WARF ONCE PO Last administered on at 16:56; Start 06/22/17 at 16:00; Stop 06/22/17 at 16:02; Status DC Fluvoxamine Maleate (Luvox) 25 mg DAILY PO Last administered on 06/25/17at 08:46 ; Start 06/23/17 at 09:00; Stop 06/26/17 at 08:59; Status DC Fluvoxamine Maleate (Luvox) 50 mg DAILY PO Last administered on 06/28/17at 10:00 ; Start 06/26/17 at 09:00; Stop 06/28/17 at 18:16; Status DC Warfarin Sodium (Coumadin) 5 mg 1X WARF ONCE PO Last administered on at 16:18; Start 06/23/17 at 16:00; Stop 06/23/17 at 16:01; Status DC Donepezil HCl (Aricept) 10 mg QHS PO Last administered on 07/10/17at 21:03; Start 06/23/17 at 21:00 Warfarin Sodium (Coumadin) 5 mg DAILY16 PO Last administered on 06/29/17at 17:05 ; Start 06/24/17 at 16:00; Stop 06/30/17 at 10:43; Status DC Lorazepam (Ativan) 0.25 mg BID PO Last administered on 06/27/17at 20:07; Start at 21:00; Stop 06/27/17 at 22:00; Status DC Lorazepam (Ativan) 0.25 mg DAILY PO Last administered on 06/30/17 09:06; Start 06/28/17 at 09:00; Stop 07/01/17 at 08:59; Status DC Glimepiride (Amaryl) 4 mg BIDWMEALS PO Last administered on 07/11/17 16:02; Start 06/26/17 at 08:00 Oxycodone HCl (Roxicodone) 5 mg PRN Q6HRS PRN PO PAIN Last administered on 07/11at 10:00; Start 06/25/17 at 18:30 Quetiapine Fumarate (SEROquel) 12.5 mg QID PO ; Start 06/26/17 at 07:00; Stop at 07:00; Status DC Mirtazapine (Remeron) 7.5 mg QHS PO Last administered on 07/01/17 19:39; Start 06/25/17 at 21:00; Stop 07/02/17 at 18:12; Status DC Quetiapine Fumarate (SEROquel) 12.5 mg 0700,1100,1500,1900 PO Last administered on 07/11/17 18:26; Start 06/26/17 at 07:00 Lidocaine HCl (Xylocaine 2% Topical 30gm Tube) 1 tori PRN Q6HRS PRN TP PAIN; Start 06/27/17 at 12:00 Fluvoxamine Maleate (Luvox) 75 mg DAILY PO Last administered on 07/01/17 09:07 ; Start 06/29/17 at 09:00; Stop 07/01/17 at 18:36; Status DC Warfarin Sodium (Coumadin - No Dose Today) 1 each 1X WARF ONCE MC Last administered on 06/30/17 16:00; Start 06/30/17 at 16:00; Stop 06/30/17 at 16:01; Status DC Warfarin Sodium (Coumadin) 5 mg 1X WARF ONCE PO Last administered on 07/01/17 17:11; Start 07/01/17 at 16:00; Stop 07/01/17 at 16:01; Status DC Fluvoxamine Maleate (Luvox) 100 mg DAILY PO Last administered on 07/07/17at 08: 39; Start 07/02/17 at 09:00; Stop 07/07/17 at 18:30; Status DC Warfarin Sodium (Coumadin) 5 mg 1X WARF ONCE PO Last administered on 07/02/17at 15:56; Start 07/02/17 at 16:00; Stop 07/02/17 at 16:01; Status DC Mirtazapine (Remeron) 15 mg QHS PO Last administered on 07/02/17at 20:17; Start 07/02/17 at 21:00; Stop 07/03/17 at 18:41; Status DC Warfarin Sodium (Coumadin) 5 mg DAILY16 PO Last administered on 07/11/17at 16:02 ; Start 07/03/17 at 16:00 Trazodone HCl (Desyrel) 100 mg PRN QHS PRN PO insomnia; Start 07/03/17 at 18:45 Trazodone HCl (Desyrel) 100 mg QHS PO Last administered on 07/10/17at 21:03; Start 07/03/17 at 21:00 Amitriptyline HCl (Elavil) 25 mg QHS PO Last administered on 07/10/17at 21:03; Start 07/03/17 at 21:00; Stop 07/11/17 at 10:07; Status DC Fluvoxamine Maleate (Luvox) 100 mg DAILY PO Last administered on 07/11/17at 09: 44; Start 07/08/17 at 09:00 Fluvoxamine Maleate (Luvox) 25 mg DAILY PO Last administered on 07/11/17at 09:43 ; Start 07/08/17 at 09:00 Metoprolol Tartrate (Lopressor) 25 mg BID PO Last administered on 07/11/17at 09: 43; Start 07/08/17 at 21:00 Amitriptyline HCl (Elavil) 50 mg QHS PO ; Start 07/11/17 at 21:00 Melatonin 3 mg PRN QHS PRN PO INSOMNIA; Start 07/11/17 at 10:15 Active Scripts Active Reported Tradjenta (Linagliptin) 5 Mg Tablet 5 Mg PO DAILY Simvastatin 10 Mg Tablet 10 Mg PO DAILY Probiotic (Lactobacillus Combo No.10) 1 Each Capsule 1 Each PO Potassium Chloride 10 Meq Tablet.er 20 Meq PO DAILY Nystatin 15 Gm Cream..g. 1 Tori TP DAILY Sinus Nasal (Oxymetazoline Hcl) 30 Ml [place] 1 [place] NS PRN Q6HRS PRN Metoprolol Tartrate 50 Mg Tablet 50 Mg PO BID Melatonin 3 Mg Tablet 6 Mg PO HS Losartan Potassium 50 Mg Tablet 50 Mg PO DAILY Lorazepam 0.5 Mg Tablet 0.5 Mg PO BID Topicaine (Lidocaine) 113 Gm Gel..gram. 1 Tori TP DAILY Polyethylene Glycol 3350 2,500 Gm Powder 17 Gm PO DAILY Glimepiride 2 Mg Tablet 2 Mg PO BID Furosemide 40 Mg Tablet 40 Mg PO DAILY Coumadin (Warfarin Sodium) 3 Mg Tablet 3.5 Mg PO QHS Clotrimazole 15 Gm Cream..g. 15 Gm TP BID Aricept (Donepezil Hcl) 5 Mg Tablet 5 Mg PO QHS Anusol-Hc (Hydrocortisone Acetate) 25 Mg Supp.rect 1 Supp RC PRN Q8HRS PRN Tylenol (Acetaminophen) 325 Mg Tablet 650 Mg PO PRN Q4HRS PRN I have reviewed the current psychotropics carefully including drug interactions. Risk benefit ratio favors no change other than as noted in my dictated progress note. Diagnosis: Problems: (1) Atrial fibrillation (2) Diabetes mellitus (3) Chronic renal insufficiency (4) Medical clearance for psychiatric admission (5) Psychosis (6) Anxiety disorder (7) Bipolar affective, mixed, sev w/ psych (8) Dementia in Alzheimer's disease with delusions (9) Impulse control disorder MIMI MCNULTY MD Jul 11, 2017 20:28
[2017-07-11] MEDS: traZODone 100 MG TABLET. PO SCH ×2 (20:48→21:00)
[2017-07-11] MEDS: SIMVASTATIN 10 MG TABLET PO SCH ×2 (20:49→21:00)
[2017-07-11] MEDS: DONEPEZIL HCL 10 MG TABLET PO SCH ×2 (20:49→21:00)
[2017-07-11] MEDS: AMITRIPTYLINE HCL 50 MG TABLET PO SCH ×2 (20:51→21:00)
--- NOTE | 2017-07-11 21:26 | PN ---
DATE: 07/09/2017 This late entry of 07/09/2017 covers the elements not covered in my initial note 07/09/2017. HISTORY OF PRESENT ILLNESS: I met with the patient evening of 07/09/2017. In the morning, he had been removed from the dining room because he was anxious, restless. Family visited and after that he was appearing more helpless, wanting nursing staff to do things for him even which he could himself. REVIEW OF SYSTEMS: Positive for back pain. Ambulation impaired, in wheelchair. No CV, , pulmonary, eye system symptoms on review. MENTAL STATUS EXAM: Reasonably oriented. Speech is coherent, has some latency. Abstraction fair, computation impaired, language function intact, attention span short. Mood and affect, somewhat anxious, dysphoric. LABORATORY DATA: Reviewed. IMPRESSION: Unchanged from initial note. PLAN: Continue psychotropics mentioned in my initial note. MAN Raquel MCNULTY MD DR: CHERIE/yovana JOB#: [id number] / [id number]
[2017-07-12 06:02] VITALS: BP 127/56
[2017-07-12] MEDS: oxyCODONE IR 5 MG TABLET PO PRN (08:15)
[2017-07-12] MEDS: LINAGLIPTIN 5 MG TABLET PO SCH (08:15)
[2017-07-12] MEDS: FUROSEMIDE 40 MG TABLET PO SCH (08:16)
[2017-07-12] MEDS: METOPROLOL TART IMMED RELEASE 25 MG TABLET PO SCH ×2 (08:16→19:49)
[2017-07-12] MEDS: POTASSIUM CHLORIDE 20 MEQ TABLET.ER. PO SCH (08:16)
[2017-07-12] MEDS: LIDOCAINE (700MG/PATCH) PATCH. TD SCH (08:17)
[2017-07-12] MEDS: QUEtiapine 25 MG TABLET. PO SCH ×4 (08:17→19:51)
[2017-07-12] MEDS: GLIMEPIRIDE 2 MG TABLET PO SCH ×2 (08:17→17:01)
[2017-07-12] MEDS: NYSTATIN 100,000 UNIT/GM TOPICAL CREAM 15GM TUBE. TP SCH (08:18)
[2017-07-12] MEDS: CLOTRIMAZOLE 1% TOPICAL CREAM 30GM TUBE. TP SCH ×2 (08:18→19:53)
[2017-07-12] MEDS: POLYETHYLENE GLYCOL 3350 17 GM PACKET. PO SCH (08:18)
[2017-07-12] MEDS: CHOLECALCIFEROL (VITAMIN D3) 50,000 UNIT CAPSULE PO SCH (08:19)
[2017-07-12 15:59] VITALS: BP 117/38
[2017-07-12] MEDS: WARFARIN 5 MG TABLET. PO SCH (17:01)
[2017-07-12] MEDS: DONEPEZIL HCL 10 MG TABLET PO SCH (19:49)
[2017-07-12] MEDS: SIMVASTATIN 10 MG TABLET PO SCH (19:49)
[2017-07-12] MEDS: traZODone 100 MG TABLET. PO SCH (19:50)
[2017-07-12] MEDS: AMITRIPTYLINE HCL 50 MG TABLET PO SCH (19:50)
--- NOTE | 2017-07-12 20:34 | PDOC ---
Exam Note: Shady Note: Please also refer to the separate dictated note~for this date of service dictated separately.~Patient seen individually. Discussed the patient with Nursing staff reviewed the chart.~Reviewed interim history and current functioning. Reviewed vital signs,~Labs/ Radiology~and current medications noted below. Continue current treatment with the changes noted in the dictated addendum note Assessment: Vital Signs: Vital Signs Date Time Temp Pulse Resp B/P (MAP) Pulse Ox O2 Delivery O2 Flow Rate FiO2 07/12/17 19:49 65 117/38 07/12/17 15:59 98.4 18 95 07/11/17 16:25 Room Air I&O Intake and Output 07/12/17 07:00 Intake Total 1460 ml Balance 1460 ml Intake Oral 1460 ml # Voids 1 # Bowel Movements 1 Labs: Laboratory Tests Test 07/12/17 07:39 Glucose (Fingerstick) 69 mg/dL (70-99) L Current Medications: Meds: Current Medications Acetaminophen (Tylenol) 650 mg PRN Q6HRS PRN PO PAIN / TEMP Last administered on 06/20/17at 09:28; Start 06/19/17 at 14:00; Stop 06/20/17 at 10:20; Status DC Multi-Ingredient Ointment (Analgesic [place]) 1 tori PRN QID PRN TP MUSCLE PAIN; Start 06/19/17 at 14:00 Al Hydroxide/Mg Hydroxide (Mylanta Plus Xs) 15 ml PRN AFTMEALHC PRN PO DYSPEPSIA; Start 06/19/17 at 14:00 Magnesium Hydroxide (Milk Of Magnesia) 2,400 mg PRN QHS PRN PO CONSTIPATION; Start 06/19/17 at 14:00 Donepezil HCl (Aricept) 5 mg QHS PO Last administered on 06/22/17at 20:13; Start 06/19/17 at 21:00; Stop 06/23/17 at 16:14; Status DC Lorazepam (Ativan) 0.5 mg BID PO Last administered on 06/24/17at 08:40; Start at 21:00; Stop 06/24/17 at 19:12; Status DC Melatonin 6 mg QHS PO Last administered on 06/24/17at 20:31; Start 06/19/17 at 21:00; Stop 06/25/17 at 18:57; Status DC Glimepiride (Amaryl) 2 mg BIDWMEALS PO Last administered on 06/25/17at 17:33; Start 06/19/17 at 17:00; Stop 06/25/17 at 18:22; Status DC Metoprolol Tartrate (Lopressor) 50 mg BID PO Last administered on 07/07/17at 19: 41; Start 06/19/17 at 21:00; Stop 07/08/17 at 14:26; Status DC Warfarin Sodium (Coumadin) 2.5 mg QHS PO Last administered on 06/20/17at 20:15; Start 06/19/17 at 21:00; Stop 06/21/17 at 14:13; Status DC Warfarin Sodium (Coumadin Per Physician) 1 each PRN DAILY PRN MC SEE COMMENTS Last administered on 06/20/17at 10:54; Start 06/19/17 at 16:00; Stop 06/20/17 at 14:41; Status DC Warfarin Sodium (Coumadin) 1 mg QHS PO Last administered on 06/20/17at 20:15; Start 06/19/17 at 21:00; Stop 06/21/17 at 14:14; Status DC Acetaminophen (Tylenol) 650 mg PRN Q4HRS PRN PO PAIN Last administered on at 17:06; Start 06/20/17 at 10:15 Clotrimazole (Lotrimin) 15 tori BID TP ; Start 06/20/17 at 21:00; Stop 06/20/17 at 21:00; Status DC Furosemide (Lasix) 40 mg DAILY PO Last administered on 07/12/17at 08:16; Start 06/20/17 at 12:00 Hydrocortisone Acetate (Anucort-Hc) 25 mg PRN Q8HRS PRN RC hemmorhoid discomfort; Start 06/20/17 at 10:15 Linagliptin (Tradjenta) 5 mg DAILY PO Last administered on 07/12/17at 08:15; Start 06/20/17 at 12:00 Losartan Potassium (Cozaar) 50 mg DAILY PO Last administered on 06/27/17at 09:00 ; Start 06/20/17 at 12:00; Stop 07/01/17 at 13:35; Status DC Nystatin (Mycostatin) 1 tori DAILY TP Last administered on 07/12/17 08:18; Start 06/20/17 at 12:00 Oxymetazoline HCl (Afrin) 1 spray PRN Q6HRS PRN NS dry nares Last administered on 06/20/17 12:08; Start 06/20/17 at 10:15 Simvastatin (Zocor) 10 mg QHS PO Last administered on 07/12/17 19:49; Start at 21:00 Lidocaine HCl (Xylocaine 2% Topical 30gm Tube) 1 tori DAILY TP Last administered on 06/24/17 08:42; Start 06/20/17 at 12:00; Stop 06/26/17 at 15:33 ; Status DC Polyethylene Glycol (miraLAX) 17 gm DAILY PO Last administered on 07/12/17 08: 18; Start 06/20/17 at 12:00 Potassium Chloride (Klor-Con) 20 meq DAILYWBKFT PO Last administered on 08:16; Start 06/20/17 at 12:00 Quetiapine Fumarate (SEROquel) 12.5 mg TID@0900,1300,1700 PO Last administered on 06/25/17 17:33; Start 06/20/17 at 13:00; Stop 06/25/17 at 18:57; Status DC Trazodone HCl (Desyrel) 50 mg QHS PO Last administered on 07/02/17 20:18; Start 06/20/17 at 21:00; Stop 07/03/17 at 18:41; Status DC Trazodone HCl (Desyrel) 50 mg PRN QHS PRN PO insomnia Last administered on 01:15; Start 06/20/17 at 21:00; Stop 07/03/17 at 18:41; Status DC Tramadol HCl (Ultram) 50 mg PRN Q6HRS PRN PO PAIN Last administered on 17:49; Start 06/20/17 at 11:15 Lidocaine (Lidoderm) 1 patch DAILY TD Last administered on 07/12/17 08:17; Start 06/20/17 at 12:00 Warfarin Sodium (Coumadin Per Pharmacy) 1 each PRN DAILY PRN MC SEE COMMENTS Last administered on 3/14/18at 12:48; Start 06/20/17 at 14:45 Clotrimazole (Lotrimin) 1 tori BID TP Last administered on 07/12/17at 19:53; Start 06/20/17 at 21:00 Warfarin Sodium (Coumadin Per Pharmacy) 1 each PRN DAILY PRN MC SEE COMMENTS; Start 06/21/17 at 14:00; Stop 06/21/17 at 14:00; Status DC Vitamin D (Vitamin D3) 50,000 unit WEEKLY PO Last administered on 07/12/17at 08: 19; Start 06/21/17 at 14:00 Warfarin Sodium (Coumadin) 5 mg 1X WARF ONCE PO Last administered on at 15:45; Start 06/21/17 at 16:00; Stop 06/21/17 at 16:01; Status DC Warfarin Sodium (Coumadin) 5 mg 1X WARF ONCE PO Last administered on at 16:56; Start 06/22/17 at 16:00; Stop 06/22/17 at 16:02; Status DC Fluvoxamine Maleate (Luvox) 25 mg DAILY PO Last administered on 06/25/17at 08:46 ; Start 06/23/17 at 09:00; Stop 06/26/17 at 08:59; Status DC Fluvoxamine Maleate (Luvox) 50 mg DAILY PO Last administered on 06/28/17at 10:00 ; Start 06/26/17 at 09:00; Stop 06/28/17 at 18:16; Status DC Warfarin Sodium (Coumadin) 5 mg 1X WARF ONCE PO Last administered on at 16:18; Start 06/23/17 at 16:00; Stop 06/23/17 at 16:01; Status DC Donepezil HCl (Aricept) 10 mg QHS PO Last administered on 07/12/17at 19:49; Start 06/23/17 at 21:00 Warfarin Sodium (Coumadin) 5 mg DAILY16 PO Last administered on 06/29/17 17:05 ; Start 06/24/17 at 16:00; Stop 06/30/17 at 10:43; Status DC Lorazepam (Ativan) 0.25 mg BID PO Last administered on 06/27/17at 20:07; Start at 21:00; Stop 06/27/17 at 22:00; Status DC Lorazepam (Ativan) 0.25 mg DAILY PO Last administered on 06/30/17 09:06; Start 06/28/17 at 09:00; Stop 07/01/17 at 08:59; Status DC Glimepiride (Amaryl) 4 mg BIDWMEALS PO Last administered on 07/12/17at 17:01; Start 06/26/17 at 08:00 Oxycodone HCl (Roxicodone) 5 mg PRN Q6HRS PRN PO PAIN Last administered on 07/12at 08:15; Start 06/25/17 at 18:30 Quetiapine Fumarate (SEROquel) 12.5 mg QID PO ; Start 06/26/17 at 07:00; Stop at 07:00; Status DC Mirtazapine (Remeron) 7.5 mg QHS PO Last administered on 07/01/17at 19:39; Start 06/25/17 at 21:00; Stop 07/02/17 at 18:12; Status DC Quetiapine Fumarate (SEROquel) 12.5 mg 0700,1100,1500,1900 PO Last administered on 07/12/17at 19:51; Start 06/26/17 at 07:00 Lidocaine HCl (Xylocaine 2% Topical 30gm Tube) 1 tori PRN Q6HRS PRN TP PAIN; Start 06/27/17 at 12:00 Fluvoxamine Maleate (Luvox) 75 mg DAILY PO Last administered on 07/01/17at 09:07 ; Start 06/29/17 at 09:00; Stop 07/01/17 at 18:36; Status DC Warfarin Sodium (Coumadin - No Dose Today) 1 each 1X WARF ONCE MC Last administered on 06/30/17at 16:00; Start 06/30/17 at 16:00; Stop 06/30/17 at 16:01; Status DC Warfarin Sodium (Coumadin) 5 mg 1X WARF ONCE PO Last administered on 07/01/17at 17:11; Start 07/01/17 at 16:00; Stop 07/01/17 at 16:01; Status DC Fluvoxamine Maleate (Luvox) 100 mg DAILY PO Last administered on 07/07/17at 08: 39; Start 07/02/17 at 09:00; Stop 07/07/17 at 18:30; Status DC Warfarin Sodium (Coumadin) 5 mg 1X WARF ONCE PO Last administered on 07/02/17at 15:56; Start 07/02/17 at 16:00; Stop 07/02/17 at 16:01; Status DC Mirtazapine (Remeron) 15 mg QHS PO Last administered on 07/02/17at 20:17; Start 07/02/17 at 21:00; Stop 07/03/17 at 18:41; Status DC Warfarin Sodium (Coumadin) 5 mg DAILY16 PO Last administered on 07/12/17at 17:01 ; Start 07/03/17 at 16:00 Trazodone HCl (Desyrel) 100 mg PRN QHS PRN PO insomnia; Start 07/03/17 at 18:45 Trazodone HCl (Desyrel) 100 mg QHS PO Last administered on 07/12/17at 19:50; Start 07/03/17 at 21:00 Amitriptyline HCl (Elavil) 25 mg QHS PO Last administered on 07/10/17at 21:03; Start 07/03/17 at 21:00; Stop 07/11/17 at 10:07; Status DC Fluvoxamine Maleate (Luvox) 100 mg DAILY PO Last administered on 07/12/17 08: 16; Start 07/08/17 at 09:00 Fluvoxamine Maleate (Luvox) 25 mg DAILY PO Last administered on 07/12/17at 08:16 ; Start 07/08/17 at 09:00 Metoprolol Tartrate (Lopressor) 25 mg BID PO Last administered on 07/12/17 19: 49; Start 07/08/17 at 21:00 Amitriptyline HCl (Elavil) 50 mg QHS PO Last administered on 07/12/17 19:50; Start 07/11/17 at 21:00 Melatonin 3 mg PRN QHS PRN PO INSOMNIA; Start 07/11/17 at 10:15 Active Scripts Active Reported Tradjenta (Linagliptin) 5 Mg Tablet 5 Mg PO DAILY Simvastatin 10 Mg Tablet 10 Mg PO DAILY Probiotic (Lactobacillus Combo No.10) 1 Each Capsule 1 Each PO Potassium Chloride 10 Meq Tablet.er 20 Meq PO DAILY Nystatin 15 Gm Cream..g. 1 Tori TP DAILY Sinus Nasal (Oxymetazoline Hcl) 30 Ml [place] 1 [place] NS PRN Q6HRS PRN Metoprolol Tartrate 50 Mg Tablet 50 Mg PO BID Melatonin 3 Mg Tablet 6 Mg PO HS Losartan Potassium 50 Mg Tablet 50 Mg PO DAILY Lorazepam 0.5 Mg Tablet 0.5 Mg PO BID Topicaine (Lidocaine) 113 Gm Gel..gram. 1 Tori TP DAILY Polyethylene Glycol 3350 2,500 Gm Powder 17 Gm PO DAILY Glimepiride 2 Mg Tablet 2 Mg PO BID Furosemide 40 Mg Tablet 40 Mg PO DAILY Coumadin (Warfarin Sodium) 3 Mg Tablet 3.5 Mg PO QHS Clotrimazole 15 Gm Cream..g. 15 Gm TP BID Aricept (Donepezil Hcl) 5 Mg Tablet 5 Mg PO QHS Anusol-Hc (Hydrocortisone Acetate) 25 Mg Supp.rect 1 Supp RC PRN Q8HRS PRN Tylenol (Acetaminophen) 325 Mg Tablet 650 Mg PO PRN Q4HRS PRN I have reviewed the current psychotropics carefully including drug interactions. Risk benefit ratio favors no change other than as noted in my dictated progress note. Diagnosis: Problems: (1) Medical clearance for psychiatric admission (2) Psychosis (3) Anxiety disorder (4) Bipolar affective, mixed, sev w/ psych (5) Dementia in Alzheimer's disease with delusions (6) Impulse control disorder MIMI MCNULTY MD Jul 12, 2017 20:34
--- NOTE | 2017-07-13 00:25 | PN ---
DATE: 07/10/2017 This is a late entry, 07/10/2017, covers the elements not covered in my initial note, 07/10/2017. SUBJECTIVE: I met with the patient in the evening of 07/10/2017, in his room. The patient slept 6-1/4 hours previous evening, appears a little less anxious, still somatically preoccupied, impaired ambulation and wheelchair, complains of back pain. REVIEW OF SYSTEMS: No CV, , pulmonary, eye system symptoms on review. MENTAL STATUS EXAM: Oriented to himself and situation. Speech coherent, has some latency. Eye contact poor, abstraction fair, computation impaired, language function intact. Mood and affect remain somewhat anxious, labile. LABORATORY DATA: Reviewed. IMPRESSION: Unchanged from the initial note. PLAN: Continue psychotropics as mentioned in my initial note. MAN Raquel MCNULTY MD DR: CHERIE/yovana JOB#: [id number] / [id number]
[2017-07-13] MEDS: QUEtiapine 25 MG TABLET. PO SCH ×4 (06:04→19:00)
[2017-07-13 06:07] VITALS: BP 127/58
[2017-07-13] MEDS: METOPROLOL TART IMMED RELEASE 25 MG TABLET PO SCH ×2 (07:54→21:00)
[2017-07-13] MEDS: GLIMEPIRIDE 2 MG TABLET PO SCH ×2 (07:54→16:15)
[2017-07-13] MEDS: FUROSEMIDE 40 MG TABLET PO SCH (07:54)
[2017-07-13] MEDS: LIDOCAINE (700MG/PATCH) PATCH. TD SCH (07:54)
[2017-07-13] MEDS: LINAGLIPTIN 5 MG TABLET PO SCH (07:55)
[2017-07-13] MEDS: NYSTATIN 100,000 UNIT/GM TOPICAL CREAM 15GM TUBE. TP SCH (07:55)
[2017-07-13] MEDS: POTASSIUM CHLORIDE 20 MEQ TABLET.ER. PO SCH (07:55)
[2017-07-13] MEDS: POLYETHYLENE GLYCOL 3350 17 GM PACKET. PO SCH (07:55)
[2017-07-13] MEDS: CLOTRIMAZOLE 1% TOPICAL CREAM 30GM TUBE. TP SCH ×2 (07:55→21:02)
[2017-07-13 07:57] LABS: BASO % 1 % (0-3); EOS # 0.2 x10^3/uL (0.0-0.7); EOS % 3 % (0-3); HEMATOCRIT 40.7 % (39.0-53.0); HEMOGLOBIN 13.9 g/dL (13.0-17.5); LYMPH # 1.1 x10^3/uL (1.0-4.8); LYMPH % 16 % (24-48); MEAN CORPUSCULAR HEMOGLOBIN 28 pg (25-35); MEAN CORPUSCULAR HGB CONC 34 g/dL (31-37); MEAN CORPUSCULAR VOLUME 82 fL (79-100); MONO # 0.6 x10^3/uL (0.0-1.1); MONO % 9 % (0-9); NEUT # 4.7 x10^3uL (1.8-7.7); NEUT % 71 % (31-73); PLATELET COUNT 144 x10^3/uL (140-400); RED BLOOD COUNT 4.95 x10^6/uL (4.30-5.70); RED CELL DISTRIBUTION WIDTH 16.4 % (11.5-14.5); WHITE BLOOD COUNT 6.7 x10^3/uL (4.0-11.0)
[2017-07-13 08:09] LABS: ALBUMIN 3.3 g/dL (3.4-5.0); ALBUMIN/GLOBULIN RATIO 0.8 (1.0-1.7); CALCIUM 9.4 mg/dL (8.5-10.1); CREATININE 1.5 mg/dL (0.7-1.3); GFR 44.9; POTASSIUM 3.8 mmol/L (3.5-5.1); TOTAL BILIRUBIN 0.8 mg/dL (0.2-1.0); TOTAL PROTEIN 7.5 g/dL (6.4-8.2)
[2017-07-13 15:57] VITALS: BP 120/59
[2017-07-13] MEDS: WARFARIN 5 MG TABLET. PO SCH (16:15)
[2017-07-13] MEDS: oxyCODONE IR 5 MG TABLET PO PRN ×2 (18:07→21:13)
[2017-07-13] MEDS: traZODone 100 MG TABLET. PO SCH (21:00)
[2017-07-13] MEDS: AMITRIPTYLINE HCL 50 MG TABLET PO SCH (21:00)
[2017-07-13] MEDS: SIMVASTATIN 10 MG TABLET PO SCH (21:01)
[2017-07-13] MEDS: DONEPEZIL HCL 10 MG TABLET PO SCH (21:01)
--- NOTE | 2017-07-13 22:49 | PDOC ---
Exam Note: Shady Note: Please also refer to the separate dictated note~for this date of service dictated separately.~Patient seen individually. Discussed the patient with Nursing staff reviewed the chart.~Reviewed interim history and current functioning. Reviewed vital signs,~Labs/ Radiology~and current medications noted below. Continue current treatment with the changes noted in the dictated addendum note Assessment: Vital Signs: Vital Signs Date Time Temp Pulse Resp B/P (MAP) Pulse Ox O2 Delivery O2 Flow Rate FiO2 07/13/17 21:00 71 120/59 07/13/17 18:07 20 95 Room Air 07/13/17 15:57 97.8 I&O Intake and Output 07/13/17 07:00 Intake Total 1320 ml Balance 1320 ml Intake Oral 1320 ml # Bowel Movements 1 Labs: Laboratory Tests Test 07/13/17 06:59 07/13/17 07:10 Glucose (Fingerstick) 85 mg/dL (70-99) White Blood Count 6.7 x10^3/uL (4.0-11.0) Red Blood Count 4.95 x10^6/uL (4.30-5.70) Hemoglobin 13.9 g/dL (13.0-17.5) Hematocrit 40.7 % (39.0-53.0) Mean Corpuscular Volume 82 fL (79-100) Mean Corpuscular Hemoglobin 28 pg (25-35) Mean Corpuscular Hemoglobin Concent 34 g/dL (31-37) Red Cell Distribution Width 16.4 % (11.5-14.5) H Platelet Count 144 x10^3/uL (140-400) Neutrophils (%) (Auto) 71 % (31-73) Lymphocytes (%) (Auto) 16 % (24-48) L Monocytes (%) (Auto) 9 % (0-9) Eosinophils (%) (Auto) 3 % (0-3) Basophils (%) (Auto) 1 % (0-3) Neutrophils # (Auto) 4.7 x10^3uL (1.8-7.7) Lymphocytes # (Auto) 1.1 x10^3/uL (1.0-4.8) Monocytes # (Auto) 0.6 x10^3/uL (0.0-1.1) Eosinophils # (Auto) 0.2 x10^3/uL (0.0-0.7) Basophils # (Auto) 0.0 x10^3/uL (0.0-0.2) Sodium Level 139 mmol/L (136-145) Potassium Level 3.8 mmol/L (3.5-5.1) Chloride Level 103 mmol/L (98-107) Carbon Dioxide Level 28 mmol/L (21-32) Anion Gap 8 (6-14) Blood Urea Nitrogen 25 mg/dL (8-26) Creatinine 1.5 mg/dL (0.7-1.3) H Estimated GFR (Cockcroft-Gault) 44.9 BUN/Creatinine Ratio 17 (6-20) Glucose Level 79 mg/dL (70-99) Calcium Level 9.4 mg/dL (8.5-10.1) Total Bilirubin 0.8 mg/dL (0.2-1.0) Aspartate Amino Transferase (AST) 31 U/L (15-37) Alanine Aminotransferase (ALT) 18 U/L (16-63) Alkaline Phosphatase 110 U/L (46-116) Total Protein 7.5 g/dL (6.4-8.2) Albumin 3.3 g/dL (3.4-5.0) L Albumin/Globulin Ratio 0.8 (1.0-1.7) L Current Medications: Meds: Current Medications Acetaminophen (Tylenol) 650 mg PRN Q6HRS PRN PO PAIN / TEMP Last administered on 06/20/17at 09:28; Start 06/19/17 at 14:00; Stop 06/20/17 at 10:20; Status DC Multi-Ingredient Ointment (Analgesic [place]) 1 tori PRN QID PRN TP MUSCLE PAIN; Start 06/19/17 at 14:00 Al Hydroxide/Mg Hydroxide (Mylanta Plus Xs) 15 ml PRN AFTMEALHC PRN PO DYSPEPSIA; Start 06/19/17 at 14:00 Magnesium Hydroxide (Milk Of Magnesia) 2,400 mg PRN QHS PRN PO CONSTIPATION; Start 06/19/17 at 14:00 Donepezil HCl (Aricept) 5 mg QHS PO Last administered on 06/22/17at 20:13; Start 06/19/17 at 21:00; Stop 06/23/17 at 16:14; Status DC Lorazepam (Ativan) 0.5 mg BID PO Last administered on 06/24/17at 08:40; Start at 21:00; Stop 06/24/17 at 19:12; Status DC Melatonin 6 mg QHS PO Last administered on 06/24/17at 20:31; Start 06/19/17 at 21:00; Stop 06/25/17 at 18:57; Status DC Glimepiride (Amaryl) 2 mg BIDWMEALS PO Last administered on 06/25/17at 17:33; Start 06/19/17 at 17:00; Stop 06/25/17 at 18:22; Status DC Metoprolol Tartrate (Lopressor) 50 mg BID PO Last administered on 07/07/17at 19: 41; Start 06/19/17 at 21:00; Stop 07/08/17 at 14:26; Status DC Warfarin Sodium (Coumadin) 2.5 mg QHS PO Last administered on 06/20/17at 20:15; Start 06/19/17 at 21:00; Stop 06/21/17 at 14:13; Status DC Warfarin Sodium (Coumadin Per Physician) 1 each PRN DAILY PRN MC SEE COMMENTS Last administered on 06/20/17at 10:54; Start 06/19/17 at 16:00; Stop 06/20/17 at 14:41; Status DC Warfarin Sodium (Coumadin) 1 mg QHS PO Last administered on 06/20/17at 20:15; Start 06/19/17 at 21:00; Stop 06/21/17 at 14:14; Status DC Acetaminophen (Tylenol) 650 mg PRN Q4HRS PRN PO PAIN Last administered on at 17:06; Start 06/20/17 at 10:15 Clotrimazole (Lotrimin) 15 tori BID TP ; Start 06/20/17 at 21:00; Stop 06/20/17 at 21:00; Status DC Furosemide (Lasix) 40 mg DAILY PO Last administered on 07/13/17at 07:54; Start 06/20/17 at 12:00 Hydrocortisone Acetate (Anucort-Hc) 25 mg PRN Q8HRS PRN RC hemmorhoid discomfort; Start 06/20/17 at 10:15 Linagliptin (Tradjenta) 5 mg DAILY PO Last administered on 07/13/17 07:55; Start 06/20/17 at 12:00 Losartan Potassium (Cozaar) 50 mg DAILY PO Last administered on 06/27/17at 09:00 ; Start 06/20/17 at 12:00; Stop 07/01/17 at 13:35; Status DC Nystatin (Mycostatin) 1 tori DAILY TP Last administered on 07/13/17at 07:55; Start 06/20/17 at 12:00 Oxymetazoline HCl (Afrin) 1 spray PRN Q6HRS PRN NS dry nares Last administered on 06/20/17at 12:08; Start 06/20/17 at 10:15 Simvastatin (Zocor) 10 mg QHS PO Last administered on 07/13/17 21:01; Start at 21:00 Lidocaine HCl (Xylocaine 2% Topical 30gm Tube) 1 tori DAILY TP Last administered on 06/24/17 08:42; Start 06/20/17 at 12:00; Stop 06/26/17 at 15:33 ; Status DC Polyethylene Glycol (miraLAX) 17 gm DAILY PO Last administered on 07/13/17at 07: 55; Start 06/20/17 at 12:00 Potassium Chloride (Klor-Con) 20 meq DAILYWBKFT PO Last administered on at 07:55; Start 06/20/17 at 12:00 Quetiapine Fumarate (SEROquel) 12.5 mg TID@0900,1300,1700 PO Last administered on 06/25/17at 17:33; Start 06/20/17 at 13:00; Stop 06/25/17 at 18:57; Status DC Trazodone HCl (Desyrel) 50 mg QHS PO Last administered on 07/02/17 20:18; Start 06/20/17 at 21:00; Stop 07/03/17 at 18:41; Status DC Trazodone HCl (Desyrel) 50 mg PRN QHS PRN PO insomnia Last administered on 01:15; Start 06/20/17 at 21:00; Stop 07/03/17 at 18:41; Status DC Tramadol HCl (Ultram) 50 mg PRN Q6HRS PRN PO PAIN Last administered on at 17:49; Start 06/20/17 at 11:15 Lidocaine (Lidoderm) 1 patch DAILY TD Last administered on 07/13/17at 07:54; Start 06/20/17 at 12:00 Warfarin Sodium (Coumadin Per Pharmacy) 1 each PRN DAILY PRN MC SEE COMMENTS Last administered on 07/10/17at 12:48; Start 06/20/17 at 14:45 Clotrimazole (Lotrimin) 1 tori BID TP Last administered on 07/13/17at 21:02; Start 06/20/17 at 21:00 Warfarin Sodium (Coumadin Per Pharmacy) 1 each PRN DAILY PRN MC SEE COMMENTS; Start 06/21/17 at 14:00; Stop 06/21/17 at 14:00; Status DC Vitamin D (Vitamin D3) 50,000 unit WEEKLY PO Last administered on 07/12/17at 08: 19; Start 06/21/17 at 14:00 Warfarin Sodium (Coumadin) 5 mg 1X WARF ONCE PO Last administered on at 15:45; Start 06/21/17 at 16:00; Stop 06/21/17 at 16:01; Status DC Warfarin Sodium (Coumadin) 5 mg 1X WARF ONCE PO Last administered on at 16:56; Start 06/22/17 at 16:00; Stop 06/22/17 at 16:02; Status DC Fluvoxamine Maleate (Luvox) 25 mg DAILY PO Last administered on 06/25/17at 08:46 ; Start 06/23/17 at 09:00; Stop 06/26/17 at 08:59; Status DC Fluvoxamine Maleate (Luvox) 50 mg DAILY PO Last administered on 06/28/17at 10:00 ; Start 06/26/17 at 09:00; Stop 06/28/17 at 18:16; Status DC Warfarin Sodium (Coumadin) 5 mg 1X WARF ONCE PO Last administered on at 16:18; Start 06/23/17 at 16:00; Stop 06/23/17 at 16:01; Status DC Donepezil HCl (Aricept) 10 mg QHS PO Last administered on 07/13/17at 21:01; Start 06/23/17 at 21:00 Warfarin Sodium (Coumadin) 5 mg DAILY16 PO Last administered on 06/29/17 17:05 ; Start 06/24/17 at 16:00; Stop 06/30/17 at 10:43; Status DC Lorazepam (Ativan) 0.25 mg BID PO Last administered on 06/27/17at 20:07; Start at 21:00; Stop 06/27/17 at 22:00; Status DC Lorazepam (Ativan) 0.25 mg DAILY PO Last administered on 06/30/17 09:06; Start 06/28/17 at 09:00; Stop 07/01/17 at 08:59; Status DC Glimepiride (Amaryl) 4 mg BIDWMEALS PO Last administered on 07/13/17 16:15; Start 06/26/17 at 08:00 Oxycodone HCl (Roxicodone) 5 mg PRN Q6HRS PRN PO PAIN Last administered on 07/13at 21:13; Start 06/25/17 at 18:30 Quetiapine Fumarate (SEROquel) 12.5 mg QID PO ; Start 06/26/17 at 07:00; Stop at 07:00; Status DC Mirtazapine (Remeron) 7.5 mg QHS PO Last administered on 07/01/17at 19:39; Start 06/25/17 at 21:00; Stop 07/02/17 at 18:12; Status DC Quetiapine Fumarate (SEROquel) 12.5 mg 0700,1100,1500,1900 PO Last administered on 07/13/17at 19:00; Start 06/26/17 at 07:00 Lidocaine HCl (Xylocaine 2% Topical 30gm Tube) 1 tori PRN Q6HRS PRN TP PAIN; Start 06/27/17 at 12:00 Fluvoxamine Maleate (Luvox) 75 mg DAILY PO Last administered on 07/01/17 09:07 ; Start 06/29/17 at 09:00; Stop 07/01/17 at 18:36; Status DC Warfarin Sodium (Coumadin - No Dose Today) 1 each 1X WARF ONCE MC Last administered on 06/30/17at 16:00; Start 06/30/17 at 16:00; Stop 06/30/17 at 16:01; Status DC Warfarin Sodium (Coumadin) 5 mg 1X WARF ONCE PO Last administered on 07/01/17at 17:11; Start 07/01/17 at 16:00; Stop 07/01/17 at 16:01; Status DC Fluvoxamine Maleate (Luvox) 100 mg DAILY PO Last administered on 07/07/17at 08: 39; Start 07/02/17 at 09:00; Stop 07/07/17 at 18:30; Status DC Warfarin Sodium (Coumadin) 5 mg 1X WARF ONCE PO Last administered on 07/02/17at 15:56; Start 07/02/17 at 16:00; Stop 07/02/17 at 16:01; Status DC Mirtazapine (Remeron) 15 mg QHS PO Last administered on 07/02/17at 20:17; Start 07/02/17 at 21:00; Stop 07/03/17 at 18:41; Status DC Warfarin Sodium (Coumadin) 5 mg DAILY16 PO Last administered on 07/13/17at 16:15 ; Start 07/03/17 at 16:00 Trazodone HCl (Desyrel) 100 mg PRN QHS PRN PO insomnia; Start 07/03/17 at 18:45 Trazodone HCl (Desyrel) 100 mg QHS PO Last administered on 07/13/17at 21:00; Start 07/03/17 at 21:00 Amitriptyline HCl (Elavil) 25 mg QHS PO Last administered on 07/10/17at 21:03; Start 07/03/17 at 21:00; Stop 07/11/17 at 10:07; Status DC Fluvoxamine Maleate (Luvox) 100 mg DAILY PO Last administered on 07/13/17at 07: 54; Start 07/08/17 at 09:00 Fluvoxamine Maleate (Luvox) 25 mg DAILY PO Last administered on 07/13/17at 07:54 ; Start 07/08/17 at 09:00 Metoprolol Tartrate (Lopressor) 25 mg BID PO Last administered on 07/13/17at 07: 54; Start 07/08/17 at 21:00 Amitriptyline HCl (Elavil) 50 mg QHS PO Last administered on 07/13/17at 21:00; Start 07/11/17 at 21:00 Melatonin 3 mg PRN QHS PRN PO INSOMNIA; Start 07/11/17 at 10:15 Active Scripts Active Reported Tradjenta (Linagliptin) 5 Mg Tablet 5 Mg PO DAILY Simvastatin 10 Mg Tablet 10 Mg PO DAILY Probiotic (Lactobacillus Combo No.10) 1 Each Capsule 1 Each PO Potassium Chloride 10 Meq Tablet.er 20 Meq PO DAILY Nystatin 15 Gm Cream..g. 1 Tori TP DAILY Sinus Nasal (Oxymetazoline Hcl) 30 Ml [place] 1 [place] NS PRN Q6HRS PRN Metoprolol Tartrate 50 Mg Tablet 50 Mg PO BID Melatonin 3 Mg Tablet 6 Mg PO HS Losartan Potassium 50 Mg Tablet 50 Mg PO DAILY Lorazepam 0.5 Mg Tablet 0.5 Mg PO BID Topicaine (Lidocaine) 113 Gm Gel..gram. 1 Tori TP DAILY Polyethylene Glycol 3350 2,500 Gm Powder 17 Gm PO DAILY Glimepiride 2 Mg Tablet 2 Mg PO BID Furosemide 40 Mg Tablet 40 Mg PO DAILY Coumadin (Warfarin Sodium) 3 Mg Tablet 3.5 Mg PO QHS Clotrimazole 15 Gm Cream..g. 15 Gm TP BID Aricept (Donepezil Hcl) 5 Mg Tablet 5 Mg PO QHS Anusol-Hc (Hydrocortisone Acetate) 25 Mg Supp.rect 1 Supp RC PRN Q8HRS PRN Tylenol (Acetaminophen) 325 Mg Tablet 650 Mg PO PRN Q4HRS PRN I have reviewed the current psychotropics carefully including drug interactions. Risk benefit ratio favors no change other than as noted in my dictated progress note. Diagnosis: Problems: (1) Atrial fibrillation (2) Diabetes mellitus (3) Chronic renal insufficiency (4) Medical clearance for psychiatric admission (5) Psychosis (6) Anxiety disorder (7) Bipolar affective, mixed, sev w/ psych (8) Dementia in Alzheimer's disease with delusions (9) Impulse control disorder MIMI MCNULTY MD Jul 13, 2017 22:49
--- NOTE | 2017-07-13 23:30 | PN ---
DATE: 07/11/2017 This is a late entry, 07/11/2017, covers the elements no covered in my initial note, 07/11/2017. SUBJECTIVE: I met with the patient in the evening of 07/11/2017, staffed at a treatment team meeting with the entire team in the morning, sleeping average 6-1/4 hours, slept 2-1/2 hours previous evening. Urinated on the dining room floor. No participation, anxious. Appetite fair. Ambulation impaired, in wheelchair. REVIEW OF SYSTEMS: No CV, , pulmonary, eye system symptoms on review. MENTAL STATUS EXAM: Oriented to himself and situation. Speech moderate latency, often response is monosyllabic. He complains of back pain. Does have a thoracolumbar fracture, defer to outpatient orthopedic. Insight limited, judgment marginal, language function intact. Mood and affect somewhat anxious, labile, but improved. LABORATORY DATA: Reviewed. IMPRESSION: Unchanged from initial note. PLAN: Continue current psychotropics, increase amitriptyline to 50 mg at bedtime to compensate for the insomnia. MAN Raquel MCNULTY MD DR: CHERIE/yovana JOB#: [id number] / [id number]
--- NOTE | 2017-07-14 01:51 | PN ---
DATE: 07/12/2017 PSYCHIATRIC PROGRESS NOTE This late entry 07/12/2017 covers elements, not covered in my initial note of 07/12/2017. I met with the patient evening of 07/12/2017. The patient refused his bedtime medications, took them during the day on 07/12/2017. REVIEW OF SYSTEMS: Ambulation impaired, in a wheelchair. No CV, , pulmonary, eye system symptoms on review. MENTAL STATUS EXAM: Reasonably oriented to himself and situation. Does complain of some back pain. Abstraction fair, computation impaired, language function intact, attention span short. Mood and affect appear bright at times, less depressed. LABORATORY DATA: Reviewed. IMPRESSION: Unchanged from initial note. PLAN: Continue current psychotropics. MAN Raquel MCNULTY MD DR: CHERIE/yovana JOB#: [id number] / [id number]
[2017-07-14 05:59] VITALS: BP 120/55
[2017-07-14] MEDS: QUEtiapine 25 MG TABLET. PO SCH ×4 (06:07→18:38)
[2017-07-14] MEDS: POLYETHYLENE GLYCOL 3350 17 GM PACKET. PO SCH (07:56)
[2017-07-14] MEDS: LIDOCAINE (700MG/PATCH) PATCH. TD SCH (07:56)
[2017-07-14] MEDS: METOPROLOL TART IMMED RELEASE 25 MG TABLET PO SCH ×2 (07:57→21:00)
[2017-07-14] MEDS: GLIMEPIRIDE 2 MG TABLET PO SCH ×2 (07:57→17:35)
[2017-07-14] MEDS: LINAGLIPTIN 5 MG TABLET PO SCH (07:58)
[2017-07-14] MEDS: FUROSEMIDE 40 MG TABLET PO SCH (07:58)
[2017-07-14] MEDS: POTASSIUM CHLORIDE 20 MEQ TABLET.ER. PO SCH (07:59)
[2017-07-14] MEDS: NYSTATIN 100,000 UNIT/GM TOPICAL CREAM 15GM TUBE. TP SCH (09:00)
[2017-07-14] MEDS: CLOTRIMAZOLE 1% TOPICAL CREAM 30GM TUBE. TP SCH ×2 (09:00→21:02)
[2017-07-14] MEDS: oxyCODONE IR 5 MG TABLET PO PRN (12:35)
[2017-07-14 16:03] VITALS: BP 114/55
[2017-07-14] MEDS: WARFARIN 5 MG TABLET. PO SCH (17:35)
[2017-07-14] MEDS: traMADol 50 MG TABLET PO PRN (17:35)
--- NOTE | 2017-07-14 20:48 | PDOC ---
Exam Note: Shady Note: Please also refer to the separate dictated note~for this date of service dictated separately.~Patient seen individually. Discussed the patient with Nursing staff reviewed the chart.~Reviewed interim history and current functioning. Reviewed vital signs,~Labs/ Radiology~and current medications noted below. Continue current treatment with the changes noted in the dictated addendum note Assessment: Vital Signs: Vital Signs Date Time Temp Pulse Resp B/P (MAP) Pulse Ox O2 Delivery O2 Flow Rate FiO2 07/14/17 18:35 2 95 07/14/17 17:35 Room Air 07/14/17 16:03 97.2 68 114/55 (74) I&O Intake and Output 07/14/17 07:00 Intake Total 1000 ml Balance 1000 ml Intake Oral 1000 ml # Bowel Movements 1 Labs: Laboratory Tests Test 07/14/17 07:50 07/14/17 08:03 07/14/17 19:20 Prothrombin Time 28.4 SEC (9.4-11.4) H Prothrombin Time INR 2.8 (0.9-1.1) H Glucose (Fingerstick) 70 mg/dL (70-99) 171 mg/dL (70-99) H Current Medications: Meds: Current Medications Acetaminophen (Tylenol) 650 mg PRN Q6HRS PRN PO PAIN / TEMP Last administered on 06/20/17at 09:28; Start 06/19/17 at 14:00; Stop 06/20/17 at 10:20; Status DC Multi-Ingredient Ointment (Analgesic [place]) 1 tori PRN QID PRN TP MUSCLE PAIN; Start 06/19/17 at 14:00 Al Hydroxide/Mg Hydroxide (Mylanta Plus Xs) 15 ml PRN AFTMEALHC PRN PO DYSPEPSIA; Start 06/19/17 at 14:00 Magnesium Hydroxide (Milk Of Magnesia) 2,400 mg PRN QHS PRN PO CONSTIPATION; Start 06/19/17 at 14:00 Donepezil HCl (Aricept) 5 mg QHS PO Last administered on 06/22/17at 20:13; Start 06/19/17 at 21:00; Stop 06/23/17 at 16:14; Status DC Lorazepam (Ativan) 0.5 mg BID PO Last administered on 06/24/17at 08:40; Start at 21:00; Stop 06/24/17 at 19:12; Status DC Melatonin 6 mg QHS PO Last administered on 06/24/17at 20:31; Start 06/19/17 at 21:00; Stop 06/25/17 at 18:57; Status DC Glimepiride (Amaryl) 2 mg BIDWMEALS PO Last administered on 06/25/17at 17:33; Start 06/19/17 at 17:00; Stop 06/25/17 at 18:22; Status DC Metoprolol Tartrate (Lopressor) 50 mg BID PO Last administered on 07/07/17at 19: 41; Start 06/19/17 at 21:00; Stop 07/08/17 at 14:26; Status DC Warfarin Sodium (Coumadin) 2.5 mg QHS PO Last administered on 06/20/17at 20:15; Start 06/19/17 at 21:00; Stop 06/21/17 at 14:13; Status DC Warfarin Sodium (Coumadin Per Physician) 1 each PRN DAILY PRN MC SEE COMMENTS Last administered on 06/20/17at 10:54; Start 06/19/17 at 16:00; Stop 06/20/17 at 14:41; Status DC Warfarin Sodium (Coumadin) 1 mg QHS PO Last administered on 06/20/17at 20:15; Start 06/19/17 at 21:00; Stop 06/21/17 at 14:14; Status DC Acetaminophen (Tylenol) 650 mg PRN Q4HRS PRN PO PAIN Last administered on at 17:06; Start 06/20/17 at 10:15 Clotrimazole (Lotrimin) 15 tori BID TP ; Start 06/20/17 at 21:00; Stop 06/20/17 at 21:00; Status DC Furosemide (Lasix) 40 mg DAILY PO Last administered on 07/14/17at 07:58; Start 06/20/17 at 12:00 Hydrocortisone Acetate (Anucort-Hc) 25 mg PRN Q8HRS PRN RC hemmorhoid discomfort; Start 06/20/17 at 10:15 Linagliptin (Tradjenta) 5 mg DAILY PO Last administered on 07/14/17at 07:58; Start 06/20/17 at 12:00 Losartan Potassium (Cozaar) 50 mg DAILY PO Last administered on 06/27/17 09:00 ; Start 06/20/17 at 12:00; Stop 07/01/17 at 13:35; Status DC Nystatin (Mycostatin) 1 tori DAILY TP Last administered on 07/14/17at 09:00; Start 06/20/17 at 12:00 Oxymetazoline HCl (Afrin) 1 spray PRN Q6HRS PRN NS dry nares Last administered on 06/20/17at 12:08; Start 06/20/17 at 10:15 Simvastatin (Zocor) 10 mg QHS PO Last administered on 07/13/17 21:01; Start at 21:00 Lidocaine HCl (Xylocaine 2% Topical 30gm Tube) 1 tori DAILY TP Last administered on 06/24/17 08:42; Start 06/20/17 at 12:00; Stop 06/26/17 at 15:33 ; Status DC Polyethylene Glycol (miraLAX) 17 gm DAILY PO Last administered on 07/14/17at 07: 56; Start 06/20/17 at 12:00 Potassium Chloride (Klor-Con) 20 meq DAILYWBKFT PO Last administered on 07:59; Start 06/20/17 at 12:00 Quetiapine Fumarate (SEROquel) 12.5 mg TID@0900,1300,1700 PO Last administered on 06/25/17 17:33; Start 06/20/17 at 13:00; Stop 06/25/17 at 18:57; Status DC Trazodone HCl (Desyrel) 50 mg QHS PO Last administered on 07/02/17 20:18; Start 06/20/17 at 21:00; Stop 07/03/17 at 18:41; Status DC Trazodone HCl (Desyrel) 50 mg PRN QHS PRN PO insomnia Last administered on 01:15; Start 06/20/17 at 21:00; Stop 07/03/17 at 18:41; Status DC Tramadol HCl (Ultram) 50 mg PRN Q6HRS PRN PO PAIN Last administered on 17:35; Start 06/20/17 at 11:15 Lidocaine (Lidoderm) 1 patch DAILY TD Last administered on 07/14/17at 07:56; Start 06/20/17 at 12:00 Warfarin Sodium (Coumadin Per Pharmacy) 1 each PRN DAILY PRN MC SEE COMMENTS Last administered on 07/10/17at 12:48; Start 06/20/17 at 14:45 Clotrimazole (Lotrimin) 1 tori BID TP Last administered on 07/13/17at 21:02; Start 06/20/17 at 21:00 Warfarin Sodium (Coumadin Per Pharmacy) 1 each PRN DAILY PRN MC SEE COMMENTS; Start 06/21/17 at 14:00; Stop 06/21/17 at 14:00; Status DC Vitamin D (Vitamin D3) 50,000 unit WEEKLY PO Last administered on 07/12/17at 08: 19; Start 06/21/17 at 14:00 Warfarin Sodium (Coumadin) 5 mg 1X WARF ONCE PO Last administered on at 15:45; Start 06/21/17 at 16:00; Stop 06/21/17 at 16:01; Status DC Warfarin Sodium (Coumadin) 5 mg 1X WARF ONCE PO Last administered on at 16:56; Start 06/22/17 at 16:00; Stop 06/22/17 at 16:02; Status DC Fluvoxamine Maleate (Luvox) 25 mg DAILY PO Last administered on 06/25/17at 08:46 ; Start 06/23/17 at 09:00; Stop 06/26/17 at 08:59; Status DC Fluvoxamine Maleate (Luvox) 50 mg DAILY PO Last administered on 06/28/17at 10:00 ; Start 06/26/17 at 09:00; Stop 06/28/17 at 18:16; Status DC Warfarin Sodium (Coumadin) 5 mg 1X WARF ONCE PO Last administered on at 16:18; Start 06/23/17 at 16:00; Stop 06/23/17 at 16:01; Status DC Donepezil HCl (Aricept) 10 mg QHS PO Last administered on 07/13/17at 21:01; Start 06/23/17 at 21:00 Warfarin Sodium (Coumadin) 5 mg DAILY16 PO Last administered on 06/29/17at 17:05 ; Start 06/24/17 at 16:00; Stop 06/30/17 at 10:43; Status DC Lorazepam (Ativan) 0.25 mg BID PO Last administered on 06/27/17at 20:07; Start at 21:00; Stop 06/27/17 at 22:00; Status DC Lorazepam (Ativan) 0.25 mg DAILY PO Last administered on 06/30/17at 09:06; Start 06/28/17 at 09:00; Stop 07/01/17 at 08:59; Status DC Glimepiride (Amaryl) 4 mg BIDWMEALS PO Last administered on 07/14/17at 17:35; Start 06/26/17 at 08:00 Oxycodone HCl (Roxicodone) 5 mg PRN Q6HRS PRN PO PAIN Last administered on 07/14at 12:35; Start 06/25/17 at 18:30 Quetiapine Fumarate (SEROquel) 12.5 mg QID PO ; Start 06/26/17 at 07:00; Stop at 07:00; Status DC Mirtazapine (Remeron) 7.5 mg QHS PO Last administered on 07/01/17at 19:39; Start 06/25/17 at 21:00; Stop 07/02/17 at 18:12; Status DC Quetiapine Fumarate (SEROquel) 12.5 mg 0700,1100,1500,1900 PO Last administered on 07/14/17at 18:38; Start 06/26/17 at 07:00 Lidocaine HCl (Xylocaine 2% Topical 30gm Tube) 1 tori PRN Q6HRS PRN TP PAIN; Start 06/27/17 at 12:00 Fluvoxamine Maleate (Luvox) 75 mg DAILY PO Last administered on 07/01/17at 09:07 ; Start 06/29/17 at 09:00; Stop 07/01/17 at 18:36; Status DC Warfarin Sodium (Coumadin - No Dose Today) 1 each 1X WARF ONCE MC Last administered on 06/30/17at 16:00; Start 06/30/17 at 16:00; Stop 06/30/17 at 16:01; Status DC Warfarin Sodium (Coumadin) 5 mg 1X WARF ONCE PO Last administered on 07/01/17 17:11; Start 07/01/17 at 16:00; Stop 07/01/17 at 16:01; Status DC Fluvoxamine Maleate (Luvox) 100 mg DAILY PO Last administered on 07/07/17at 08: 39; Start 07/02/17 at 09:00; Stop 07/07/17 at 18:30; Status DC Warfarin Sodium (Coumadin) 5 mg 1X WARF ONCE PO Last administered on 07/02/17at 15:56; Start 07/02/17 at 16:00; Stop 07/02/17 at 16:01; Status DC Mirtazapine (Remeron) 15 mg QHS PO Last administered on 07/02/17 20:17; Start 07/02/17 at 21:00; Stop 07/03/17 at 18:41; Status DC Warfarin Sodium (Coumadin) 5 mg DAILY16 PO Last administered on 07/14/17at 17:35 ; Start 07/03/17 at 16:00 Trazodone HCl (Desyrel) 100 mg PRN QHS PRN PO insomnia; Start 07/03/17 at 18:45 Trazodone HCl (Desyrel) 100 mg QHS PO Last administered on 07/13/17at 21:00; Start 07/03/17 at 21:00 Amitriptyline HCl (Elavil) 25 mg QHS PO Last administered on 07/10/17at 21:03; Start 07/03/17 at 21:00; Stop 07/11/17 at 10:07; Status DC Fluvoxamine Maleate (Luvox) 100 mg DAILY PO Last administered on 07/14/17at 07: 56; Start 07/08/17 at 09:00 Fluvoxamine Maleate (Luvox) 25 mg DAILY PO Last administered on 07/14/17 07:57 ; Start 07/08/17 at 09:00 Metoprolol Tartrate (Lopressor) 25 mg BID PO Last administered on 07/13/17 07: 54; Start 07/08/17 at 21:00 Amitriptyline HCl (Elavil) 50 mg QHS PO Last administered on 07/13/17at 21:00; Start 07/11/17 at 21:00 Melatonin 3 mg PRN QHS PRN PO INSOMNIA; Start 07/11/17 at 10:15 Active Scripts Active Reported Tradjenta (Linagliptin) 5 Mg Tablet 5 Mg PO DAILY Simvastatin 10 Mg Tablet 10 Mg PO DAILY Probiotic (Lactobacillus Combo No.10) 1 Each Capsule 1 Each PO Potassium Chloride 10 Meq Tablet.er 20 Meq PO DAILY Nystatin 15 Gm Cream..g. 1 Tori TP DAILY Sinus Nasal (Oxymetazoline Hcl) 30 Ml [place] 1 [place] NS PRN Q6HRS PRN Metoprolol Tartrate 50 Mg Tablet 50 Mg PO BID Melatonin 3 Mg Tablet 6 Mg PO HS Losartan Potassium 50 Mg Tablet 50 Mg PO DAILY Lorazepam 0.5 Mg Tablet 0.5 Mg PO BID Topicaine (Lidocaine) 113 Gm Gel..gram. 1 Tori TP DAILY Polyethylene Glycol 3350 2,500 Gm Powder 17 Gm PO DAILY Glimepiride 2 Mg Tablet 2 Mg PO BID Furosemide 40 Mg Tablet 40 Mg PO DAILY Coumadin (Warfarin Sodium) 3 Mg Tablet 3.5 Mg PO QHS Clotrimazole 15 Gm Cream..g. 15 Gm TP BID Aricept (Donepezil Hcl) 5 Mg Tablet 5 Mg PO QHS Anusol-Hc (Hydrocortisone Acetate) 25 Mg Supp.rect 1 Supp RC PRN Q8HRS PRN Tylenol (Acetaminophen) 325 Mg Tablet 650 Mg PO PRN Q4HRS PRN I have reviewed the current psychotropics carefully including drug interactions. Risk benefit ratio favors no change other than as noted in my dictated progress note. 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
--- NOTE | 2017-07-14 21:01 | PN ---
DATE: 07/13/2017 This is a late entry 07/13/2017 covers elements not covered in my initial note 07/13/2017. Met with the patient in the evening of 07/13/2017. The patient slept 5-3/4 hours previous evening, somewhat improved in his mood, less mcdaniels per nursing report, pleasant, thanking staff for helping him, which is all an improvement. REVIEW OF SYSTEMS: Ambulation impaired, in wheelchair, complains of back pain. No CV, , pulmonary, eye system symptoms on review. MENTAL STATUS EXAM: Oriented to himself and situation. Speech has some latency, coherent. Abstraction fair, computation impaired, language function intact. Mood and affect remain somewhat withdrawn, but improved, less depressed. LABORATORY DATA: Reviewed. IMPRESSION: Unchanged from initial note. PLAN: Continue psychotropics. MAN Raquel MCNULTY MD DR: CHERIE/yovana JOB#: [id number] / [id number]
[2017-07-14] MEDS: traZODone 100 MG TABLET. PO SCH (21:02)
[2017-07-14] MEDS: DONEPEZIL HCL 10 MG TABLET PO SCH (21:02)
[2017-07-14] MEDS: SIMVASTATIN 10 MG TABLET PO SCH (21:03)
[2017-07-14] MEDS: AMITRIPTYLINE HCL 50 MG TABLET PO SCH (21:03)
[2017-07-15 06:11] VITALS: BP 121/55
[2017-07-15] MEDS: QUEtiapine 25 MG TABLET. PO SCH ×4 (06:13→17:50)
[2017-07-15] MEDS: LINAGLIPTIN 5 MG TABLET PO SCH (08:02)
[2017-07-15] MEDS: LIDOCAINE (700MG/PATCH) PATCH. TD SCH (08:02)
[2017-07-15] MEDS: POLYETHYLENE GLYCOL 3350 17 GM PACKET. PO SCH (08:02)
[2017-07-15] MEDS: FUROSEMIDE 40 MG TABLET PO SCH (08:03)
[2017-07-15] MEDS: POTASSIUM CHLORIDE 20 MEQ TABLET.ER. PO SCH (08:04)
[2017-07-15] MEDS: GLIMEPIRIDE 2 MG TABLET PO SCH ×2 (08:04→16:49)
[2017-07-15] MEDS: oxyCODONE IR 5 MG TABLET PO PRN (08:06)
[2017-07-15] MEDS: NYSTATIN 100,000 UNIT/GM TOPICAL CREAM 15GM TUBE. TP SCH (10:02)
[2017-07-15] MEDS: CLOTRIMAZOLE 1% TOPICAL CREAM 30GM TUBE. TP SCH ×2 (10:02→19:27)
[2017-07-15 10:39] VITALS: BP 123/71
[2017-07-15] MEDS: METOPROLOL TART IMMED RELEASE 25 MG TABLET PO SCH ×2 (10:50→19:25)
[2017-07-15 15:14] VITALS: BP 126/74
[2017-07-15] MEDS: WARFARIN 5 MG TABLET. PO SCH (15:24)
[2017-07-15] MEDS: traMADol 50 MG TABLET PO PRN (17:51)
[2017-07-15] MEDS: traZODone 100 MG TABLET. PO SCH (19:25)
[2017-07-15] MEDS: DONEPEZIL HCL 10 MG TABLET PO SCH (19:25)
[2017-07-15] MEDS: SIMVASTATIN 10 MG TABLET PO SCH (19:26)
[2017-07-15] MEDS: AMITRIPTYLINE HCL 50 MG TABLET PO SCH (19:26)
--- NOTE | 2017-07-15 20:39 | PN ---
DATE: 07/14/2017 This late entry 07/14/2017 covers elements not covered in my initial note 07/14/2017. Met with the patient in the evening of 07/14/2017. Per nursing report, the patient had a better day. He is still anxious, needy, but tries to do more for himself, sleeping better. REVIEW OF SYSTEMS: Positive for back pain, impaired ambulation, in wheelchair. No CV, , pulmonary, eye system symptoms on review. MENTAL STATUS EXAM: Poor eye contact, typical for him. Speech coherent, abstraction fair, computation impaired, language function intact, attention span short. Mood and affect, somewhat anxious, obsessive. LABORATORY DATA: Reviewed. No suicidal or homicidal ideation. IMPRESSION: Unchanged from initial note. PLAN: Continue current psychotropics in my initial note. Possible transition to a lower level of care 07/15/2017. MAN Raquel MCNULTY MD DR: CHERIE/yovana JOB#: [id number] / [id number]
--- NOTE | 2017-07-15 20:55 | PDOC ---
Exam Note: Shady Note: Please also refer to the separate dictated note~for this date of service dictated separately.~Patient seen individually. Discussed the patient with Nursing staff reviewed the chart.~Reviewed interim history and current functioning. Reviewed vital signs,~Labs/ Radiology~and current medications noted below. Continue current treatment with the changes noted in the dictated addendum note Assessment: Vital Signs: Vital Signs Date Time Temp Pulse Resp B/P (MAP) Pulse Ox O2 Delivery O2 Flow Rate FiO2 07/15/17 19:25 64 126/74 07/15/17 18:51 18 92 Room Air 07/15/17 15:14 97.2 I&O Intake and Output 07/15/17 07:00 Intake Total 1320 ml Balance 1320 ml Intake Oral 1320 ml Labs: Laboratory Tests Test 07/15/17 07:29 07/15/17 19:19 Glucose (Fingerstick) 77 mg/dL (70-99) 164 mg/dL (70-99) H Current Medications: Meds: Current Medications Acetaminophen (Tylenol) 650 mg PRN Q6HRS PRN PO PAIN / TEMP Last administered on 06/20/17at 09:28; Start 06/19/17 at 14:00; Stop 06/20/17 at 10:20; Status DC Multi-Ingredient Ointment (Analgesic [place]) 1 tori PRN QID PRN TP MUSCLE PAIN Last administered on 07/14/17at 21:02; Start 06/19/17 at 14:00 Al Hydroxide/Mg Hydroxide (Mylanta Plus Xs) 15 ml PRN AFTMEALHC PRN PO DYSPEPSIA; Start 06/19/17 at 14:00 Magnesium Hydroxide (Milk Of Magnesia) 2,400 mg PRN QHS PRN PO CONSTIPATION; Start 06/19/17 at 14:00 Donepezil HCl (Aricept) 5 mg QHS PO Last administered on 06/22/17at 20:13; Start 06/19/17 at 21:00; Stop 06/23/17 at 16:14; Status DC Lorazepam (Ativan) 0.5 mg BID PO Last administered on 06/24/17at 08:40; Start at 21:00; Stop 06/24/17 at 19:12; Status DC Melatonin 6 mg QHS PO Last administered on 06/24/17at 20:31; Start 06/19/17 at 21:00; Stop 06/25/17 at 18:57; Status DC Glimepiride (Amaryl) 2 mg BIDWMEALS PO Last administered on 06/25/17at 17:33; Start 06/19/17 at 17:00; Stop 06/25/17 at 18:22; Status DC Metoprolol Tartrate (Lopressor) 50 mg BID PO Last administered on 07/07/17at 19: 41; Start 06/19/17 at 21:00; Stop 07/08/17 at 14:26; Status DC Warfarin Sodium (Coumadin) 2.5 mg QHS PO Last administered on 06/20/17at 20:15; Start 06/19/17 at 21:00; Stop 06/21/17 at 14:13; Status DC Warfarin Sodium (Coumadin Per Physician) 1 each PRN DAILY PRN MC SEE COMMENTS Last administered on 06/20/17at 10:54; Start 06/19/17 at 16:00; Stop 06/20/17 at 14:41; Status DC Warfarin Sodium (Coumadin) 1 mg QHS PO Last administered on 06/20/17at 20:15; Start 06/19/17 at 21:00; Stop 06/21/17 at 14:14; Status DC Acetaminophen (Tylenol) 650 mg PRN Q4HRS PRN PO PAIN Last administered on at 17:06; Start 06/20/17 at 10:15 Clotrimazole (Lotrimin) 15 tori BID TP ; Start 06/20/17 at 21:00; Stop 06/20/17 at 21:00; Status DC Furosemide (Lasix) 40 mg DAILY PO Last administered on 07/15/17at 08:03; Start 06/20/17 at 12:00 Hydrocortisone Acetate (Anucort-Hc) 25 mg PRN Q8HRS PRN RC hemmorhoid discomfort; Start 06/20/17 at 10:15 Linagliptin (Tradjenta) 5 mg DAILY PO Last administered on 07/15/17at 08:02; Start 06/20/17 at 12:00 Losartan Potassium (Cozaar) 50 mg DAILY PO Last administered on 06/27/17at 09:00 ; Start 06/20/17 at 12:00; Stop 07/01/17 at 13:35; Status DC Nystatin (Mycostatin) 1 tori DAILY TP Last administered on 07/15/17 10:02; Start 06/20/17 at 12:00 Oxymetazoline HCl (Afrin) 1 spray PRN Q6HRS PRN NS dry nares Last administered on 06/20/17 12:08; Start 06/20/17 at 10:15 Simvastatin (Zocor) 10 mg QHS PO Last administered on 07/15/17 19:26; Start at 21:00 Lidocaine HCl (Xylocaine 2% Topical 30gm Tube) 1 tori DAILY TP Last administered on 06/24/17 08:42; Start 06/20/17 at 12:00; Stop 06/26/17 at 15:33 ; Status DC Polyethylene Glycol (miraLAX) 17 gm DAILY PO Last administered on 07/15/17 08: 02; Start 06/20/17 at 12:00 Potassium Chloride (Klor-Con) 20 meq DAILYWBKFT PO Last administered on at 08:04; Start 06/20/17 at 12:00 Quetiapine Fumarate (SEROquel) 12.5 mg TID@0900,1300,1700 PO Last administered on 06/25/17 17:33; Start 06/20/17 at 13:00; Stop 06/25/17 at 18:57; Status DC Trazodone HCl (Desyrel) 50 mg QHS PO Last administered on 07/02/17 20:18; Start 06/20/17 at 21:00; Stop 07/03/17 at 18:41; Status DC Trazodone HCl (Desyrel) 50 mg PRN QHS PRN PO insomnia Last administered on 01:15; Start 06/20/17 at 21:00; Stop 07/03/17 at 18:41; Status DC Tramadol HCl (Ultram) 50 mg PRN Q6HRS PRN PO PAIN Last administered on 17:51; Start 06/20/17 at 11:15 Lidocaine (Lidoderm) 1 patch DAILY TD Last administered on 07/15/17at 08:02; Start 06/20/17 at 12:00 Warfarin Sodium (Coumadin Per Pharmacy) 1 each PRN DAILY PRN MC SEE COMMENTS Last administered on 07/10/17at 12:48; Start 06/20/17 at 14:45 Clotrimazole (Lotrimin) 1 tori BID TP Last administered on 07/15/17at 19:27; Start 06/20/17 at 21:00 Warfarin Sodium (Coumadin Per Pharmacy) 1 each PRN DAILY PRN MC SEE COMMENTS; Start 06/21/17 at 14:00; Stop 06/21/17 at 14:00; Status DC Vitamin D (Vitamin D3) 50,000 unit WEEKLY PO Last administered on 07/12/17at 08: 19; Start 06/21/17 at 14:00 Warfarin Sodium (Coumadin) 5 mg 1X WARF ONCE PO Last administered on at 15:45; Start 06/21/17 at 16:00; Stop 06/21/17 at 16:01; Status DC Warfarin Sodium (Coumadin) 5 mg 1X WARF ONCE PO Last administered on at 16:56; Start 06/22/17 at 16:00; Stop 06/22/17 at 16:02; Status DC Fluvoxamine Maleate (Luvox) 25 mg DAILY PO Last administered on 06/25/17at 08:46 ; Start 06/23/17 at 09:00; Stop 06/26/17 at 08:59; Status DC Fluvoxamine Maleate (Luvox) 50 mg DAILY PO Last administered on 06/28/17at 10:00 ; Start 06/26/17 at 09:00; Stop 06/28/17 at 18:16; Status DC Warfarin Sodium (Coumadin) 5 mg 1X WARF ONCE PO Last administered on at 16:18; Start 06/23/17 at 16:00; Stop 06/23/17 at 16:01; Status DC Donepezil HCl (Aricept) 10 mg QHS PO Last administered on 07/15/17at 19:25; Start 06/23/17 at 21:00 Warfarin Sodium (Coumadin) 5 mg DAILY16 PO Last administered on 06/29/17at 17:05 ; Start 06/24/17 at 16:00; Stop 06/30/17 at 10:43; Status DC Lorazepam (Ativan) 0.25 mg BID PO Last administered on 06/27/17 20:07; Start at 21:00; Stop 06/27/17 at 22:00; Status DC Lorazepam (Ativan) 0.25 mg DAILY PO Last administered on 06/30/17 09:06; Start 06/28/17 at 09:00; Stop 07/01/17 at 08:59; Status DC Glimepiride (Amaryl) 4 mg BIDWMEALS PO Last administered on 07/15/17at 16:49; Start 06/26/17 at 08:00 Oxycodone HCl (Roxicodone) 5 mg PRN Q6HRS PRN PO PAIN Last administered on 07/15 08:06; Start 06/25/17 at 18:30 Quetiapine Fumarate (SEROquel) 12.5 mg QID PO ; Start 06/26/17 at 07:00; Stop at 07:00; Status DC Mirtazapine (Remeron) 7.5 mg QHS PO Last administered on 07/01/17at 19:39; Start 06/25/17 at 21:00; Stop 07/02/17 at 18:12; Status DC Quetiapine Fumarate (SEROquel) 12.5 mg 0700,1100,1500,1900 PO Last administered on 07/15/17at 17:50; Start 06/26/17 at 07:00 Lidocaine HCl (Xylocaine 2% Topical 30gm Tube) 1 tori PRN Q6HRS PRN TP PAIN; Start 06/27/17 at 12:00 Fluvoxamine Maleate (Luvox) 75 mg DAILY PO Last administered on 07/01/17 09:07 ; Start 06/29/17 at 09:00; Stop 07/01/17 at 18:36; Status DC Warfarin Sodium (Coumadin - No Dose Today) 1 each 1X WARF ONCE MC Last administered on 06/30/17 16:00; Start 06/30/17 at 16:00; Stop 06/30/17 at 16:01; Status DC Warfarin Sodium (Coumadin) 5 mg 1X WARF ONCE PO Last administered on 07/01/17 17:11; Start 07/01/17 at 16:00; Stop 07/01/17 at 16:01; Status DC Fluvoxamine Maleate (Luvox) 100 mg DAILY PO Last administered on 07/07/17at 08: 39; Start 07/02/17 at 09:00; Stop 07/07/17 at 18:30; Status DC Warfarin Sodium (Coumadin) 5 mg 1X WARF ONCE PO Last administered on 07/02/17at 15:56; Start 07/02/17 at 16:00; Stop 07/02/17 at 16:01; Status DC Mirtazapine (Remeron) 15 mg QHS PO Last administered on 07/02/17at 20:17; Start 07/02/17 at 21:00; Stop 07/03/17 at 18:41; Status DC Warfarin Sodium (Coumadin) 5 mg DAILY16 PO Last administered on 07/15/17at 15:24 ; Start 07/03/17 at 16:00 Trazodone HCl (Desyrel) 100 mg PRN QHS PRN PO insomnia; Start 07/03/17 at 18:45 Trazodone HCl (Desyrel) 100 mg QHS PO Last administered on 07/15/17at 19:25; Start 07/03/17 at 21:00 Amitriptyline HCl (Elavil) 25 mg QHS PO Last administered on 07/10/17at 21:03; Start 07/03/17 at 21:00; Stop 07/11/17 at 10:07; Status DC Fluvoxamine Maleate (Luvox) 100 mg DAILY PO Last administered on 07/15/17at 08: 02; Start 07/08/17 at 09:00 Fluvoxamine Maleate (Luvox) 25 mg DAILY PO Last administered on 07/15/17at 08:02 ; Start 07/08/17 at 09:00 Metoprolol Tartrate (Lopressor) 25 mg BID PO Last administered on 07/15/17 19: 25; Start 07/08/17 at 21:00 Amitriptyline HCl (Elavil) 50 mg QHS PO Last administered on 07/15/17at 19:26; Start 07/11/17 at 21:00 Melatonin 3 mg PRN QHS PRN PO INSOMNIA; Start 07/11/17 at 10:15 Active Scripts Active Reported Tradjenta (Linagliptin) 5 Mg Tablet 5 Mg PO DAILY Simvastatin 10 Mg Tablet 10 Mg PO DAILY Probiotic (Lactobacillus Combo No.10) 1 Each Capsule 1 Each PO Potassium Chloride 10 Meq Tablet.er 20 Meq PO DAILY Nystatin 15 Gm Cream..g. 1 Tori TP DAILY Sinus Nasal (Oxymetazoline Hcl) 30 Ml [place] 1 [place] NS PRN Q6HRS PRN Metoprolol Tartrate 50 Mg Tablet 50 Mg PO BID Melatonin 3 Mg Tablet 6 Mg PO HS Losartan Potassium 50 Mg Tablet 50 Mg PO DAILY Lorazepam 0.5 Mg Tablet 0.5 Mg PO BID Topicaine (Lidocaine) 113 Gm Gel..gram. 1 Tori TP DAILY Polyethylene Glycol 3350 2,500 Gm Powder 17 Gm PO DAILY Glimepiride 2 Mg Tablet 2 Mg PO BID Furosemide 40 Mg Tablet 40 Mg PO DAILY Coumadin (Warfarin Sodium) 3 Mg Tablet 3.5 Mg PO QHS Clotrimazole 15 Gm Cream..g. 15 Gm TP BID Aricept (Donepezil Hcl) 5 Mg Tablet 5 Mg PO QHS Anusol-Hc (Hydrocortisone Acetate) 25 Mg Supp.rect 1 Supp RC PRN Q8HRS PRN Tylenol (Acetaminophen) 325 Mg Tablet 650 Mg PO PRN Q4HRS PRN I have reviewed the current psychotropics carefully including drug interactions. Risk benefit ratio favors no change other than as noted in my dictated progress note. Diagnosis: Problems: (1) Medical clearance for psychiatric admission (2) Psychosis (3) Anxiety disorder (4) Bipolar affective, mixed, sev w/ psych (5) Dementia in Alzheimer's disease with delusions (6) Impulse control disorder MIMI MCNULTY MD Jul 15, 2017 20:55
[2017-07-16] MEDS ORDERED: CHOL500021 PO (00:56)
[2017-07-16] MEDS ORDERED: AMIT50TA PO (00:56)
[2017-07-16] MEDS ORDERED: FLUV25TA PO (00:59)
[2017-07-16] MEDS ORDERED: FLUV100T2 PO (00:59)
[2017-07-16] MEDS ORDERED: OXYC-323 PO (01:01)
[2017-07-16] MEDS ORDERED: QUET25TA5 PO (01:04)
[2017-07-16 06:02] VITALS: BP 127/68
[2017-07-16] MEDS: QUEtiapine 25 MG TABLET. PO SCH ×2 (07:00→12:02)
[2017-07-16] MEDS: LIDOCAINE (700MG/PATCH) PATCH. TD SCH (08:12)
[2017-07-16] MEDS: POLYETHYLENE GLYCOL 3350 17 GM PACKET. PO SCH (08:12)
[2017-07-16] MEDS: POTASSIUM CHLORIDE 20 MEQ TABLET.ER. PO SCH (08:12)
[2017-07-16] MEDS: LINAGLIPTIN 5 MG TABLET PO SCH (08:12)
[2017-07-16] MEDS: FUROSEMIDE 40 MG TABLET PO SCH (08:12)
[2017-07-16 08:13] VITALS: BP 127/68
[2017-07-16] MEDS: METOPROLOL TART IMMED RELEASE 25 MG TABLET PO SCH (08:13)
[2017-07-16] MEDS: GLIMEPIRIDE 2 MG TABLET PO SCH (08:13)
[2017-07-16] MEDS: NYSTATIN 100,000 UNIT/GM TOPICAL CREAM 15GM TUBE. TP SCH (08:14)
[2017-07-16] MEDS: CLOTRIMAZOLE 1% TOPICAL CREAM 30GM TUBE. TP SCH (08:14)
[2017-07-16] MEDS: oxyCODONE IR 5 MG TABLET PO PRN (09:33)
[2017-07-16] MEDS ORDERED: OXYC5TAB95 PO (10:09)
--- NOTE | 2017-07-16 14:34 | PN ---
DATE: 07/15/2017 PSYCHIATRIC PROGRESS NOTE This is a late entry 07/15/2017, covers elements not covered in my initial note 07/15/2017. SUBJECTIVE: I met with the patient the evening of 07/15/2017. The patient slept 5-3/4 hours previous evening. Overall; less irritable, less depressed, less arguing, less attention seeking, still somewhat withdrawn, but less than before per nursing report. REVIEW OF SYSTEMS: Positive for some back pain, impaired ambulation and wheelchair, less fixated on somatic symptoms. MENTAL STATUS EXAM: Oriented to himself and situation. Speech has some latency, coherent. Abstraction fair, computation impaired, language function intact, attention span short. Mood and affect showing improvement. LABORATORY DATA: Reviewed. IMPRESSION: Unchanged from initial note. PLAN: Continue psychotropics mentioned in my initial note. MAN Raquel MCNULTY MD DR: CHERIE/yovana JOB#: [id number] / [id number]
--- NOTE | 2017-07-16 18:07 | PDOC ---
Exam Note: Shady Note: Please also refer to the separate dictated note~for this date of service dictated separately.~Patient seen individually. Discussed the patient with Nursing staff reviewed the chart.~Reviewed interim history and current functioning. Reviewed vital signs,~Labs/ Radiology~and current medications noted below. Continue current treatment with the changes noted in the dictated addendum note Assessment: Vital Signs: Vital Signs Date Time Temp Pulse Resp B/P (MAP) Pulse Ox O2 Delivery O2 Flow Rate FiO2 07/16/17 12:01 18 93 Room Air 07/16/17 08:13 80 127/68 07/16/17 06:02 97.7 I&O Intake and Output 07/16/17 07:00 Intake Total 1080 ml Balance 1080 ml Intake Oral 1080 ml Labs: Laboratory Tests Test 07/15/17 19:19 07/16/17 07:24 Glucose (Fingerstick) 164 mg/dL (70-99) H 77 mg/dL (70-99) Current Medications: Meds: Current Medications Acetaminophen (Tylenol) 650 mg PRN Q6HRS PRN PO PAIN / TEMP Last administered on 06/20/17at 09:28; Start 06/19/17 at 14:00; Stop 06/20/17 at 10:20; Status DC Multi-Ingredient Ointment (Analgesic [place]) 1 tori PRN QID PRN TP MUSCLE PAIN Last administered on 07/14/17at 21:02; Start 06/19/17 at 14:00; Stop 07/16/17 at 15:19; Status DC Al Hydroxide/Mg Hydroxide (Mylanta Plus Xs) 15 ml PRN AFTMEALHC PRN PO DYSPEPSIA; Start 06/19/17 at 14:00; Stop 07/16/17 at 15:19; Status DC Magnesium Hydroxide (Milk Of Magnesia) 2,400 mg PRN QHS PRN PO CONSTIPATION; Start 06/19/17 at 14:00; Stop 07/16/17 at 15:19; Status DC Donepezil HCl (Aricept) 5 mg QHS PO Last administered on 06/22/17at 20:13; Start 06/19/17 at 21:00; Stop 06/23/17 at 16:14; Status DC Lorazepam (Ativan) 0.5 mg BID PO Last administered on 06/24/17at 08:40; Start at 21:00; Stop 06/24/17 at 19:12; Status DC Melatonin 6 mg QHS PO Last administered on 06/24/17at 20:31; Start 06/19/17 at 21:00; Stop 06/25/17 at 18:57; Status DC Glimepiride (Amaryl) 2 mg BIDWMEALS PO Last administered on 06/25/17at 17:33; Start 06/19/17 at 17:00; Stop 06/25/17 at 18:22; Status DC Metoprolol Tartrate (Lopressor) 50 mg BID PO Last administered on 07/07/17at 19: 41; Start 06/19/17 at 21:00; Stop 07/08/17 at 14:26; Status DC Warfarin Sodium (Coumadin) 2.5 mg QHS PO Last administered on 06/20/17at 20:15; Start 06/19/17 at 21:00; Stop 06/21/17 at 14:13; Status DC Warfarin Sodium (Coumadin Per Physician) 1 each PRN DAILY PRN MC SEE COMMENTS Last administered on 06/20/17at 10:54; Start 06/19/17 at 16:00; Stop 06/20/17 at 14:41; Status DC Warfarin Sodium (Coumadin) 1 mg QHS PO Last administered on 06/20/17at 20:15; Start 06/19/17 at 21:00; Stop 06/21/17 at 14:14; Status DC Acetaminophen (Tylenol) 650 mg PRN Q4HRS PRN PO PAIN Last administered on at 17:06; Start 06/20/17 at 10:15; Stop 07/16/17 at 15:19; Status DC Clotrimazole (Lotrimin) 15 tori BID TP ; Start 06/20/17 at 21:00; Stop 06/20/17 at 21:00; Status DC Furosemide (Lasix) 40 mg DAILY PO Last administered on 07/16/17at 08:12; Start 06/20/17 at 12:00; Stop 07/16/17 at 15:19; Status DC Hydrocortisone Acetate (Anucort-Hc) 25 mg PRN Q8HRS PRN RC hemmorhoid discomfort; Start 06/20/17 at 10:15; Stop 07/16/17 at 15:19; Status DC Linagliptin (Tradjenta) 5 mg DAILY PO Last administered on 07/16/17 08:12; Start 06/20/17 at 12:00; Stop 07/16/17 at 15:19; Status DC Losartan Potassium (Cozaar) 50 mg DAILY PO Last administered on 06/27/17 09:00 ; Start 06/20/17 at 12:00; Stop 07/01/17 at 13:35; Status DC Nystatin (Mycostatin) 1 tori DAILY TP Last administered on 07/16/17at 08:14; Start 06/20/17 at 12:00; Stop 07/16/17 at 15:19; Status DC Oxymetazoline HCl (Afrin) 1 spray PRN Q6HRS PRN NS dry nares Last administered on 06/20/17at 12:08; Start 06/20/17 at 10:15; Stop 07/16/17 at 15:19; Status DC Simvastatin (Zocor) 10 mg QHS PO Last administered on 07/15/17at 19:26; Start at 21:00; Stop 07/16/17 at 15:19; Status DC Lidocaine HCl (Xylocaine 2% Topical 30gm Tube) 1 tori DAILY TP Last administered on 06/24/17at 08:42; Start 06/20/17 at 12:00; Stop 06/26/17 at 15:33 ; Status DC Polyethylene Glycol (miraLAX) 17 gm DAILY PO Last administered on 07/16/17 08: 12; Start 06/20/17 at 12:00; Stop 07/16/17 at 15:19; Status DC Potassium Chloride (Klor-Con) 20 meq DAILYWBKFT PO Last administered on at 08:12; Start 06/20/17 at 12:00; Stop 07/16/17 at 15:19; Status DC Quetiapine Fumarate (SEROquel) 12.5 mg TID@0900,1300,1700 PO Last administered on 06/25/17at 17:33; Start 06/20/17 at 13:00; Stop 06/25/17 at 18:57; Status DC Trazodone HCl (Desyrel) 50 mg QHS PO Last administered on 3/6/18at 20:18; Start 06/20/17 at 21:00; Stop 07/03/17 at 18:41; Status DC Trazodone HCl (Desyrel) 50 mg PRN QHS PRN PO insomnia Last administered on at 01:15; Start 06/20/17 at 21:00; Stop 07/03/17 at 18:41; Status DC Tramadol HCl (Ultram) 50 mg PRN Q6HRS PRN PO PAIN Last administered on at 17:51; Start 06/20/17 at 11:15; Stop 07/16/17 at 15:19; Status DC Lidocaine (Lidoderm) 1 patch DAILY TD Last administered on 07/16/17at 08:12; Start 06/20/17 at 12:00; Stop 07/16/17 at 15:19; Status DC Warfarin Sodium (Coumadin Per Pharmacy) 1 each PRN DAILY PRN MC SEE COMMENTS Last administered on 07/10/17at 12:48; Start 06/20/17 at 14:45; Stop 07/16/17 at 15:19; Status DC Clotrimazole (Lotrimin) 1 tori BID TP Last administered on 07/16/17at 08:14; Start 06/20/17 at 21:00; Stop 07/16/17 at 15:19; Status DC Warfarin Sodium (Coumadin Per Pharmacy) 1 each PRN DAILY PRN MC SEE COMMENTS; Start 06/21/17 at 14:00; Stop 06/21/17 at 14:00; Status DC Vitamin D (Vitamin D3) 50,000 unit WEEKLY PO Last administered on 07/12/17at 08: 19; Start 06/21/17 at 14:00; Stop 07/16/17 at 15:19; Status DC Warfarin Sodium (Coumadin) 5 mg 1X WARF ONCE PO Last administered on at 15:45; Start 06/21/17 at 16:00; Stop 06/21/17 at 16:01; Status DC Warfarin Sodium (Coumadin) 5 mg 1X WARF ONCE PO Last administered on at 16:56; Start 06/22/17 at 16:00; Stop 06/22/17 at 16:02; Status DC Fluvoxamine Maleate (Luvox) 25 mg DAILY PO Last administered on 06/25/17at 08:46 ; Start 06/23/17 at 09:00; Stop 06/26/17 at 08:59; Status DC Fluvoxamine Maleate (Luvox) 50 mg DAILY PO Last administered on 06/28/17at 10:00 ; Start 06/26/17 at 09:00; Stop 06/28/17 at 18:16; Status DC Warfarin Sodium (Coumadin) 5 mg 1X WARF ONCE PO Last administered on at 16:18; Start 06/23/17 at 16:00; Stop 06/23/17 at 16:01; Status DC Donepezil HCl (Aricept) 10 mg QHS PO Last administered on 07/15/17at 19:25; Start 06/23/17 at 21:00; Stop 07/16/17 at 15:19; Status DC Warfarin Sodium (Coumadin) 5 mg DAILY16 PO Last administered on 06/29/17at 17:05 ; Start 06/24/17 at 16:00; Stop 06/30/17 at 10:43; Status DC Lorazepam (Ativan) 0.25 mg BID PO Last administered on 06/27/17at 20:07; Start at 21:00; Stop 06/27/17 at 22:00; Status DC Lorazepam (Ativan) 0.25 mg DAILY PO Last administered on 06/30/17at 09:06; Start 06/28/17 at 09:00; Stop 07/01/17 at 08:59; Status DC Glimepiride (Amaryl) 4 mg BIDWMEALS PO Last administered on 07/16/17at 08:13; Start 06/26/17 at 08:00; Stop 07/16/17 at 15:19; Status DC Oxycodone HCl (Roxicodone) 5 mg PRN Q6HRS PRN PO PAIN Last administered on 07/16at 09:33; Start 06/25/17 at 18:30; Stop 07/16/17 at 15:19; Status DC Quetiapine Fumarate (SEROquel) 12.5 mg QID PO ; Start 06/26/17 at 07:00; Stop at 07:00; Status DC Mirtazapine (Remeron) 7.5 mg QHS PO Last administered on 07/01/17at 19:39; Start 06/25/17 at 21:00; Stop 07/02/17 at 18:12; Status DC Quetiapine Fumarate (SEROquel) 12.5 mg 0700,1100,1500,1900 PO Last administered on 07/16/17at 12:02; Start 06/26/17 at 07:00; Stop 07/16/17 at 15:19 ; Status DC Lidocaine HCl (Xylocaine 2% Topical 30gm Tube) 1 tori PRN Q6HRS PRN TP PAIN; Start 06/27/17 at 12:00; Stop 07/16/17 at 15:19; Status DC Fluvoxamine Maleate (Luvox) 75 mg DAILY PO Last administered on 07/01/17at 09:07 ; Start 06/29/17 at 09:00; Stop 07/01/17 at 18:36; Status DC Warfarin Sodium (Coumadin - No Dose Today) 1 each 1X WARF ONCE MC Last administered on 06/30/17at 16:00; Start 06/30/17 at 16:00; Stop 06/30/17 at 16:01; Status DC Warfarin Sodium (Coumadin) 5 mg 1X WARF ONCE PO Last administered on 07/01/17at 17:11; Start 07/01/17 at 16:00; Stop 07/01/17 at 16:01; Status DC Fluvoxamine Maleate (Luvox) 100 mg DAILY PO Last administered on 07/07/17at 08: 39; Start 07/02/17 at 09:00; Stop 07/07/17 at 18:30; Status DC Warfarin Sodium (Coumadin) 5 mg 1X WARF ONCE PO Last administered on 07/02/17at 15:56; Start 07/02/17 at 16:00; Stop 07/02/17 at 16:01; Status DC Mirtazapine (Remeron) 15 mg QHS PO Last administered on 07/02/17at 20:17; Start 07/02/17 at 21:00; Stop 07/03/17 at 18:41; Status DC Warfarin Sodium (Coumadin) 5 mg DAILY16 PO Last administered on 07/15/17at 15:24 ; Start 07/03/17 at 16:00; Stop 07/16/17 at 15:19; Status DC Trazodone HCl (Desyrel) 100 mg PRN QHS PRN PO insomnia; Start 07/03/17 at 18:45 ; Stop 07/16/17 at 15:19; Status DC Trazodone HCl (Desyrel) 100 mg QHS PO Last administered on 07/15/17at 19:25; Start 07/03/17 at 21:00; Stop 07/16/17 at 15:19; Status DC Amitriptyline HCl (Elavil) 25 mg QHS PO Last administered on 07/10/17at 21:03; Start 07/03/17 at 21:00; Stop 07/11/17 at 10:07; Status DC Fluvoxamine Maleate (Luvox) 100 mg DAILY PO Last administered on 07/16/17at 08: 12; Start 07/08/17 at 09:00; Stop 07/16/17 at 15:19; Status DC Fluvoxamine Maleate (Luvox) 25 mg DAILY PO Last administered on 07/16/17at 08:12 ; Start 07/08/17 at 09:00; Stop 07/16/17 at 15:19; Status DC Metoprolol Tartrate (Lopressor) 25 mg BID PO Last administered on 07/16/17at 08: 13; Start 07/08/17 at 21:00; Stop 07/16/17 at 15:19; Status DC Amitriptyline HCl (Elavil) 50 mg QHS PO Last administered on 07/15/17at 19:26; Start 07/11/17 at 21:00; Stop 07/16/17 at 15:19; Status DC Melatonin 3 mg PRN QHS PRN PO INSOMNIA; Start 07/11/17 at 10:15; Stop 07/16/17 at 15:19; Status DC Active Scripts Active Reported Oxycodone Hcl 5 Mg Tablet 1 Tab PO PRN Q6HRS PRN Seroquel (Quetiapine Fumarate) 25 Mg Tablet 12.5 Mg PO QID @7,11,15,19 Fluvoxamine Maleate 100 Mg Tablet 100 Mg PO DAILY Fluvoxamine Maleate 25 Mg Tablet 25 Mg PO DAILY D3-50 (Cholecalciferol (Vitamin D3)) 50,000 Unit Capsule 50,000 Unit PO WEEKLY Amitriptyline Hcl 50 Mg Tablet 50 Mg PO QHS Tradjenta (Linagliptin) 5 Mg Tablet 5 Mg PO DAILY Simvastatin 10 Mg Tablet 10 Mg PO HS Potassium Chloride 10 Meq Tablet.er 20 Meq PO DAILY Nystatin 15 Gm Cream..g. 1 Tori TP DAILY Metoprolol Tartrate 50 Mg Tablet 25 Mg PO BID Melatonin 3 Mg Tablet 6 Mg PO HS Topicaine (Lidocaine) 113 Gm Gel..gram. 1 Tori TP PRN Q6HRS PRN Polyethylene Glycol 3350 2,500 Gm Powder 17 Gm PO DAILY Glimepiride 2 Mg Tablet 4 Mg PO BID Furosemide 40 Mg Tablet 40 Mg PO DAILY Coumadin (Warfarin Sodium) 3 Mg Tablet 5 Mg PO QHS Clotrimazole 15 Gm Cream..g. 15 Gm TP BID Aricept (Donepezil Hcl) 5 Mg Tablet 10 Mg PO QHS Anusol-Hc (Hydrocortisone Acetate) 25 Mg Supp.rect 1 Supp RC PRN Q8HRS PRN Tylenol (Acetaminophen) 325 Mg Tablet 650 Mg PO PRN Q4HRS PRN I have reviewed the current psychotropics carefully including drug interactions. Risk benefit ratio favors no change other than as noted in my dictated progress note. Diagnosis: Problems: (1) Impulse control disorder (2) Dementia in Alzheimer's disease with delusions (3) Bipolar affective, mixed, sev w/ psych (4) Anxiety disorder (5) Psychosis MIMI MCNULTY MD Jul 16, 2017 18:07
--- NOTE | 2017-07-17 14:40 | DS ---
DATE OF DISCHARGE: 07/16/2017 DISCHARGE SUMMARY/PSYCHIATRIC PROGRESS NOTE This is a late entry, date of service 07/16/2017, covers elements not covered in my initial note 07/16/2017. REASON FOR ADMISSION: Please refer to the admission history for details. Briefly, the patient is an -[id number]-rxn female referred from [facility] on account of increased agitation, mood lability, undressing himself, being sexually inappropriate with staff, provocative, refusing cares and medications, obsessed to the bathroom and toilet paper. He was digging his bowel movements from the soiled briefs. That behaviors had been extremely erratic. He appeared psychotic, had failed outpatient psychiatric interventions resulting in this referral. SIGNIFICANT FINDINGS AND CLINICAL COURSE: Following admission, the patient was seen daily individually by myself, followed medically per Dr. Veliz/Dr. Lewis. He is noted to be quite obsessive, ruminative, somatically preoccupied, though to some extent his somatic complaints were legitimate with the back pain and fractured thoracic vertebrae, for which he will need followup as an outpatient. He was otherwise very suspicious. Adjustments were made in his psychotropics and he seemed to respond to a combination of Seroquel 12.5 mg 4 times a day, trazodone 100 mg at bedtime, may repeat x 1, Luvox 125 mg daily for his OCD symptoms, melatonin 3 mg at bedtime p.r.n., Aricept 10 mg a day, amitriptyline 50 mg at bedtime to help with insomnia and anxiety. Gradually mood appeared to improve. He was much less labile, very appreciative of help from staff, much less obsessive. Psychotic symptoms appeared much improved as well prior to discharge. REVIEW OF SYSTEMS: Ambulation impaired, in wheelchair. Still complains of some back pain. No CV, , pulmonary, eye system symptoms on review. MENTAL STATUS EXAM: Oriented to himself and situation. Speech has some latency, coherent. Eye contact is poor, abstraction fair, computation impaired, language function intact, attention span short. Mood and affect was improved. No suicidal or homicidal ideation prior to discharge. CONDITION AT DISCHARGE: Improved. FINAL DIAGNOSES: Major depressive disorder with psychotic features, obsessive-compulsive disorder, anxiety disorder, unspecified; impulse control disorder. Rest unchanged from admission. DISCHARGE MEDICATIONS: Please refer to the . DISCHARGE INSTRUCTIONS: Outpatient psychiatric and medical followup at the senior living. Time for discharge day management greater than 30 minutes. MIMI MCNULTY MD DR: CHERIE/yovana JOB#: [id number] / [id number]
== END 2017-07-16 14:30 | disposition home or self-care (01) | DRG 885 ==
LOC: ER 10:55 → GEROPSY 13:21
PROVIDERS: ADMIT Psychiatry & Neurology Psychiatry; ATTEND Psychiatry & Neurology Psychiatry
DX: F31.64 Bipolar disorder, current episode mixed, severe, with psychotic features (principal); S22.089A Unspecified fracture of T11-T12 vertebra, initial encounter for closed fracture; E11.22 Type 2 diabetes mellitus with diabetic chronic kidney disease; I13.0 Hypertensive heart and chronic kidney disease with heart failure and stage 1 through stage 4 chronic kidney disease, or unspecified chronic kidney disease; I50.9 Heart failure, unspecified; G30.9 Alzheimer's disease, unspecified; F02.80 Dementia in other diseases classified elsewhere, unspecified severity, without behavioral disturbance, psychotic disturbance, mood disturbance, and anxiety; I48.91 Unspecified atrial fibrillation; E78.5 Hyperlipidemia, unspecified; F41.9 Anxiety disorder, unspecified; N18.9 Chronic kidney disease, unspecified; F63.9 Impulse disorder, unspecified; F42.9 Obsessive-compulsive disorder, unspecified; G47.00 Insomnia, unspecified; G89.29 Other chronic pain; Z66 Do not resuscitate; I25.10 Atherosclerotic heart disease of native coronary artery without angina pectoris; X58.XXXA Exposure to other specified factors, initial encounter; Z02.89 Encounter for other administrative examinations; Z79.01 Long term (current) use of anticoagulants; Z95.2 Presence of prosthetic heart valve; Z95.0 Presence of cardiac pacemaker; Z91.81 History of falling; Z87.891 Personal history of nicotine dependence; Z79.899 Other long term (current) drug therapy; Y93.89 Activity, other specified; Y92.89 Other specified places as the place of occurrence of the external cause; Y99.8 Other external cause status; Z90.89 Acquired absence of other organs
CPT/HCPCS: 36415; 72131; 80053; 80061; 81001; 82306; 82607; 82947; 83036; 83540; 83550; 83735; 84436; 84443; 84480; 85025; 85610; 86593; 93005; 99285-25